=== PATIENT | female | born 1935 | race Caucasian/White ===

== ENCOUNTER 2019-12-28 05:01 | Emergency (ER) | payer MEDICARE, SELFPAY ==
[2019-12-28 05:02] VITALS: BP 150/84; PULSE 74; RESP 18; TEMP 36.6; O2SAT 93; BMI 33.6
--- NOTE | 2019-12-28 05:09 | ED_ITS ---
Entered by Pricila Peralta, acting as scribe for Tyshawn Marquez DO Dec 28, 2019 05:01 Documented by User: Amarilis Canchola MD 12/28/19 08:46 HPI - Chest Pain General: Chief Complaint: Chest Pain Stated Complaint: CHEST PAIN Time Seen by Provider: 12/28/19 05:10 [facility] ED PFSH: Medical History (Updated 12/28/19 @ 08:36 by Amarilis Canchola MD) Daytime somnolence Essential (primary) hypertension GERD (gastroesophageal reflux disease) Hypersomnia Postlaminectomy syndrome, not elsewhere classified Surgical History (Updated 11/13/19 @ 11:07 by Nahid Pink MD) S/P knee surgery S/P laminectomy Social History Smoking and tobacco status: former smoker Alcohol intake: never Lives independently: Yes Marital status: / Course Vital Signs: Vital signs: Vital Signs Temperature 97.9 F 12/28/19 05:02 Pulse Rate 69 12/28/19 08:37 Respiratory Rate 14 12/28/19 08:37 Blood Pressure 136/72 12/28/19 08:37 Pulse Oximetry 98 12/28/19 08:37 MDM - Chest Pain MDM Narrative: Medical decision making narrative: I took patient over from Dr. Marquez. Patient's chest pain was completely relieved with a GI cocktail. Patient states she has a history of reflux and feels like that caused her pain. Her initial and repeat troponin here are negative. She has no signs of cardiac cause or pulmonary embolism. Patient is stable for discharge and is to follow- up with primary care doctor in 3 to 5 days and return to ER if worsening. She u nderstands and agrees to the plan. Lab Data: Labs: Lab Results 12/28/19 12/28/19 12/28/19 Range/Units 05:20 05:20 05:20 WBC 7.6 (4.0-10.0) 10^3/ uL RBC 4.76 (4.1-5.3) 10^6/u L Hgb 14.5 (11.5-15.3) g/dL Hct 44.6 (37.0-47.0) % MCV 93.7 (81-99) fL MCH 30.5 (28.0-34.0) pg MCHC 32.5 (30.0-36.0) g/dL RDW 11.9 L (12.1-15.1) % Plt Count 221 (130-400) 10^3/c mm MPV 10.6 H (7.4-10.4) fL Neut % (Auto) 33.7 % Lymph % (Auto) 53.4 % Atlantic % (Auto) 8.9 % Eos % (Auto) 2.9 % Baso % (Auto) 0.8 % Neut # (Auto) 2.6 (1.8-7.7) 10^3/u L Lymph # (Auto) 4.0 (0.8-4.8) 10^3/u L Atlantic # (Auto) 0.7 (0.2-0.9) 10^3/u L Eos # (Auto) 0.2 (0.0-0.8) 10^3/u L Baso # (Auto) 0.1 (0.0-0.1) 10^3/u L Nucleated RBC % (a uto) 0 % Nucleated RBCs # 0.0 /100WBC PT 14.00 H (10.5-13.3) SECO NDS INR 1.05 (0.8-1.2) APTT 38.4 H (23.9-36.7) SECO NDS Sodium 136 (136-145) mmol/L Potassium 3.4 L (3.5-5.1) mmol/L Chloride 96 L (98-107) mmol/L Carbon Dioxide 30 H (22-29) mmol/L Anion Gap 13.4 (5-19) BUN 14 (8-23) mg/dL Creatinine 0.8 (0.5-0.9) mg/dL Glucose 105 (65-115) mg/dL Calcium 10.3 (8.5-10.5) mg/dL Total Bilirubin 0.4 (0.15-1.2) mg/dL AST 21 (0-32) U/L ALT 11 (0-33) U/L Alkaline Phosphata se 68 (35-105) IU/L Troponin T Baselin e (0-10) ng/mL Troponin T 120 Min jena (0-10) ng/mL Delta Troponin T (0-10) ABS# NT-Pro-B Natriuret Pep 137 (0-450) pg/mL Total Protein 7.8 (6.6-8.7) g/dL Albumin 4.3 (3.5-5.2) g/dL Globulin 3.5 (1.3-4.6) g/dL Urine Color (Yellow) Urine Appearance (CLEAR) Urine pH (5-7) Ur Specific Gravit y (1.005-1.030) Urine Protein (Negative) Urine Glucose (UA) (Normal) Urine Ketones (Negative) Urine Blood (Negative) Urine Nitrate (Negative) Urine Bilirubin (NEGATIVE) Urine Urobilinogen (Negative) mg/dL Ur Leukocyte Cindy ase (Negative) 12/28/19 12/28/19 12/28/19 Range/Units 05:20 06:10 07:50 WBC (4.0-10.0) 10^3/ uL RBC (4.1-5.3) 10^6/u L Hgb (11.5-15.3) g/dL Hct (37.0-47.0) % MCV (81-99) fL MCH (28.0-34.0) pg MCHC (30.0-36.0) g/dL RDW (12.1-15.1) % Plt Count (130-400) 10^3/c mm MPV (7.4-10.4) fL Neut % (Auto) % Lymph % (Auto) % Atlantic % (Auto) % Eos % (Auto) % Baso % (Auto) % Neut # (Auto) (1.8-7.7) 10^3/u L Lymph # (Auto) (0.8-4.8) 10^3/u L Atlantic # (Auto) (0.2-0.9) 10^3/u L Eos # (Auto) (0.0-0.8) 10^3/u L Baso # (Auto) (0.0-0.1) 10^3/u L Nucleated RBC % (a uto) % Nucleated RBCs # /100WBC PT (10.5-13.3) SECO NDS INR (0.8-1.2) APTT (23.9-36.7) SECO NDS Sodium (136-145) mmol/L Potassium (3.5-5.1) mmol/L Chloride (98-107) mmol/L Carbon Dioxide (22-29) mmol/L Anion Gap (5-19) BUN (8-23) mg/dL Creatinine (0.5-0.9) mg/dL Glucose (65-115) mg/dL Calcium (8.5-10.5) mg/dL Total Bilirubin (0.15-1.2) mg/dL AST (0-32) U/L ALT (0-33) U/L Alkaline Phosphata se (35-105) IU/L Troponin T Baselin e 7 (0-10) ng/mL Troponin T 120 Min jena 6.28 (0-10) ng/mL Delta Troponin T -0.72 L (0-10) ABS# NT-Pro-B Natriuret Pep (0-450) pg/mL Total Protein (6.6-8.7) g/dL Albumin (3.5-5.2) g/dL Globulin (1.3-4.6) g/dL Urine Color Straw (Yellow) Urine Appearance Clear (CLEAR) Urine pH 7 (5-7) Ur Specific Gravit y 1.005 (1.005-1.030) Urine Protein Neg (Negative) Urine Glucose (UA) Norm (Normal) Urine Ketones Negative (Negative) Urine Blood Neg (Negative) Urine Nitrate Negative (Negative) Urine Bilirubin Neg (NEGATIVE) Urine Urobilinogen Norm (Negative) mg/dL Ur Leukocyte Cindy ase Negative (Negative) Imaging Data^: CXR: Attestation: I personally reviewed and interpreted this imaging study as follows: My impression: no acute abnormality Discharge Plan Discharge Patient Disposition: Home, Self-Care Clinical Impression: Chest pain Qualifiers: Chest pain type: unspecified Qualified Code(s): R07.9 - Chest pain, unspecified Condition: Stable Prescriptions: No Action pantoprazole [Protonix] 40 mg tablet,delayed release (DR/EC) 40 mg PO BID RF: 0 aspirin [Adult Aspirin Regimen] 81 mg tablet,delayed release (DR/EC) 81 mg PO ONCE RF: 0 multivitamin Tablet 1 tab PO QAM RF: 0 trazodone 100 mg tablet 200 mg PO .AT BEDTIME Qty: 60 RF: 6 amlodipine 2.5 mg tablet 2.5 mg PO BID 90 Days Qty: 180 RF: 0 spironolacton-hydrochlorothiaz [Aldactazide] 25-25 mg tablet 0.5 tab PO QDAY MDD 0.5 TAB 180 Days Qty: 90 RF: 0 hydrocodone-acetaminophen [Sebring] 5-325 mg tablet 1 tab PO Q6H PRN (Reason: pain) 30 Days Qty: 120 RF: 0 gabapentin 300 mg capsule 900 mg PO TID Qty: 270 RF: 3 pantoprazole 40 mg tablet,delayed release (DR/EC) 40 mg PO DAILY RF: 0 hydrocodone-acetaminophen 5-325 mg tablet 5 - 325 tab PO UNK RF: 0 gabapentin 300 mg capsule 900 mg PO TID RF: 0 amlodipine 2.5 mg tablet 2.5 mg PO DAILY RF: 0 spironolacton-hydrochlorothiaz 25-25 mg tablet 1 tab PO DAILY RF: 0 Discharge Orders: Discharge Order (Routine); Ordered 12/28/19 Ordered By: Amarilis Canchola Referrals: Nahid Pink MD [Primary Care Provider] - 4-7 days Discharge Diet: Advance as tolerated Discharge Activity: Resume usual activity Patient Instructions: Chest Pain (ED) Discharge Date/Time: 12/28/19 08:38 Coding Level of Care Code ED Warehouse Incent[employer] Selector for Chg Fwd Exam Comprehensive Documented by User: Tyshawn Marquez DO 12/28/19 23:07 HPI - Chest Pain General: Chief Complaint: Chest Pain Stated Complaint: CHEST PAIN Time Seen by Provider: 12/28/19 05:10 Source: patient and EMS Mode of arrival: EMS History of Present Illness: HPI narrative: 84 y/o female presents to the ED with complaint of chest pain. Pt states she was awakened from sleep, with the pain, around 0400. She took 3 of her own supply of sublingual NTG, which reduced her pain from a 10 to a 3. EMS put NTG paste on her since she was having difficulty dissolving the SL due to her dry mouth. She reports pain radiating into her neck with the episode. She states she takes GERD medication regularly and has a chronic cough from her reflux. Pt states she had a bad episode of reflux before going to bed last night. MD complaint: chest pain Onset (ago): hour(s) (1) Timing of current episode: other (improving) Prior episodes: Yes Onset: during rest Pain location: left chest Pain radiation: neck Severity: severe Quality: sharp Relieving factors: nitroglycerin Associated symptoms: Deny abdominal pain, dyspnea, fever(s), palpitations or vomiting Review of Systems Const: Denies: fever or chills Eyes: Denies: change in vision or blurry vision ENMT: Denies: painful swallowing, swelling of lips/tongue, bleeding gums, dental pain, Change in hearing, nose bleeds, post nasal drip or facial/sinus pain Card: Reports: chest pain; Denies: palpitations, irregular heart rhythm, edema, swelling of feet/ankles, shortness of breath on exertion or shortness of breath when lying down Resp: Denies: shortness of breath, productive cough, non-productive cough or wheezing GI: Denies: abdominal pain, vomiting, rectal pain, blood in stool or black tarry stool : Denies: painful urination, urinary frequency, urinary urgency or blood in urine Musc: Reports: neck pain; Denies: back pain, redness or joint warmth Skin/Breast: Denies: rash, itching or redness Neuro: Denies: headache, dizziness, vertigo, confusion or seizure-like activity Psych: Denies: anxiety, visual hallucinations or auditory hallucinations PFSH ED PFSH: Medical History (Updated 12/28/19 @ 08:36 by Amarilis Canchola MD) Daytime somnolence Essential (primary) hypertension GERD (gastroesophageal reflux disease) Hypersomnia Postlaminectomy syndrome, not elsewhere classified Surgical History (Updated 11/13/19 @ 11:07 by Nahid Pink MD) S/P knee surgery S/P laminectomy Social History Smoking and tobacco status: former smoker Alcohol intake: never Lives independently: Yes Marital status: / Physical Exam Const: COMMON NORMALS: alert GENERAL APPEARANCE: well developed ORIENTATION/CONSCIOUSNESS: Yes awake, Yes oriented to person, Yes oriented to place and Yes oriented to time HENMT: COMMON NORMALS: normocephalic, external ears normal, external nose normal and moist oral mucous membranes HEAD & SCALP: normocephalic; no scalp tenderness FACE & SINUS: normal facial exam NOSE: external nose normal and no nasal discharge EXTERNAL EAR: Yes external ears normal MOUTH: tongue normal Eye: COMMON NORMALS: PERRL, EOMs intact bilaterally and conjunctivae normal EYELID: eyelids normal CONJUNCTIVA: Yes conjunctivae normal PUPIL: Yes PERRL Chest: COMMONS NORMALS: inspection of chest normal CHEST: Yes symmetrical chest wall rise and No tenderness Resp: COMMON NORMALS: clear to auscultation bilaterally EFFORT & INSPECTION: No tachypneic, No respiratory distress, No retractions, No uses accessory muscles and No tracheal deviation AUSCULTATION: clear to auscultation bilaterally, no rhonchi, no wheezes and lung sounds not diminished Cardio: COMMON NORMALS: regular rate and regular rhythm RATE: regular rate RHYTHM: regular rhythm PERIPHERAL PULSES: radial pulses present GI: INSPECTION: No abdominal distension AUSCULTATION: No hyperactive bowel sounds and No hypoactive bowel sounds PALPATION: No tender, No guarding and No rigid PERCUSSION: no dullness to percussion and no tympanic to percussion : COMMON NORMALS: Yes no CVA tenderness BLADDER/KIDNEY EXAM: Yes no CVA tenderness Back/Pelvis: COMMON NORMALS: no CVA tenderness PELVIS: Yes no pain with anterior-posterior compression and Yes no pain with lateral compression Neuro: SENSORIUM/ORIENTATION: Yes alert, Yes oriented to person, Yes oriented to place and Yes oriented to time Psych: COMMON NORMALS: mental status grossly normal and speech normal SPEECH: Yes normal speech Skin: COMMON NORMALS: no rashes or lesions noted GENERAL SKIN EXAM: no rashes or lesions noted Course Vital Signs: Vital signs: Vital Signs Temperature 97.9 F 12/28/19 05:02 Pulse Rate 69 12/28/19 08:37 Respiratory Rate 14 12/28/19 08:37 Blood Pressure 136/72 12/28/19 08:37 Pulse Oximetry 98 12/28/19 08:37 MDM - Chest Pain MDM Narrative: Medical decision making narrative: Patient evaluated initially by me. Checked out to Dr. Canchola. She was given a GI cocktail to see if that relieved her pain. Lab Data: Labs: Lab Results 12/28/19 12/28/1912/28/20 Range/Units 05:20 05:20 05:20 WBC 7.6 (4.0-10.0) 10^3/ uL RBC 4.76 (4.1-5.3) 10^6/u L Hgb 14.5 (11.5-15.3) g/dL Hct 44.6 (37.0-47.0) % MCV 93.7 (81-99) fL MCH 30.5 (28.0-34.0) pg MCHC 32.5 (30.0-36.0) g/dL RDW 11.9 L (12.1-15.1) % Plt Count 221 (130-400) 10^3/c mm MPV 10.6 H (7.4-10.4) fL Neut % (Auto) 33.7 % Lymph % (Auto) 53.4 % Atlantic % (Auto) 8.9 % Eos % (Auto) 2.9 % Baso % (Auto) 0.8 % Neut # (Auto) 2.6 (1.8-7.7) 10^3/u L Lymph # (Auto) 4.0 (0.8-4.8) 10^3/u L Atlantic # (Auto) 0.7 (0.2-0.9) 10^3/u L Eos # (Auto) 0.2 (0.0-0.8) 10^3/u L Baso # (Auto) 0.1 (0.0-0.1) 10^3/u L Nucleated RBC % (a uto) 0 % Nucleated RBCs # 0.0 /100WBC PT 14.00 H (10.5-13.3) SECO NDS INR 1.05 (0.8-1.2) APTT 38.4 H (23.9-36.7) SECO NDS Sodium 136 (136-145) mmol/L Potassium 3.4 L (3.5-5.1) mmol/L Chloride 96 L (98-107) mmol/L Carbon Dioxide 30 H (22-29) mmol/L Anion Gap 13.4 (5-19) BUN 14 (8-23) mg/dL Creatinine 0.8 (0.5-0.9) mg/dL Glucose 105 (65-115) mg/dL Calcium 10.3 (8.5-10.5) mg/dL Total Bilirubin 0.4 (0.15-1.2) mg/dL AST 21 (0-32) U/L ALT 11 (0-33) U/L Alkaline Phosphata se 68 (35-105) IU/L Troponin T Baselin e (0-10) ng/mL Troponin T 120 Min jena (0-10) ng/mL Delta Troponin T (0-10) ABS# NT-Pro-B Natriuret Pep 137 (0-450) pg/mL Total Protein 7.8 (6.6-8.7) g/dL Albumin 4.3 (3.5-5.2) g/dL Globulin 3.5 (1.3-4.6) g/dL Urine Color (Yellow) Urine Appearance (CLEAR) Urine pH (5-7) Ur Specific Gravit y (1.005-1.030) Urine Protein (Negative) Urine Glucose (UA) (Normal) Urine Ketones (Negative) Urine Blood (Negative) Urine Nitrate (Negative) Urine Bilirubin (NEGATIVE) Urine Urobilinogen (Negative) mg/dL Ur Leukocyte Cindy ase (Negative) 12/28/19 12/28/19 12/28/19 Range/Units 05:20 06:10 07:50 WBC (4.0-10.0) 10^3/ uL RBC (4.1-5.3) 10^6/u L Hgb (11.5-15.3) g/dL Hct (37.0-47.0) % MCV (81-99) fL MCH (28.0-34.0) pg MCHC (30.0-36.0) g/dL RDW (12.1-15.1) % Plt Count (130-400) 10^3/c mm MPV (7.4-10.4) fL Neut % (Auto) % Lymph % (Auto) % Atlantic % (Auto) % Eos % (Auto) % Baso % (Auto) % Neut # (Auto) (1.8-7.7) 10^3/u L Lymph # (Auto) (0.8-4.8) 10^3/u L Atlantic # (Auto) (0.2-0.9) 10^3/u L Eos # (Auto) (0.0-0.8) 10^3/u L Baso # (Auto) (0.0-0.1) 10^3/u L Nucleated RBC % (a uto) % Nucleated RBCs # /100WBC PT (10.5-13.3) SECO NDS INR (0.8-1.2) APTT (23.9-36.7) SECO NDS Sodium (136-145) mmol/L Potassium (3.5-5.1) mmol/L Chloride (98-107) mmol/L Carbon Dioxide (22-29) mmol/L Anion Gap (5-19) BUN (8-23) mg/dL Creatinine (0.5-0.9) mg/dL Glucose (65-115) mg/dL Calcium (8.5-10.5) mg/dL Total Bilirubin (0.15-1.2) mg/dL AST (0-32) U/L ALT (0-33) U/L Alkaline Phosphata se (35-105) IU/L Troponin T Baselin e 7 (0-10) ng/mL Troponin T 120 Min jena 6.28 (0-10) ng/mL Delta Troponin T -0.72 L (0-10) ABS# NT-Pro-B Natriuret Pep (0-450) pg/mL Total Protein (6.6-8.7) g/dL Albumin (3.5-5.2) g/dL Globulin (1.3-4.6) g/dL Urine Color Straw (Yellow) Urine Appearance Clear (CLEAR) Urine pH 7 (5-7) Ur Specific Gravit y 1.005 (1.005-1.030) Urine Protein Neg (Negative) Urine Glucose (UA) Norm (Normal) Urine Ketones Negative (Negative) Urine Blood Neg (Negative) Urine Nitrate Negative (Negative) Urine Bilirubin Neg (NEGATIVE) Urine Urobilinogen Norm (Negative) mg/dL Ur Leukocyte Cindy ase Negative (Negative) EKG Data^: EKG 1: EKG interpretation date: 12/28/19 EKG interpretation time: 05:14 Computer generated interpretation: sinus rhythm vent rate 68 bpm QRS [id number] ms Discharge Plan Discharge Patient Disposition: Home, Self-Care Clinical Impression: Chest pain Qualifiers: Chest pain type: unspecified Qualified Code(s): R07.9 - Chest pain, unspecified Condition: Stable Prescriptions: No Action pantoprazole [Protonix] 40 mg tablet,delayed release (DR/EC) 40 mg PO BID RF: 0 aspirin [Adult Aspirin Regimen] 81 mg tablet,delayed release (DR/EC) 81 mg PO ONCE RF: 0 multivitamin Tablet 1 tab PO QAM RF: 0 trazodone 100 mg tablet 200 mg PO .AT BEDTIME Qty: 60 RF: 6 amlodipine 2.5 mg tablet 2.5 mg PO BID 90 Days Qty: 180 RF: 0 spironolacton-hydrochlorothiaz [Aldactazide] 25-25 mg tablet 0.5 tab PO QDAY MDD 0.5 TAB 180 Days Qty: 90 RF: 0 hydrocodone-acetaminophen [Sebring] 5-325 mg tablet 1 tab PO Q6H PRN (Reason: pain) 30 Days Qty: 120 RF: 0 gabapentin 300 mg capsule 900 mg PO TID Qty: 270 RF: 3 pantoprazole 40 mg tablet,delayed release (DR/EC) 40 mg PO DAILY RF: 0 hydrocodone-acetaminophen 5-325 mg tablet 5 - 325 tab PO UNK RF: 0 gabapentin 300 mg capsule 900 mg PO TID RF: 0 amlodipine 2.5 mg tablet 2.5 mg PO DAILY RF: 0 spironolacton-hydrochlorothiaz 25-25 mg tablet 1 tab PO DAILY RF: 0 Discharge Orders: Discharge Order (Routine); Ordered 12/28/19 Ordered By: Amarilis Canchola Referrals: Nahid Pink MD [Primary Care Provider] - 4-7 days Discharge Diet: Advance as tolerated Discharge Activity: Resume usual activity Patient Instructions: Chest Pain (ED) Discharge Date/Time: 12/28/19 08:38 Coding Level of Care Code ED Warehouse Incentive Selector for g Fwd Exam Comprehensive The documentation recorded by the Fabian salas Ashley, accurately reflects the service I personally performed and the decisions made by Jimmy montoya Jeremy John, DO Dec 28, 2019 05:01
--- NOTE | 2019-12-28 05:12 | ECG_ITS ---
Measurements Intervals Ivor Rate: 68 P: 10 AK: 148 QRS: 14 QRSD: 107 T: 32 QT: 427 QTc: 457 SINUS RHYTHM WITH OCCASIONAL SUPRAVENTRICULAR PREMATURE COMPLEXES Compared to ECG 02/20/2017 14:41:30 Myocardial infarct finding no longer present Electronically Signed On 12-28-2019 13:05:29 DIE FILER by Dawn Hernandez M.D. [email or web address]
--- NOTE | 2019-12-28 05:12 | XR_ITS ---
WS: [id number] XR chest 1V portable [id number] REASON FOR EXAM: cp FINDINGS: Cardiomegaly with arteriosclerotic changes. The peripheral lungs are clear. There is no pne umothorax, pleural effusion, pulmonary edema, or pneumonia. A scoliotic curve convex to the right is seen. XR/XR chest 1V portable [id number] IMPRESSION: Arteriosclerotic heart disease Scoliosis convex to the right.
[2019-12-28 05:29] LABS: Basophils # 0.1 10^3/uL (0.0-0.1); Basophils % 0.8 %; Eosinophils # 0.2 10^3/uL (0.0-0.8); Eosinophils % 2.9 %; Hematocrit 44.6 % (37.0-47.0); Hemoglobin 14.5 g/dL (11.5-15.3); Lymphocytes % 53.4 %; Mean Corpuscular HGB Conc 32.5 g/dL (30.0-36.0); Mean Corpuscular Hemoglobin 30.5 pg (28.0-34.0); Mean Corpuscular Volume 93.7 fL (81-99); Mean Platelet Volume 10.6 fL (7.4-10.4); Monocytes # 0.7 10^3/uL (0.2-0.9); Monocytes % 8.9 %; Neutrophils # 2.6 10^3/uL (1.8-7.7); Neutrophils % 33.7 %; Nucleated Red Blood Cells % 0 %; Platelet Count 221 10^3/cmm (130-400); Red Blood Count 4.76 10^6/uL (4.1-5.3); Red Cell Distribution Width 11.9 % (12.1-15.1); White Blood Count 7.6 10^3/uL (4.0-10.0)
[2019-12-28 05:36] LABS: INR 1.05 (0.8-1.2)
[2019-12-28 05:37] LABS: Partial Thromboplastin Time 38.4 SECONDS (23.9-36.7)
[2019-12-28 05:43] VITALS: O2SAT 92
[2019-12-28 05:45] LABS: Troponin(5th) Baseline 7 ng/mL (0-10)
[2019-12-28] MEDS: lidocaine 2% viscous 15 ML, aluminum-mag hydrox-simethicon 30 ML, sucralfate oral liq 1 GM PO (05:51)
[2019-12-28 05:54] LABS: Alanine Aminotransferase 11 U/L (0-33); Albumin Level 4.3 g/dL (3.5-5.2); Alkaline Phosphatase 68 IU/L (35-105); Anion Gap 13.4 (5-19); Aspartate Amino Transferase 21 U/L (0-32); Blood Urea Nitrogen 14 mg/dL (8-23); Calcium 10.3 mg/dL (8.5-10.5); Carbon Dioxide 30 mmol/L (22-29); Chloride 96 mmol/L (98-107); Creatinine Clr Calc Pharmacy 52.1892; Globulin 3.5 g/dL (1.3-4.6); Glucose 105 mg/dL (65-115); NT Pro B Type Natriuretic Pept 137 pg/mL (0-450); Potassium 3.4 mmol/L (3.5-5.1); Sodium 136 mmol/L (136-145); Total Bilirubin 0.4 mg/dL (0.15-1.2); Total Protein 7.8 g/dL (6.6-8.7)
[2019-12-28 06:00] VITALS: PULSE 81; RESP 19
[2019-12-28 06:30] VITALS: PULSE 83; RESP 13
[2019-12-28 06:35] LABS: Add Urine Microscopic? NO
[2019-12-28 06:46] LABS: Bilirubin Urine Neg (NEGATIVE); Blood Urine Neg (Negative); Glucose Urine UA Norm (Normal); Ketones Urine Negative (Negative); Leukocyte Esterase Urine Negative (Negative); Nitrate Urine Negative (Negative); Protein Urine Neg (Negative); Specific Gravity, Urine 1.005 (1.005-1.030); Urine Appearance Clear (CLEAR); Urine Color Straw (Yellow); Urobilinogen Urine Norm (Negative); pH Urine 7 (5-7)
[2019-12-28 08:23] LABS: Troponin 5 2HR 6.28 ng/mL (0-10)
[2019-12-28 08:37] VITALS: BP 136/72; PULSE 69; RESP 14; O2SAT 98
[2019-12-28 08:47] LABS: Troponin 5 2HR Delta -0.72 ABS# (0-10)
== END 2019-12-28 08:38 | disposition home or self-care (01) ==
PROVIDERS: Emergency Medicine; Emergency Provider Emergency Medicine; Family Provider Internal Medicine; PCP Internal Medicine
DX: R07.9 Chest pain, unspecified (principal); K21.9 Gastro-esophageal reflux disease without esophagitis; I10 Essential (primary) hypertension; Z87.891 Personal history of nicotine dependence
CPT/HCPCS: 36415; 71045; 80053; 81003; 83880; 84484; 85025; 85610; 85730; 93005; 99283; 99284; A9270

== ENCOUNTER 2019-12-31 20:00 | Outpatient (CLI) | payer MEDICARE, SELFPAY | END 2019-12-31 20:01 | disposition home or self-care (01) | LOC: SLEEP 01-01 10:24 | PROVIDERS: Family Provider Internal Medicine; PCP Internal Medicine; Visit Provider Internal Medicine | DX: G47.33 Obstructive sleep apnea (adult) (pediatric) (principal) | CPT/HCPCS: 95810 ==

== ENCOUNTER 2020-04-19 20:00 | Outpatient (CLI) | payer MEDICARE, SELFPAY | END 2020-04-19 20:01 | disposition home or self-care (01) | LOC: SLEEP 04-20 08:36 | PROVIDERS: Family Provider Internal Medicine; PCP Internal Medicine; Visit Provider Internal Medicine | DX: G47.33 Obstructive sleep apnea (adult) (pediatric) (principal); R09.02 Hypoxemia | CPT/HCPCS: 95811 ==

== ENCOUNTER → 2020-12-30 15:45 | Outpatient (BNVA) | payer MEDICARE, SELFPAY | PROVIDERS: Family Provider Internal Medicine; PCP Internal Medicine; Visit Provider Internal Medicine | DX: R53.83 Other fatigue (principal); G47.33 Obstructive sleep apnea (adult) (pediatric); G89.29 Other chronic pain; I10 Essential (primary) hypertension | CPT/HCPCS: 80053; 82607; 82746; 83036; 83550; 84443; 85025 ==

== ENCOUNTER 2021-02-10 09:05 | Outpatient (CLI) | payer MEDICARE, SELFPAY ==
--- NOTE | 2021-02-10 09:30 | CT_ITS ---
WS: [id number] CT HEAD WITH AND WITHOUT CONTRAST HISTORY: U07.1 - COVID-19 TECHNIQUE: Noncontrast 2.5 mm axial images obtained from the vertex to the skull base. Additional kary ging performed at 2.5 mm axial images status post IV contrast. Bone and soft tissue windows are revie wed. All CT scans at [facility] use at least one of these dose optimization techniques: a utomated exposure control; mA and/or kV adjustment per patient size (includes targeted exams where do se is matched to clinical indication); or iterative reconstruction. CONTRAST: Omnipaque 300; 95 mL IV. DLP: 1984.08 mGycm COMPARISON: 06/04/2014 No acute intracranial hemorrhage, edema or midline shift. Mild microvascular ischemic type changes wi thin the white matter. No prior infarct or edema. Ventricles are normal size. No enhancing mass or vascular malformations identified. Dural venous sinuses are normally enhancing. Visualized [place] is unremarkable. Paranasal sinuses as visualized: Clear. Mastoid air cells: Clear. Calvarium and scalp: Intact. CT/CT head wo/w con [id number] IMPRESSION: 1. No acute intracranial hemorrhage or edema. 2. Very minimal chronic microvascular ischemic disease. 3. No mass or vascular malformation. No sinus disease.
[2021-02-10 09:50] LABS: Blood Urea Nitrogen 9 mg/dL (8-23)
[2021-02-10] MEDS: iohexol 300 mg/mL 100 mL Btl IV (10:04)
== END 2021-02-10 09:06 | disposition home or self-care (01) ==
PROVIDERS: PCP Internal Medicine; Visit Provider Internal Medicine
DX: U07.1 COVID-19 (principal); I67.82 Cerebral ischemia
CPT/HCPCS: 70470; 82565; 84520; Q9967

== ENCOUNTER 2021-05-25 10:34 | Outpatient (CLI) | payer MEDICARE, SELFPAY ==
--- NOTE | 2021-05-25 10:52 | XR_ITS ---
WS: [id number] Right wrist, 3 views, 05/25/2021 Clinical Data: Fall injury wrist Comparison: None. Findings: There is a fracture of the base of the right fifth metacarpal. There is calcification of the triradia te cartilage. The carpal bones themselves appear intact. The distal right radius and ulna show no fra ctures. XR/XR wrist RT min 3V* [id number] Impression: Fracture of the base of the right fifth metacarpal.
--- NOTE | 2021-05-25 10:52 | XR_ITS ---
WS: [id number] Right knee, 3 views, 05/25/2021 Clinical Data: Fall Comparison: AP view of the right knee, 06/30/2016. Findings: No fractures or dislocations are seen. There is chondrocalcinosis of the medial and lateral joint spa katie. There is narrowing of the medial and lateral joint compartments. The patella shows anterior spur ring. The soft tissues are unremarkable. XR/XR knee RT 3V* [id number] Impression: 1. Negative for fracture. 2. 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 Kellgren-Avel Classification: grade 3 (moderate): moderate multiple osteoph ytes, definite narrowing of joint space and some sclerosis and possible deformi ty of bone ends
--- NOTE | 2021-05-25 10:52 | XR_ITS ---
WS: [id number] Right hand, 3 views, 05/25/2021 Clinical Data: Fall injury to wrist/hand Comparison: None. Findings: There is a fracture of the base of the right fifth metacarpal.No other fractures are seen. The joint spaces are not remarkable. No periarticular demineralization is seen. There is calcificatio n of the triradiate cartilage. XR/XR hand RT min 3V* [id number] Impression: Fracture of the base of the right fifth metacarpal.
== END 2021-05-25 10:35 | disposition home or self-care (01) ==
LOC: LAB 10:44 → RAD 10:45
PROVIDERS: PCP Internal Medicine; Visit Provider Nurse Practitioner Family
DX: S69.91XA Unspecified injury of right wrist, hand and finger(s), initial encounter (principal); S62.316A Displaced fracture of base of fifth metacarpal bone, right hand, initial encounter for closed fracture; W10.9XXA Fall (on) (from) unspecified stairs and steps, initial encounter; M11.261 Other chondrocalcinosis, right knee; Z46.89 Encounter for fitting and adjustment of other specified devices; S62.396D Other fracture of fifth metacarpal bone, right hand, subsequent encounter for fracture with routine healing; S52.591D Other fractures of lower end of right radius, subsequent encounter for closed fracture with routine healing; X58.XXXD Exposure to other specified factors, subsequent encounter
CPT/HCPCS: 73110; 73130; 73562

== ENCOUNTER 2021-05-25 12:41 | Outpatient (CLI) | payer MEDICARE, SELFPAY ==
--- NOTE | 2021-05-25 12:51 | CT_ITS ---
WS: [id number] CT FACIAL BONES TECHNIQUE: Noncontrast facial bones with coronal and sagittal reformatted images. CLINICAL INFORMATION: Periorbital Abrasion/Bruising Fall COMPARISON: None. DLP: 956.[address] scans at [facility] use at least one of these dose optimization techniques: automat ed exposure control; mA and/or kV adjustment per patient size (includes targeted exams where dose is matched to clinical indication); or iterative reconstruction. FINDINGS: Soft tissue edema overlying the right facial bones. Subcutaneous edema. Frontal calvarium is normal. Normal nasal bones. Lateral orbits are normal in appearance. Normal zygoma. Normal pterygoid plates. Paranasal sinuses and mastoid air cells are well aerated. Normal lamina papyracea. No evidence of ma ndibular fracture or dislocation. 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 Degenerative arthritis both temporal mandibular joints. Normal lamina papyracea. Normal pterygopalatine fossa. Normal pterygoid plates. CT/CT facial bones wo con* [id number] IMPRESSION: 1. No acute facial fractures. 2. Paranasal sinuses are well aerated. 3. Soft tissue edema consistent with recent trauma overlying the right orbit.
--- NOTE | 2021-05-25 12:51 | CT_ITS ---
WS: [id number] CT HEAD TECHNIQUE: Noncontrast CT of the head obtained from the skullbase to the vertex. CLINICAL INFORMATION: FALL with injury to face COMPARISON: None. DLP: 992.[address] scans at [facility] use at least one of these dose optimization techniques: automat ed exposure control; mA and/or kV adjustment per patient size (includes targeted exams where dose is matched to clinical indication); or iterative reconstruction. FINDINGS: No evidence of intracranial hemorrhage or mass effect. Ventricular system and basal cisterns are bartlett nt. Mild small vessel changes with mild parenchymal volume loss. No extra-axial fluid collections. No evidence of mass or mass effect. Normal schofield-white differentiation. Paranasal sinuses and mastoid air cells are well aerated. .Normal visualized soft tissues. CT/CT head wo con* [id number] IMPRESSION: 1. No evidence of intracranial hemorrhage or mass effect. 2. Mild small vessel changes. Mild parenchymal volume loss. 3. No acute intracranial findings.
--- NOTE | 2021-05-25 13:00 | CT_ITS ---
WS: [id number] CT CERVICAL TRAUMA TECHNIQUE: Noncontrast CT of the cervical spine with coronal and sagittal reformatted images. CLINICAL INFORMATION: Fall/Injury COMPARISON: None. DLP: 1441.[address] scans at [facility] use at least one of these dose optimization techniques: automat ed exposure control; mA and/or kV adjustment per patient size (includes targeted exams where dose is matched to clinical indication); or iterative reconstruction. FINDINGS: Moderate spondylitic changes. Cervical curve convex left. Normal C1-C2 articulation. Disc s pace narrowing worse at C4-C5 C5-C6 and C6-C7. Slight retrolisthesis C5 on C6. Disc osteophyte comple xes worse at C4-C5 and C5-C6. Moderate facet arthropathy throughout the cervical spine. Mild central canal stenosis C4-C5 and C5-C6. Moderate C4-5, moderate bilateral C5-C6 and mild to moderate bilatera l C6-7 foraminal narrowing worse in the left. Lung apices are well aerated. Normal C1-C2 articulation. Dens is normal in appearance. Normal occipital condyles. Normal C1 ring. N o evidence of acute fracture or dislocation. Normal prevertebral soft tissues. Mastoids air cells are well aerated. CT/CT cervical spin wo con* [id number] IMPRESSION: No evidence of acute fracture or dislocation.
== END 2021-05-25 12:42 | disposition home or self-care (01) ==
LOC: RADWPI 12:48
PROVIDERS: PCP Internal Medicine; Visit Provider Nurse Practitioner Family
DX: S00.10XA Contusion of unspecified eyelid and periocular area, initial encounter (principal); S00.81XA Abrasion of other part of head, initial encounter; S69.91XA Unspecified injury of right wrist, hand and finger(s), initial encounter; W10.9XXA Fall (on) (from) unspecified stairs and steps, initial encounter; R60.0 Localized edema; S62.316A Displaced fracture of base of fifth metacarpal bone, right hand, initial encounter for closed fracture; M11.261 Other chondrocalcinosis, right knee; Z46.89 Encounter for fitting and adjustment of other specified devices; S62.396D Other fracture of fifth metacarpal bone, right hand, subsequent encounter for fracture with routine healing; S52.591D Other fractures of lower end of right radius, subsequent encounter for closed fracture with routine healing; X58.XXXD Exposure to other specified factors, subsequent encounter
CPT/HCPCS: 70450; 70486; 72125; 73110; 73130; 73562; 97760; L3982

== ENCOUNTER 2021-05-25 15:56 | Outpatient (CLI) | payer MEDICARE, SELFPAY | END 2021-05-25 15:57 | disposition home or self-care (01) | LOC: SPT 16:02 | PROVIDERS: PCP Internal Medicine; Visit Provider Specialist | DX: Z46.89 Encounter for fitting and adjustment of other specified devices (principal); S62.396D Other fracture of fifth metacarpal bone, right hand, subsequent encounter for fracture with routine healing; S52.591D Other fractures of lower end of right radius, subsequent encounter for closed fracture with routine healing; X58.XXXD Exposure to other specified factors, subsequent encounter | CPT/HCPCS: 97760; L3982 ==

== ENCOUNTER → 2021-06-16 08:56 | Outpatient (BNVA) | payer MEDICARE, SELFPAY | PROVIDERS: PCP Internal Medicine; Visit Provider Specialist | DX: S62.346A Nondisplaced fracture of base of fifth metacarpal bone, right hand, initial encounter for closed fracture; X58.XXXA Exposure to other specified factors, initial encounter | CPT/HCPCS: 73130 ==

== ENCOUNTER → 2021-07-07 10:07 | Outpatient (BNVA) | payer MEDICARE, SELFPAY | PROVIDERS: PCP Internal Medicine; Visit Provider Specialist | DX: S52.591A Other fractures of lower end of right radius, initial encounter for closed fracture (principal); S62.346A Nondisplaced fracture of base of fifth metacarpal bone, right hand, initial encounter for closed fracture; X58.XXXA Exposure to other specified factors, initial encounter | CPT/HCPCS: 73130 ==

== ENCOUNTER 2021-08-29 09:40 | Outpatient (CLI) | payer MEDICARE, MEDICAID, SELFPAY ==
--- NOTE | 2021-08-29 09:48 | XR_ITS ---
WS: [id number] Exam: XR knee LT 3V* [id number] Date/Time of Exam: 08/29/2021 9:50 AM Reason For Exam: Pain/swelling Comparison 06/30/2016. No acute fracture or dislocation. Moderately advanced tricompartmental DJD noted. There is a chondroc alcinosis with probable loose joint bodies in the medial lateral joint compartments. Minimal joint ef fusion noted. Spurring of the posterior patella. XR/XR knee LT 3V* [id number] IMPRESSION: 1. 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 2. No fracture or dislocation. 3. Small joint effusion.
== END 2021-08-29 09:41 | disposition home or self-care (01) ==
LOC: RAD 09:45
PROVIDERS: PCP Internal Medicine; Visit Provider Nurse Practitioner Family
DX: M25.562 Pain in left knee (principal); M79.89 Other specified soft tissue disorders; M17.12 Unilateral primary osteoarthritis, left knee; M25.462 Effusion, left knee
CPT/HCPCS: 73562

== ENCOUNTER → 2021-10-10 10:01 | Outpatient (BNVA) | payer MEDICARE, MEDICAID, SELFPAY | PROVIDERS: PCP Internal Medicine; Referring Provider Nurse Practitioner Family; Visit Provider Specialist | DX: M17.12 Unilateral primary osteoarthritis, left knee (principal); M25.562 Pain in left knee | CPT/HCPCS: 73560; 73565 ==

== ENCOUNTER → 2021-10-27 00:01 | Outpatient (BNVA) | payer MEDICARE, MEDICAID, SELFPAY | PROVIDERS: PCP Internal Medicine; Visit Provider Specialist | DX: Z01.812 Encounter for preprocedural laboratory examination (principal); Z20.822 Contact with and (suspected) exposure to COVID-19 | CPT/HCPCS: 87635 ==

== ENCOUNTER 2021-11-01 17:00 | Observation (INO) | payer MEDICARE, MEDICAID, SELFPAY ==
[2021-10-27 09:22] VITALS: BMI 30.4
--- NOTE | 2021-10-27 09:50 | ECG_ITS ---
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 Measurements Intervals [place] Rate: 68 P: 95 NV: 157 QRS: 20 QRSD: 98 T: 30 QT: 383 QTc: 408 Interpretive Statements SINUS RHYTHM Compared to ECG 12/28/2019 05:13:06 No significant changes Electronically Signed On 10-27-2021 20:40:59 GAME ENGINEER by Leeroy Garcia M.D. [id number]
[2021-10-27 09:51] LABS: Add Urine Microscopic? NO; Charge for UA Resulting for Rev
[2021-10-27 10:02] LABS: Basophils # 0.1 10^3/uL (0.0-0.1); Basophils % 1.4 %; Eosinophils # 0.1 10^3/uL (0.0-0.8); Eosinophils % 1.5 %; Hematocrit 42.4 % (37.0-47.0); Lymphocytes # 2.5 10^3/uL (0.8-4.8); Lymphocytes % 42.1 %; Mean Corpuscular Hemoglobin 31.5 pg (28.0-34.0); Mean Corpuscular Volume 95.3 fl (81-99); Mean Platelet Volume 9.7 fL (7.4-10.4); Monocytes # 0.5 10^3/uL (0.2-0.9); Monocytes % 7.7 %; Neutrophils # 2.76 10^3/uL (1.8-7.7); Neutrophils % 47.1 %; Nucleated Red Blood Cells % 0 %; Platelet Count 253 10^3/cmm (130-400); Red Blood Count 4.45 10^6/uL (4.1-5.3); Red Cell Distribution Width 12.3 % (12.1-15.1); White Blood Count 5.9 10^3/uL (4.0-10.0)
--- NOTE | 2021-10-27 10:15 | ANES.PREANE2 ---
Pre-Anesthetic Assessment Pre-Anesthetic Assessment: Height/Weight: Height 1.55 m Weight 73.028 kg Proposed Procedure: Operation Date: 11/01/21 13:45 Proposed Procedures p Total Knee Arthroplasty 08722 M17.10(Left) - Grace Churchill MD Was Beta Neto taken within 24 hours: N/A Was Clonidine taken within 24 hours: N/A Social: Social History: No alcohol and No tobacco Exam: Pre-Anes Outpt Exam: alert, oriented x 3, clear to auscultation bilaterally and regular rate & rhythm Airway: Submandibular: WNL Cervical ROM: WNL MP: 2 Additional comments: Missing multiple teeth Pulmonary: Pulmonary: Sleep apnea CV/HEM: CV/HEM: HTN Comments: Hx of chest pain. Last episode in 2019. ER visit negative cardiac work up, symptoms resolved with GI cocktail, thought to be related to GERD/esophagits Hepatic: Hepatic: None reported GI: GI: GERD Metabolic: Metabolic: None reported Musc/skel: Musc/skel: OA/DJD Neuropsych: Neuropsych: None reported Anesthetic Plan: ASA status: 2 Anesthesia: Anesthesia Evaluation, Eval. for regional block, General and Regional (specify below) Other: We discussed options for anesthesia and their risk benefit profiles including spinal w/ and w/o sedation, general, and adductor canal block for post op pain control. Patient at this time would prefer spinal with adductor canal block with as needed sedation. Patient understands that given possilble length of surgery conversion to general may be necessary. Risk of > 500 ml blood loss (7ml/kg in children): No PFSH Anesthesia PFSH: Medical History Chronic back pain COVID-19 virus infection Daytime somnolence Essential (primary) hypertension GERD (gastroesophageal reflux disease) Hypersomnia Postlaminectomy syndrome, not elsewhere classified Unilateral primary osteoarthritis, left knee Surgical History S/P knee surgery S/P laminectomy Family History Other Diabetes Heart disease Hypertension Social History Smoking and tobacco status: never smoked Alcohol intake: never Lives independently: Yes Marital status: / History of recent travel: No Data Anesthesia CBC & Chem 7: 10/27/21 09:30 10/27/21 09:45 Other Labs: Laboratory Results - last 48 hr 10/27/21 09:30 WBC 5.9 RBC 4.45 Hgb 14.0 Hct 42.4 MCV 95.3 MCH 31.5 MCHC 33.0 RDW 12.3 Plt Count 253 MPV 9.7 Neut % (Auto) 47.1 Lymph % (Auto) 42.1 [place] % (Auto) 7.7 Eos % (Auto) 1.5 Baso % (Auto) 1.4 Neut # (Auto) 2.76 Lymph # (Auto) 2.5 [place] # (Auto) 0.5 Eos # (Auto) 0.1 Baso # (Auto) 0.1 Nucleated RBC % (auto) 0 Nucleated RBCs # 0.0 Cardiac Studies: No Data to Display
[2021-10-27 10:20] LABS: Bilirubin Urine Neg (Negative); Blood Urine Neg (Negative); Glucose Urine UA Norm (Normal); Ketones Urine Negative (Negative); Leukocyte Esterase Urine Negative (Negative); Nitrate Urine Negative (Negative); Protein Urine Neg (Negative); Specific Gravity, Urine 1.005 (1.005-1.030); Urine Appearance Clear (CLEAR); Urine Color Yellow (Yellow); Urobilinogen Urine Norm (Negative); pH Urine 7 (5-7)
[2021-10-27 10:36] LABS: Alanine Aminotransferase 9 U/L (0-33); Albumin Level 4.2 g/dL (3.5-5.2); Alkaline Phosphatase 61 IU/L (35-105); Anion Gap 15.7 (5-19); Aspartate Amino Transferase 19 U/L (0-32); Blood Urea Nitrogen 10 mg/dL (8-23); Calcium 9.4 mg/dL (8.5-10.5); Carbon Dioxide 25 mmol/L (22-29); Chloride 98 mmol/L (98-107); Globulin 3.1 g/dL (1.3-4.6); Glucose 89 mg/dL (65-115); Osmolality Calculated 279 mOsm/kg (285-295); Potassium 3.7 mmol/L (3.5-5.1); Sodium 135 mmol/L (136-145); Total Bilirubin 0.4 mg/dL (0.15-1.2); Total Protein 7.3 g/dL (6.6-8.7)
[2021-11-01] VITALS (16 sets, daily range): BP systolic 113–175; BP diastolic 60–96; PULSE 66–89; RESP 15–27; TEMP 36.3–36.7; O2SAT 90–97; BMI 30.4
[2021-11-01] MEDS: sodium chloride 0.9% 1,000 ML 30 ML IV (09:36)
[2021-11-01] MEDS: acetaminophen 1,000 MG/100 ML PIGGYBACK 400 MG IV ×2 (09:38→17:49)
--- NOTE | 2021-11-01 09:54 | P.ANESUD_ITS ---
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 Proposed Procedure: Operation Date: 11/01/21 10:30 Proposed Procedures p Total Knee Arthroplasty 35600 M17.10(Left) - Grace Churchill MD Any changes to Pre-Anesthetic Assessment?: No Last Intake: Intake Last Liquid Date 11/01/21 Last Liquid Time 04:00 Last Solid Date 10/31/21 Last Solid Time 23:00 Vitals: Temperature 97.9 F 11/01/21 08:59 Temperature Source Temporal Artery S can 11/01/21 08:59 Pulse Rate 66 11/01/21 09:40 Pulse Rhythm 11/01/21 09:01 Pulse Strength 3+ Normal 11/01/21 09:01 Respiratory Rate 16 11/01/21 09:40 Blood Pressure 126/60 11/01/21 09:40 Blood Pressure Vee n 82 11/01/21 09:40 Pulse Oximetry 93 11/01/21 09:40 Oxygen Delivery Me thod 11/01/21 09:40 Exam: Pre-Anes Outpt Exam: alert, oriented x 3, clear to auscultation bilaterally and regular rate & rhythm Cardiac Studies: No Data to Display
--- NOTE | 2021-11-01 09:55 | ANES.PROC ---
Anesthesia Procedures Procedure/Date: 11/01/21 Nerve Block ^: Nerve Block 1: Main Anesthesia: general anesthesia Time Out Performed: Yes Consent: requested by attending/covering physician, from patient, risks and benefits reviewed and patient agrees to proceed Nerve block location: femoral (L) Anesthesia monitors applied: pulse oximetry, BP cuff and oxygen Nerve block position: supine Anesthetic Used: ropivicaine 0.5% and with decadron (4 mg) Amount of anesthesia used (mL): 30 Ultrasound used to: recognize landmarks Nerve Stimulator Used?: No Interscalene/Femoral BLK: 4 stimuplex 21 g needle used for position and inplane approach, visualize local anesthetic spread and no vascular puncture identified Injection: neg aspiration of heme Patient Tolerated Procedure: well Complications: none
[2021-11-01] MEDS: vancomycin 1,000 MG in sodium chloride 0.9% 250 ML 250 MG IV (10:00)
--- NOTE | 2021-11-01 10:26 | P.HPUD_ITS ---
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
[2021-11-01] MEDS: scopolamine 1.5 Patch 1 PATCH TRANSDERMA (10:31)
[2021-11-01] MEDS: vancomycin 1,000 MG SDV 5000 MG IRRIGATION (11:51)
--- NOTE | 2021-11-01 14:10 | XR_ITS ---
WS: [id number] Left knee, AP and lateral views, 11/01/2021 Clinical Data: Status post left total knee arthroplasty Comparison: Left knee, 10/10/2021 Findings: A left knee arthroplasty is in position. There is residual air in the joint space and subcutaneous ti ssue from the surgery. Anterior surgical magdalene are present. XR/XR knee LT 1-2V 11824 Impression: Left knee arthroplasty.
--- NOTE | 2021-11-01 14:16 | PC.NURSE ---
Ready to transfer pt at 1416, no rooms available, pt able to move toes bilaterally
--- NOTE | 2021-11-01 14:26 | P.OP_ITS ---
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 Post-op diagnosis: same Post-op Findings: Significant valgus deformity with loss of bone laterally Procedure Done: Left total knee arthroplasty Implants: The James total knee system with a size 4 triathlon beaded posterior stabilized femur left, a triathlon titanium tibial component size 4 beaded, a triathlon X3 posterior stabilized tibial bearing insert size 4 X 13 mm and a beaded triathlon titanium asymmetric patella size 32 x 10 mm Specimens removed/disposition: Bone, disposed of Pathology: none sent Surgeon: Grace Churchill Jewelry Inspector: [facility] [place] [facility] Anesthesia: MAC (With spinal anesthesia and supplemental regional block) Estimated blood loss (mL): 10 Tourniquet time (min): 111 Tourniquet time: At 250 mmHg IV fluids (mL): 1,000 Urine output (mL): 700 Complications: None Findings: Valgus deformity with significant lateral bone loss tibial plateau. Condition: stable Disposition: PACU (Then to floor for postoperative rehabilitation and pain management) Brief History: This 86-year-old woman presented with complaints of severe left knee pain and valgus deformity. Discussed significant limitations in activities of daily living. After nonoperative therapies were attempted and were unsuccessful, the patient wished to proceed with operative intervention. Risks and complications were discussed in the office. Consents were signed and questions were answered at that time. The patient presents today for same-day surgery with plans for discharge to the floor postoperatively for postoperative observation and physical therapy. Procedure: The patient was brought to the operating theater, and after undergoing adequate spinal anesthesia with regional block, ASA 3, the left lower extremity was prepped with Dura-Prep and draped in usual fashion following placement of a tourniquet high on the leg. The leg was then draped free. Following prepping and draping, the leg was exsanguinated, and the tourniquet was elevated to 250 mm Hg for a total tourniquet time of 111 minutes. Prior to elevation of the tourniquet, but following exposure of the site of surgery, a surgical pause was performed. At the time of the surgical pause, we confirmed the site and side of surgery. Additionally, we confirmed the appropriate and timely administration of preoperative antibiotics, vancomycin 1 g and Transexemic acid 1 g. The availability of equipment was confirmed, and the patient's identity was verbalized as well. Following the surgical pause, an incision was made centering over the patella continuing proximally and distally as necessary to allow access to the knee joint. Dissection continued through skin and soft tissues using a scalpel. Hemostasis was obtained using electrocautery. The skin incision was followed by a median parapatellar arthrotomy. The leg was extended and the patella was everted. Following this, the leg was returned to flexed position. The distal femur was exposed and a drill hole was made in this for placement of the distal femoral jig. The distal femoral jig was set at 5? of valgus. The distal femoral cutting block was then placed in appropriate position, and an stacey wing was used to confirm an appropriate amount of distal femur would be resected. The distal femoral resection was accomplished with 8 mm of bone being resected distally. After the distal femoral resection had been accomplished, the femur was measured and it measured a size 4. Medial lateral dimension also measured a size 4. A size 4 femoral cutting block was placed in position, and we were then able to accomplish the anterior, posterior and chamfer cuts. This jig was then removed, and the notch guide was placed in position. With the notch guide in appropriate position, the notch was excised including resection of the anterior and posterior cruciate ligaments. This notch was to allow for the posterior stabilized femoral component. At this point, the femur was prepared and attention was directed to the proximal tibia. The posterior knee retractor was placed along with medial and lateral retractors. Further resection of the menisci was accomplished as we had better visualization. A complete meniscectomy was performed both medially and laterally with care being taken to protect the popliteus. Retractors were then placed so that the proximal tibia was well visualized. A drill hole was then made in the tibia for placement of the intramedullary guide. This guide was placed so that a pproximately 2 mm of bone would be resected from the deficient lateral plateau, and this resulted in slightly less than a 9 mm resection from the medial tibial plateau. The intramedullary guide was utilized supplemented with an extramedullary guide to assure appropriate alignment for the proximal tibial resection. The proximal tibial jig was then evaluated, pinned in position, and the proximal tibial resection was accomplished without difficulty. The jig was removed, and the proximal tibia was measured. It measured a size 4. We then attempted a trial reduction with a size 4 by 9 mm insert. To better balance the knee, trial reduction was then accomplished with an 11 mm followed by a 13 mm insert. With this, the femoral component was placed in position for the trial reduction, and the knee was placed through range of motion. There was excellent stability with excellent varus-valgus alignment with appropriate patellar tracking. Extension was noted to be full as well. This was felt to be the appropriate size insert. There was full extension and flexion without lift off and the rotation of the tibia was marked. Alignment was checked from the hip to the ankle, and this was noted to be appropriate as well. Attention was then directed to the patella. The patella was measured with a caliper. We resected sufficient patella to leave approximately 14 mm of patella remaining. Measurements of the patella then indicated that a size asymmetric 32 mm x 10 mm was the appropriate patellar size. We then placed the jig to drill for the 3 pegs of the press-fit patella, and these drill holes were made without incident. A trial patella was then placed, and the knee was placed through range of motion. The patella was noted to track nicely without evidence of subluxation. The femur was prepared for a press-fit femur by drilling 2 holes for the femoral pegs. All trial components were subsequently removed. The tibial tray was then pinned into position, and we broached the tibia for the stem of the tibial component. Subsequently, 4 drill holes were made for placement of the press-fit tibia. This was accomplished without difficulty. Care was taken to assure appropriate rotation of the tibia as well as appropriate position on the proximal tibia. The tibial tray was completely seated on the proximal tibia. Following broaching, the tibial guide was removed, and all surfaces were copiously irrigated. The surfaces were then dried and a bone plug was placed into the distal femur. Exparel was also injected at this point. The Tritanium tibia was impacted into position. The beaded femur was then impacted into position in a cementless fashion. The tibial insert was placed. The patella was pressed into position with a patellar clamp. The knee was irrigated with 20 mL of Betadine and 500 mL of normal saline, and this was allowed to remain in the knee for 3-4 minutes. The knee was then copiously irrigated and suctioned dry. Attention was then directed to closure. Closure was accomplished with 0 Vicryl in the fascial tissues. Following this, a 2-0 Monocryl was used in the subcutaneous tissues, and the skin was closed with skin magdalene. A sterile dressing was then placed consisting of dermabond Prineo, OpSite, sterile soft roll, and an Johnny wrap. The patient was returned the Recovery Room in a satisfactory condition. X-rays were obtained there. The patient will be discharged to the floor for postoperative rehabilitation and pain management. Associated Problem List Diagnoses (1) Unilateral primary osteoarthritis, left knee: (2) Acquired genu valgum of left knee:
[2021-11-01] MEDS: oxyCODONE 5 mg IR Tab/Cap PO ×2 (15:51→20:01)
[2021-11-01] MEDS: chlorhexidine gluconate 0.12% Btl 473 mL 30 ML MUCOUS MEM ×2 (17:48→20:00)
[2021-11-01] MEDS: CELEcoxib 200 mg Capsule PO (17:49)
[2021-11-01] MEDS: calcium carbonate 500 mg Chew Tablet 1000 MG PO (17:49)
[2021-11-01] MEDS: sennosides-docusate Tablet 2 TAB PO (17:49)
[2021-11-01] MEDS: iron polysaccharide complex 150 mg Capsule PO (17:49)
[2021-11-01] MEDS: mupirocin oint 22 gm 1 APPLIC NASAL (17:49)
[2021-11-01] MEDS: lactated ringers 1,000 ML 100 ML IV (17:50)
[2021-11-01] MEDS: pantoprazole DR 40 mg Tablet PO (20:00)
[2021-11-01] MEDS: trazodone 100 mg Tablet 200 MG PO (20:00)
[2021-11-01] MEDS: gabapentin 300 mg Capsule 900 MG PO (20:01)
[2021-11-02] VITALS (10 sets, daily range): BP systolic 106–141; BP diastolic 58–81; PULSE 71–81; RESP 16–20; TEMP 36.7–37.1; O2SAT 2–97
[2021-11-02] MEDS: acetaminophen 1,000 MG/100 ML PIGGYBACK 400 MG IV ×2 (00:54→09:31)
[2021-11-02] MEDS: lactated ringers 1,000 ML 100 ML IV ×2 (03:26→12:36)
[2021-11-02] MEDS: oxyCODONE 5 mg IR Tab/Cap PO ×4 (04:24→20:08)
[2021-11-02] MEDS: CELEcoxib 200 mg Capsule PO ×2 (05:23→17:24)
[2021-11-02 06:05] LABS: Basophils % 0.2 %; Hematocrit 34.6 % (37.0-47.0); Hemoglobin 11.3 g/dL (11.5-15.3); Lymphocytes # 2.4 10^3/uL (0.8-4.8); Lymphocytes % 21.1 %; Mean Corpuscular HGB Conc 32.7 g/dL (30.0-36.0); Mean Corpuscular Hemoglobin 31.4 pg (28.0-34.0); Mean Corpuscular Volume 96.1 fl (81-99); Mean Platelet Volume 10.1 fL (7.4-10.4); Monocytes # 1.4 10^3/uL (0.2-0.9); Monocytes % 12.2 %; Neutrophils # 7.63 10^3/uL (1.8-7.7); Neutrophils % 66.2 %; Nucleated Red Blood Cells % 0 %; Platelet Count 215 10^3/cmm (130-400); Red Cell Distribution Width 12.2 % (12.1-15.1); White Blood Count 11.5 10^3/uL (4.0-10.0)
[2021-11-02 06:40] LABS: Anion Gap 14.9 (5-19); Blood Urea Nitrogen 14 mg/dL (8-23); Calcium 8.4 mg/dL (8.5-10.5); Carbon Dioxide 23 mmol/L (22-29); Chloride 101 mmol/L (98-107); Glucose 101 mg/dL (65-115); Osmolality Calculated 281 mOsm/kg (285-295); Potassium 3.9 mmol/L (3.5-5.1); Sodium 135 mmol/L (136-145)
[2021-11-02] MEDS: pantoprazole DR 40 mg Tablet PO ×2 (08:19→20:08)
[2021-11-02] MEDS: multivitamin therapeutic Tablet 1 TAB PO ×2 (08:19→08:20)
[2021-11-02] MEDS: hydroCHLOROthiazide 25 mg Tablet 12.5 MG PO (08:20)
[2021-11-02] MEDS: calcium carbonate 500 mg Chew Tablet 1000 MG PO ×2 (08:21→17:23)
[2021-11-02] MEDS: gabapentin 300 mg Capsule 900 MG PO ×3 (08:22→20:08)
[2021-11-02] MEDS: spironolactone 25 mg Tablet 12.5 MG PO (08:22)
[2021-11-02] MEDS: aspirin 325 mg EC Tablet PO (08:22)
[2021-11-02] MEDS: iron polysaccharide complex 150 mg Capsule PO ×2 (08:22→17:24)
[2021-11-02] MEDS: sennosides-docusate Tablet 2 TAB PO ×2 (08:22→17:23)
[2021-11-02] MEDS: cholecalciferol (vitamin D3) 1,000 unit Tablet 1000 UNIT PO (08:24)
[2021-11-02] MEDS: amlodipine 5 mg Tablet 2.5 MG PO (08:24)
[2021-11-02] MEDS: chlorhexidine gluconate 0.12% Btl 473 mL 30 ML MUCOUS MEM ×4 (08:31→20:14)
[2021-11-02] MEDS: duloxetine 20 mg Capsule 40 MG PO (08:31)
[2021-11-02] MEDS: mupirocin oint 22 gm 1 APPLIC NASAL ×2 (08:32→17:30)
[2021-11-02] MEDS: ondansetron 2 mg/ML SDV 2 mL 4 MG IVP (09:30)
[2021-11-02] MEDS: vancomycin 1,000 MG in sodium chloride 0.9% 250 ML 250 MG IV (09:31)
--- NOTE | 2021-11-02 10:28 | PC.CHAP ---
Pastoral Care Encounter/Spiritual Assessment Type of Contact [] Declined income auditor visit [] Patient/Family/Request visit [] Outpatient visit [] Follow-up visit [] Physician referral [] Code/Alert [x] Routine visit [] Staff referral [] Actively dying [] Patient sleeping [] Family support [] [] Out of room [] Palliative care [] [] Receiving care in room [] Pre-surgical visit [] Trauma [] Long length of stay [] ICU visit [] Other: Relational/Emotional Strength [x] Patient feels connected with others/family/visitors/staff [] Distress [] Loneliness/isolation [] Abandonment Spirituality of Patient [x] Person of Chio [] Attends Orthodoxy of their [place] [x] Believes in Prayer [] Reads Bible or Mosque materials [] There are Spiritual issues to be addressed 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 [x] Prayer [x] Active listening [x] Non-anxious presence [] Spiritual/emotional support [] Crisis/trauma care [] Spiritual counseling [] Bereavement support [] Provided bereavement packet [] Provided Bible/devotional materials [] Provided toy/stuffed animal, coloring book to patient or family member [] Provided Communion [] Anointing/[place] [] Salvation [x] Completed spiritual assessment [] Other: Impact on Illness or Injury [] Angry [] Fearful [] Anxious [] Often cries [] Exhaustion [] Unable to work [] Unable to attend quaker [] Unable to walk/stand [] Unable to read [] Unable to drive [] Unable to eat/drink [] Unable to sleep [] Unable to be with family [] Patient intubated [] Other: Summary Time spent with patient 5 min
[2021-11-02] MEDS: acetaminophen 500 mg Tablet 1000 MG PO (17:23)
--- NOTE | 2021-11-02 17:33 | PM.PN ---
Subjective Subjective: Interval history: Patient has worked today with physical therapy. She continues to complain of pain in the knee, but she was able to get up and walk a short distance. She is not felt to be safe for discharge to home. She will likely require senior care at the time of discharge. Medications: Reviewed: Yes Vitals/I&O/Wt Last Vital Signs Temp 98.4 F 11/02/21 15:17 Pulse 81 11/02/21 15:17 Resp 17 11/02/21 15:17 BP 141/81 11/02/21 15:17 Pulse Ox 90 11/02/21 15:17 11/02/21 11/02/21 11/02/21 06:59 14:59 22:59 Intake Total 1360 / 2395 2476.667 / 2476.667 Output Total 400 / 2660 250 / 250 Balance 960 / -265 2226.667 / 2226.667 Weight last 48 hrs Weight 161 lb Physical Exam Const: COMMON NORMALS: no acute distress, average body habitus, patient oriented x3 and alert GENERAL APPEARANCE: cooperative and comfortable ORIENTATION/CONSCIOUSNESS: Yes awake HENMT: COMMON NORMALS: normocephalic and atraumatic HEAD & SCALP: normocephalic and atraumatic Eye: GENERAL EYE: appearance normal, both eyes and all related structures Chest: COMMONS NORMALS: normal inspection of the chest Resp: COMMON NORMALS: normal respiratory effort EFFORT & INSPECTION: Yes able to speak in complete sentences and Yes symmetric chest movement Extremity: LEFT LOWER EXTREMITY: Yes knee joint (Dressing is removed. Wound is benign.) Left knee: Yes inspection (There is some bruising about the incision.), Yes palpation (No evidence of DVT.), Yes ROM (Not evaluated.) and Yes neurovascular exam (Intact distally.) Neuro: COMMON NORMALS: patient oriented x3 SENSORIUM/ORIENTATION: Yes alert Psych: COMMON NORMALS: mental status grossly normal APPEARANCE: Yes grossly normal ATTITUDE: Yes calm and Yes engaged ATTENTION/CONCENTRATION: Yes attention grossly intact Skin: COMMON NORMALS: no rashes or lesions noted GENERAL SKIN EXAM: no rashes or lesions noted Urinary Catheter Management^: Andino: Cath Placed During This Visit: yes, but has since been removed by the nurse Reason for Continuing Indwelling Catheter: Other Urinary Catheter Date of Insertion: 11/01/21 Urinary Catheter Time of Insertion: 11:35 Date Urinary Catheter Removed: 11/02/21 Time Urinary Catheter Discontinued: 06:00 Data : 11/02/21 05:17 11/02/21 05:17 A&P Assessment and plan (1) Unilateral primary osteoarthritis, left knee: Patient is postop day 1 following left total knee arthroplasty. She works with physical therapy today, however, she was only able to walk approximately 4 feet. She still complains of a significant pain and discomfort, and she is weak enough that she is not felt to be safe for discharge to home. Plans will be made for discharge to senior care so that she can continue to improve range of motion and strength. Status: Acute (2) Acquired genu valgum of left knee: Status: Acute Attestations Medical Necessity Statement*: Quires postoperative physical therapy for conditioning and independence. 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
[2021-11-02] MEDS: trazodone 100 mg Tablet 200 MG PO (20:15)
[2021-11-03] VITALS (11 sets, daily range): BP systolic 100–167; BP diastolic 58–87; PULSE 75–91; RESP 16–18; TEMP 36.3–37.2; O2SAT 90–96
[2021-11-03] MEDS: oxyCODONE 5 mg IR Tab/Cap PO ×4 (00:17→18:52)
[2021-11-03] MEDS: acetaminophen 500 mg Tablet 1000 MG PO ×3 (00:54→18:16)
[2021-11-03] MEDS: lactated ringers 1,000 ML 100 ML IV ×2 (02:20→20:03)
[2021-11-03] MEDS: CELEcoxib 200 mg Capsule PO ×2 (05:22→18:16)
--- NOTE | 2021-11-03 05:57 | PC.NURSE ---
SHIFT SUMMARY Has had a good night. Has been up to [facility] several times with assist of nurse and walker. Good urine output and passing alot of gas. Has been medicated for pain in left knee with po OXYIR. Incision to left knee with magdalene/tegaderm in place. Bruising and edema to knee. Foot pumps in place bilat with daniela hose to right leg as welll. IV accidentally came out this morning and pt wants to talk to Dr before we restart it. Is taking po fluids well.
[2021-11-03] MEDS: iron polysaccharide complex 150 mg Capsule PO ×2 (10:57→18:16)
[2021-11-03] MEDS: duloxetine 20 mg Capsule 40 MG PO (10:58)
[2021-11-03] MEDS: amlodipine 5 mg Tablet 2.5 MG PO (10:59)
[2021-11-03] MEDS: aspirin 325 mg EC Tablet PO (11:00)
[2021-11-03] MEDS: pantoprazole DR 40 mg Tablet PO ×2 (11:00→20:00)
[2021-11-03] MEDS: cholecalciferol (vitamin D3) 1,000 unit Tablet 1000 UNIT PO (11:00)
[2021-11-03] MEDS: sennosides-docusate Tablet 2 TAB PO ×2 (11:00→18:16)
[2021-11-03] MEDS: gabapentin 300 mg Capsule 900 MG PO ×3 (11:00→20:00)
[2021-11-03] MEDS: spironolactone 25 mg Tablet 12.5 MG PO (11:01)
[2021-11-03] MEDS: hydroCHLOROthiazide 25 mg Tablet 12.5 MG PO (11:02)
[2021-11-03] MEDS: calcium carbonate 500 mg Chew Tablet 1000 MG PO ×2 (11:04→18:16)
[2021-11-03] MEDS: chlorhexidine gluconate 0.12% Btl 473 mL 30 ML MUCOUS MEM ×4 (11:09→20:00)
[2021-11-03] MEDS: mupirocin oint 22 gm 1 APPLIC NASAL ×2 (11:09→18:16)
[2021-11-03] MEDS: ondansetron 2 mg/ML SDV 2 mL 4 MG IVP (13:15)
--- NOTE | 2021-11-03 16:55 | PM.PN ---
Subjective Subjective: Interval history: Patient has worked today with physical therapy. She continues to complain of pain in the knee, but she was able to get up and walk a short distance. She is not felt to be safe for discharge to home. She will need [facility] at the time of discharge. Medications: Reviewed: Yes Vitals/I&O/Wt Last Vital Signs Temp 97.6 F 11/03/21 15:40 Pulse 78 11/03/21 15:40 Resp 18 11/03/21 15:40 BP 109/68 11/03/21 15:40 Pulse Ox 93 11/03/21 15:40 11/03/21 11/03/21 11/03/21 06:59 14:59 22:59 Intake Total 240 / 4076.667 1483.333 / 1483.333 Output Total 1550 / 3000 Balance -1310 / 1253.402 1074.333 / 1483.333 Weight last 48 hrs Weight 161 lb Physical Exam Const: COMMON NORMALS: no acute distress, average body habitus, patient oriented x3 and alert GENERAL APPEARANCE: cooperative and comfortable ORIENTATION/CONSCIOUSNESS: Yes awake HENMT: COMMON NORMALS: normocephalic and atraumatic HEAD & SCALP: normocephalic and atraumatic Eye: GENERAL EYE: appearance normal, both eyes and all related structures Chest: COMMONS NORMALS: normal inspection of the chest Resp: COMMON NORMALS: normal respiratory effort EFFORT & INSPECTION: Yes able to speak in complete sentences and Yes symmetric chest movement Extremity: LEFT LOWER EXTREMITY: Yes knee joint (Dressing is removed. Wound is benign) Left knee: Yes inspection (No evidence of infection or significant drainage), Yes palpation (Minimal tenderness), Yes ROM (Tolerating CPM) and Yes neurovascular exam (Intact distally with no evidence of DVT.) Neuro: COMMON NORMALS: patient oriented x3 SENSORIUM/ORIENTATION: Yes alert Psych: COMMON NORMALS: mental status grossly normal APPEARANCE: Yes grossly normal ATTITUDE: Yes calm and Yes engaged ATTENTION/CONCENTRATION: Yes attention grossly intact Skin: COMMON NORMALS: no rashes or lesions noted GENERAL SKIN EXAM: no rashes or lesions noted Urinary Catheter Management^: Andino: Cath Placed During This Visit: yes, but has since been removed by the nurse Reason for Continuing Indwelling Catheter: Other Urinary Catheter Date of Insertion: 11/01/21 Urinary Catheter Time of Insertion: 11:35 Date Urinary Catheter Removed: 12/29/21 Time Urinary Catheter Discontinued: 06:00 Data : 11/02/21 05:17 11/02/21 05:17 A&P Assessment and plan (1) Unilateral primary osteoarthritis, left knee: Patient is postop day 2 following left total knee arthroplasty. She worked with physical therapy today, however, she was only able to walk short distance, and she is not felt to be safe for discharge to home. She still complains of a significant pain and discomfort, and she is weak enough that she is not felt to be safe. Plans will be made for discharge to [facility] so that she can continue to improve range of motion and strength. At this point, she is scheduled for discharge tomorrow. Status: Acute (2) Acquired genu valgum of left knee: Status: Acute Attestations Medical Necessity Statement*: Patient continues to require physical therapy and nursing care. 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
[2021-11-03 19:29] LABS: Adenovirus Not Detected (NOT DETECT); Chlamydia Pneumoniae Not Detected (NOT DETECT); Coronavirus 229E,HKU1,NL63,OC4 Not Detected (NOT DETECT); Human Metapneumovirus Not Detected (NOT DETECT); Human Rhinovirus/Enterovirus Not Detected (NOT DETECT); Influenza A Not Detected (NOT DETECT); Influenza A H1 Not Detected (NOT DETECT); Influenza A H1-2009 Not Detected (NOT DETECT); Influenza A H3 Not Detected (NOT DETECT); Influenza B Not Detected (NOT DETECT); Mycoplasma Pneumoniae Not Detected (NOT DETECT); Parainfluenza Virus Type 1 Not Detected (NOT DETECT); Parainfluenza Virus Type 2 Not Detected (NOT DETECT); Parainfluenza Virus Type 3 Not Detected (NOT DETECT); Parainfluenza Virus Type 4 Not Detected (NOT DETECT); Respiratory Syncytial Virus A Not Detected (NOT DETECT); Respiratory Syncytial Virus B Not Detected (NOT DETECT); SARS-COV-2 Not Detected (NOT DETECT)
[2021-11-03] MEDS: trazodone 100 mg Tablet 200 MG PO (20:00)
[2021-11-04] VITALS: BP 113/70; PULSE 74; RESP 16; TEMP 36.7; O2SAT 90
[2021-11-04 04:00] VITALS: BP 139/81; PULSE 91; RESP 17; TEMP 36.5; O2SAT 93
[2021-11-04] MEDS: lactated ringers 1,000 ML 100 ML IV (05:46)
[2021-11-04] MEDS: CELEcoxib 200 mg Capsule PO (06:12)
[2021-11-04 07:45] VITALS: BP 106/66; PULSE 85; RESP 16; TEMP 36.5; O2SAT 94
[2021-11-04] MEDS: gabapentin 300 mg Capsule 900 MG PO (08:08)
[2021-11-04 08:09] VITALS: PULSE 84; RESP 16; O2SAT 96
[2021-11-04] MEDS: aspirin 325 mg EC Tablet PO (08:09)
[2021-11-04] MEDS: sennosides-docusate Tablet 2 TAB PO (08:09)
[2021-11-04] MEDS: cholecalciferol (vitamin D3) 1,000 unit Tablet 1000 UNIT PO (08:09)
[2021-11-04] MEDS: amlodipine 5 mg Tablet 2.5 MG PO (08:09)
[2021-11-04] MEDS: pantoprazole DR 40 mg Tablet PO (08:09)
[2021-11-04] MEDS: multivitamin therapeutic Tablet 1 TAB PO (08:10)
[2021-11-04] MEDS: hydroCHLOROthiazide 25 mg Tablet 12.5 MG PO (08:10)
[2021-11-04] MEDS: spironolactone 25 mg Tablet 12.5 MG PO (08:11)
[2021-11-04] MEDS: iron polysaccharide complex 150 mg Capsule PO (08:11)
[2021-11-04] MEDS: calcium carbonate 500 mg Chew Tablet 1000 MG PO (08:11)
[2021-11-04] MEDS: duloxetine 20 mg Capsule 40 MG PO (08:11)
[2021-11-04] MEDS: mupirocin oint 22 gm 1 APPLIC NASAL (08:12)
[2021-11-04] MEDS: chlorhexidine gluconate 0.12% Btl 473 mL 30 ML MUCOUS MEM (08:12)
[2021-11-04 08:17] VITALS: RESP 17; O2SAT 94
[2021-11-04] MEDS: oxyCODONE 5 mg IR Tab/Cap PO (08:17)
[2021-11-04 08:53] VITALS: BP 106/66; PULSE 85; RESP 17; TEMP 36.5; O2SAT 94
--- NOTE | 2021-11-04 13:01 | PM.DCS ---
Discharge Providers Date of Admission: 11/01/21 17:00 Date of Discharge: November 04, 2021 Attending Provider at Admission: Grace Churchill MD Attending Provider at Discharge: Grace Churchill MD Primary Care Provider: Nahid Pink MD Diagnoses at Discharge Discharge Diagnosis (1) Unilateral primary osteoarthritis, left knee: Status: Acute (2) Acquired genu valgum of left knee: Status: Acute (3) History of total left knee replacement: Status: Acute Permanent problem details: [employer] total knee system with a size 4 triathlon beaded posterior stabilized femur left, a triathlon titanium tibial component size 4 beaded, a triathlon X3 posterior stabilized tibial bearing insert size 4 X 13 mm and a beaded triathlon titanium asymmetric patella size 32 x 10 mm Reason for Visit Reason for Visit: Left knee osteoarthritis Hospital Course Hospital Course This 86-year-old woman severe degenerative osteoarthritis of the left knee. She has significant limitations in her activities of daily living, and she was brought to the hospital for same-day surgery as a total knee arthroplasty. The patient tolerated that procedure well. She was returned to the floor postoperatively for postoperative rehabilitation and pain management. On the first postoperative day, the patient was able to walk only approximately 4 feet secondary to weakness and deconditioning as well as pain. Plans were then made and discussion undertaken that she would likely require group home at the time of discharge. This was scheduled for her. On the second postoperative day, the patient continued to work with physical therapy, but she still had issues with weakness and lack of independence. Plans were made for discharge to group home the following day, November 04, 2021. Chronic test was evaluated. The patient was discharged to group home on November 04 as anticipated. Physical Exam Const: COMMON NORMALS: no acute distress, average body habitus, patient oriented x3 and alert GENERAL APPEARANCE: cooperative and comfortable ORIENTATION/CONSCIOUSNESS: Yes awake HENMT: COMMON NORMALS: normocephalic and atraumatic HEAD & SCALP: normocephalic and atraumatic Eye: GENERAL EYE: appearance normal, both eyes and all related structures Chest: COMMONS NORMALS: normal inspection of the chest Resp: COMMON NORMALS: normal respiratory effort EFFORT & INSPECTION: Yes able to speak in complete sentences and Yes symmetric chest movement Extremity: LEFT LOWER EXTREMITY: Yes knee joint (Dressing is intact. There is slight drainage under the Tegaderm, minimal) Left knee: Yes inspection (Ecchymosis around the knee.), Yes palpation (Minimal tenderness), Yes ROM (tolerating CPM) and Yes neurovascular exam (Intact with no evidence of DVT) Neuro: COMMON NORMALS: patient oriented x3 SENSORIUM/ORIENTATION: Yes alert Psych: COMMON NORMALS: mental status grossly normal APPEARANCE: Yes grossly normal ATTITUDE: Yes calm and Yes engaged ATTENTION/CONCENTRATION: Yes attention grossly intact Skin: COMMON NORMALS: no rashes or lesions noted GENERAL SKIN EXAM: no rashes or lesions noted Urinary Catheter Management^: Andino: Cath Placed During This Visit: yes, but has since been removed by the nurse Reason for Continuing Indwelling Catheter: Other Urinary Catheter Date of Insertion: 11/01/21 Urinary Catheter Time of Insertion: 11:35 Date Urinary Catheter Removed: 11/02/21 Time Urinary Catheter Discontinued: 06:00 Discharge Data Data Completed and Pending: Completed Studies During Hospitalization Category Date Time Status XR knee LT 1-2V 7 3560 Routine Exams 11/01/21 14:10 Completed Vitals: Last Vital Signs Temp 97.6 F 11/03/21 15:40 Pulse 78 11/03/21 15:40 Resp 18 11/03/21 15:40 BP 109/68 11/03/21 15:40 Pulse Ox 93 11/03/21 15:40 Discharge Plan Discharge Patient Disposition: Xfer SNF Condition: Stable Prescriptions: New aspirin 325 mg Tablet,Delayed Release (Dr/Ec) 325 mg PO DAILY Qty: 30 RF: 0 celecoxib 200 mg Capsule 200 mg PO DAILY 30 Days Qty: 30 RF: 0 oxycodone 5 mg Tablet 5 mg PO Q4H PRN (Reason: Moderate Pain) 7 Days Qty: 30 RF: 0 Continued multivitamin Tablet 1 tab PO QAM RF: 0 pantoprazole 40 mg tablet,delayed release (DR/EC) 40 mg PO BID Qty: 180 RF: 0 (DME) compression hose See Rx Instructions .Route .MEDSUPPLY Qty: 1 RF: 0 (DME) Fast Form Ulnar Gutter Splint See Rx Instructions .ROUTE .MEDSUPPLY Qty: 1 RF: 0 nitroglycerin [Nitrostat] 0.4 mg tablet, sublingual 0.4 mg SUBLINGUAL Q5M PRN (Reason: chest pain) Qty: 25 RF: 12 albuterol sulfate 2.5 mg /3 mL (0.083 %) solution for nebulization 2.5 mg inhalation QID PRN (Reason: shortness of breath or wheezing) Qty: 90 RF: 0 (DME) nebulizers Misc See Rx Instructions .ROUTE .MEDSUPPLY Qty: 1 RF: 0 duloxetine 40 mg capsule,delayed release(DR/EC) 40 mg PO DAILY Qty: 90 RF: 3 amlodipine 2.5 mg tablet 2.5 mg PO DAILY Qty: 90 RF: 3 gabapentin 300 mg capsule 900 mg PO TID Qty: 270 RF: 3 trazodone 100 mg tablet 200 mg PO .AT BEDTIME Qty: 60 RF: 6 spironolacton-hydrochlorothiaz 25-25 mg tablet 0.5 tab PO DAILY Qty: 45 RF: 3 Vitamin D3 25 mcg (1,000 unit) Capsule 25 mcg PO DAILY RF: 0 Changed Tylenol Extra Strength 500 mg tablet 500 mg PO TID PRN (Reason: Pain) Qty: 0 RF: 0 Held aspirin [Adult Aspirin Regimen] 81 mg tablet,delayed release (DR/EC) 81 mg PO BEDTIME RF: 0 Hold Instructions: Resume on 12/07/21. Resume after taking resume baby aspirin after taking 325 mg tablets x30 days. hydrocodone-acetaminophen 5-325 mg tablet 5 - 325 tab PO Q6H PRN (Reason: pain) 30 Days Qty: 120 RF: 0 Hold Instructions: Resume on 11/09/21. Discharge Orders: Discharge Order (Routine); Ordered 11/04/21 Ordered By: Grace Churchill Referrals: Grace Churchill MD [Physician] - 11/16/21 10:15 am Discharge Diet: Advance as tolerated and Usual diet Discharge Activity: Limit activity as instructed, Use walker/crutches as instructed and As per PT/OT instructions Patient Instructions: Aspirin (By mouth), Celecoxib (By mouth), Oxycodone, Slow Release (By mouth), Surgical Site Infections (DC), Knee Replacement (DC), Operative Knee Arthroscopy (DC), Opioid Safety Activity Restrictions/Additional Instructions: Ice and elevation to the left lower extremity. Range of motion, gait training, and strengthening per physical therapy. Home health. You may remove your dressing, but try to maintain the clear plastic dressing until you are seen in the office. Discharge Attestations Time Spent in Discharge Care*: greater than 30 min Specific Discharge Activities: educating patient, documenting/other paperwork and evaluating patient/reviewing data Quality Metrics Clinical Quality Measures During this hospital stay, did patient experience: None Coding Level of Care Code Acute Chg FW PA note Exam Comprehensive Diagnoses Unilateral primary osteoarthritis, left knee M17.12 Acquired genu valgum of left knee M21.062 History of total left knee replacement Z96.652
== END 2021-11-04 08:55 | disposition skilled nursing facility (03) ==
LOC: MEDSURG 17:00
PROVIDERS: Admitting Provider Specialist; PCP Internal Medicine; Visit Provider Specialist
PROC: (CPT 27447; principal; 2021-11-01 10:15)
DX: M17.12 Unilateral primary osteoarthritis, left knee (principal); M21.062 Valgus deformity, not elsewhere classified, left knee; G47.30 Sleep apnea, unspecified; I10 Essential (primary) hypertension; Z86.16 Personal history of COVID-19; Z79.82 Long term (current) use of aspirin
CPT/HCPCS: 27447; 36415; 51702; 64447; 73560; 76942; 80048; 80053; 81003; 85025; 87635; 93005; 97110; 97116; 97161; 97162; 97167; 97530; 97535; C1776; C9290; G0378; J1100; J2405; J2704; J3010; J3370; J3490; J7030; J7050

== ENCOUNTER → 2021-11-16 10:29 | Outpatient (BNVA) | payer MEDICARE, MEDICAID, SELFPAY | PROVIDERS: PCP Internal Medicine; Visit Provider Specialist | DX: Z96.652 Presence of left artificial knee joint (principal) | CPT/HCPCS: 73560; 73565 ==

== ENCOUNTER → 2022-01-11 10:19 | Outpatient (BNVA) | payer MEDICARE, MEDICAID, SELFPAY | PROVIDERS: PCP Internal Medicine; Visit Provider Specialist | DX: Z96.652 Presence of left artificial knee joint (principal) | CPT/HCPCS: 73560; 73565 ==

== ENCOUNTER → 2022-01-13 10:42 | Outpatient (BNVA) | payer MEDICARE, MEDICAID, SELFPAY | PROVIDERS: PCP Internal Medicine; Visit Provider Internal Medicine Pulmonary Disease | DX: R04.2 Hemoptysis (principal); Z86.16 Personal history of COVID-19; K21.9 Gastro-esophageal reflux disease without esophagitis; I10 Essential (primary) hypertension; G47.10 Hypersomnia, unspecified | CPT/HCPCS: 71046; 99204 ==

== ENCOUNTER → 2022-03-16 10:38 | Outpatient (BNVA) | payer MEDICARE, MEDICAID, SELFPAY | PROVIDERS: PCP Internal Medicine; Visit Provider Internal Medicine Pulmonary Disease | DX: R04.2 Hemoptysis (principal); I10 Essential (primary) hypertension; K21.9 Gastro-esophageal reflux disease without esophagitis | CPT/HCPCS: 99214 ==

== ENCOUNTER 2022-03-30 09:01 | Outpatient (CLI) | payer MEDICARE, MEDICAID, SELFPAY ==
--- NOTE | 2022-03-30 09:00 | CT_ITS ---
WS: [id number] CT CHEST WITH INTRAVENOUS CONTRAST HISTORY: hemoptysis TECHNIQUE: Contiguous 5 mm axial imaging performed on the thorax. Coronal and sagittal reformats are submitted. All CT scans at [facility] use at least one of these dose optimization techniques: automated exposure control; mA and/or kV adjustment per patient size (includes targeted exams where dose is matched to clinical indication); or iterative reconstruction. CONTRAST: Omnipaque 300; 50 mL IV. DLP: 796.79 mGy.cm COMPARISON: Chest radiograph 01/13/2022. Lungs and central airway: No pulmonary mass or nodule. Subsegmental linear atelectasis LEFT lower lob e. No bronchiectasis. No pneumonia. Pleura: Normal. No pleural effusion. Heart and pericardium: Mildly enlarged LEFT heart chambers. No pericardial effusion. There are a few scattered coronary artery calcifications. Mediastinum and stefano: No mediastinum or hilar adenopathy. Vessels: Moderate atherosclerosis aorta. Mildly enlarged pulmonary artery. Chest wall and lower neck: No soft tissue masses. Upper abdomen: Stable 17 mm cyst LEFT lobe of the liver. No adrenal mass. Osseous structures: Advanced degenerative changes throughout the visualized cervical and thoracic spi ne. CT/CT chest w con* [id number] IMPRESSION: 1. No pulmonary mass, nodule or pneumonia. 2. Subsegmental atelectasis LEFT lower lobe. 3. Mild LEFT heart enlargement. 4. Mild pulmonary hypertension. 5. Stable LEFT hepatic cyst.
[2022-03-30 10:36] LABS: Blood Urea Nitrogen 8 mg/dL (8-23)
== END 2022-03-30 09:02 | disposition home or self-care (01) ==
PROVIDERS: PCP Internal Medicine; Visit Provider Internal Medicine
DX: R04.2 Hemoptysis (principal); J98.11 Atelectasis; I51.7 Cardiomegaly; I27.20 Pulmonary hypertension, unspecified; K76.89 Other specified diseases of liver
CPT/HCPCS: 71260; 82565; 84520; Q9967

== ENCOUNTER → 2022-04-21 10:26 | Outpatient (BNVA) | payer MEDICARE, MEDICAID, SELFPAY | PROVIDERS: PCP Internal Medicine; Visit Provider Internal Medicine Pulmonary Disease | DX: R04.2 Hemoptysis (principal); K21.9 Gastro-esophageal reflux disease without esophagitis; I10 Essential (primary) hypertension; Z86.16 Personal history of COVID-19; G47.10 Hypersomnia, unspecified | CPT/HCPCS: 99214 ==

== ENCOUNTER → 2022-07-17 10:34 | Outpatient (BNVA) | payer MEDICARE, MEDICAID, SELFPAY | PROVIDERS: PCP Internal Medicine; Visit Provider Specialist | DX: Z96.652 Presence of left artificial knee joint (principal); M17.12 Unilateral primary osteoarthritis, left knee | CPT/HCPCS: 73560; 73565; 99213 ==

== ENCOUNTER 2022-07-26 10:50 | Outpatient (CLI) | payer MEDICARE, MEDICAID, SELFPAY ==
[2022-07-26 12:18] LABS: Basophils # 0.1 10^3/uL (0.0-0.1); Eosinophils # 0.1 10^3/uL (0.0-0.8); Eosinophils % 1.3 %; Hematocrit 45.2 % (37.0-47.0); Hemoglobin 14.9 g/dL (11.5-15.3); Lymphocytes # 2.5 10^3/uL (0.8-4.8); Lymphocytes % 32.1 %; Mean Corpuscular Hemoglobin 31.5 pg (28.0-34.0); Mean Corpuscular Volume 95.6 fl (81-99); Mean Platelet Volume 9.7 fL (7.4-10.4); Monocytes # 0.6 10^3/uL (0.2-0.9); Monocytes % 7.8 %; Neutrophils # 4.52 10^3/uL (1.8-7.7); Neutrophils % 57.5 %; Nucleated Red Blood Cells % 0 %; Platelet Count 252 10^3/cmm (130-400); Red Blood Count 4.73 10^6/uL (4.1-5.3); Red Cell Distribution Width 12.4 % (12.1-15.1); White Blood Count 7.9 10^3/uL (4.0-10.0)
[2022-07-26 12:47] LABS: Alanine Aminotransferase 10 U/L (0-33); Albumin Level 4.2 g/dL (3.5-5.2); Alkaline Phosphatase 67 U/L (35-105); Anion Gap 14.1 (5-19); Aspartate Amino Transferase 21 U/L (0-32); Blood Urea Nitrogen 11 mg/dL (8-23); Calcium 10.2 mg/dL (8.5-10.5); Carbon Dioxide 28 mmol/L (22-29); Chloride 97 mmol/L (98-107); Globulin 3.4 g/dL (1.3-4.6); Glucose 94 mg/dL (65-115); Osmolality Calculated 279 mOsm/kg (285-295); Potassium 4.1 mmol/L (3.5-5.1); Sodium 135 mmol/L (136-145); Thyroid Stimulating Hormone 2.65 uIU/mL (0.27-4.20); Total Bilirubin 0.5 mg/dL (0.15-1.2); Total Protein 7.6 g/dL (6.6-8.7)
[2022-07-26 18:48] LABS: Iron 129 ug/dL (37-145); Percent Saturation 40.9 % (20-50); Total Iron Binding Capacity 315 mcg/dl; Unsaturated Iron Binding 186 ug/dL (112-347)
[2022-07-26 19:05] LABS: Vitamin B12 438 pg/mL (232-1245)
== END 2022-07-26 10:51 | disposition home or self-care (01) ==
LOC: LAB 10:56
PROVIDERS: PCP Internal Medicine; Visit Provider Internal Medicine
DX: D64.9 Anemia, unspecified (principal); R53.83 Other fatigue
CPT/HCPCS: 80053; 82607; 83540; 83550; 84443; 85025

== ENCOUNTER 2022-07-31 05:44 | Day surgery (SDC) | payer MEDICARE, MEDICAID, SELFPAY ==
[2022-07-27 09:19] VITALS: BMI 31.9
[2022-07-31 06:12] VITALS: BP 146/93; PULSE 71; RESP 18; TEMP 36.2; O2SAT 92
[2022-07-31] MEDS: sodium chloride 0.9% 1,000 ML 30 ML IV (06:26)
--- NOTE | 2022-07-31 06:43 | P.ANESASSM_ITS ---
Pre-Anesthetic Assessment Height/Weight: Height 1.55 m Weight 76.657 kg Temp Pulse Resp BP Pulse Ox O2 Del Method 97.1 F L 71 18 146/93 92 07/31/22 06:12 07/31/22 06:12 07/31/22 06:12 07/31/22 06:12 07/31/22 06:12 07/31/22 06:12 Preop Diagnosis: F/O of Malignant Neoplasm of colon in mother. Operation Date: 07/31/22 07:00 Proposed Procedures p Colonoscopy 88472, Z80.0(Not Applicable) - Nahid Pink MD Familial anesthetic complications: N/V H/A slow to wake per patient. Fentanyl makes her pass out. Last intake: Intake Last Liquid Date 07/30/22 Last Liquid Time 23:50 Last Solid Date 07/29/22 Last Solid Time 15:00 Social No alcohol and No tobacco Airway Submandibular: within normal limits Cervical ROM: within normal limits Mallampati: Class II Dentition: partials Pulmonary Sleep Apnea (non-compliant) and Shortness of Breath CV/HEM Unstable Angina, Congestive Heart Failure and Hypertension METS<4. Patient states she has chest tightness 1X a week. Patient educated on need to see a body designer. 12-Lead ordered. Patient tolerated a TKA 11/26 tolerated well with no need for vasoactive agents. None reported Hepatic None reported GI Gastroesophageal Reflux Disease controlled. Metabolic None reported Musc/skel Lower Back Pain Neuropsych Anxiety and Transient Ischemic Attack Anesthetic Plan ASA status: 3 Anesthesia: MAC Medications/Allergies Home Medications Medication Instructions Recorded Confirmed Last Taken Type aspirin 81 mg tablet,delayed 81 mg PO BEDTIME 10/31/19 07/31/22 07/27/22 History release (Adult Aspirin Regimen) multivitamin 1 tab PO QAM 10/31/19 07/27/22 07/30/22 History nitroglycerin 0.4 mg sublingual 0.4 mg sublingual Q5M PRN chest 12/29/19 07/27/22 1 Year Ago Rx tablet (Nitrostat) pain #25 tabs ~07/27/21 albuterol sulfate 2.5 mg (3 mL) inhalation QID PRN 09/23/20 07/27/22 Unknown Rx shortness of breath or wheezing #90 mL spironolactone 25 0.5 tab PO DAILY #45 tabs 10/20/21 07/27/22 07/31/22 Rx mg-hydrochlorothiazide 25 mg tablet cholecalciferol (vitamin D3) 25 25 mcg PO DAILY 11/02/21 07/27/22 07/30/22 History mcg (1,000 unit) capsule (Vitamin D3) acetaminophen 500 mg tablet 500 mg PO TID PRN Pain #0 tabs 11/03/21 07/27/22 07/31/22 Rx (Tylenol Extra Strength) guaifenesin 600 mg tablet, 600 mg PO BID PRN congestion #20 01/13/22 07/27/22 Unknown Rx extended release 12 hr (Mucinex) tabs duloxetine 40 mg capsule,delayed 40 mg PO DAILY #90 caps 01/16/22 07/27/22 07/30/22 Rx release hydrocodone 5 mg-acetaminophen 325 5 - 325 tab PO Q6H PRN pain 30 03/01/22 07/27/22 07/31/22 Rx mg tablet days #120 tabs amlodipine 2.5 mg tablet 2.5 mg PO DAILY #90 tabs 06/19/22 07/27/22 07/30/22 Rx pantoprazole 40 mg tablet,delayed 40 mg PO BID #180 ea 06/29/22 07/27/22 07/30/22 Rx release trazodone 100 mg tablet 200 mg PO .AT BEDTIME #60 tabs 07/14/22 07/27/22 Unknown Rx gabapentin 300 mg capsule 900 mg PO TID 07/27/22 07/27/22 07/31/22 History Allergies Allergy/AdvReac Type Severity Reaction Status Date / Time cyclobenzaprine Allergy Unknown Verified 07/27/22 09:10 [From Flexeril] fentanyl Allergy Unknown Verified 07/27/22 09:10 Opioids - Morphine Analogues Allergy Unknown Verified 07/27/22 09:10 Penicillins Allergy ALGY-Hives Verified 07/27/22 09:10 Sulfa (Sulfonamide Allergy ALGY-Hives Verified 07/27/22 09:10 Antibiotics) tramadol [From Ultram] Allergy ADR-Vomitin Verified 07/27/22 09:10 g Current Medications Generic Name Dose Route Start Last Admin Trade Name Freq PRN Reason Stop Dose Admin Sodium Chloride 1,000 mls @ 30 mls/hr 07/31/22 06:00 07/31/22 06:26 Sodium Chloride 0.9% IV 08/01/22 05:59 30 mls/hr .Q24H KARI Administration PFSH Anesthesia Medical History Arthritis of right hip Chronic back pain COVID-19 virus infection Daytime somnolence Essential (primary) hypertension GERD (gastroesophageal reflux disease) Hypersomnia Pharyngoesophageal dysphagia Postlaminectomy syndrome, not elsewhere classified Primary insomnia Unilateral primary osteoarthritis, left knee Surgical History History of bladder surgery History of esophagogastroduodenoscopy (EGD) S/P colonoscopy S/P hysterectomy S/P knee surgery S/P laminectomy Family History Other Diabetes Heart disease Hypertension Social History Smoking and tobacco status: never smoked Alcohol intake: never Lives independently: Yes Marital status: / History of recent travel: No Data Anesthesia Cardiac Studies: No Data to Display
--- NOTE | 2022-07-31 06:51 | ECG_ITS ---
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 Measurements Intervals [place] Rate: 65 P: 92 UT: 168 QRS: 18 QRSD: 109 T: 27 QT: 397 QTc: 413 Interpretive Statements SINUS RHYTHM POSSIBLE LATERAL MYOCARDIAL INFARCTION , PROBABLY OLD [30 ms Q WAVE IN I/aVL/V5/V6] Compared to ECG 10/27/2021 10:14:07 Myocardial infarct finding now present Electronically Signed On 08-01-2022 0:21:34 CDT by oBbby Hancock M.D. [email or web address]/store/[id number]
--- NOTE | 2022-07-31 07:37 | P.HP_ITS ---
Same Day Surgery H&P Indication for Procedure/HPI DATE OF PROCEDURE: July 31, 2022 CHIEF COMPLAINT/INDICATIONFOR SURGICAL PROCEDURE: FH colon cancer PREOP DIAGNOSIS: F/O of Malignant Neoplasm of colon in mother. PLANNED PROCEDURE: Operation Date: 07/31/22 07:00 Proposed Procedures p Colonoscopy 00068, Z80.0(Not Applicable) - Nahid Pink MD Medications/Allergies* Home Medications Medication Instructions Recorded Confirmed Type aspirin 81 mg tablet,delayed 81 mg PO BEDTIME 10/31/19 07/31/22 History release (Adult Aspirin Regimen) multivitamin 1 tab PO QAM 10/31/19 07/27/22 History cholecalciferol (vitamin D3) 25 25 mcg PO DAILY 11/02/21 07/27/22 History mcg (1,000 unit) capsule (Vitamin D3) gabapentin 300 mg capsule 900 mg PO TID 07/27/22 07/27/22 History Allergies/Adverse Reactions Allergy/AdvReac Type Severity Reaction Status Date / Time cyclobenzaprine Allergy Unknown Verified 07/27/22 09:10 [From Flexeril] fentanyl Allergy Unknown Verified 07/27/22 09:10 Opioids - Morphine Analogues Allergy Unknown Verified 07/27/22 09:10 Penicillins Allergy ALGY-Hives Verified 07/27/22 09:10 Sulfa (Sulfonamide Allergy ALGY-Hives Verified 07/27/22 09:10 Antibiotics) tramadol [From Ultram] Allergy ADR-Vomitin Verified 07/27/22 09:10 g Current Medications: Generic Name Dose Route Start Last Admin Trade Name Freq PRN Reason Stop Dose Admin Sodium Chloride 1,000 mls @ 30 mls/hr 07/31/22 06:00 07/31/22 06:26 Sodium Chloride 0.9% IV 08/01/22 05:59 30 mls/hr .Q24H KARI Administration Pertinent History/Comorbid Conditions* Medical History (Updated 01/31/22 @ 11:04 by Jacques Veliz MD) Arthritis of right hip Chronic back pain COVID-19 virus infection Daytime somnolence Essential (primary) hypertension GERD (gastroesophageal reflux disease) Hypersomnia Pharyngoesophageal dysphagia Postlaminectomy syndrome, not elsewhere classified Primary insomnia Unilateral primary osteoarthritis, left knee Surgical History (Updated 01/31/22 @ 11:04 by Jacques Veliz MD) History of bladder surgery History of esophagogastroduodenoscopy (EGD) S/P colonoscopy S/P hysterectomy S/P knee surgery S/P laminectomy Family History (Updated 10/31/19 @ 15:19 by Carmen Carreno LPN) Diabetes Heart disease Hypertension Social History Smoking and tobacco status: never smoked Alcohol intake: never Lives independently: Yes Marital status: / History of recent travel: No Pertinent Exam Findings alert, oriented x 3, clear to auscultation bilaterally, regular rate & rhythm, operative site marked and procedure specific exam findings Recommendations Surgery/Procedure today Coding Level of Care Code Acute Baseball Glove Shaper for Pepitog Melissa
[2022-07-31 08:08] VITALS: BP 109/58; PULSE 55; RESP 16; TEMP 36.2; O2SAT 95
[2022-07-31 08:21] VITALS: BP 123/64; PULSE 64; RESP 18; O2SAT 96
--- NOTE | 2022-07-31 15:49 | ANE.PACU2 ---
Inpatient post-anesthesia follow up: Airway intact: Yes Vital signs: Temperature 97.1 F Pulse Rate 64 Respiratory Rate 18 Blood Pressure 123/64 Pulse Oximetry 96 Oxygen Delivery Me thod Room Air Oxygen Flow Rate Fraction of Inspir ed Oxygen Hydration adequate: Yes Nausea and vomiting: No Pain level: 1 Mental status: Baseline Additional Comments: Discussed with patient about importance of following up with primary care provider in regards to CV symptoms.
== END 2022-07-31 08:35 | disposition home or self-care (01) ==
PROVIDERS: PCP Internal Medicine; Visit Provider Internal Medicine
PROC: 0DJD8ZZ Inspection of Lower Intestinal Tract, Via Natural or Artificial Opening Endoscopic (ICD-10-PCS; CPT 45378; principal; 2022-07-31 07:00)
DX: D12.3 Benign neoplasm of transverse colon (principal); Z80.0 Family history of malignant neoplasm of digestive organs; Z86.16 Personal history of COVID-19; I10 Essential (primary) hypertension; K21.9 Gastro-esophageal reflux disease without esophagitis; G47.30 Sleep apnea, unspecified; I11.0 Hypertensive heart disease with heart failure; I50.9 Heart failure, unspecified; Z79.82 Long term (current) use of aspirin
CPT/HCPCS: 45385; 93005; J2704; J7030

== ENCOUNTER → 2022-08-16 09:28 | Outpatient (BNVA) | payer MEDICARE, MEDICAID, SELFPAY | PROVIDERS: PCP Internal Medicine; Visit Provider Specialist | DX: M25.551 Pain in right hip (principal) | CPT/HCPCS: 73502; 99213 ==

== ENCOUNTER 2022-09-04 15:24 | Outpatient (CLI) | payer MEDICARE, MEDICAID, SELFPAY ==
--- NOTE | 2022-09-04 15:34 | MM_ITS ---
WS: [id number] BILATERAL 3D TOMOSYNTHESIS DIGITAL SCREENING MAMMOGRAPHY WITH CAD CLINICAL INFORMATION: Screen. HISTORY: Screening mammogram. No current complaints. COMPARISON: August 25, 2019 TECHNIQUE: Bilateral CC and MLO views. FINDINGS: Scattered fibroglandular densities bilaterally. No suspicious focal mass, asymmetry, calcifications, or architectural distortion. No evidence of malignancy. Stable incidental punctate calcifications. Va scular calcification. MM/[place] [id number] IMPRESSION: BI-RADS: 2-Benign FOLLOW UP: 1 Year Follow-up Recommend return to annual screening mammography.
== END 2022-09-04 15:25 | disposition home or self-care (01) ==
LOC: RAD 15:25
PROVIDERS: PCP Internal Medicine; Visit Provider Internal Medicine
DX: Z12.31 Encounter for screening mammogram for malignant neoplasm of breast (principal)
CPT/HCPCS: 77063; 77067

== ENCOUNTER → 2022-10-16 14:03 | Outpatient (BNVA) | payer MEDICARE, MEDICAID, SELFPAY | PROVIDERS: PCP Internal Medicine; Visit Provider Internal Medicine Cardiovascular Disease | DX: R94.31 Abnormal electrocardiogram [ECG] [EKG] (principal); R07.9 Chest pain, unspecified; G47.33 Obstructive sleep apnea (adult) (pediatric); I10 Essential (primary) hypertension; K21.9 Gastro-esophageal reflux disease without esophagitis; E78.5 Hyperlipidemia, unspecified | CPT/HCPCS: 93005; 99204 ==

== ENCOUNTER → 2022-10-18 08:18 | Outpatient (BNVA) | payer MEDICARE, MEDICAID, SELFPAY | PROVIDERS: PCP Internal Medicine; Visit Provider Specialist | DX: R20.0 Anesthesia of skin (principal); R20.2 Paresthesia of skin | CPT/HCPCS: 99213 ==

== ENCOUNTER 2022-11-02 06:00 | Outpatient (RCR) | payer MEDICARE, MEDICAID, SELFPAY | END 2022-11-04 23:59 | disposition home or self-care (01) | LOC: SPT 06:00 | PROVIDERS: PCP Internal Medicine; Visit Provider Specialist | DX: M25.551 Pain in right hip (principal) | CPT/HCPCS: 97161 ==

== ENCOUNTER 2022-11-05 06:00 | Outpatient (RCR) | payer MEDICARE, MEDICAID, SELFPAY | END 2022-12-05 23:59 | disposition home or self-care (01) | LOC: SPT 06:00 | PROVIDERS: PCP Internal Medicine; Visit Provider Specialist | DX: M25.551 Pain in right hip (principal) | CPT/HCPCS: 97110 ==

== ENCOUNTER 2022-11-30 06:48 | Outpatient (CLI) | payer MEDICARE, MEDICAID, SELFPAY ==
[2022-11-30 08:03] VITALS: BMI 32.8
--- NOTE | 2022-11-30 08:05 | NMCV_ITS ---
NM tavo perf SPECT r/s* [id number] Bev Waddell Age: 87 Gender: F : 1935 Exam Date: 11/30/2022 08:26 Ordering Phys: Bobby Hancock MD ([email or web address]) Technologist: MERON Carter Exam Location: [facility] Indications: CORONARY ANGIOPLASTY STATUS STRESS TEST Please see separate stress test report in [facility] for full findings IMAGE PROTOCOL Rest/Stress 1 Lexiscan Day Radiopharmaceutical Dose (mCi) Administration Site Administered by Rest: Tc-99m 10.4 IV MERON Salcido Sestamibi Stress:Tc-99m 32.4 IV MERON Salcido Sestamibi Rest: 30-Nov-2022 60 Discovery 630 Stress: 30-Nov-2022 30 Discovery 630 0.4mg Lexiscan. Images obtained in supine and prone position. SPECT RESULTS Technical Quality: Excellent Raw Data Analysis: Normal Image Corrections: No attenuation or motion correction applied Summed Stress Score: 1 Summed Rest Score: 0 Summed Difference Score: 1 PERFUSION FINDINGS There is a small in size reversible perfusion defect noted in inferolateral wall. This is consistent with small sized area of ischemia in left circumflex artery territory. FUNCTIONAL RESULTS (calculated via Gated SPECT) Stress Image LV EF (%): 76 Stress EDV (mL):80 TID: 1.11 Stress ESV (mL):19 FUNCTIONAL FINDINGS: There is normal left ventricular systolic function. IMPRESSIONS 1. Small area of ischemia is seen in the left circumflex artery territory. 2. LV systolic function is normal Leeroy Garcia MD (Electronically Signed) Final Date: 30 November 2022 13:17 S
--- NOTE | 2022-11-30 08:05 | ECG_ITS ---
[facility] Test Date: 2022-11-30 Pat Name: Bev Waddell Department: Room: Gender: Female Orientation And Mobility Instructor: : 1935 Requested By: Bobby Hancock Order Number: [id number] Robertson MD: Dawn Hernandez M.D. Interpretive Statements NAME OF STUDY: LEXISCAN SESTAMIBI STRESS TEST INDICATION: Chest Pain PROCEDURE: At the baseline, the blood pressure was 131/81 mm Hg with a heart rate of 59 bpm. The electrocardiogram showed sinus rhythm, normal axis. Normal ST and T's. ??? The Lexiscan was infused over a period of 20 seconds. A total of 0.4 milligrams of Lexiscan was infused. The stress phase was continued for a total of 5 minutes. Heart rate at the end of the stress phase was 76 bpm with a blood pressure of 127/70 mm Hg. The EKG at the peak infusion revealed no significant ST and T wave changes. ??? Sestamibi was injected 20 seconds after the Lexiscan infusion. ??? Blood pressure at the end of the recovery phase was 131/68 mm Hg with a heart rate of 69 bpm per minute and oxygen saturation of 90%. ??? CONCLUSION: 1. No significant EKG changes with the LexiScan infusion. 2. No LexiScan induced chest pain or cardiac arrhythmia. 3. Normal blood pressure and heart rate response. 4. Sestamibi/sestamibi perfusion scan pending; see separate report. Electronically Signed On 12-06-2022 13:11:44 VARYING EXCEPTIONALITIES TEACHER by Dawn Hernandez M.D. [id number]
[2022-11-30] MEDS: regadenoson 0.4 Mg/5 ml Syringe IVP (09:01)
[2022-11-30] MEDS: ondansetron 2 mg/ML SDV 2 mL 4 MG IVP (09:12)
[2022-11-30 09:18] VITALS: BP 131/68; PULSE 70
== END 2022-11-30 06:49 | disposition home or self-care (01) ==
LOC: CDL 06:54
PROVIDERS: PCP Internal Medicine; Visit Provider Internal Medicine Cardiovascular Disease
DX: Z98.61 Coronary angioplasty status (principal)
CPT/HCPCS: 36415; 78452; 93017; 96374; 96375; A9500; J2405; J2785

== ENCOUNTER → 2022-12-04 09:55 | Outpatient (BNVA) | payer MEDICARE, MEDICAID, SELFPAY | PROVIDERS: PCP Internal Medicine; Visit Provider Specialist | DX: M54.17 Radiculopathy, lumbosacral region (principal) | CPT/HCPCS: 99213 ==

== ENCOUNTER → 2022-12-14 12:03 | Outpatient (BNVA) | payer MEDICARE, MEDICAID, SELFPAY | PROVIDERS: PCP Internal Medicine; Referring Provider Specialist; Visit Provider Specialist | DX: M96.1 Postlaminectomy syndrome, not elsewhere classified (principal); M54.17 Radiculopathy, lumbosacral region | CPT/HCPCS: 95860; 99202 ==

== ENCOUNTER → 2022-12-26 13:32 | Outpatient (BNVA) | payer MEDICARE, MEDICAID, SELFPAY | PROVIDERS: PCP Family Medicine; Visit Provider Family Medicine | DX: I10 Essential (primary) hypertension (principal); E78.5 Hyperlipidemia, unspecified | CPT/HCPCS: 80053; 80061 ==

== ENCOUNTER → 2023-01-04 11:36 | Outpatient (BNVA) | payer MEDICARE, MEDICAID, SELFPAY | PROVIDERS: PCP Family Medicine; Visit Provider Family Medicine | DX: E87.1 Hypo-osmolality and hyponatremia (principal) | CPT/HCPCS: 80048 ==

== ENCOUNTER 2023-01-10 09:15 | Outpatient (CLI) | payer MEDICARE, MEDICAID, SELFPAY ==
--- NOTE | 2023-01-10 09:30 | MR_ITS ---
WS: [id number] MRI RIGHT HIP without CONTRAST. COMPARISON: Radiographs 08/16/2022 Multiplanar, multisequence imaging is performed without contrast. History: Chronic RIGHT hip pain with no injury. Symmetric appearance of the hips. There is mild bilateral narrowing of the hip joints. No marrow tim a or fracture. SI joints are symmetric with no erosions. No acetabular or edema. Small osteophyte extends from the lateral superior acetabulum. No labral tear is identified. There so me very minimal increased signal in the labrum but no tear. There is a very small joint effusion surr ounding each hip which is within normal limits. The muscle surrounding the hip are normal. No trochan teric bursitis. There is a small amount of increased signal over the greater trochanter at the region of the gluteus medius muscle and tendon site of attachment. Partial tear in the tendon at the insertion site with mu scle strain is likely. No muscle atrophy. MR/MR hip RT wo con* [id number] IMPRESSION: 1. Very mild increased fluid signal in the RIGHT gluteus medius muscle and ten don at the greater trochanter. Suspect very mild muscle strain and partial tear of the tendon is not excluded. 2. Very mild bilateral hip joint narrowing with no fracture or marrow edema.
== END 2023-01-10 09:16 | disposition home or self-care (01) ==
LOC: RAD 09:20
PROVIDERS: PCP Family Medicine; Visit Provider Specialist
DX: M25.551 Pain in right hip (principal)
CPT/HCPCS: 73721

== ENCOUNTER 2023-01-16 12:21 | Outpatient (CLI) | payer MEDICARE, MEDICAID, SELFPAY ==
--- NOTE | 2023-01-16 13:00 | USCV_ITS ---
Bev Waddell Age: 87 Gender: F : 1935 Exam Date: 01/16/2023 12:42 Ordering Phys: Bobby Hancock MD ([email or web address]) Technologist: Hui Pack [place] [facility] [place]: Murmur BP: 147 / 91 HR: 70 Rhythm: Sinus Technical Quality: Adequate MEASUREMENTS (Male / Female) Normal Values 2D ECHO LV Diastolic Diameter PLAX 4.4 cm 4.2 - 5.9 / 3.9 - 5.3 cm LV Systolic Diameter PLAX 2.2 cm LV Chamber Size 3.3 cm IVS Diastolic Thickness 1.3 cm 0.6 - 1.0 / 0.6 - 0.9 cm IVS Systolic Thickness 1.1 cm LVPW Diastolic Thickness 1.4 cm 0.6 - 1.0 / 0.6 - 0.9 cm LVPW Systolic Thickness 1.5 cm RV Chamber Size 2.7 cm LVOT Diameter 2.1 cm LV Ejection Fraction 2D Teich 82.5 % LV Ejection Fraction MOD 2C 55.5 % LV Ejection Fraction 2C AL 58.5 % LA Diameter 3.2 cm LA Width 3.0 cm LA Height 3.6 cm RA Width 2.3 cm RA Height 3.4 cm Aorta at Sinotubular Diameter 2.6 cm IVC Diameter 1.4 cm M-MODE Aortic Annulus Diameter 2.7 cm LA Ao Ratio MM 1.5 MV E Point Septal Separation 0.5 cm DOPPLER AV Peak Velocity 251.0 cm/s LVOT Peak Velocity 99.7 cm/s AV Area Cont Eq vti 1.6 cm squared AV Area Cont Eq pk 1.4 cm squared MV Peak Velocity 107.0 cm/s MV Area PHT 2.9 cm squared Mitral E to A Ratio 0.8 MV E' Velocity 38.5 cm/s Mitral E to MV E' Ratio 7.6 Mitral E to LV E' Lateral Ratio 7.8 Mitral E to LV E' Septal Ratio 7.3 TR Peak Velocity 233.4 cm/s TR Peak Gradient 21.8 mmHg TR Mean Velocity 204.4 cm/s TR Mean Gradient 16.8 mmHg TR Velocity Time Integral 69.0 cm TV Peak E Velocity 59.0 cm/s Right Atrial Pressure 3.0 mmHg Pulmonary Artery Systolic Pressu 24.8 mmHg RV Acceleration Time 0.1 s RV Ejection Time 0.3 s RV AcT/ET 0.4 FINDINGS Left Ventricle Mild concentric left ventricular hypertrophy with a normal ejection fraction. No significant wall motion normalities.Grade I/IV diastolic dysfunction (abnormal relaxation filling pattern), normal to mildly elevated filling pressures. Normal left ventricular size and systolic function, EF 58 %. Right Ventricle The right ventricle is normal in size and function. Right Atrium The right atrium is normal in size. Left Atrium Mild left atrial enlargement. Mitral Valve Mildly thickened mitral valve Aortic Valve Thickened aortic valve. Trace aortic valve regurgitation. Mild aortic valve stenosis, mean gradient 12.8 mmHg, SERA 1.6 cm squared. Tricuspid Valve Trace tricuspid valve regurgitation. Pulmonic Valve Pulmonic valve not well visualized. Pericardium Normal pericardium without effusion. Aorta Normal ascending aorta dimension. IVC Normal inferior vena cava. CONCLUSIONS Normal left ventricular size and systolic function, EF 58 %. Mild concentric left ventricular hypertrophy with a normal ejection fraction. No significant wall motion normalities.Grade I/IV diastolic dysfunction (abnormal relaxation filling pattern), normal to mildly elevated filling pressures. Mild left atrial enlargement. Mild aortic valve stenosis, mean gradient 12.8 mmHg, SERA 1.6 cm squared. Trace aortic valve regurgitation. Trace of tricuspid valve regurgitation. Estimated pulmonary artery peak systolic pressure of 25 mmHg There is no pericardial effusion. There are no intracardiac masses. No similar previous studies are available for comparison Dr Bobby Hancock MD [facility] (Electronically Signed) Final Date: 17 January 2023 21:50 S
== END 2023-01-16 12:22 | disposition home or self-care (01) ==
LOC: RAD 12:23
PROVIDERS: PCP Family Medicine; Visit Provider Internal Medicine Cardiovascular Disease
DX: R06.09 Other forms of dyspnea (principal); R94.31 Abnormal electrocardiogram [ECG] [EKG]; R01.1 Cardiac murmur, unspecified; I08.1 Rheumatic disorders of both mitral and tricuspid valves
CPT/HCPCS: 93306

== ENCOUNTER 2023-02-09 15:14 | Outpatient (CLI) | payer MEDICARE, MEDICAID, SELFPAY ==
--- NOTE | 2023-02-09 15:22 | CT_ITS ---
WS: [id number] CT LUMBAR SPINE TECHNIQUE: Noncontrast CT of the lumbar spine with coronal and sagittal reformatted images. CLINICAL INFORMATION: VERTEBROGENIC LOW BACK PAIN COMPARISON: MRI 6 26,018 DLP: 474.[address] scans at [facility] use at least one of these dose optimization techniques: automated e xposure control; mA and/or kV adjustment per patient size (includes targeted exams where dose is matc hed to clinical indication); or iterative reconstruction. FINDINGS: Mild lumbar curve convex LEFT. Multilevel degenerative disc disease with disc space narrowing through out the lumbar spine. This is progressed compared to the MRI in 2018. L1-L2: Mild disc osteophytic ridging. Slight effacement of ventral thecal sac. Mild LEFT and no signi ficant RIGHT foraminal narrowing. Spinal canal is patent. Mild facet arthropathy. L2-L3: Disc osteophyte complex with endplate ridging. Moderate central canal stenosis. Impingement tr aversing L3 nerve roots. Moderate facet arthropathy ligamentum flavum hypertrophy. Mild RIGHT and no significant LEFT foraminal narrowing. L3-L4: Mild disc osteophyte complex with endplate ridging. Mild central canal stenosis. Mild RIGHT fo raminal narrowing. Moderate facet arthropathy. L4-L5: Disc osteophyte complex with endplate ridging. Moderate central canal stenosis. Laminectomy de fects. Impingement traversing L5 nerve roots. Mild to moderate RIGHT and no significant LEFT foramina l narrowing. L5-S1: Disc osteophyte complex with endplate ridging. Mild central canal stenosis. Impingement on the traversing LEFT greater than RIGHT S1 nerve roots. Moderate LEFT L5-S1 foraminal narrowing. Visualized pelvic bony structures: Normal. Paravertebral soft tissues: Normal. CT/CT lumbar spine wo con* [id number] IMPRESSION: 1. Mild lumbar curve. No acute compression. Prior laminectomy defects L3-L4 an d L4-L5. 2. Moderate central canal stenosis L2-L3 due to mild disc bulging with facet a rthropathy ligamentum flavum hypertrophy. Slightly progressed compared to 2018. 3. Mild residual central canal stenosis L3-L4 and moderate central canal steno sis L4-L5. This is similar in appearance to 2018 4. Mild to moderate RIGHT L4-L5 and LEFT L5-S1 bony foraminal narrowing. 5. Moderate facet arthropathy L3-L5.
--- NOTE | 2023-02-09 15:23 | XR_ITS ---
WS: [id number] XR lumbar spine f/e only [id number] REASON FOR EXAM: POSTLAMINECTOMY SYNDROME FINDINGS: Relatively normal lordosis of the lumbar spine. No focal vertebral body abnormality. Moderate narrowing with endplate sclerosis and osteophytosis of the L1-L2 and L2-L3 disc spaces. The L3-L4 disc space is mildly narrowed. There is severe narrowing of the L4-L5 and L5-S1 disc spaces with endplate sclerosis and osteophytosi s. There has been surgical alteration of the posterior elements at L4-L5. Moderately severe degenerative changes in the facet joints L4-S1. 2 to 3 mm of anterolisthesis of L2 in relation to L1. 3 to 4 mm of anterolisthesis of L3 in relation to L2. 4 mm of anterolisthesis of L3 in relation to L4. 4 mm of anterolisthesis of L4 in relation to L5. 1 to 2 mm of accentuation of the listhesis at L3-L4 with flexion and partial reduction with extension . The other listheses are relatively stable in flexion and extension. There does not appear to have been significant interval change compared to 04/30/2018. XR/XR lumbar spine f/e only [id number] IMPRESSION: Postsurgical change and multilevel degenerative spondylosis as above. . . . . . . . . . . . . . . . . . . . . . . . . . . . . . . . . . . . . . . . . . . . . . . . . . . . . . . . . . . . . . . . .... .0.. . . . . . . . . . . . . . . . . . . . . . . . . . . . . . . . . . . . . . . . . . . ........ ..... ......... ....... ............ .. .. ............................................................................... ............................................................................... ............ ........ ....................................................... . . ............................................
== END 2023-02-09 15:15 | disposition home or self-care (01) ==
LOC: RAD 15:19
PROVIDERS: PCP Family Medicine; Visit Provider Nurse Practitioner
DX: M96.1 Postlaminectomy syndrome, not elsewhere classified (principal); M54.51 Vertebrogenic low back pain; M25.78 Osteophyte, vertebrae
CPT/HCPCS: 72120; 72131

== ENCOUNTER → 2023-02-12 14:03 | Outpatient (BNVA) | payer MEDICARE, MEDICAID, SELFPAY | PROVIDERS: PCP Family Medicine; Visit Provider Internal Medicine Cardiovascular Disease | DX: R07.9 Chest pain, unspecified (principal); I35.0 Nonrheumatic aortic (valve) stenosis; I10 Essential (primary) hypertension; G47.33 Obstructive sleep apnea (adult) (pediatric); E78.5 Hyperlipidemia, unspecified; R00.2 Palpitations | CPT/HCPCS: 99214 ==

== ENCOUNTER → 2023-02-14 14:44 | Outpatient (BNVA) | payer MEDICARE, MEDICAID, SELFPAY | PROVIDERS: PCP Family Medicine; Visit Provider Specialist | DX: M16.11 Unilateral primary osteoarthritis, right hip (principal) | CPT/HCPCS: 99213 ==

== ENCOUNTER 2023-03-01 09:43 | Outpatient (RCR) | payer MEDICARE, MEDICAID, SELFPAY | END 2023-03-04 23:59 | disposition home or self-care (01) | LOC: SPT 09:43 | PROVIDERS: PCP Family Medicine; Visit Provider Specialist | DX: M25.551 Pain in right hip (principal); M53.3 Sacrococcygeal disorders, not elsewhere classified | CPT/HCPCS: 97161 ==

== ENCOUNTER 2023-03-05 06:00 | Outpatient (RCR) | payer MEDICARE, MEDICAID, SELFPAY | END 2023-04-04 23:59 | disposition home or self-care (01) | LOC: SPT 06:00 | PROVIDERS: PCP Family Medicine; Visit Provider Specialist | DX: M25.551 Pain in right hip (principal); M53.3 Sacrococcygeal disorders, not elsewhere classified | CPT/HCPCS: 97110 ==

== ENCOUNTER → 2023-03-06 13:59 | Outpatient (BNVA) | payer MEDICARE, MEDICAID, SELFPAY | PROVIDERS: PCP Family Medicine; Visit Provider Podiatrist Foot & Ankle Surgery | DX: M20.11 Hallux valgus (acquired), right foot (principal); M20.41 Other hammer toe(s) (acquired), right foot; M20.42 Other hammer toe(s) (acquired), left foot | CPT/HCPCS: 73630; 99203 ==

== ENCOUNTER 2023-05-07 11:23 | Inpatient (IN) | payer MEDICARE, MEDICAID, SELFPAY ==
[2023-05-07] VITALS (13 sets, daily range): BP systolic 80–180; BP diastolic 46–97; PULSE 57–75; RESP 15–22; TEMP 35.9–37; O2SAT 83–94; BMI 32.1
--- NOTE | 2023-05-07 12:13 | CT_ITS ---
WS: [id number] CT HEAD TECHNIQUE: Noncontrast CT of the head obtained from the skullbase to the vertex. CLINICAL INFORMATION: new onset headache w vision changes COMPARISON: 2020 DLP: 1050.[address] scans at [facility] use at least one of these dose optimization techniques: automated e xposure control; mA and/or kV adjustment per patient size (includes targeted exams where dose is matc hed to clinical indication); or iterative reconstruction. FINDINGS: No evidence of intracranial hemorrhage or mass effect. Ventricular system and basal cisterns are bartlett nt. Mild small vessel changes with mild parenchymal volume loss. No extra-axial fluid collections. No evidence of mass or mass effect. Incidental cerebellar tonsillar ectopia. Paranasal sinuses and mastoid air cells are well aerated. .Normal visualized soft tissues. CT/CT head wo con* [id number] IMPRESSION: 1. No evidence of intracranial hemorrhage or mass effect. 2. Mild small vessel changes. Mild parenchymal volume loss. 3. Intracranial vascular calcification. 4. No acute intracranial findings.
--- NOTE | 2023-05-07 12:13 | ECG_ITS ---
[facility] Test Date: 2023-05-07 Pat Name: Bev Waddell Department: Room: Gender: Female Vp [employer]: : 1935 Requested By: Efrain Koch Order Number: [id number] Marcelo MD: Bobby Hancock M.D. Measurements Intervals [place] Rate: 57 P: 101 NV: 169 QRS: 59 QRSD: 98 T: 67 QT: 392 QTc: 385 Interpretive Statements SINUS BRADYCARDIA Compared to ECG 07/31/2022 07:20:53 Sinus rhythm no longer present Myocardial infarct finding no longer present Electronically Signed On 05-07-2023 18:40:12 CDT by Bobby Hancock M.D. [id number]
[2023-05-07] MEDS: labetalol 5 mg/mL SDV 20mL 10 MG IVP (12:25)
[2023-05-07] MEDS: promethazine 25 mg/mL SDV 1 mL IM (12:29)
[2023-05-07 12:31] LABS: Basophils # 0.1 10^3/uL (0.0-0.1); Basophils % 1.2 %; Eosinophils # 0.2 10^3/uL (0.0-0.8); Hematocrit 44.9 % (37.0-47.0); Hemoglobin 15.4 g/dL (11.5-15.3); Lymphocytes # 3.6 10^3/uL (0.8-4.8); Lymphocytes % 43.8 %; Mean Corpuscular HGB Conc 34.3 g/dL (30.0-36.0); Mean Corpuscular Hemoglobin 31.9 pg (28.0-34.0); Mean Platelet Volume 9.5 fL (7.4-10.4); Monocytes # 0.9 10^3/uL (0.2-0.9); Monocytes % 11.5 %; Neutrophils # 3.35 10^3/uL (1.8-7.7); Neutrophils % 41.1 %; Nucleated Red Blood Cells % 0 %; Platelet Count 264 10^3/cmm (130-400); Red Blood Count 4.83 10^6/uL (4.1-5.3); Red Cell Distribution Width 11.9 % (12.1-15.1); White Blood Count 8.2 10^3/uL (4.0-10.0)
[2023-05-07 12:53] LABS: Alanine Aminotransferase 16 U/L (0-33); Albumin Level 4.2 g/dL (3.5-5.2); Alkaline Phosphatase 57 U/L (35-105); Blood Urea Nitrogen 9 mg/dL (8-23); Calcium 9.7 mg/dL (8.5-10.5); Carbon Dioxide 26 mmol/L (22-29); Chloride 86 mmol/L (98-107); Globulin 3.3 g/dL (1.3-4.6); Glucose 101 mg/dL (65-115); Osmolality Calculated 253 mOsm/kg (285-295); Sodium 122 mmol/L (136-145); Total Bilirubin 0.5 mg/dL (0.15-1.2); Total Protein 7.5 g/dL (6.6-8.7)
[2023-05-07 12:56] LABS: Anion Gap 14.6 (5-19); Aspartate Amino Transferase 27 U/L (0-32); Potassium 4.6 mmol/L (3.5-5.1)
--- NOTE | 2023-05-07 13:05 | ED_ITS ---
HPI - Headache General: Chief Complaint: Headache Stated Complaint: headache,tunnel vision, nausea, vomiting Time Seen by Provider: 05/07/23 11:33 Source: patient Mode of arrival: ambulatory History of Present Illness: 87-year-old female presents to the emergency room with a headache that began yesterday is gradually worsened she has had some tunnel vision nausea and photophobia. She states she has had headaches in the past but never this intense. She states this headache feels different than she has had before. She denies any recent head trauma she is not on anticoagulants. She denies chest or abdominal pain associated with this. Nothing seems to exacerbate or relieve. MD elicited complaint: headache Onset (ago): day(s) (1) Onset description: gradually Location: frontal Severity: moderate Quality & Timing: sharp Exacerbating factors: light and noise Relieving factors: nothing Associated symptoms: Reports nausea and photophobia; Deny chest pain, confusion, cough, diaphoresis, eye pain, eye redness, fever(s), lightheadedness, loss of vision, malaise, neck stiffness, numbness, paresthesias, pre-syncope, rash, seizures, short of breath, sound sensitivity, syncope, vomiting or weakness Review of Systems Const: Denies: fever(s), chills, malaise or diaphoresis ENMT: Denies: throat pain, ear or mastoid pain, nasal discharge or nasal congestion Card: Denies: chest pain, lightheadedness, syncope or pre-syncope Resp: Denies: dyspnea, productive cough or non-productive cough GI: Reports: nausea; Denies: abdominal pain or vomiting : Denies: flank pain, difficulty voiding, dysuria, urinary frequency or urinary urgency Skin/Breast: Denies: rash or pruritus Neuro: Denies: confusion PFSH ED PFSH: Medical History (Updated 05/08/23 @ 14:31 by Cayetano Hyatt MD) Arthritis of right hip Chest pain Chronic back pain Dyslipidemia Essential (primary) hypertension Family history of colon cancer in mother GERD (gastroesophageal reflux disease) History of skin cancer GINGER (obstructive sleep apnea) Postlaminectomy syndrome, not elsewhere classified Primary insomnia Radiculopathy Unilateral primary osteoarthritis, left knee Surgical History History of back surgery lumbar laminectomy, level unknown History of bladder surgery History of colonoscopy History of esophagogastroduodenoscopy (EGD) History of hysterectomy History of left inguinal hernia repair History of total left knee replacement The [place] total knee system with a size 4 triathlon beaded posterior stabilized femur left, a triathlon titanium tibial component size 4 beaded, a triathlon X3 posterior stabilized tibial bearing insert size 4 X 13 mm and a beaded triathlon titanium asymmetric patella size 32 x 10 mm 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 with a size 4 triathlon beaded posterior stabilized femur left, a triathlon titanium tibial component size 4 beaded, a triathlon X3 posterior stabilized tibial bearing insert size 4 X 13 mm and a beaded triathlon titanium asymmetric patella size 32 x 10 mm Family History Mother CAD (coronary artery disease) Cancer colon Dementia Lung disease Grandmother CAD (coronary artery disease) Family/Other Dementia Lung disease Suicide Sister Dementia Son Lung disease Daughter Lung disease Diabetes Brother Diabetes Grandfather Stroke Other Heart disease Hypertension Denies family history of Clotting disorder Chronic kidney disease (CKD) Anesthesia complication Bleeding disorder Social History Smoking and tobacco status: never smoked Alcohol intake: never Substance/Drug Use: never Lives independently: Yes Household members: none Marital status: / Number of children: 4 Number of grandchildren: 4 Current occupational status: retired 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 [employer]/Pentecostal: Zoroastrianism Physical Exam 2 Const: GENERAL APPEARANCE: cooperative and comfortable ORIENTATION/CONSCIOUSNESS: Yes awake, Yes oriented to person, Yes oriented to place and Yes oriented to time HENMT: COMMON NORMALS: normocephalic, atraumatic and hearing grossly normal bilaterally HEAD & SCALP: normocephalic and atraumatic Eye: DIRECT OPHTHALMOSCOPY: Yes photophobia Resp: COMMON NORMALS: normal respiratory effort, No retractions, No use of accessory muscles and clear to auscultation bilaterally AUSCULTATION: clear to auscultation bilaterally Cardio: COMMON NORMALS: regular rate, regular rhythm and No murmurs present (Cardio) RATE: regular rate RHYTHM: regular rhythm GI: COMMON NORMALS: Soft to palpation and No hepatosplenomegaly present AUSCULTATION: Yes normoactive bowel sounds PALPATION: Yes Soft to palpation, No Tenderness to palpation present (GI), No Guarding due to palpation present (GI) and Yes No hepatosplenomegaly present Extremity: COMMON NORMALS: normal to inspection, capillary refill normal, no clubbing, cyanosis or edema, no calf tenderness and no pedal edema Neuro: SENSORIUM/ORIENTATION: Yes oriented to person, Yes oriented to place and Yes oriented to time Skin: COMMON NORMALS: no rashes or lesions noted GENERAL SKIN EXAM: no rashes or lesions noted Course Vital Signs: Vital signs: Vital Signs Temperature 98.5 F 05/08/23 13:05 Pulse Rate 72 05/08/23 14:07 Respiratory Rate 18 05/08/23 13:56 Blood Pressure 122/52 05/08/23 13:56 Pulse Oximetry 94 05/08/23 13:56 Oxygen Delivery Me thod CPAP 05/08/23 13:56 Oxygen Flow Rate 5 05/08/23 11:30 MDM - Headache Medical Decision Making Labs and imaging reviewed blood pressure improved still has some mild headache and nausea suspect is from her hyponatremia will admit IV fluids given discussed with hospitalist orders written Medical Records I reviewed the patient's medical records. Lab Data I reviewed the patient's lab results. 05/08/23 03:17 05/08/23 03:17 Radiology Impressions Chest X-Ray 05/08/23 02:03 IMPRESSION: Large heart with no consolidation identified. Chest CT pending. Head CT 05/08/23 02:21 IMPRESSION: 1. No acute intracranial abnormality. 2. Mild age-related changes. Chest/Abdomen/Pelvis CT 05/08/23 02:24 IMPRESSION: 1. Minimal lung base atelectasis or scarring with trace pleural effusions. These findings have progressed mildly from 03/30/2022. 2. No consolidation, pneumothorax or other significant change has occurred. IMPRESSION: 1. No acute findings. 2. The colon is rather fecal filled. 3. Multiple chronic findings above. Laboratory Results WBC 8.2 10^3/uL (4.0-10.0) 05/07/23 12:05 RBC 4.83 10^6/uL (4.1-5.3) 05/07/23 12:05 Hgb 15.4 g/dL (11.5-15.3) H 05/07/23 12:05 Hct 44.9 % (37.0-47.0) 05/07/23 12:05 MCV 93.0 fl (81-99) 05/07/23 12:05 MCH 31.9 pg (28.0-34.0) 05/07/23 12:05 MCHC 34.3 g/dL (30.0-36.0) 05/07/23 12:05 RDW 11.9 % (12.1-15.1) L 05/07/23 12:05 Plt Count 264 10^3/cmm (130-400) 05/07/23 12:05 MPV 9.5 fL (7.4-10.4) 05/07/23 12:05 Neut % (Auto) 41.1 % 05/07/23 12:05 Lymph % (Auto) 43.8 % 05/07/23 12:05 [place] % (Auto) 11.5 % 05/07/23 12:05 Eos % (Auto) 2.0 % 05/07/23 12:05 Baso % (Auto) 1.2 % 05/07/23 12:05 Neut # (Auto) 3.35 10^3/uL (1.8-7.7) 05/07/23 12:05 Lymph # (Auto) 3.6 10^3/uL (0.8-4.8) 05/07/23 12:05 [place] # (Auto) 0.9 10^3/uL (0.2-0.9) 05/07/23 12:05 Eos # (Auto) 0.2 10^3/uL (0.0-0.8) 05/07/23 12:05 Baso # (Auto) 0.1 10^3/uL (0.0-0.1) 05/07/23 12:05 Nucleated RBC % (auto) 0 % 05/07/23 12:05 Nucleated RBCs # 0.0 /100WBC 05/07/23 12:05 Sodium 122 mmol/L (136-145) L 05/07/23 12:05 Potassium 4.6 mmol/L (3.5-5.1) 05/07/23 12:05 Chloride 86 mmol/L (98-107) L 05/07/23 12:05 Carbon Dioxide 26 mmol/L (22-29) 05/07/23 12:05 Anion Gap 14.6 (5-19) 05/07/23 12:05 BUN 9 mg/dL (8-23) 05/07/23 12:05 Creatinine 0.7 mg/dL (0.5-0.9) 05/07/23 12:05 GFR Calculation Not Reportable 05/07/23 12:05 Glucose 101 mg/dL (65-115) 05/07/23 12:05 Calculated Osmolality 253 mOsm/kg (285-295) L 05/07/23 12:05 Calcium 9.7 mg/dL (8.5-10.5) 05/07/23 12:05 Total Bilirubin 0.5 mg/dL (0.15-1.2) 05/07/23 12:05 AST 27 U/L (0-32) 05/07/23 12:05 ALT 16 U/L (0-33) 05/07/23 12:05 Alkaline Phosphatase 57 U/L (35-105) 05/07/23 12:05 Troponin T Baseline 6 ng/L (0-10) 05/07/23 12:05 Total Protein 7.5 g/dL (6.6-8.7) 05/07/23 12:05 Albumin 4.2 g/dL (3.5-5.2) 05/07/23 12:05 Globulin 3.3 g/dL (1.3-4.6) 05/07/23 12:05 Discharge Plan Discharge Patient Disposition: Admitted As Inpatient Admit Provider: Cayetano Hyatt Clinical Impression: Hyponatremia, Headache, Uncontrolled hypertension Condition: Stable Coding Level of Care Code ED Horseradish Grinder for Joao Torres
[2023-05-07] MEDS: sodium chloride 0.9% 500 ML IV (14:43)
--- NOTE | 2023-05-07 14:44 | PC.PHAR ---
pt states she knows the medications she takes -pt states she has a nurse that also helps her-medications entered are from what the pt states she takes and what ext med history shows has been filled recently along with otc items the pt states she takes-
[2023-05-07] MEDS: ondansetron 2 mg/ML SDV 2 mL 4 MG IVP (15:14)
--- NOTE | 2023-05-07 15:21 | P.HP_ITS ---
Providers/Chief Complaint Admitting Physician: Cayetano Hyatt Primary Care Provider: Vinod Vazquez MD Chief Complaint: headache,tunnel vision, nausea, vomiting History of Present Illness Pleasant 87-year-old lady with remote history of migraine headache, but states has not had a migraine about 30 years, history of HTN, GERD, chronic back pain, GINGER, has not worn CPAP for a while since having COVID, other chronic medical conditions presented to ER feeling unwell with a headache that began yesterday, accompanied by nausea, this morning had a small amount of vomiting, for several weeks he has been feeling weaker as well. Additionally had some visual symptoms with some tunnel vision which has resolved. And some dizziness with room spinning about her. States that she has been eating and set up for today. Currently she is hungry but still also nauseated. Reports that she drinks about 3 bottles of water a day in addition to other liquids in her diet. She does not restrict salt intake. Initially in ER blood pressure elevated 180/81. Additionally noted moderate hyponatremia, sodium down to 122. CT of the head obtained in ER without acute abnormality. She is otherwise afebrile, without leukocytosis, without tachycardia, tachypnea or other signs of sepsis. She has cough intermittently, but not currently, denies any new or worsening shortness of breath. Has been feeling fatigued/tired. With nausea and episode of vomiting this morning, denies having any accompanying diarrhea. Denies any excessive urination. Denies any jaw claudication, no temporal or scalp tenderness. Denies any tick bites. No rashes. Review of Systems Const: Reports: fatigue; Denies: fever(s), chills or body aches Eyes: Denies: change in vision, eye discomfort or eye redness ENMT: Denies: throat pain, oral sores or ear or mastoid pain Card: Denies: chest pain, edema, pre-syncope or dyspnea on exertion Resp: Denies: dyspnea, productive cough, change in phlegm color or hemoptysis GI: Reports: abdominal pain (Abdominal wall sore after vomiting), nausea and vomiting; Denies: diarrhea, constipation, hematochezia or melena : Denies: flank pain, urinary frequency or hematuria Musc: Denies: back pain, joint swelling or joint redness Skin/Breast: Denies: rash or new lesions Neuro: Reports: headache(s) and dizziness; Denies: numbness in extremities, weakness in extremities, confusion or seizure- like activity Endo: Denies: polyuria Medications/Allergies Home Medications Medication Instructions Recorded Confirmed Last Taken Type aspirin 81 mg tablet,delayed 81 mg PO BEDTIME 10/31/19 05/07/23 05/06/23 History release (Adult Aspirin Regimen) multivitamin 1 tab PO QAM 10/31/19 05/07/23 05/07/23 History nitroglycerin 0.4 mg sublingual 0.4 mg sublingual Q5M PRN chest 12/29/19 05/07/23 1 Year Ago Rx tablet (Nitrostat) pain #25 tabs ~07/27/21 acetaminophen 500 mg tablet 500 mg PO TID PRN Pain #0 tabs 11/03/21 05/07/23 05/07/23 Rx (Tylenol Extra Strength) cholecalciferol (vitamin D3) 25 50 mcg PO QAM 12/26/22 05/07/23 05/07/23 History mcg (1,000 unit) capsule (Vitamin D3) sennosides 8.6 mg tablet (Senokot) 8.6 mg PO DAILY PRN Constipation 12/26/22 05/07/23 Unknown History metoprolol tartrate 25 mg tablet 25 mg PO BID 30 days #60 tabs 02/12/23 05/07/23 05/07/23 Rx guaifenesin 600 mg tablet, 600 mg PO Q12H PRN Congestion 02/27/23 05/07/23 Unknown History extended release 12 hr (Mucinex) amlodipine 2.5 mg tablet 2.5 mg PO QAM 05/07/23 05/07/23 05/07/23 History duloxetine 60 mg capsule,delayed 60 mg PO QPM 05/07/23 05/07/23 05/06/23 History release gabapentin 300 mg capsule 900 mg PO TID@06,12,18 05/07/23 05/07/23 05/07/23 History hydrocodone 5 mg-acetaminophen 325 1 tab PO Q4H PRN pain 05/07/23 05/07/23 05/07/23 History mg tablet isosorbide mononitrate 30 mg 30 mg PO QAM 05/07/23 05/07/23 05/07/23 History tablet,extended release 24 hr methyl salicylate-menthol 29 %-7.6 1 applic topical DAILY PRN Pain 05/07/23 05/07/23 Unknown History % topical ointment (Icy Hot) pantoprazole 40 mg tablet,delayed 40 mg PO BID 05/07/23 05/07/23 05/07/23 History release spironolactone 25 0.5 tab PO QAM 05/07/23 05/07/23 05/07/23 History mg-hydrochlorothiazide 25 mg tablet trazodone 100 mg tablet 200 mg PO BEDTIME 05/07/23 05/07/23 05/06/23 History Allergies Allergy/AdvReac Type Severity Reaction Status Date / Time cyclobenzaprine Allergy anxiety Verified 03/06/23 14:13 [From Flexeril] fentanyl Allergy Unknown Verified 03/06/23 14:13 Opioids - Morphine Analogues Allergy headache Verified 03/06/23 14:13 Penicillins Allergy ALGY-Hives Verified 03/06/23 14:13 Sulfa (Sulfonamide Allergy ALGY-Hives Verified 03/06/23 14:13 Antibiotics) tramadol [From Ultram] Allergy ADR-Vomitin Verified 03/06/23 14:13 g PFSH Acute PFSH: Medical History (Updated 05/07/23 @ 15:37 by Cayetano Hyatt MD) Arthritis of right hip Chest pain Chronic back pain Dyslipidemia Essential (primary) hypertension Family history of colon cancer in mother GERD (gastroesophageal reflux disease) History of skin cancer GINGER (obstructive sleep apnea) Postlaminectomy syndrome, not elsewhere classified Primary insomnia Radiculopathy Unilateral primary osteoarthritis, left knee Surgical History History of back surgery lumbar laminectomy, level unknown History of bladder surgery History of colonoscopy History of esophagogastroduodenoscopy (EGD) History of hysterectomy History of left inguinal hernia repair History of total left knee replacement [facility] [place] [facility] total knee system with a size 4 triathlon beaded posterior stabilized femur left, a triathlon titanium tibial component size 4 beaded, a triathlon X3 posterior stabilized tibial bearing insert size 4 X 13 mm and a beaded triathlon titanium asymmetric patella size 32 x 10 mm History of total left knee replacement (TKR) The [place] total knee system with a size 4 triathlon beaded posterior stabilized femur left, a triathlon titanium tibial component size 4 beaded, a triathlon X3 posterior stabilized tibial bearing insert size 4 X 13 mm and a beaded triathlon titanium asymmetric patella size 32 x 10 mm Family History Mother CAD (coronary artery disease) Cancer colon Dementia Lung disease Grandmother CAD (coronary artery disease) Family/Other Dementia Lung disease Suicide Sister Dementia Son Lung disease Daughter Lung disease Diabetes Brother Diabetes Grandfather Stroke Other Heart disease Hypertension Denies family history of Clotting disorder Chronic kidney disease (CKD) Anesthesia complication Bleeding disorder Social History Smoking and tobacco status: never smoked Alcohol intake: never Substance/Drug Use: never Lives independently: Yes Household members: none Marital status: / Number of children: 4 Number of grandchildren: 4 Current occupational status: retired 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: [employer] Vitals/I&O/Wt Last Vital Signs Temp 98.2 F 05/07/23 11:58 Pulse 61 05/07/23 15:00 Resp 18 05/07/23 11:58 BP 167/79 05/07/23 15:00 Pulse Ox 93 05/07/23 15:00 O2 Del Method Room Air 05/07/23 11:58 05/07/23 05/07/23 05/07/23 06:59 14:59 22:59 Intake Total 275 / 275 Balance 275 / 275 Weight last 48 hrs Weight 77.111 kg Physical Exam Const: COMMON NORMALS: patient oriented x3 and alert GENERAL APPEARANCE: cooperative; not comfortable NUTRITIONAL APPEARANCE: overweight ORIENTATION/CONSCIOUSNESS: Yes awake HENMT: COMMON NORMALS: oropharynx normal OTHER: No temporal tenderness, no palpable cord. No scalp tenderness at rest or on palpation. Neck/C-Spine: COMMON NORMALS: no JVD Resp: COMMON NORMALS: normal respiratory effort and clear to auscultation bilaterally AUSCULTATION: clear to auscultation bilaterally Cardio: COMMON NORMALS: no JVD, regular rhythm, S1 normal heart sound present, S2 normal heart sound present and No murmurs present (Cardio) RHYTHM: regular rhythm HEART SOUNDS: S1 normal heart sound present and S2 normal heart sound present GI: COMMON NORMALS: Normal to inspection, nondistended, normoactive bowel sounds present, Soft to palpation and non-tender PALPATION: Yes Soft to palpation OTHER: Mild abdominal wall tenderness on the right side. Extremity: COMMON NORMALS: no joint enlargement and no pedal edema Neuro: COMMON NORMALS: patient oriented x3 and moves all extremities SENSORIUM/ORIENTATION: Yes alert OTHER: Awake and alert, no trouble following directions but having nausea, preferentially staying on her side, also bothered by headache. No difficulty tracking. Denies diplopia. FNF intact bilaterally. At least in the right eye visual sanchez full to confrontation. No visual extinction. Was not comfortable to proceed to examination of the left eye. No facial droop noted. Grossly appears to be moving all extremities. No sensory deficit. Skin: COMMON NORMALS: no rashes or lesions noted GENERAL SKIN EXAM: no rashes or lesions noted Data 05/07/23 12:05 05/07/23 12:05 A&P Assessment and plan (1) Uncontrolled hypertension: On presentation with headache, some associated tunnel vision , endorses some symptoms possibly of vertigo as well, nausea, vomiting, possible hypertensive urgency. CT head without obvious abnormality. With blood pressure improving symptoms appear to have improved. Additionally reports at home blood pressure was not as high, 140 systolic, symptoms were also not as bad. We will hold off on completing fluid bolus, hold additional fluid infusion. Monitor blood pressures, for now continue usual home medications. She otherwise does not appear to have any persistent focal neurologic deficits to suggest CVA, however, monitor for any signs, symptoms. Consider MRI brain if will be able to tolerate. Assess cervical arterial duplex. Continue aspirin for now. Blood pressures improved with labetalol dose in ER. Continue to monitor, as she is somewhat bradycardic, will add hydralazine IV with parameters for now. Cardiac monitoring for bradycardia. She has stopped wearing her CPAP for a while, possibly contributing to hypert ension. Resume. Additionally discussed with her to avoid NSAIDs, she appears is currently taking Voltaren gel. Discontinue. Hold IcyHot for now. Check salicylate level. (2) Hyponatremia: Unknown duration, possibly chronic, states has been feeling fatigued for several weeks. Received a small bolus of nasal saline in ER. Hold off additional IVF for now due to risk of worsening hypertension. At risk of dehydration with holding the fluid needing closer follow-up in the hospital. Stop HCTZ for now. Also drinks about 3 bottles of water in addition to other liquids at home. Otherwise does not limit sodium intake. Hyponatremia suspect combination medication toxicity with HCTZ, possibly also excessive water intake, as well as episode of vomiting today. CT noted without acute abnormality. She has been fatigued, also with nausea, additional symptoms. We will follow-up sodium level. Discussed with her consideration of urea. Check TSH. (3) Headache: No suggestion of bacterial sinus infection at this time. She is afebrile, without leukocytosis. Without signs of sepsis. Has some cough neck pain, but nothing new. No meningeal signs. No focal neurologic deficits. Medication overuse headache consideration. Cannot entirely exclude component of aseptic meningitis, stop NSAIDs. Check salicylates. Check viral panel. Does have history of migraine, although has not had migraine in a while. Without jaw claudication, temporal or scalp tenderness, amaurosis, otherwise not suggestive of temporal arteritis. Head CT noted without abnormality. Did have some associated vertigo, some tunnel vision initially, but this appears to also been associated with quite worsened hypertension, blood pressure 180/81, which appears to be much worse than her usual. Possible hypertensive urgency on presentation, received dose of labetalol with improvement in blood pressure, improvement in symptoms. No persistent focal neurologic deficits. Does have some persistent of headache. Continue gradual optimization of blood pressure. Monitor for any change in symptoms. She is currently having nausea, likely difficulty tolerating oral medications. IV Zofran for nausea. Discussed with her in case needing IV pain medication, she has allergy to opioids listed. However, does take hydrocodone without issues. Discussed consideration of temporary small dose IV for pain control. She is agreeable to try. (4) Nausea and vomiting: Zofran as needed. Stop Voltaren gel. Hold IcyHot. Check salicylate level. For now cannot safely tolerate oral intake or reliably tolerate oral medications. N.p.o., sips, chips, meds only for now. PPI IV twice daily for now. Received small fluid challenge in ER. Hold off additional IV fluid for now. Follow-up sodium. (5) Bradycardia: Heart rate down to as low as 57. Possibly secondary to labetalol. Would not anticipate discussing her symptoms, however, monitor heart rate at current time with her usual metoprolol dose. Monitor for symptomatic bradycardia. Check TSH. Plan GINGER: Has stopped wearing CPAP at home for some time, states after COVID. States she needs to get back to wearing it. Possibly contributing to uncontrolled hypertension. Resume CPAP. Chronic pain: Hydrocodone as needed. Currently nauseated, as per discussion above small dose of Dilaudid as needed. Continue gabapentin. Tylenol as needed. GERD: Switch PPI to IV for now. HLD Radiculopathy Osteoarthritis of knees Osteoarthritis of hip Other medical problems ER documentation reviewed. Discussed with ER physician. Attestations Medical Necessity Statement*: Admission of over 2 midnights and is anticipated for assessment and management of new blood possibly chronic hyponatremia, possibly symptom optimization of blood pressure control after symptomatic uncontrolled hypertension, possible hypertensive urgency with new change in neurological status, nausea, vomiting, unable to tolerate oral intake currently. Diagnoses Uncontrolled hypertension I10 Hyponatremia E87.1 Headache R51.9 Nausea and vomiting R11.2 Bradycardia R00.1
[2023-05-07 16:49] LABS: Troponin(5th) Baseline 6 ng/L (0-10)
[2023-05-07 17:25] LABS: Troponin 5 2HR 6.04 ng/L (0-10)
[2023-05-07 17:26] LABS: Troponin 5 2HR Delta 0.04 ABS# (0-10)
--- NOTE | 2023-05-07 17:42 | USCV_ITS ---
Bev Waddell Age: 87 Gender: F : 1935 Exam Date: 05/07/2023 18:16 Ordering Phys: Cayetano Hyatt MD Technologist: ANGELA Exam Location: [facility] [place] Indication: tunnel vision, headache. Never smoked. No DM Risk Factors: tunnel vision, headache. Never smoked. No DM Previous Vascular Surgery: None Right Brachial BP: 123 / 56 Left Brachial BP: / Right Left Velocity (cm/s) Spectral Plaque Velocity (cm/s) Spectral Plaque Syst/Diast Broadening Syst/Diast Broadening 66.20/ 12.10 Min None Prox CCA 70.60 / 9.90 Mod None 48.60/ 9.20 Min None Mid CCA 58.20 / 6.40 Min Homo 52.60/ 11.20 Min Homo Distal CCA 43.80 / 8.50 Min Homo 31.60/ 9.00 Min None Prox ICA 37.40 / 12.30 Min Homo 98.30/ 27.30 Min Homo Mid ICA 52.90 / 14.40 Min Homo 93.10/ 21.40 Mod Homo Distal ICA 110.30/ 23.20 Min Homo 51.90 Min Homo ECA 49.70 Min Homo 1.49 ICA/CCA 1.56 Antegrade Vertebral Antegrade 49.60/ 94.00 cm/s 41.90/ 11.10 cm/s Tri Subclavian Tri 76.90 90.60 CONCLUSIONS Right ICA stenosis <50%. Minimal atheromatous plaque right carotid bulb/ICA. Left ICA stenosis <50%. Minimal atheromatous plaque left carotid bulb/ICA. Normal antegrade Doppler flow noted in the right vertebral artery. Normal antegrade Doppler flow noted in the left vertebral artery. Michael Bowman MD (Electronically Signed) Final Date: 09 May 2023 10:50 S
[2023-05-07] MEDS: HYDROcodone-acetaminophen 5-325 mg Tablet 1 TAB PO (18:01)
[2023-05-07] MEDS: metoprolol tartrate 25 mg Tablet PO (18:01)
[2023-05-07] MEDS: duloxetine 60 mg Capsule PO (18:02)
--- NOTE | 2023-05-07 18:10 | ECG_ITS ---
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 Measurements Intervals [place] Rate: 58 P: 30 OK: 160 QRS: 35 QRSD: 102 T: 55 QT: 418 QTc: 412 Interpretive Statements SINUS BRADYCARDIA POSSIBLE LATERAL MYOCARDIAL INFARCTION , PROBABLY OLD [30 ms Q WAVE IN I/aVL/V5/V6] Compared to ECG 05/07/2023 13:03:04 Myocardial infarct finding now present Electronically Signed On 05-08-2023 8:31:09 CDT by Leeory Garcia M.D. [id number]
[2023-05-07] MEDS: pantoprazole 40 mg SDV IVP (18:13)
[2023-05-07] MEDS: enoxaparin 40 mg/0.4 mL Syringe SUBCUT (18:13)
[2023-05-07] MEDS: gabapentin 300 mg Capsule 900 MG PO (18:13)
[2023-05-07] MEDS: acetaminophen 500 mg Tablet PO (18:14)
[2023-05-07 18:19] LABS: Sodium 119 mmol/L (136-145)
[2023-05-07 18:24] LABS: Thyroid Stimulating Hormone 5.53 uIU/mL (0.27-4.20)
[2023-05-07 18:27] LABS: Salicylate < 0.3 mg/dL (3-10)
[2023-05-07] MEDS: HYDROmorphone 1 mg/mL INJ 1 mL 0.2 MG IVP (19:45)
[2023-05-07 21:02] LABS: Adenovirus Not Detected (NOT DETECT); Chlamydia Pneumoniae Not Detected (NOT DETECT); Coronavirus 229E,HKU1,NL63,OC4 Not Detected (NOT DETECT); Human Metapneumovirus Not Detected (NOT DETECT); Human Rhinovirus/Enterovirus Not Detected (NOT DETECT); Influenza A Not Detected (NOT DETECT); Influenza A H1 Not Detected (NOT DETECT); Influenza A H1-2009 Not Detected (NOT DETECT); Influenza A H3 Not Detected (NOT DETECT); Influenza B Not Detected (NOT DETECT); Mycoplasma Pneumoniae Not Detected (NOT DETECT); Parainfluenza Virus Type 1 Not Detected (NOT DETECT); Parainfluenza Virus Type 2 Not Detected (NOT DETECT); Parainfluenza Virus Type 3 Not Detected (NOT DETECT); Parainfluenza Virus Type 4 Not Detected (NOT DETECT); Respiratory Syncytial Virus A Not Detected (NOT DETECT); Respiratory Syncytial Virus B Not Detected (NOT DETECT); SARS-COV-2 Not Detected (NOT DETECT)
[2023-05-07] MEDS: aspirin 81 mg EC Tablet PO (21:52)
[2023-05-07] MEDS: trazodone 100 mg Tablet 200 MG PO (21:52)
[2023-05-07] MEDS: urea 15 gm Powder PO (21:52)
[2023-05-07 22:07] LABS: Add Urine Microscopic? YES; Bilirubin Urine Neg (Negative); Blood Urine Neg (Negative); Glucose Urine UA Norm (Normal); Ketones Urine Negative (Negative); Leukocyte Esterase Urine 1+ (Negative); Nitrate Urine Negative (Negative); Protein Urine Neg (Negative); Specific Gravity, Urine 1.005 (1.005-1.030); Urine Appearance Hazy (CLEAR); Urine Color Light yellow (Yellow); Urobilinogen Urine Neg (Negative); pH Urine 7 (5-7)
[2023-05-07 22:08] LABS: Add Urine Culture? Yes; Bacteria Urine 3+ /hpf
[2023-05-07 22:47] LABS: Anion Gap 11.9 (5-19); Blood Urea Nitrogen 22 mg/dL (8-23); Calcium 9.6 mg/dL (8.5-10.5); Carbon Dioxide 23 mmol/L (22-29); Chloride 89 mmol/L (98-107); Glucose 105 mg/dL (65-115); Osmolality Calculated 254 mOsm/kg (285-295); Potassium 3.9 mmol/L (3.5-5.1); Sodium 120 mmol/L (136-145)
[2023-05-07 22:51] LABS: Troponin 5 6HR 6.26 ng/L (0-10)
[2023-05-07 22:54] LABS: Troponin 5 6HR Delta 0.26 ng/L (0-12)
[2023-05-08] VITALS (140 sets, daily range): BP systolic 88–167; BP diastolic 43–91; PULSE 37–101; RESP 0–30; TEMP 36.5–37.1; O2SAT 80–99
[2023-05-08] MEDS: sodium chloride 0.9% 250 ML 999 ML IV (00:21)
--- NOTE | 2023-05-08 00:29 | PC.NURSE ---
Patient was saturating 83% on RA and manual blood pressure was 82/52. This nurse called Dr Saha after assessing pt and placing pt on cpap. Dr Saha ordered 250 NS bolus. Pt's current vitals are 94% on CPAP, HR 47. Pt resting comfortably in bed with call light in reach.
[2023-05-08] MEDS: ondansetron 2 mg/ML SDV 2 mL 4 MG IVP (01:53)
--- NOTE | 2023-05-08 02:03 | XRR_ITS ---
PROCEDURE INFORMATION: Exam: XR Chest Exam date and time: 05/08/2023 2:44 AM Age: 87 years old Clinical indication: Other: Hypoxia, shock TECHNIQUE: Imaging protocol: Radiologic exam of the chest. Views: 1 view. COMPARISON: [place] [id number] 05/08/2023 2:37 AM FINDINGS: Tubes, catheters and devices: Midline chest defibrillator pad. Lungs: Minimal lung base atelectasis or scarring. No consolidation visualized. Pleural spaces: Unremarkable. No pleural effusion. No pneumothorax. Heart/Mediastinum: The heart is large. Vasculature: Advanced diffuse vascular calcification noted. Bones/joints: Unremarkable. XR/XR chest 1V portable [id number] IMPRESSION: Large heart with no consolidation identified. Chest CT pending.
[2023-05-08 02:08] LABS: Glucose Point of Care 102 mg/dL (70-110)
[2023-05-08 02:16] LABS: Free T4 Free Thyroxine 1.32 ng/dL (0.82-1.77)
--- NOTE | 2023-05-08 02:21 | CTR_ITS ---
PROCEDURE INFORMATION: Exam: CT Head Without Contrast Exam date and time: 05/08/2023 2:32 AM Age: 87 years old Clinical indication: Pain; Headache; Migraine; Aura effect not specified; Does not respond to medication; Severity not specified; Additional info: Worst headache of life TECHNIQUE: Imaging protocol: Computed tomography of the head without contrast. Radiation optimization: All CT scans at this facility use at least one of these dose optimization techniques: automated exposure control; mA and/or kV adjustment per patient size (includes targeted exams where dose is matched to clinical indication); or iterative reconstruction. REPORTING DATA: Count of CT and Cardiac NM exams in prior 12 months: This patient has received 3 known CTs and 0 known cardiac nuclear medicine studies in the 12 months prior to the current study. COMPARISON: CT head wo con* [id number] 05/07/2023 12:40 PM RADIATION DOSE METRICS: Total DLP (mGy-cm): 1026.58 FINDINGS: Brain: No focal hemorrhage or midline shift is identified. The ventricles and parenchyma show mild atrophy and chronic bicerebral white matter ischemic change. Cerebral ventricles: No ventriculomegaly or evidence of hydrocephalus. Paranasal sinuses: No evidence of acute sinusitis. Mastoid air cells: Visualized mastoid air cells are well aerated. Bones/joints: No displaced skull fracture is noted. Soft tissues: Unremarkable. Vasculature: Diffuse vascular calcifications are present. CT/CT head wo con* [id number] IMPRESSION: 1. No acute intracranial abnormality. 2. Mild age-related changes.
--- NOTE | 2023-05-08 02:22 | USCV_ITS ---
Bev Waddell Age: 87 Gender: F : 1935 Exam Date: 05/08/2023 03:30 Ordering Phys: Ny Saha MD Technologist: ANGELA [place]am [place] [facility] [place] Indication: tunnel vision, headache. No history of cardiac intervention per patient. Never smoked. No DM. BP: 142 / 72 HR: 56 Rhythm: Sinus bradycardia Technical Quality: Adequate MEASUREMENTS (Male / Female) Normal Values 2D ECHO LV Diastolic Diameter PLAX 3.9 cm 4.2 - 5.9 / 3.9 - 5.3 cm LV Systolic Diameter PLAX 2.4 cm IVS Diastolic Thickness 1.6 cm 0.6 - 1.0 / 0.6 - 0.9 cm IVS Systolic Thickness 2.6 cm LVPW Diastolic Thickness 1.7 cm 0.6 - 1.0 / 0.6 - 0.9 cm LVPW Systolic Thickness 1.8 cm LVOT Diameter 1.6 cm LV Ejection Fraction 2D Teich 71.4 % LV Ejection Fraction MOD 2C 64.0 % LV Ejection Fraction 2C AL 64.7 % LA Diameter 5.4 cm RA Width 3.5 cm RA Height 4.0 cm Aorta at Sinotubular Diameter 2.6 cm IVC Diameter 1.0 cm M-MODE Aortic Annulus Diameter 2.9 cm LA Ao Ratio MM 1.8 MV E Point Septal Separation 0.2 cm DOPPLER AV Peak Velocity 150.0 cm/s LVOT Peak Velocity 86.0 cm/s AV Area Cont Eq vti 1.6 cm squared AV Area Cont Eq pk 1.2 cm squared MV Peak Velocity 92.0 cm/s MV Area PHT 2.5 cm squared Mitral E to A Ratio 1.0 MV E' Velocity 38.5 cm/s Mitral E to MV E' Ratio 9.5 Mitral E to LV E' Lateral Ratio 8.8 Mitral E to LV E' Septal Ratio 10.3 TR Peak Velocity 256.0 cm/s TR Peak Gradient 26.2 mmHg TV Peak E Velocity 33.0 cm/s Right Atrial Pressure 10.0 mmHg Pulmonary Artery Systolic Pressu 36.2 mmHg PV Peak Velocity 95.0 cm/s FINDINGS Left Ventricle Left ventricle is normal in size. LV systolic function is normal with EF 55 to 60%. No regional wall abnormalities. Right Ventricle Normal in size and function Right Atrium Normal in size Left Atrium Dilated Mitral Valve Structurally normal mitral valve. Trace mitral regurgitation. Aortic Valve Aortic valve is thickened. No significant stenosis or regurgitation. Tricuspid Valve Mild tricuspid regurgitation. RVSP is 35 to 40 mmHg. This is consistent with mild pulmonary hypertension. Pulmonic Valve Not well visualized Pericardium Normal Aorta Normal in size IVC Appears to be normal CONCLUSIONS LV systolic function is normal with EF of 55-60% Left atrial dilation Trace mitral regurgitation Mild tricuspid regurgitation Mild pulmonary hypertension Compared to prior echocardiogram from 01/16/2023, no significant changes are seen. Leeroy Garcia MD (Electronically Signed) Final Date: 08 May 2023 10:21 S
--- NOTE | 2023-05-08 02:24 | CTR_ITS ---
PROCEDURE INFORMATION: Exam: CT Chest Without Contrast; Diagnostic Exam date and time: 05/08/2023 2:37 AM Age: 87 years old Clinical indication: Other: Shock TECHNIQUE: Imaging protocol: Diagnostic computed tomography of the chest without contrast. Radiation optimization: All CT scans at this facility use at least one of these dose optimization techniques: automated exposure control; mA and/or kV adjustment per patient size (includes targeted exams where dose is matched to clinical indication); or iterative reconstruction. REPORTING DATA: Count of CT and Cardiac NM exams in prior 12 months: This patient has received 3 known CTs and 0 known cardiac nuclear medicine studies in the 12 months prior to the current study. COMPARISON: CT chest w con* [id number] 03/30/2022 10:43 AM RADIATION DOSE METRICS: Total DLP (mGy-cm): 436.9 FINDINGS: Lungs: Mild COPD. Mild areas of bilateral mid to lower lung atelectasis or scarring. Pleural spaces: Trace bilateral pleural effusions. No large effusion. No pneumothorax. Heart: Heart is mildly enlarged. No pericardial effusion. Lymph nodes: No bulky mediastinal or hilar lymphadenopathy noted. Vasculature: Mild venous air probably relates to IV injection/instrumentation. Advanced diffuse vascular calcification noted. Bones/joints: Moderate spine DJD. Soft tissues: Unremarkable. PROCEDURE INFORMATION: Exam: CT Abdomen And Pelvis Without Contrast Exam date and time: 05/08/2023 2:37 AM Age: 87 years old Clinical indication: Other: Shock TECHNIQUE: Imaging protocol: Computed tomography of the abdomen and pelvis without contrast. Radiation optimization: All CT scans at this facility use at least one of these dose optimization techniques: automated exposure control; mA and/or kV adjustment per patient size (includes targeted exams where dose is matched to clinical indication); or iterative reconstruction. REPORTING DATA: Count of CT and Cardiac NM exams in prior 12 months: This patient has received 3 known CTs and 0 known cardiac nuclear medicine studies in the 12 months prior to the current study. COMPARISON: CR XR hip RT 2-3V wo/w pel* [id number] 08/16/2022 9:32 AM RADIATION DOSE METRICS: Total DLP (mGy-cm): 637.1 FINDINGS: Lungs: The visualized lung bases are clear. Liver: Left hepatic unchanged 2.4 cm cyst. No new liver mass. Gallbladder and bile ducts: No calcified gallstones or biliary dilation identified. Pancreas: Unremarkable with no suspicious mass. No ductal dilation. Spleen: The spleen is not enlarged. No suspicious mass is noted. Adrenal glands: Normal. No mass. Kidneys and ureters: No solid renal mass or hydronephrosis. Stomach and bowel: The colon is rather fecal filled. No small bowel dilation. Mild sigmoid diverticulosis. Appendix: No evidence of appendicitis. Intraperitoneal space: Unremarkable. No free air. No suspicious fluid collection. Vasculature: Advanced diffuse vascular calcification noted. Lymph nodes: No enlarged lymph nodes. Urinary bladder: Unremarkable as visualized. Reproductive: Absent uterus. Bones/joints: Moderate spine DJD. Soft tissues: Moderate fat in right inguinal ring. Left mid abdominal subcutaneous air, consistent with injection site. CT/[place] [id number] IMPRESSION: 1. Minimal lung base atelectasis or scarring with trace pleural effusions. These findings have progressed mildly from 03/30/2022. 2. No consolidation, pneumothorax or other significant change has occurred. IMPRESSION: 1. No acute findings. 2. The colon is rather fecal filled. 3. Multiple chronic findings above.
--- NOTE | 2023-05-08 02:36 | PC.NURSE ---
Pt's blood pressure and temp was too low to check even manually. Pt's lips/mouth were blue and fingers cold, previous assessment at 0029 pt was normal colored and fingers were warm to the touch. Pt stated she was nauseous. Attempted to check b/p and could not get a reading, called rapid response 0157. Pt taken to ICU 3, blood pressure upon arrival to the unit was 59/40. Report given to MILADY Lopez.
[2023-05-08 03:29] LABS: ABG PCO2 46.8 mmHg (35-45); ABG PH Result 7.35 (7.35-7.45); Alveolar-Arterial Oxygen Gradi 2.3 mmHg (5-10); Arterial Blood Gas Hematocrit 45.7 % (37-47); Base Excess ABG -0.6 mmol/L (-2.0-2.0); Blood Gas Allen Test Pos; Blood Gas Operator Identificat JB; Blood Gas Sample Site Radial, left; Blood Gas Sample Type Arterial; Carboxyhemoglobin 1.2 %THgb (0.4-20.1); HCO3 ABG 25.6 mmol/L (22-26); HGB O2 Sat 93.6 % (95-100); Ionized Calcium Level - ABG 1.3 mmol/L (1.1-1.4); Methemoglobin 0.6 % (0.4-1.5); Oxygen Device NC; Oxygen Saturation ABG 95.3; PO2 ABG 74.2 mmHg (80.0-100.0); Potassium Level - ABG 3.6 mmol/L (3.5-5.0); Total Hemoglobin 14.9 g/dL (12-16)
[2023-05-08 04:03] LABS: Basophils # 0.1 10^3/uL (0.0-0.1); Eosinophils # 0.2 10^3/uL (0.0-0.8); Eosinophils % 2.5 %; Hematocrit 44.5 % (37.0-47.0); Hemoglobin 14.7 g/dL (11.5-15.3); Lymphocytes # 2.5 10^3/uL (0.8-4.8); Lymphocytes % 37.5 %; Mean Corpuscular Hemoglobin 30.8 pg (28.0-34.0); Mean Corpuscular Volume 93.1 fl (81-99); Mean Platelet Volume 9.7 fL (7.4-10.4); Monocytes # 0.8 10^3/uL (0.2-0.9); Monocytes % 11.4 %; Neutrophils # 3.14 10^3/uL (1.8-7.7); Neutrophils % 47.2 %; Nucleated Red Blood Cells % 0 %; Platelet Count 228 10^3/cmm (130-400); Red Blood Count 4.78 10^6/uL (4.1-5.3); Red Cell Distribution Width 11.9 % (12.1-15.1); White Blood Count 6.7 10^3/uL (4.0-10.0)
[2023-05-08] MEDS: aztreonam 1,000 MG in sodium chloride 0.9% (plus) 50 ML 100 MG IV ×2 (04:14→17:09)
[2023-05-08 04:20] LABS: D Dimer 0.39 ug/mIFEU (0-0.59)
[2023-05-08 04:21] LABS: Lactic Sepsis W/Reflex 1.1 mmol/L (0.5-2.2)
[2023-05-08 04:22] LABS: Troponin T (5th) Once 8 ng/L (0-10)
[2023-05-08 04:28] LABS: Alanine Aminotransferase 15 U/L (0-33); Albumin Level 4.2 g/dL (3.5-5.2); Alkaline Phosphatase 53 U/L (35-105); Anion Gap 12.7 (5-19); Aspartate Amino Transferase 25 U/L (0-32); Blood Urea Nitrogen 30 mg/dL (8-23); Calcium 9.7 mg/dL (8.5-10.5); Carbon Dioxide 27 mmol/L (22-29); Chloride 93 mmol/L (98-107); Globulin 2.6 g/dL (1.3-4.6); Glucose 105 mg/dL (65-115); Osmolality Calculated 273 mOsm/kg (285-295); Potassium 4.7 mmol/L (3.5-5.1); Sodium 128 mmol/L (136-145); Total Bilirubin 0.7 mg/dL (0.15-1.2); Total Protein 6.8 g/dL (6.6-8.7)
[2023-05-08 04:33] LABS: Procalcitonin 0.03 ng/mL (0-0.5)
--- NOTE | 2023-05-08 04:57 | PC.NURSE ---
Rapid Response called on Medsurg due to hypotension/bradycardia/lethargy. Fluid bolus was initiated and transferred to ICU. Levophed started and blood pressure stabilized. Patient was transferred to CT for scans. Patient returned to ICU and remained stable without medication. Family at bedside. Patient continues to report severe headache.
--- NOTE | 2023-05-08 06:33 | PM.CCNAC ---
Critical Care Event Note Rapid response was called at 2 am. Patient sinus bradycardic high 40's and unable to get BP. Fluid bolus started and patient transferred to ICU emergently. IV access obtained. Pt was not fluid responsive. Levophed started. She was also hypoxic in 80's. CXR ordered, ABG ordered. CBC, CMP, MAG, PHOS ordered, LActic acid ordered. She started to complain of worst headache of her life. Once hemodynamically stablized, she was taken to CT. Ct head, abd pelvis chest obtained with no acute pathology found. BP started to improve and levo was able to be turned off subsequently for a while and again pt had similar episodes. Now requiring levo 2 mics. All anti-hypertensives held. Troponin ordered. Echo ordered. Earlier at night patient did have 200 mg of trazodone and a dose of dilaudid. She was quite lethargic but able to respond and answer questions. No focal neurological deficits noted. Imdur, amlodipine, BB, duloxetine held. Lungs mainly clear to auscultation. Blood cultures ordered. Sputum culture ordered. infectious workup ordered. Sodium initially 122 at admission, and on morning labs noted to be 128. I would hold off on further fluids at this time as she has corrected 6 meq already. Awaiting labs to result. UA suggestive of UTI. Will place on aztreonam. She denied chest pain, sob or any other symptoms during hypotensive episode. Seems to be bradycardic during sleep. Telemetry will need to be reviewed Will obtain EKG. Pt on 10L O2. Ordered dexamethasone 6 IV x1 Duoneb q6h SCD ordered as well. Patient stable at this time of group underwriter writing this note. The high probability of a clinically significant, sudden or life threatening deterioration of the patient's [cardiovascular system, respiratory system] system(s) required my full and direct attention, intervention and personal management. The critical care time is as shown. This time is in addition to time spent performing any reported procedures but includes the following: [x] Data and vital sign review and interpretation [x] Patient assessment, examination and intervention [x] Documentation [x] Medication orders and management Patient was seen via telehealth modality. Given circumstances of emergency and patient instability initially, consent was unable to be obtained. Critical Care Time Code activated: No Critical Care Time (min): 40 Coding Level of Care Code Acute Code for Chg Fwd
[2023-05-08] MEDS: pantoprazole 40 mg SDV IVP ×2 (06:43→17:08)
[2023-05-08] MEDS: dexamethasone 10 mg/mL INJ 6 MG IVP (06:44)
[2023-05-08] MEDS: ipratropium-albuterol 3 mL Neb INHALATION ×3 (07:54→19:36)
--- NOTE | 2023-05-08 09:23 | ECG_ITS ---
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 [id number]
[2023-05-08] MEDS: acetaminophen 500 mg Tablet PO (10:16)
--- NOTE | 2023-05-08 11:45 | MRR_ITS ---
PROCEDURE INFORMATION: Exam: MRA Head Without Contrast; Venography Exam date and time: 05/08/2023 3:29 PM Age: 87 years old Clinical indication: Pain; Headache; Additional info: Persistent headache, vertigo blurred/dimmed vision on, presentation TECHNIQUE: Imaging protocol: Magnetic resonance angiography of the head without contrast. Cwsm-rk-tewbns (TOF) technique was utilized for this exam. Exam focused on the veins. COMPARISON: CT head wo con* [id number] 05/08/2023 2:32 AM FINDINGS: Superior sagittal sinus: Patent. Straight sinus: Patent. Transverse sinuses: Patent with no evidence of thrombosis. 7 mm nodular filling defect in the lateral aspect of the left transverse sinus (series 301, image 14, series 400, image 43) represents arachnoid granulation, a normal developmental variant. Sigmoid sinuses: Patent. Internal jugular veins: Visualized segment patent. MR/[place] [id number] IMPRESSION: No venous thrombus. No stenosis of the transverse sinuses typically seen with idiopathic intracranial hypertension. Incidental finding of prominent arachnoid granulation laterally in the left transverse sinus.
--- NOTE | 2023-05-08 11:48 | MRR_ITS ---
PROCEDURE INFORMATION: Exam: MR Head Without Contrast Exam date and time: 05/08/2023 3:49 PM Age: 87 years old Clinical indication: Pain; Headache; Additional info: Persistent headache, vertigo blurred/dimmed vision on, presentation TECHNIQUE: Imaging protocol: Magnetic resonance imaging of the head without contrast. COMPARISON: CT head wo con* [id number] 05/08/2023 2:32 AM FINDINGS: Brain: No acute infarction. No sequela of hemorrhage. There are small confluent areas and a few small foci of increased signal seen on the FLAIR and T2 weighted sequences with no restricted diffusion in the bilateral periventricular and subcortical white matter suggestive of chronic small vessel ischemic changes. Cerebral ventricles: Normal. No ventriculomegaly. Pituitary gland and sella: There is developmental variant of empty sella. Bones/joints: No focal signal abnormality. Paranasal sinuses: Normal as visualized. No acute sinusitis. Mastoid air cells: No mastoid effusion. Orbital cavities: Unremarkable. Soft tissues: Unremarkable. MR/MR head wo con* [id number] IMPRESSION: No acute infarction or other acute finding. 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
[2023-05-08] MEDS: HYDROcodone-acetaminophen 5-325 mg Tablet 1 TAB PO ×2 (13:28→17:11)
--- NOTE | 2023-05-08 13:59 | P.PN_ITS ---
Subjective Subjective: She is having some return of the headache, bothered by light. Had a bit of a rough night, but feels she is improving, and tells me he was well taken care of. Discussed with her her condition so far. She so far weaning off Levophed. Bradycardia overnight as low as 40s, currently slightly better into the 60s. Discussed results of CT scan, echocardiogram. Discussed results of viral panel. Possible UTI for which she is receiving treatment. Discussed suspected subclinical hypothyroidism. Vitals/I&O/Wt Last Vital Signs Temp 98.5 F 05/08/23 13:05 Pulse 62 05/08/23 13:56 Resp 18 05/08/23 13:56 BP 122/52 05/08/23 13:56 Pulse Ox 94 05/08/23 13:56 O2 Del Method CPAP 05/08/23 13:56 O2 Flow Rate 5 05/08/23 11:30 05/07/23 05/08/23 05/08/23 22:59 06:59 14:59 Intake Total 395 / 395 263.335 / 658.335 265.908 / 265.908 Output Total 250 / 250 350 / 600 500 / 500 Balance 145 / 145 -86.665 / 58.335 -234.092 / -234.092 Weight last 48 hrs Weight 77.111 kg Physical Exam Narrative: Accompanied by her son. Const: COMMON NORMALS: patient oriented x3 and alert GENERAL APPEARANCE: cooperative; not comfortable NUTRITIONAL APPEARANCE: overweight ORIENTATION/CONSCIOUSNESS: Yes awake Neck/C-Spine: COMMON NORMALS: no JVD Resp: COMMON NORMALS: normal respiratory effort and clear to auscultation bilaterally AUSCULTATION: clear to auscultation bilaterally Cardio: COMMON NORMALS: no JVD, regular rhythm, S1 normal heart sound present, S2 normal heart sound present and No murmurs present (Cardio) RHYTHM: regular rhythm HEART SOUNDS: S1 normal heart sound present and S2 normal heart sound present GI: COMMON NORMALS: Normal to inspection, nondistended, normoactive bowel sounds present, Soft to palpation and non-tender PALPATION: Yes Soft to palpation Extremity: COMMON NORMALS: no joint enlargement and no pedal edema Neuro: COMMON NORMALS: patient oriented x3 and moves all extremities SENSORIUM/ORIENTATION: Yes alert OTHER: Awake, alert, interactive. No difficulty tracking. Denies diplopia. FNF with some tremor, otherwise intact and symmetrical bilaterally. Visual sanchez full to confrontation bilaterally, no visual extinction. No facial droop noted. No pronator drift upper extremities. Lifts both lower extremities. Denies sensory loss on exam. Symmetrical. No sensory extinction. Skin: COMMON NORMALS: no rashes or lesions noted GENERAL SKIN EXAM: no rashes or lesions noted Data 05/08/23 03:17 05/08/23 03:17 Micro: Microbiology 05/08/23 03:17 Blood Culture - Preliminary Blood SPECIMEN COLLECTED 05/08/23 03:17 Blood Culture - Preliminary Blood SPECIMEN COLLECTED A&P Assessment and plan (1) Headache: Headache with persistence/recurrence. Photophobia noted today as well. Discussed with her additional assessment by MRI/MRV. Requested. Additionally discussed consideration of LP, requested. Continue to optimize blood pressure control. Avoid NSAIDs. Salicylate level noted not elevated. Viral panel noted WNL. Does have history of migraine, although has not had migraine in a while. Without jaw claudication, temporal or scalp tenderness, amaurosis, otherwise not suggestive of temporal arteritis. Head CT noted without abnormality. Did have some associated vertigo, some tunnel vision initially, but this appears to also been associated with quite worsened hypertension, blood pressure 180/81, which appears to be much worse than her usual. Possible hypertensive urgency on presentation. Monitor for any change in symptoms. Nausea and vomiting are resolved. (2) Bradycardia: Heart rates down as low as 40s overnight. Transiently on Levophed drip with hypotension. Also noted hypoxia. EKG noted with sinus bradycardia. Echocardiogram was obtained, noted normal EF, left atrial dilation, trace MVR, mild TVR, mild pulmonary hypertension. No significant change from prior echo. Metoprolol stopped. Continue to withhold and discussed with her may not be safe to return to on discharge. Question of additional episodes of bradycardia at home of which she may not have been aware. Discussed with her abnormal TSH, but normal free T4, possibly subclinical hypothyroidism will need follow-up studies with primary provider. Continue to monitor on telemetry. (3) Hypoxia: Fairly requiring 5 L nasal cannula oxygen. Previously not hypoxic. Suspect acute pulmonary edema. CT results appreciated, no significant abnormality, noted some minimal lung base atelectasis or scarring with trace pleural effusions. Add I-S. No pn eumothorax. D-dimer noted WNL. Suspected degree of pulmonary edema secondary to acute bradycardia. Hold off any IV fluids. Overnight received CPAP support. Weaned off to nasal cannula. Continue supportive needed. Echocardiogram reviewed, normal EF, left atrial dilation, trace MVR, mild TVR, mild pulmonary hypertension. No significant change from prior echo. We will give a 20 mg dose of Lasix. Monitor due to risk of further hypotension, shock. (4) Hypotension: Suspect cardiogenic shock secondary to acute bradycardia overnight. Overnight labile blood pressure with some episodes of hypotension required transiently pressor support. This morning still on 2 mcg/min Levophed, weaned off and turned off around 9 AM. Some fluctuation in blood pressure occasionally MAP down to 67, but overall better. Hold metoprolol, Imdur, gabapentin. Monitor blood pressure with postop Lasix. Monitor on telemetry. Troponin EKG series obtained, no suggestion of cardiac ischemia. She is chest pain-free. Most recent cardiology note reviewed. (5) Uncontrolled hypertension: Labile blood pressure overnight. Monitor blood pressures. Avoid beta-blockers. She has stopped wearing her CPAP for a while, possibly contributing to hypertension. Resumed. Additionally discussed with her to avoid NSAIDs, she appears is currently taking Voltaren gel. Discontinue. Hold IcyHot for now. Noted normal salicylate level. (6) Hyponatremia: Improving. Sodium 128. Follow-up chemistry. Hold off additional urea for now. Avoid HCTZ. Unknown duration hyponatremia, possibly chronic, states has been feeling fatigued for several weeks. Received a small bolus of nasal saline in ER. Hold off additional IVF for now due to risk of worsening hypertension. At risk of dehydration with holding the fluid needing closer follow-up in the hospital. Stop HCTZ for now. Also drinks about 3 bottles of water in addition to other liquids at home. Otherwise does not limit sodium intake. Noted mildly abnormal TSH, normal free T4. Possibly subclinical hypothyroidism. So far nausea and vomiting resolved. (7) Nausea and vomiting: Resolved. Improving hyponatremia. Continue PPI. Noted normal salicylate level. Zofran as needed. Stop Voltaren gel. Hold IcyHot. (8) UTI (urinary tract infection): Overnight UA collected, 10-15 WBC. Discussed possible UTI. She is currently on aztreonam, continue. Follow-up culture. Plan GINGER: Has stopped wearing CPAP at home for some time, states after COVID. States she needs to get back to wearing it. Possibly contributing to uncontrolled hypertension. Resumed CPAP. Chronic pain: Hydrocodone as needed. Tylenol as needed. Gabapentin held due to hypotension. GERD: PPI HLD Radiculopathy Osteoarthritis of knees Osteoarthritis of hip Other medical problems Discussed with case management. Attestations Medical Necessity Statement*: Continue admission for assessment management of cardiogenic shock, persistent, labile blood pressure, acute hypoxia with suspected acute pulmonary edema. Coding Level of Care Code 75880 High MDM includes number and complexity of problems actively addressed during encounter, amount and/or complexity of data reviewed/ordered [ previous or external records, resulted lab(s)/test(s) and ordered lab(s)/test(s)] and described risk of complication, morbidity or mortality of management as docu mented Diagnoses Headache R51.9 Bradycardia R00.1 Hypoxia R09.02 Hypotension I95.9 Uncontrolled hypertension I10 Hyponatremia E87.1 Nausea and vomiting R11.2 UTI (urinary tract infection) N39.0
[2023-05-08] MEDS: LORazepam 0.5 mg Tablet 0.25 MG PO (15:08)
[2023-05-08] MEDS: duloxetine 60 mg Capsule PO (17:09)
[2023-05-08] MEDS: FUROsemide 20 mg Tablet PO (17:09)
[2023-05-08] MEDS: enoxaparin 40 mg/0.4 mL Syringe SUBCUT (17:50)
[2023-05-08] MEDS: aspirin 81 mg EC Tablet PO (21:29)
[2023-05-09] VITALS (12 sets, daily range): BP systolic 121–146; BP diastolic 66–83; PULSE 70–96; RESP 16–20; TEMP 36.3–36.8; O2SAT 90–98
[2023-05-09] MEDS: fexofenadine 60 mg Tablet PO (00:51)
[2023-05-09] MEDS: HYDROcodone-acetaminophen 5-325 mg Tablet 1 TAB PO (00:54)
[2023-05-09] MEDS: acetaminophen 500 mg Tablet PO ×3 (01:59→20:56)
[2023-05-09] MEDS: aztreonam 1,000 MG in sodium chloride 0.9% (plus) 50 ML 100 MG IV ×2 (02:50→14:45)
[2023-05-09 05:23] LABS: Basophils % 0.1 %; Eosinophils % 0.2 %; Hematocrit 41.8 % (37.0-47.0); Hemoglobin 14.1 g/dL (11.5-15.3); Lymphocytes # 2.1 10^3/uL (0.8-4.8); Lymphocytes % 24.5 %; Mean Corpuscular HGB Conc 33.7 g/dL (30.0-36.0); Mean Corpuscular Hemoglobin 31.4 pg (28.0-34.0); Mean Corpuscular Volume 93.1 fl (81-99); Mean Platelet Volume 10.1 fL (7.4-10.4); Monocytes # 0.9 10^3/uL (0.2-0.9); Monocytes % 10.4 %; Neutrophils # 5.57 10^3/uL (1.8-7.7); Neutrophils % 64.5 %; Nucleated Red Blood Cells % 0 %; Platelet Count 239 10^3/cmm (130-400); Red Blood Count 4.49 10^6/uL (4.1-5.3); Red Cell Distribution Width 12.4 % (12.1-15.1); White Blood Count 8.7 10^3/uL (4.0-10.0)
[2023-05-09] MEDS: pantoprazole 40 mg SDV IVP ×2 (05:31→17:26)
[2023-05-09 05:47] LABS: Anion Gap 13.9 (5-19); Blood Urea Nitrogen 15 mg/dL (8-23); Calcium 9.5 mg/dL (8.5-10.5); Carbon Dioxide 25 mmol/L (22-29); Chloride 97 mmol/L (98-107); Glucose 101 mg/dL (65-115); Osmolality Calculated 275 mOsm/kg (285-295); Potassium 3.9 mmol/L (3.5-5.1); Sodium 132 mmol/L (136-145)
[2023-05-09 06:07] LABS: Slide Review Slide Review Perform
[2023-05-09] MEDS: ipratropium-albuterol 3 mL Neb INHALATION ×3 (08:08→15:22)
[2023-05-09 12:03] LABS: Cyto Order Verification No Order
--- NOTE | 2023-05-09 12:26 | PM.PN ---
Subjective Subjective: She states she has been better, but has also been worse. She is somewhat better overall. Still having headache. Nausea and vomiting have resolved. Vitals/I&O/Wt Last Vital Signs Temp 97.7 F 05/09/23 11:15 Pulse 90 05/09/23 11:23 Resp 17 05/09/23 11:23 BP 131/69 05/09/23 11:15 Pulse Ox 95 05/09/23 11:23 O2 Del Method Nasal Cannula 05/09/23 11:23 O2 Flow Rate 2 05/09/23 11:23 05/08/23 05/09/23 05/09/23 22:59 06:59 14:59 Intake Total 410 / 675.908 50 / 725.908 960 / 960 Output Total 250 / 750 Balance 160 / -74.092 50 / -24.092 960 / 960 Physical Exam Const: COMMON NORMALS: patient oriented x3 and alert GENERAL APPEARANCE: cooperative; not comfortable NUTRITIONAL APPEARANCE: overweight ORIENTATION/CONSCIOUSNESS: Yes awake HENMT: COMMON NORMALS: oropharynx normal OTHER: No temporal tenderness, no palpable cord. No scalp tenderness at rest or on palpation. Neck/C-Spine: COMMON NORMALS: no JVD Resp: COMMON NORMALS: normal respiratory effort and clear to auscultation bilaterally AUSCULTATION: clear to auscultation bilaterally Cardio: COMMON NORMALS: no JVD, regular rhythm, S1 normal heart sound present, S2 normal heart sound present and No murmurs present (Cardio) RHYTHM: regular rhythm HEART SOUNDS: S1 normal heart sound present and S2 normal heart sound present GI: COMMON NORMALS: Normal to inspection, nondistended, normoactive bowel sounds present, Soft to palpation and non-tender PALPATION: Yes Soft to palpation OTHER: Extremity: COMMON NORMALS: no joint enlargement and no pedal edema Neuro: COMMON NORMALS: patient oriented x3 and moves all extremities SENSORIUM/ORIENTATION: Yes alert OTHER: Awake, alert, interactive. No difficulty tracking. No facial droop. Skin: COMMON NORMALS: no rashes or lesions noted GENERAL SKIN EXAM: no rashes or lesions noted Data 05/09/23 04:17 05/09/23 04:17 Micro: Microbiology 05/07/23 21:50 Urine Culture - Preliminary Urine,Clean Catch Gram Negative Rods 05/08/23 03:17 Blood Culture - Preliminary Blood NEGATIVE TO DATE 05/08/23 03:17 Blood Culture - Preliminary Blood NEGATIVE TO DATE A&P Assessment and plan (1) Headache: Persistent headache. Discussed with her noted results of MRI and MRV without acute abnormality. As she is still having headache lumbar puncture has been requested to assess for possible meningitis, however, was deferred per request IR due to concern for prophylactic Lovenox requesting to hold it. For now keep lumbar puncture on board. Discussed with her to let us know in case symptoms resolved in which case we may consider canceling the procedure as discussed with her. Follow-up CBC requested. Continue to optimize blood pressure control. Avoid NSAIDs. Salicylate level noted not elevated. Viral panel noted WNL. Does have history of migraine, although has not had migraine in a while. Without jaw claudication, temporal or scalp tenderness, amaurosis, otherwise not suggestive of temporal arteritis. Head CT noted without abnormality. Did have some associated vertigo, some tunnel vision initially, but this appears to also been associated with quite worsened hypertension, blood pressure 180/81, which appears to be much worse than her usual. Possible hypertensive urgency on presentation. Monitor for any change in symptoms. Nausea and vomiting are resolved. Discussed with case management, otherwise if symptoms resolving, and hemodynamically remained stable, post discharge destination likely would be home. (2) Hypoxia: Seems to have had a good response to Lasix, hypoxia is improving. Down to 2 L nasal cannula oxygen requirement. Monitor oxygenation. Avoid fluid overload. Stop Decadron. Continue overnight CPAP for GINGER. He is noted to have some pulmonary hypertension. Consider home oxygen evaluation prior to discharge home. CT results appreciated, no significant abnormality, noted some minimal lung base atelectasis or scarring with trace pleural effusions. Add I-S. No pneumothorax. D-dimer noted WNL. Suspected degree of pulmonary edema secondary to acute bradycardia. Echocardiogram normal EF, left atrial dilation, trace MVR, mild TVR, mild pulmonary hypertension. No significant change from prior echo. (3) Bradycardia: Bradycardia has resolved. Metoprolol stopped. Continue to withhold and discussed with her may not be safe to return to on discharge. Question of additional episodes of bradycardia at home of which she may not have been aware. Echocardiogram was obtained, noted normal EF, left atrial dilation, trace MVR, mild TVR, mild pulmonary hypertension. No significant change from prior echo. Discussed with her abnormal TSH, but normal free T4, possibly subclinical hypothyroidism will need follow-up studies with primary provider. Continue to monitor on telemetry. (4) Hypotension: Resolved. Suspect cardiogenic shock secondary to acute bradycardia. Overnight labile blood pressure with some episodes of hypotension required transiently pressor support. She would like to try to resume gabapentin at lower dose. Will resume monitor to 3 times daily for now. Monitor blood pressure. At risk of hypotension. Monitor blood pressure with postop Lasix. Monitor on telemetry. Troponin EKG series obtained, no suggestion of cardiac ischemia. She is chest pain-free. Most recent cardiology note reviewed. (5) Uncontrolled hypertension: Improved. Avoid beta-blockers. For now Imdur is on hold. Amlodipine has been on hold. Resuming lower dose of gabapentin. Monitor blood pressures. She has stopped wearing her CPAP for a while, possibly contributing to hypertension. Resumed. Additionally discussed with her to avoid NSAIDs, she appears is currently taking Voltaren gel. Discontinue. Hold IcyHot for now. Noted normal salicylate level. (6) Hyponatremia: Improving. Sodium up to 132. Follow-up chemistry requested. Stop urea. Avoid HCTZ. Unknown duration hyponatremia, possibly chronic, states has been feeling fatigued for several weeks. Received a small bolus of nasal saline in ER. Hold off additional IVF for now due to risk of worsening hypertension. At risk of dehydration with holding the fluid needing closer follow-up in the hospital. Stop HCTZ for now. Also drinks about 3 bottles of water in addition to other liquids at home. Otherwise does not limit sodium intake. Noted mildly abnormal TSH, normal free T4. Possibly subclinical hypothyroidism. So far nausea and vomiting resolved. (7) Nausea and vomiting: Resolved. Improving hyponatremia. Continue PPI. Noted normal salicylate level. Zofran as needed. Stop Voltaren gel. Hold IcyHot. (8) UTI (urinary tract infection): Overnight UA collected, 10-15 WBC. Discussed possible UTI. She is currently on aztreonam, continue. Follow-up culture. Plan GINGER: Has stopped wearing CPAP at home for some time, states after COVID. States she needs to get back to wearing it. Possibly contributing to uncontrolled hypertension. Resumed CPAP. Chronic pain: Hydrocodone as needed. Tylenol as needed. Gabapentin held due to hypotension. Insomnia: Trazodone had been stopped due to somnolence overnight when her condition deteriorated. She would like it resumed. Discussed with her we good consider resuming at lower dose first to see that she is tolerating it well. She is agreeable. Resume at 50 mg bedtime. Monitor condition. GERD: PPI HLD Radiculopathy Osteoarthritis of knees Osteoarthritis of hip Other medical problems Attestations Medical Necessity Statement*: Continue admission for assessment management of persistent headache, photophobia, assessment by lumbar puncture, further resumption of her medications with close monitoring due to risk of severe hypotension, with labile blood pressure. Diagnoses Headache R51.9 Hypoxia R09.02 Bradycardia R00.1 Hypotension I95.9 Uncontrolled hypertension I10 Hyponatremia E87.1 Nausea and vomiting R11.2 UTI (urinary tract infection) N39.0
[2023-05-09] MEDS: gabapentin 100 mg Capsule PO ×2 (14:43→20:57)
--- NOTE | 2023-05-09 17:21 | ECG_ITS ---
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 Measurements Intervals [place] Rate: 139 P: 0 ND: 0 QRS: 8 QRSD: 97 T: 137 QT: 287 QTc: 437 Interpretive Statements ATRIAL FIBRILLATION WITH RAPID VENTRICULAR RESPONSE ST DEVIATION AND MODERATE T-WAVE ABNORMALITY, CONSIDER LATERAL ISCHEMIA [-0.1+ mV T-WAVE IN I/aVL/V5/V6] Compared to ECG 05/08/2023 09:23:41 T-wave abnormality now present Possible ischemia now present Sinus rhythm no longer present Myocardial infarct finding no longer present Electronically Signed On 05-10-2023 12:17:17 CDT by Leeroy Garcia M.D. [id number]
[2023-05-09] MEDS: metoprolol tartrate 1 mg/1 mL SDV 5 mL 5 MG IVP (17:25)
[2023-05-09 18:35] LABS: Troponin(5th) Baseline 9 ng/L (0-10)
--- NOTE | 2023-05-09 19:21 | ECG_ITS ---
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 Measurements Intervals [place] Rate: 74 P: 45 GA: 155 QRS: 52 QRSD: 101 T: 55 QT: 362 QTc: 403 Interpretive Statements SINUS RHYTHM PROBABLE LATERAL MYOCARDIAL INFARCTION , OF INDETERMINATE AGE [35 ms Q WAVE IN I/aVL/V5/V6] Compared to ECG 05/09/2023 17:21:47 Myocardial infarct finding now present Atrial fibrillation no longer present T-wave abnormality no longer present Possible ischemia no longer present Electronically Signed On 05-10-2023 12:23:42 CDT by Leeroy Garcia M.D. [id number]
[2023-05-09] MEDS: duloxetine 60 mg Capsule PO (20:56)
[2023-05-09] MEDS: aspirin 81 mg EC Tablet PO (20:56)
[2023-05-09] MEDS: trazodone 50 mg Tablet PO (20:56)
[2023-05-10] VITALS (13 sets, daily range): BP systolic 124–148; BP diastolic 66–88; PULSE 66–88; RESP 16–18; TEMP 36.4–36.7; O2SAT 92–98
[2023-05-10] MEDS: zolpidem 5 mg Tablet 2.5 MG PO (00:54)
[2023-05-10 01:09] LABS: Basophils # 0.1 10^3/uL (0.0-0.1); Eosinophils # 0.1 10^3/uL (0.0-0.8); Eosinophils % 1.3 %; Hematocrit 43.8 % (37.0-47.0); Hemoglobin 14.8 g/dL (11.5-15.3); Lymphocytes # 2.8 10^3/uL (0.8-4.8); Lymphocytes % 40.1 %; Mean Corpuscular HGB Conc 33.8 g/dL (30.0-36.0); Mean Corpuscular Hemoglobin 32.3 pg (28.0-34.0); Mean Corpuscular Volume 95.6 fl (81-99); Mean Platelet Volume 9.4 fL (7.4-10.4); Monocytes # 0.6 10^3/uL (0.2-0.9); Monocytes % 8.9 %; Neutrophils # 3.37 10^3/uL (1.8-7.7); Neutrophils % 48.4 %; Nucleated Red Blood Cells % 0 %; Platelet Count 227 10^3/cmm (130-400); Red Blood Count 4.58 10^6/uL (4.1-5.3); Red Cell Distribution Width 12.6 % (12.1-15.1)
[2023-05-10 01:32] LABS: Blood Urea Nitrogen 12 mg/dL (8-23); Calcium 9.8 mg/dL (8.5-10.5); Carbon Dioxide 30 mmol/L (22-29); Chloride 99 mmol/L (98-107); Glucose 93 mg/dL (65-115); Osmolality Calculated 279 mOsm/kg (285-295); Sodium 135 mmol/L (136-145)
[2023-05-10] MEDS: aztreonam 1,000 MG in sodium chloride 0.9% (plus) 50 ML 100 MG IV ×2 (04:24→16:24)
[2023-05-10] MEDS: pantoprazole 40 mg SDV IVP ×2 (04:57→18:19)
[2023-05-10] MEDS: ipratropium-albuterol 3 mL Neb INHALATION ×3 (07:18→19:48)
[2023-05-10] MEDS: gabapentin 100 mg Capsule PO (08:26)
[2023-05-10 09:34] LABS: Magnesium 2.1 mg/dL (1.7-2.3)
[2023-05-10] MEDS: metoprolol tartrate 25 mg Tablet 12.5 MG PO ×2 (10:01→20:37)
[2023-05-10 11:52] LABS: CSF Mononuclear # 0.001 10^3/uL (50-90); Mononuclear WBC CSF % 100 % (50-90); Polynuclear WBC CSF % 0 % (0-10); Red Blood Cell CSF 0 10^3/uL (0-0); White Blood Cell CSF 1 /uL (0-5)
[2023-05-10 11:53] LABS: Appearance CSF CLEAR (CLEAR); Color CSF COLORLESS (COLORLESS); Pathology Referral Yes
[2023-05-10 12:05] LABS: Glucose CSF 57 mg/dL (40-70); Total Protein CSF 20 mg/dL (15-45)
--- NOTE | 2023-05-10 13:06 | PC.CHAP ---
Pastoral Care Encounter/Spiritual Assessment Type of Contact [] Declined roll table operator visit [] Patient/Family/Request visit [] Outpatient visit [] Follow-up visit [] Physician referral [] Code/Alert [x] Routine visit [] Staff referral [] Actively dying [] Patient sleeping [] Family support [] [] Out of room [] Palliative care [] [x] Receiving care in room [] Pre-surgical visit [] Trauma [] Long length of stay [] ICU visit [] Other: Relational/Emotional Strength [x] Patient feels connected with others/family/visitors/staff [] Distress [] Loneliness/isolation [] Abandonment Spirituality of Patient [x] Person of [place] [] Attends [employer] of their [place] [x] Believes in Prayer [] Reads Bible or Moravian materials [] There are Spiritual issues to be addressed Portrait Artist Interventions [x] Prayer [x] Active listening [x] Non-anxious presence [x] Spiritual/emotional support [] Crisis/trauma care [x] Spiritual counseling [] Bereavement support [] Provided bereavement packet [] Provided Bible/devotional materials [] Provided toy/stuffed animal, coloring book to patient or family member [] Provided Communion [] Anointing/[place] [] Salvation [x] Completed spiritual assessment [] Other: Impact on Illness or Injury [] Angry [] Fearful [] Anxious [] Often cries [] Exhaustion [] Unable to work [] Unable to attend jain [] Unable to walk/stand [] Unable to read [] Unable to drive [] Unable to eat/drink [] Unable to sleep [] Unable to be with family [] Patient intubated [] Other: Summary senior not sure about her health at this poin t has a good attitude well be going home Time spent with patient 10 mins
[2023-05-10 13:43] LABS: Osmolality Serum 275 mOsm/kg (278-305)
--- NOTE | 2023-05-10 14:02 | FL_ITS ---
WS: [id number] LUMBAR PUNCTURE UNDER FLUOROSCOPY: OBTAIN CSF FOR ANALYSIS HISTORY: headache, photophobia COMPARISON: Reviewed head CT from 05/08/2023 and MRI brain 05/08/2023. FLUOROSCOPY TIME: 1min [id number] # of spot films: 1 Procedure, complications, and risk and benefits explained to the patient. Consent was obtained. Recen t laboratory work and medication are reviewed prior to procedure. Skin over the lumbar is cleansed with ChloraPrep and anesthetized with 1% buffered lidocaine. Access into the thecal sac is achieved. CSF is removed in a sterile manner and placed in the sterile tubes. Approximately 11 ml is removed without difficulty. CSF is clear. No complications are encountered. CSF this into the laboratory for analysis as requested. FL/FL guided lumbarpunc dx* [id number] IMPRESSION: 1. Uncomplicated lumbar puncture for CSF. 2. Opening pressure 6 mmHg. 3. CSF collected in sterile containers and sent for analysis as requested.
--- NOTE | 2023-05-10 14:46 | P.PN_ITS ---
Subjective Subjective: Status post lumbar puncture, awaiting results. Exam headache afterward. Overall this morning was feeling headache was improving. Vitals/I&O/Wt Last Vital Signs Temp 98.1 F 05/10/23 12:00 Pulse 70 05/10/23 12:00 Resp 18 05/10/23 12:00 BP 135/71 05/10/23 12:00 Pulse Ox 94 05/10/23 12:00 O2 Del Method Nasal Cannula 05/10/23 11:29 O2 Flow Rate 2 05/10/23 11:29 05/09/23 05/10/23 05/10/23 22:59 06:59 14:59 Intake Total 530 / 1490 50 / 1540 360 / 360 Balance 530 / 1490 50 / 1540 360 / 360 Physical Exam Narrative: Accompanied by her other son. Const: COMMON NORMALS: patient oriented x3 and alert GENERAL APPEARANCE: cooperative; not comfortable NUTRITIONAL APPEARANCE: overweight ORIENTATION/CONSCIOUSNESS: Yes awake HENMT: COMMON NORMALS: oropharynx normal OTHER: No temporal tenderness, no palpable cord. No scalp tenderness at rest or on palpation. Neck/C-Spine: COMMON NORMALS: no JVD Resp: COMMON NORMALS: normal respiratory effort and clear to auscultation bilaterally AUSCULTATION: clear to auscultation bilaterally Cardio: COMMON NORMALS: no JVD, regular rhythm, S1 normal heart sound present, S2 normal heart sound present and No murmurs present (Cardio) RHYTHM: regular rhythm HEART SOUNDS: S1 normal heart sound present and S2 normal heart sound present GI: COMMON NORMALS: Normal to inspection, nondistended, normoactive bowel sounds present, Soft to palpation and non-tender PALPATION: Yes Soft to palpation OTHER: Extremity: COMMON NORMALS: no joint enlargement and no pedal edema Neuro: COMMON NORMALS: patient oriented x3 and moves all extremities SENSORIUM/ORIENTATION: Yes alert OTHER: Awake, alert, interactive. No difficulty tracking. No facial droop. Skin: COMMON NORMALS: no rashes or lesions noted GENERAL SKIN EXAM: no r ashes or lesions noted Data 05/10/23 00:48 05/10/23 00:48 Micro: Microbiology 05/10/23 10:00 Gram Stain - Final Cerebrospinal Fluid 05/07/23 21:50 Urine Culture - Final Urine,Clean Catch Escherichia coli A&P Assessment and plan (1) Headache: Underwent LP this morning. Opening pressure noted 6 mmHg. Follow-up pending studies. Discussed with her to remain supine with consideration of LP induced headache as discussed. Additionally yesterday found to be in A-fib with RVR, discussed risk of CVA, consideration of anticoagulation but will hold off at this time shortly after LP as per discussion with her. She is afebrile. No leukocytosis at this time. Follow-up CBC. Continue to optimize blood pressure control. Avoid NSAIDs. Salicylate level noted not elevated. Viral panel noted WNL. Does have history of migraine, although has not had migraine in a while. Without jaw claudication, temporal or scalp tenderness, amaurosis, otherwise not suggestive of temporal arteritis. Head CT noted without abnormality. Did have some associated vertigo, some tunnel vision initially, but this appears to also been associated with quite worsened hypertension, blood pressure 180/81, which appears to be much worse than her usual. Possible hypertensive urgency on presentation. Monitor for any change in symptoms. Nausea and vomiting are resolved. Discussed with patient, her son and case management. If no concerning findings on LP, otherwise doing well and no further issues with heart rate, will plan for discharge home possibly in the morning. (2) Paroxysmal atrial fibrillation with RVR: Yesterday heart rate persistently tachycardic up to 150s after she ambulated, twelve-lead EKG obtained, noted in A-fib with RVR. As she was becoming sy mptomatic with discomfort radiating to her neck, given a dose of 5 mg IV metoprolol with subsequent improvement in heart rate and resolution of symptoms. Troponin EKG series obtained, not suggestive of acute LA. Echocardiogram noted as previously. No significant abnormality. Potassium noted 5, magnesium noted 2.1. TSH noted as previously with mild elevation, but free T4 normal. Discussed with her and her son. [id number] score is at least 3, discussed with them elevation risk of stroke, discussed anticoagulation. As per discussion she has declined an LP, would like to hold off on starting until tomorrow. Otherwise restarted metoprolol but at 12.5 mg twice daily to previously bradyc ardia. Need to monitor heart rate currently due to bradycardia after admission, at risk of bradycardia, in case unable to control heart rate with low-dose metoprolol other options may need to be considered in case of possible tachybradycardia syndrome. Continue to encourage CPAP nightly. (3) Hypoxia: Has weaned down to 2 L nasal cannula. So far no further worsening. Continue to wean down as tolerating. Did respond to Lasix secondary to pulmonary edema following acute bradycardia. Continue overnight CPAP for GINGER. He is noted to have some pulmonary hypertension. Consider home oxygen evaluation prior to discharge home. CT results appreciated, no significant abnormality, noted some minimal lung base atelectasis or scarring with trace pleural effusions. No pneumothorax. D-dimer noted WNL. Suspected degree of pulmonary edema secondary to acute bradycardia. Continue I-S. Echocardiogram normal EF, left atrial dilation, trace MVR, mild TVR, mild pulmonary hypertension. No significant change from prior echo. (4) Bradycardia: Bradycardia has resolved. Metoprolol stopped. Continue to withhold and discussed with her may not be safe to return to on discharge. Question of additional episodes of bradycardia at home of which she may not have been aware. Echocardiogram was obtained, noted normal EF, left atrial dilation, trace MVR, mild TVR, mild pulmonary hypertension. No significant change from prior echo. Discussed with her abnormal TSH, but normal free T4, possibly subclinical hypothyroidism will need follow-up studies with primary provider. Continue to monitor on telemetry. (5) Hypotension: Resumed low-dose gabapentin. She states that she takes 900 mg 3 times a day for total 2700 mg in a day of gabapentin. As such we are increasing up to 300 mg 3 times daily at this time, monitor blood pressures for any further hypotension. That is quite a high dose, discussed with her and her son, consideration may be given to de-escalating it especially since it has not really resolved her ch ronic symptoms in her right hip but may expose her to risks of adverse effects. We discussed further increasing it up to 600 mg 3 times daily and considering stopping there, possibly with further gradual de-escalation with follow-up with PCP. Discussed to avoid abrupt discontinuation due to risk of withdrawal. Resolved. Suspect cardiogenic shock secondary to acute bradycardia. Overnight labile blood pressure with some episodes of hypotension required transiently pressor support. She would like to try to resume gabapentin at lower dose. Will resume monitor to 3 times daily for now. Monitor blood pressure. At risk of hypotension. Monitor blood pressure with postop Lasix. Monitor on telemetry. Troponin EKG series obtained, no suggestion of cardiac ischemia. She is chest pain-free. Most recent cardiology note reviewed. (6) Uncontrolled hypertension: Improved. Resumed on low-dose metoprolol as above due to A-fib with RVR episode. Monitor blood pressures. Also gradually resuming gabapentin. For now Imdur is on hold. She has stopped wearing her CPAP for a while, possibly contributing to hypertension. Resumed. Additionally discussed with her to avoid NSAIDs, she appears is currently taking Voltaren gel. Discontinue. Hold IcyHot for now. Noted normal salicylate level. (7) Hyponatremia: Improving. Sodium up to 135. Follow-up chemistry requested. Stop urea. Avoid HCTZ. Unknown duration hyponatremia, possibly chronic, states has been feeling fatigued for several weeks. Received a small bolus of nasal saline in ER. Hold off additional IVF for now due to risk of worsening hypertension. At risk of dehydration with holding the fluid needing closer follow-up in the hospital. Stop HCTZ for now. Also drinks about 3 bottles of water in addition to other liquids at home. Otherwise does not limit sodium intake. Noted mildly abnormal TSH, normal free T4. Possibly subclinical hypothyroidism. So far nausea and vomiting resolved. (8) Nausea and vomiting: Resolved. Improving hyponatremia. Continue PPI. Noted normal salicylate level. Zofran as needed. Stop Voltaren gel. Hold IcyHot. (9) UTI (urinary tract infection): Noted E. coli in urine resistant to ampicillin and gentamicin. Continue aztreonam for now. Plan GINGER: Has stopped wearing CPAP at home for some time, states after COVID. States she needs to get back to wearing it. Possibly contributing to uncontrolled hypertension. Resumed CPAP. Chronic pain: Hydrocodone as needed. Tylenol as needed. Gabapentin held due to hypotension. Insomnia: Increase trazodone to 100 mg. At home takes 200 mg. Monitor for mental status change. Trazodone had been stopped due to somnolence overnight when her condition deteriorated. She would like it resumed. Discussed with her we good consider resuming at lower dose first to see that she is tolerating it well. GERD: PPI HLD Radiculopathy Osteoarthritis of knees Osteoarthritis of hip Other medical problems Attestations Medical Necessity Statement*: Continue admission for optimization of treatment for paroxysmal A-fib with RVR, with risk of bradycardia with severe bradycardia after admission, complicated with hypotension, pulmonary edema, assessment of persistent headache, lumbar puncture, pending initiation of anticoagulation, resumption of her high dose medications with risk of toxicity/hypotension, mental status change. Diagnoses Headache R51.9 Paroxysmal atrial fibrillation with RVR I48.0 Hypoxia R09.02 Bradycardia R00.1 Hypotension I95.9 Uncontrolled hypertension I10 Hyponatremia E87.1 Nausea and vomiting R11.2 UTI (urinary tract infection) N39.0
[2023-05-10] MEDS: ondansetron 2 mg/ML SDV 2 mL 4 MG IVP (16:11)
[2023-05-10] MEDS: HYDROcodone-acetaminophen 5-325 mg Tablet 1 TAB PO (16:25)
[2023-05-10] MEDS: gabapentin 300 mg Capsule PO ×2 (16:25→20:38)
[2023-05-10] MEDS: duloxetine 60 mg Capsule PO (18:19)
[2023-05-10] MEDS: aspirin 81 mg EC Tablet PO (20:37)
[2023-05-10] MEDS: trazodone 100 mg Tablet PO (20:38)
[2023-05-11] VITALS (13 sets, daily range): BP systolic 112–150; BP diastolic 68–80; PULSE 55–75; RESP 12–19; TEMP 36.3–36.6; O2SAT 86–98
[2023-05-11] MEDS: aztreonam 1,000 MG in sodium chloride 0.9% (plus) 50 ML 100 MG IV (03:47)
[2023-05-11 05:49] LABS: Basophils # 0.1 10^3/uL (0.0-0.1); Basophils % 1.1 %; Eosinophils # 0.3 10^3/uL (0.0-0.8); Hematocrit 43.9 % (37.0-47.0); Hemoglobin 14.4 g/dL (11.5-15.3); Lymphocytes # 2.5 10^3/uL (0.8-4.8); Mean Corpuscular HGB Conc 32.8 g/dL (30.0-36.0); Mean Corpuscular Hemoglobin 31.6 pg (28.0-34.0); Mean Corpuscular Volume 96.3 fl (81-99); Mean Platelet Volume 9.5 fL (7.4-10.4); Monocytes # 0.7 10^3/uL (0.2-0.9); Monocytes % 9.9 %; Neutrophils # 3.56 10^3/uL (1.8-7.7); Neutrophils % 49.6 %; Nucleated Red Blood Cells % 0 %; Platelet Count 226 10^3/cmm (130-400); Red Blood Count 4.56 10^6/uL (4.1-5.3); Red Cell Distribution Width 12.6 % (12.1-15.1); White Blood Count 7.2 10^3/uL (4.0-10.0)
[2023-05-11] MEDS: pantoprazole 40 mg SDV IVP (06:08)
[2023-05-11 06:16] LABS: Blood Urea Nitrogen 13 mg/dL (8-23); Calcium 9.8 mg/dL (8.5-10.5); Carbon Dioxide 31 mmol/L (22-29); Chloride 96 mmol/L (98-107); Glucose 93 mg/dL (65-115); Osmolality Calculated 276 mOsm/kg (285-295); Sodium 133 mmol/L (136-145)
[2023-05-11] MEDS: metoprolol tartrate 25 mg Tablet 12.5 MG PO (08:16)
[2023-05-11] MEDS: gabapentin 300 mg Capsule PO (08:16)
[2023-05-11] MEDS: ipratropium-albuterol 3 mL Neb INHALATION ×2 (08:47→11:40)
[2023-05-11] MEDS: acetaminophen 500 mg Tablet PO (08:57)
[2023-05-11] MEDS: gabapentin 400 mg Capsule PO (14:43)
--- NOTE | 2023-05-11 16:00 | PC.NURSE ---
Discharge pending pt transport.
--- NOTE | 2023-05-11 18:24 | P.DS_ITS ---
Discharge Providers Date of Admission: 05/07/23 16:00 Date of Discharge: May 11, 2023 Attending Provider at Admission: Cayetano Hyatt Attending Provider at Discharge: Cayetano Hyatt Primary Care Provider: Vinod Vazquez MD Diagnoses at Discharge Discharge Diagnosis (1) Headache: Status: Acute (2) Paroxysmal atrial fibrillation with RVR: Status: Acute (3) Hypoxia: Status: Acute (4) Bradycardia: Status: Acute (5) Hypotension: Status: Acute (6) Uncontrolled hypertension: Status: Acute (7) Hyponatremia: Status: Acute (8) Nausea and vomiting: Status: Acute (9) UTI (urinary tract infection): Status: Acute Reason for Visit Reason for Visit: headache,tunnel vision, nausea, vomiting Hospital Course Hospital Course Pleasant 87-year-old lady was admitted for assessment management after presenting with headache, transient symptom of tunnel vision , nausea, vomiting, she has history of migraines in the past but has not had one in a while. On presentation with marked hypertension, 180/81, also noted to moderate hyponatremia, sodium 122, CT head in ER without acute abnormality. She was afebrile, without leukocytosis, tachycardia tachypnea or other signs of sepsis, without suggestion of bacterial meningitis. Has been feeling tired/fatigued, viral panel obtained and was negative. Denies any tick bites, rashes. Denies any jaw claudication temporal or scalp tenderness. In ER received labetalol for possible hypertensive urgency, with improvement in blood pressure and improvement in symptoms with resolution of tunnel vision, some improvement in her headache. However, headache persisted. Received a small bolus of fluid initially, though not continued, hyponatremia found likely partially also secondary to HCTZ which was stopped. Hyponatremia subsequently resolved. Received symptomatic treatment for nausea and vomiting, asked to stop Voltaren gel, held IcyHot, salicylates were checked and level was not elevated. She additionally had stopped using CPAP at home for GINGER, possibly contributing to her uncontrolled hypertension. CPAP was restarted. Overnight additionally with deterioration in her condition with significant bradycardia in the 40s, hypotension, hypoxia, transiently moved to ICU. Decompensation suspected secondary to cardiogenic shock, sudden bradycardia, leading also to pulmonary edema and hypoxia. Her home dose metoprolol was held. Additionally medications that may contribute to hypotension were held including gabapentin, which she takes another high dose of 900 mg 3 times daily for 2700 mg total, Imdur, amlodipine, duloxetine. She transiently received pressor support. Hypotension gradually improved and resolved, she was weaned off pressors. Bradycardia gradually improved. UA also came back suggestive of urinary tract infection for which she was treated with aztreonam due to penicillin allergy. Hypoxia improved with Lasix. Assessed by TTE which showed normal EF, left atrial dilation, trace MVR, mild TVR, mild pulmonary hypertension. Hypoxia continues to improve, but continues to require small out of oxygen, eventually weaned down to room air at rest, but requiring small amount of nasal cannula oxygen with exertion on home oxygen evaluation. Due to persistence of headache she was additionally assessed with lumbar puncture, opening pressure 6 mmHg, Gram stain clear, so far no growth on culture. Please follow-up on cultures. Chemistries largely unremarkable, with 1 WBC of mononuclear lineage. Hospitalization complicated by atrial fibrillation with RVR which responded to 5 mg IV metoprolol. Troponin series and EKG not suggestive of acute [place]. She was resumed on small dose metoprolol 12.5 mg without any further episodes of A-fib with RVR. Due to elevated stroke risk discussed anticoagulation with her which is started at discharge. It was withheld here shortly after LP. Discussed with her risks, she is started on Eliquis. At discharge he is asked to continue on 12.5 mg twice daily metoprolol but also to monitor and record heart rate. Please reassess heart rates, in case of recurrent episodes of tachycardia or bradycardia in the future may end up requiring a pacemaker. She is asked to follow-up with cardiology. Yesterday she is doing much better, headache nearly resolved, she is discharging home. She will complete antibiotic course for E. coli UTI with additional day of ciprofloxacin. In the hospital due to hypotension initially gabapentin was held, subsequently resumed gradually, as her usual dose is quite high and he does not appear to be taking care of her symptoms currently she is asked to decrease it to 600 mg 3 times daily, please revisit with her and consider tapering down further possibly weaning off entirely. Continue to reassess and optimize blood pressure control. Continue to encourage CPAP adherence. Physical Exam Narrative: Awake, alert, today appears much more comfortable. States headache significantly improved/nearly resolved. Const: COMMON NORMALS: patient oriented x3 and alert GENERAL APPEARANCE: cooperative ORIENTATION/CONSCIOUSNESS: Yes awake HENMT: COMMON NORMALS: oropharynx normal Neck/C-Spine: COMMON NORMALS: no JVD Resp: COMMON NORMALS: normal respiratory effort and clear to auscultation bilaterally AUSCULTATION: clear to auscultation bilaterally Cardio: COMMON NORMALS: no JVD, regular rhythm, S1 normal heart sound present, S2 normal heart sound present and No murmurs present (Cardio) RHYTHM: regular rhythm HEART SOUNDS: S1 normal heart sound present and S2 normal heart sound present GI: COMMON NORMALS: Normal to inspection, nondistended, normoactive bowel sounds present, Soft to palpation and non-tender PALPATION: Yes Soft to palpation Extremity: COMMON NORMALS: no joint enlargement and no pedal edema Neuro: COMMON NORMALS: patient oriented x3 and moves all extremities SENSORIUM/ORIENTATION: Yes alert Skin: COMMON NORMALS: no rashes or lesions noted GENERAL SKIN EXAM: no rashes or lesions noted Discharge Data Studies Completed and Pending Completed Studies During Hospitalization Category Date Time Status CT chest abdomen pelvis [[place] [address]/[id number] Cat Scan 05/08/23 02:24 Completed ] Stat CT head wo con* [id number] Stat Cat Scan 05/07/23 12:[address] head wo con* [id number] Stat Cat Scan 05/08/23 02:21 Completed FL guided lumbarpunc dx* [id number] Routine Exams 05/10/23 14:02 Completed XR chest 1V portable [id number] Stat Exams 05/08/23 02:03 Completed MR head wo con* [id number] Stat MRI 05/08/23 11:48 Completed MRV [[place] [id number]] Stat MRI 05/08/23 11:45 Completed CV carotid duplex BI* [id number] Routine Ultrasound 05/07/23 17:42 Completed CV. echo complete* [id number] Urgent Ultrasound 05/08/23 02:22 Completed Pending at discharge Category Date Time Status Blood Culture Stat Lab 05/08/23 03:17 Results CSF Culture & Gram Stain Routine Lab 05/10/23 10:00 Results Radiology Impressions Chest X-Ray 05/08/23 02:03 IMPRESSION: Large heart with no consolidation identified. Chest CT pending. Head CT 05/08/23 02:21 IMPRESSION: 1. No acute intracranial abnormality. 2. Mild age-related changes. Chest/Abdomen/Pelvis CT 05/08/23 02:24 IMPRESSION: 1. Minimal lung base atelectasis or scarring with trace pleural effusions. These findings have progressed mildly from 03/30/2022. 2. No consolidation, pneumothorax or other significant change has occurred. IMPRESSION: 1. No acute findings. 2. The colon is rather fecal filled. 3. Multiple chronic findings above. Head/Brain Mag Res Venography 05/08/23 11:45 IMPRESSION: No venous thrombus. No stenosis of the transverse sinuses typically seen with idiopathic intracranial hypertension. Incidental finding of prominent arachnoid granulation laterally in the left transverse sinus. Head MRI 05/08/23 11:48 IMPRESSION: No acute infarction or other acute finding. 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 Lumbar Puncture Fluoroscopy 05/10/23 14:02 IMPRESSION: 1. Uncomplicated lumbar puncture for CSF. 2. Opening pressure 6 mmHg. 3. CSF collected in sterile containers and sent for analysis as requested. Laboratory Results WBC 7.2 10^3/uL (4.0-10.0) 05/11/23 05:27 RBC 4.56 10^6/uL (4.1-5.3) 05/11/23 05:27 Hgb 14.4 g/dL (11.5-15.3) 05/11/23 05:27 Hct 43.9 % (37.0-47.0) 05/11/23 05:27 MCV 96.3 fl (81-99) 05/11/23 05:27 MCH 31.6 pg (28.0-34.0) 05/11/23 05:27 MCHC 32.8 g/dL (30.0-36.0) 05/11/23 05:27 RDW 12.6 % (12.1-15.1) 05/11/23 05:27 Plt Count 226 10^3/cmm (130-400) 05/11/23 05:27 MPV 9.5 fL (7.4-10.4) 05/11/23 05:27 Neut % (Auto) 49.6 % 05/11/23 05:27 Lymph % (Auto) 35.0 % 05/11/23 05:27 [place] % (Auto) 9.9 % 05/11/23 05:27 Eos % (Auto) 4.0 % 05/11/23 05:27 Baso % (Auto) 1.1 % 05/11/23 05:27 Neut # (Auto) 3.56 10^3/uL (1.8-7.7) 05/11/23 05:27 Lymph # (Auto) 2.5 10^3/uL (0.8-4.8) 05/11/23 05:27 [place] # (Auto) 0.7 10^3/uL (0.2-0.9) 05/11/23 05:27 Eos # (Auto) 0.3 10^3/uL (0.0-0.8) 05/11/23 05:27 Baso # (Auto) 0.1 10^3/uL (0.0-0.1) 05/11/23 05:27 Nucleated RBC % (auto) 0 % 05/11/23 05:27 Nucleated RBCs # 0.0 /100WBC 05/11/23 05:27 D-Dimer 0.39 ug/mIFEU (0-0.59) 05/08/23 03:17 Specimen Type Arterial 05/08/23 03:17 Sample Site Radial, left 05/08/23 03:17 ABG pH 7.35 (7.35-7.45) 05/08/23 03:17 ABG pCO2 46.8 mmHg (35-45) H 05/08/23 03:17 ABG pO2 74.2 mmHg (80.0-100.0) L 05/08/23 03:17 ABG HCO3 25.6 mmol/L (22-26) 05/08/23 03:17 ABG O2 Saturation 95.3 05/08/23 03:17 ABG Base Excess -0.6 mmol/L (-2.0-2.0) 05/08/23 03:17 Philippe Test Pos 05/08/23 03:17 A-a O2 Gradient 2.3 mmHg (5-10) L 05/08/23 03:17 Hematocrit 45.7 % (37-47) 05/08/23 03:17 Hgb O2 Saturation 93.6 % (95-100) L 05/08/23 03:17 Carboxyhemoglobin 1.2 %THgb (0.4-20.1) 05/08/23 03:17 Methemoglobin 0.6 % (0.4-1.5) 05/08/23 03:17 Total Hemoglobin 14.9 g/dL (12-16) 05/08/23 03:17 Sodium 128.0 mmol/L (131-143) L 05/08/23 03:17 Potassium 3.6 mmol/L (3.5-5.0) 05/08/23 03:17 Glucose 113.0 mg/dL (70-115) 05/08/23 03:17 Ionized Calcium 1.3 mmol/L (1.1-1.4) 05/08/23 03:17 O2 Delivery Device Nc 05/08/23 03:17 O2 Liters/Min 6.0 % 05/08/23 03:17 Valve Steamer ID Vitaly 05/08/23 03:17 Sodium 133 mmol/L (136-145) L 05/11/23 05:27 Potassium 5.0 mmol/L (3.5-5.1) 05/11/23 05:27 Chloride 96 mmol/L (98-107) L 05/11/23 05:27 Carbon Dioxide 31 mmol/L (22-29) H 05/11/23 05:27 Anion Gap 11.0 (5-19) 05/11/23 05:27 BUN 13 mg/dL (8-23) 05/11/23 05:27 Creatinine 0.7 mg/dL (0.5-0.9) 05/11/23 05:27 GFR Calculation Not Reportable 05/11/23 05:27 Glucose 93 mg/dL (65-115) 05/11/23 05:27 POC Glucose 102 mg/dL (70-110) 05/08/23 02:00 Serum Osmolality 275 mOsm/kg (278-305) L 05/08/23 03:17 Calculated Osmolality 276 mOsm/kg (285-295) L 05/11/23 05:27 Lactic Acid 1.1 mmol/L (0.5-2.2) 05/08/23 03:17 Calcium 9.8 mg/dL (8.5-10.5) 05/11/23 05:27 Phosphorus 4.0 mg/dL (2.5-4.5) 05/08/23 03:17 Magnesium 2.1 mg/dL (1.7-2.3) 05/10/23 00:48 Total Bilirubin 0.7 mg/dL (0.15-1.2) 05/08/23 03:17 AST 25 U/L (0-32) 05/08/23 03:17 ALT 15 U/L (0-33) 05/08/23 03:17 Alkaline Phosphatase 53 U/L (35-105) 05/08/23 03:17 Troponin T Gen 5 ng/L 8 ng/L (0-10) 05/08/23 03:17 Troponin T Baseline 9 ng/L (0-10) 05/09/23 18:02 Troponin T 120 Minute 10.20 ng/L (0-10) H 05/09/23 20:43 Delta Troponin T 1.20 ABS# (0-10) 05/09/23 20:43 Troponin T Hi Sens 6Hr 11.40 ng/L (0-10) H 05/10/23 00:48 Troponin T Hi Sens 6Hr Delta 2.40 ng/L (0-12) 05/10/23 00:48 C-Reactive Protein 3.0 mg/L (0.0-4.9) 05/08/23 03:17 Total Protein 6.8 g/dL (6.6-8.7) 05/08/23 03:17 Albumin 4.2 g/dL (3.5-5.2) 05/08/23 03:17 Globulin 2.6 g/dL (1.3-4.6) 05/08/23 03:17 Procalcitonin 0.03 ng/mL (0-0.5) 05/08/23 03:17 TSH 5.53 uIU/mL (0.27-4.20) H 05/07/23 16:42 Free T4 1.32 ng/dL (0.82-1.77) 05/07/23 16:42 Urine Color Light yellow (Yellow) 05/07/23 21:50 Urine Appearance Hazy (CLEAR) A 05/07/23 21:50 Urine pH 7 (5-7) 05/07/23 21:50 Ur Specific [place] 1.005 (1.005-1.030) 05/07/23 21:50 Urine Protein Neg (Negative) 05/07/23 21:50 Urine Glucose (UA) Norm (Normal) 05/07/23 21:50 Urine Ketones Negative (Negative) 05/07/23 21:50 Urine Blood Neg (Negative) 05/07/23 21:50 Urine Nitrate Negative (Negative) 05/07/23 21:50 Urine Bilirubin Neg (Negative) 05/07/23 21:50 Urine Urobilinogen Neg mg/dL (Negative) 05/07/23 21:50 Ur Leukocyte Esterase 1+ (Negative) H 05/07/23 21:50 Urine RBC None /hpf (0-2) 05/07/23 21:50 Urine WBC 10-15 /hpf (0-5) H 05/07/23 21:50 Ur Squamous Epith Cells None /hpf (0-5) 05/07/23 21:50 Amorphous Sediment Not Reportable 05/07/23 21:50 Urine Bacteria 3+ /hpf (NONE) H 05/07/23 21:50 CSF Appearance Clear (CLEAR) 05/10/23 10:00 CSF Color Colorless (COLORLESS) 05/10/23 10:00 CSF WBC 1 /uL (0-5) 05/10/23 10:00 CSF RBC 0 10^3/uL (0-0) 05/10/23 10:00 CSF Mononuclear # Auto 0.001 10^3/uL (50-90) L 05/10/23 10:00 CSF Mononuclear WBCs % 100 % (50-90) H 05/10/23 10:00 CSF Polynuclear WBCs # 0.000 10^3/uL (0-10) 05/10/23 10:00 CSF Polynuclear WBCs % 0 % (0-10) 05/10/23 10:00 CSF Diff Comment Yes 05/10/23 10:00 CSF Glucose 57 mg/dL (40-70) 05/10/23 10:00 CSF Total Protein 20 mg/dL (15-45) 05/10/23 10:00 Nasal Influ A H1 2009 PCR Not detected (NOT DETECT) 05/07/23 18:52 Salicylates < 0.3 mg/dL (3-10) L 05/07/23 16:42 Adenovirus (PCR) Not detected (NOT DETECT) 05/07/23 18:52 C. pneumoniae DNA (PCR) Not detected (NOT DETECT) 05/07/23 18:52 Coronavirus 229E (PCR) Not detected (NOT DETECT) 05/07/23 18:52 Human Metapneumovir PCR Not detected (NOT DETECT) 05/07/23 18:52 Influenza A (H1) PCR Not detected (NOT DETECT) 05/07/23 18:52 Influenza A (H3) PCR Not detected (NOT DETECT) 05/07/23 18:52 Influenza Type A (PCR) Not detected (NOT DETECT) 05/07/23 18:52 Influenza Type B (PCR) Not detected (NOT DETECT) 05/07/23 18:52 M. pneumoniae (PCR) Not detected (NOT DETECT) 05/07/23 18:52 Parainfluenza 1 (PCR) Not detected (NOT DETECT) 05/07/23 18:52 Parainfluenza 2 (PCR) Not detected (NOT DETECT) 05/07/23 18:52 Parainfluenza 3 (PCR) Not detected (NOT DETECT) 05/07/23 18:52 Parainfluenza 4 (PCR) Not detected (NOT DETECT) 05/07/23 18:52 RSV Type A (PCR) Not detected (NOT DETECT) 05/07/23 18:52 RSV Type B (PCR) Not detected (NOT DETECT) 05/07/23 18:52 Entero/Rhino (PCR) Not detected (NOT DETECT) 05/07/23 18:52 SARS-CoV-2 (PCR) Not detected (NOT DETECT) 05/07/23 18:52 Vitals Last Vital Signs Temp 97.9 F 05/11/23 17:02 Pulse 75 05/11/23 17:02 Resp 19 H 05/11/23 17:02 BP 115/68 05/11/23 17:02 Pulse Ox 98 05/11/23 17:02 O2 Del Method Nasal Cannula 05/11/23 16:00 O2 Flow Rate 2 05/11/23 13:18 Discharge Plan Discharge Patient Disposition: Home Condition: Stable Prescriptions: New ciprofloxacin HCl 500 mg tablet 500 mg PO BID 1 Days Qty: 2 0RF apixaban 5 mg tablet 5 mg PO BID Qty: 180 0RF Continued aspirin [Adult Aspirin Regimen] 81 mg tablet,delayed release (DR/EC) 81 mg PO BEDTIME Hold Instructions: Resume on 12/07/21. Resume after taking resume baby aspirin after taking 325 mg tablets x30 days. multivitamin Tablet 1 tab PO QAM sennosides [Senokot] 8.6 mg tablet 8.6 mg PO DAILY PRN (Reason: Constipation) guaifenesin [Mucinex] 600 mg tablet extended release 12hr 600 mg PO Q12H PRN (Reason: Congestion) nitroglycerin [Nitrostat] 0.4 mg tablet, sublingual 0.4 mg SUBLINGUAL Q5M PRN (Reason: chest pain) Qty: 25 12RF Rx Instructions: until response; do not exceed 3 doses per episode acetaminophen [Tylenol Extra Strength] 500 mg tablet 500 mg PO TID PRN (Reason: Pain) Qty: 0 0RF Patient Comments: with they hydrocodone Rx Instructions: takes with norco cholecalciferol (vitamin D3) [Vitamin D3] 25 mcg (1,000 unit) capsule 50 mcg PO QAM Icy Hot 29-7.6 % Ointment 1 applic TOPICAL DAILY PRN (Reason: Pain) hydrocodone-acetaminophen 5-325 mg tablet 1 tab PO Q4H MDD 4 tabs PRN (Reason: pain) isosorbide mononitrate 30 mg tablet extended release 24 hr 30 mg PO QAM amlodipine 2.5 mg tablet 2.5 mg PO QAM trazodone 100 mg tablet 200 mg PO BEDTIME pantoprazole 40 mg tablet,delayed release (DR/EC) 40 mg PO BID duloxetine 60 mg capsule,delayed release(DR/EC) 60 mg PO QPM Changed gabapentin 300 mg capsule 600 mg PO TID@06,12,18 Qty: 1 0RF Patient Comments: States for a total of 2700 mg per day. Rx Instructions: Dose change only metoprolol tartrate 25 mg tablet 12.5 mg PO BID Qty: 1 0RF Rx Instructions: Dose change only Discontinued spironolacton-hydrochlorothiaz 25-25 mg tablet 0.5 tab PO QAM Discharge Orders: Discharge Order (Routine); Ordered 05/11/23 Ordered By: Cayetano Hyatt Other Ambulatory Orders: DME: Oxygen (Order) Location: None Selected Ordered By: Cayetano Hyatt Referrals: Pinky Vega FNP [Nurse Practitioner] - (Please call sunday ) Vinod Vazquez MD [Primary Care Provider] - 05/17/23 8:00 am Discharge Activity: Oxygen as instructed Patient Instructions: Ciprofloxacin (By mouth), Apixaban (By mouth), A-fib (Atrial Fibrillation) (GEN), Sleep Apnea (GEN), Hyponatremia (GEN), Pulmonary Arterial Hypertension (GEN), CPAP (GEN), Urinary Tract Infection in Older Adults (GEN), Opioid Safety Activity Restrictions/Additional Instructions: Please follow-up with your primary doctor to confirm resolution of the headache and follow-up after lumbar puncture. Please have your primary doctor follow-up lumbar puncture culture results. Please discuss with your primary doctor regarding paroxysmal atrial fibrillation episode noted in the hospital associated with tachycardia. However, also initially episode of bradycardia on presentation. Her metoprolol dose was decreased to 12.5 mg twice daily. Please monitor your heart rates 3 times daily and write down values to bring to your appointment. You are started on blood thinner medication with Eliquis to reduce chance of stroke. Follow-up with cardiology for the same. In the future it may be that if you develop additional episodes of fast heart rate, but your heart rate will be too slow with metoprolol, you may end up needing a pacemaker. Please continue to work with your primary doctor to optimize control of your elevated blood pressures. You did have an episode of low blood pressure in the hospital suspected associated with slow heart rate due to metoprolol possibly in combination with labetalol use initially for treatment of your very high blood pressure on presentation. Additionally with pulmonary edema which has since improved. On echocardiogram you are found to have mild pulmonary hypertension, please follow-up with your primary doctor for additional assessment of pulmonary hypertension and consideration of referral. Please continue to wear CPAP for sleep apnea as untreated sleep apnea may contribute to worsening blood pressures, atrial fibrillation and other complications Continue to monitor blood pressure 3 times daily, write down values to bring to her appointment. Your diuretics are discontinued due to severely low sodium when you presented to the hospital. Do not restrict salt intake. Please also discuss with your primary doctor regarding gabapentin. Due to episode of low blood pressure in the hospital, some fluctuation in your blood pressure, dose is decreased to 600 mg 3 times a day, please follow-up with your primary doctor whether this medication is helping, and consider further gradually tapering down. Complete antibiotic course for urinary tract infection. Please stop voltaren gel. Avoid NSAIDs. Discharge Attestations Time Spent in Discharge Care*: greater than 30 min Quality Metrics Clinical Quality Measures [ No reported AMI, CVA or VTE this stay] Coding Level of Care Code 15945 Total time (in minutes) for Discharge: 50 Diagnoses Headache R51.9 Paroxysmal atrial fibrillation with RVR I48.0 Hypoxia R09.02 Bradycardia R00.1 Hypotension I95.9 Uncontrolled hypertension I10 Hyponatremia E87.1 Nausea and vomiting R11.2 UTI (urinary tract infection) N39.0
== END 2023-05-11 16:45 | disposition home or self-care (01) | DRG 640 ==
LOC: ER 14:34 → MEDSURG 16:25 → ICU 05-08 06:08 → MEDSURG 05-08 20:53
PROVIDERS: Internal Medicine; Admitting Provider Internal Medicine; Emergency Provider Family Medicine; PCP Family Medicine; Visit Provider Internal Medicine
DX: E87.1 Hypo-osmolality and hyponatremia (principal); R57.0 Cardiogenic shock; N39.0 Urinary tract infection, site not specified; Z16.11 Resistance to penicillins; Z16.29 Resistance to other single specified antibiotic; I10 Essential (primary) hypertension; I16.0 Hypertensive urgency; R51.9 Headache, unspecified; T50.2X5A Adverse effect of carbonic-anhydrase inhibitors, benzothiadiazides and other diuretics, initial encounter; G47.33 Obstructive sleep apnea (adult) (pediatric); Z91.199 Patient's noncompliance with other medical treatment and regimen due to unspecified reason; I95.9 Hypotension, unspecified; Z88.0 Allergy status to penicillin; I48.0 Paroxysmal atrial fibrillation; B96.20 Unspecified Escherichia coli [E. coli] as the cause of diseases classified elsewhere; Z79.82 Long term (current) use of aspirin; K21.9 Gastro-esophageal reflux disease without esophagitis; G89.29 Other chronic pain; M54.9 Dorsalgia, unspecified; I27.20 Pulmonary hypertension, unspecified; H53.149 Visual discomfort, unspecified; R00.1 Bradycardia, unspecified; E03.8 Other specified hypothyroidism; Z96.652 Presence of left artificial knee joint; M96.1 Postlaminectomy syndrome, not elsewhere classified; Z85.828 Personal history of other malignant neoplasm of skin; E78.5 Hyperlipidemia, unspecified
CPT/HCPCS: 36415; 36416; 62328; 70450; 70544; 70551; 71045; 71250; 74176; 80048; 80051; 80053; 80307; 80503; 81001; 82330; 82805; 82945; 82962; 83605; 83735; 83930; 84100; 84145; 84157; 84295; 84439; 84443; 84484; 85025; 85378; 86140; 87040; 87070; 87075; 87077; 87086; 87186; 87205; 87486; 87581; 87633; 89050; 93005; 93306; 93880; 94640; 94660; 94760; 96372; 96374; 96375; 96376; 99285; C9113; J0171; J0461; J1100; J1170; J1650; J2405; J2550; J3490; J7040; J7050; J7060; Q3014

== ENCOUNTER → 2023-05-28 09:14 | Outpatient (BNVA) | payer MEDICARE, MEDICAID, SELFPAY | PROVIDERS: PCP Family Medicine; Visit Provider Nurse Practitioner Family | DX: I48.0 Paroxysmal atrial fibrillation (principal); I10 Essential (primary) hypertension; Z79.01 Long term (current) use of anticoagulants | CPT/HCPCS: 99214 ==

== ENCOUNTER → 2023-05-31 11:42 | Outpatient (BNVA) | payer MEDICARE, MEDICAID, SELFPAY | PROVIDERS: PCP Family Medicine; Visit Provider Family Medicine | DX: S29.9XXA Unspecified injury of thorax, initial encounter (principal); X58.XXXA Exposure to other specified factors, initial encounter; I48.0 Paroxysmal atrial fibrillation; R06.02 Shortness of breath | CPT/HCPCS: 71046; 80053 ==

== ENCOUNTER 2023-08-09 11:48 | Emergency (ER) | payer MEDICARE, MEDICAID, SELFPAY ==
[2023-08-09 11:53] VITALS: BP 152/87; PULSE 74; RESP 18; TEMP 36.5; O2SAT 93
--- NOTE | 2023-08-09 12:03 | W.ED.EPISTAX ---
HPI - Epistaxis General: Chief complaint: Epistaxis Stated complaint: nose bleed Time Seen by Provider: 08/09/23 11:50 Source: patient Mode of arrival: ambulatory Limitations: no limitations History of Present Illness: Patient is an 87-year-old female presents to ED today with a complaint of a nose bleed began around 8 AM this morning while at rest. Patient states she occasionally will have nosebleeds when the weather gets dry but she can always get to stop at home by applying Vaseline to her nares. Patient upon arrival has very minimal bleeding from the left nare. No recent injury or trauma. No headache. Vital signs stable. MD complaint: epistaxis Location: left nostril Onset (ago): hour(s) Context: other anticoagulant use Associated symptoms: Reports no associated symptoms; Deny headache(s), sinus pain or vomiting Treatment prior to arrival: stuffed nose with tissue Review of Systems Eyes: Denies: change in vision, blurry vision, photophobia, floaters or seeing flashes ENMT: Reports: epistaxis; Denies: nasal discharge, nasal congestion, nasal obstruction, post nasal drip or sinus pain Card: Denies: chest pain Resp: Denies: dyspnea GI: Denies: nausea or vomiting Musc: Denies: neck pain Neuro: Denies: headache(s) or dizziness PFSH ED PFSH: Medical History Arthritis of right hip Chest pain Chronic back pain Dyslipidemia Essential (primary) hypertension Family history of colon cancer in mother GERD (gastroesophageal reflux disease) History of skin cancer GINGER (obstructive sleep apnea) Postlaminectomy syndrome, not elsewhere classified Primary insomnia Radiculopathy Unilateral primary osteoarthritis, left knee Surgical History History of back surgery lumbar laminectomy, level unknown History of bladder surgery History of colonoscopy History of esophagogastroduodenoscopy (EGD) History of hysterectomy History of left inguinal hernia repair History of total left knee replacement The [employer] total knee system with a size 4 triathlon beaded posterior stabilized femur left, a triathlon titanium tibial component size 4 beaded, a triathlon X3 posterior stabilized tibial bearing insert size 4 X 13 mm and a beaded triathlon titanium asymmetric patella size 32 x 10 mm History of total left knee replacement (TKR) The [place] total knee system with a size 4 triathlon beaded posterior stabilized femur left, a triathlon titanium tibial component size 4 beaded, a triathlon X3 posterior stabilized tibial bearing insert size 4 X 13 mm and a beaded triathlon titanium asymmetric patella size 32 x 10 mm Family History Mother CAD (coronary artery disease) Cancer colon Dementia Lung disease Grandmother CAD (coronary artery disease) Family/Other Dementia Lung disease Suicide Sister Dementia Son Lung disease Daughter Lung disease Diabetes Brother Diabetes Grandfather Stroke Other Heart disease Hypertension Denies family history of Clotting disorder Chronic kidney disease (CKD) Anesthesia complication Bleeding disorder Social History Smoking and tobacco status: never smoked Alcohol intake: never Substance/Drug Use: never Lives independently: Yes Household members: none Marital status: / Number of children: 4 Number of grandchildren: 4 Current occupational status: retired 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 [employer]/Rastafari: Pentecostalism Physical Exam Const: COMMON NORMALS: no acute distress, patient oriented x3, no limitations, alert and well nourished HENMT: COMMON NORMALS: normocephalic, atraumatic, Normal external nose present, moist oral mucous membranes and oropharynx normal HEAD & SCALP: normal to inspection, normocephalic and atraumatic FACE & SINUS: normal facial exam NOSE: Normal external nose present and Epistaxis present on the left anterior source (very very minimal ooze at this time) MOUTH: Normal oral and palatal mucosa present, lip normal and tongue normal THROAT: posterior oropharynx normal, tonsils normal and uvula midline Resp: COMMON NORMALS: normal respiratory effort Neuro: COMMON NORMALS: patient oriented x3 SENSORIUM/ORIENTATION: Yes alert Course Vital Signs: Vital signs: Vital Signs Temperature 97.7 F 08/09/23 11:53 Pulse Rate 74 08/09/23 11:53 Respiratory Rate 18 08/09/23 11:53 Blood Pressure 152/87 08/09/23 11:53 Pulse Oximetry 93 08/09/23 11:53 Oxygen Delivery Me thod Room Air 08/09/23 11:53 MDM - Epistaxis Medical Decision Making Bleeding was easily controlled with nasal clamp and Afrin. She was watched an additional 20 minutes or so no bleeding resumed. She was given Afrin and nasal clamp to go home with. Return ED precautions given. No radiology studies performed this visit Discharge Plan Discharge Patient Disposition: Home Clinical Impression: Acute anterior epistaxis Condition: Stable Prescriptions: No Action aspirin [Adult Aspirin Regimen] 81 mg tablet,delayed release (DR/EC) 81 mg PO BEDTIME Hold Instructions: Resume on 12/07/21. Resume after taking resume baby aspirin after taking 325 mg tablets x30 days. multivitamin Tablet 1 tab PO QAM sennosides [Senokot] 8.6 mg tablet 8.6 mg PO DAILY PRN (Reason: Constipation) cetirizine [Allergy Relief (cetirizine)] 10 mg tablet 10 mg PO QAM lidocaine 5 % adhesive patch,medicated 1 patch topical DAILY Qty: 30 0RF Rx Instructions: leave on most painful area for up to 12 hrs nitroglycerin [Nitrostat] 0.4 mg tablet, sublingual 0.4 mg SUBLINGUAL Q5M PRN (Reason: chest pain) Qty: 25 12RF Rx Instructions: until response; do not exceed 3 doses per episode erythromycin 250 mg tablet 250 mg PO .COMPLEX Qty: 24 0RF Rx Instructions: 250 mg oralTake 3 tablets 30 min prior to dental procedure;remaining tablets are for dental Follow metoprolol tartrate 25 mg tablet 12.5 mg PO BID Qty: 90 3RF Rx Instructions: Dose change only apixaban 5 mg tablet 5 mg PO BID Qty: 180 2RF acetaminophen [Tylenol Extra Strength] 500 mg tablet 500 mg PO TID PRN (Reason: Pain) Qty: 0 0RF Patient Comments: with they hydrocodone Rx Instructions: takes with norco cholecalciferol (vitamin D3) [Vitamin D3] 25 mcg (1,000 unit) capsule 50 mcg PO QAM Icy Hot 29-7.6 % Ointment 1 applic TOPICAL DAILY PRN (Reason: Pain) hydrocodone-acetaminophen 5-325 mg tablet 1 tab PO Q4H MDD 4 tabs PRN (Reason: pain) gabapentin 300 mg capsule 600 mg PO TID@06,12,18 Qty: 1 0RF Patient Comments: States for a total of 2700 mg per day. Rx Instructions: Dose change only isosorbide mononitrate 30 mg tablet extended release 24 hr 30 mg PO QAM amlodipine 2.5 mg tablet 2.5 mg PO QAM trazodone 100 mg tablet 200 mg PO BEDTIME pantoprazole 40 mg tablet,delayed release (DR/EC) 40 mg PO BID duloxetine 60 mg capsule,delayed release(DR/EC) 60 mg PO QAM Discharge Orders: Discharge ED (Routine); Ordered 08/09/23 Ordered By: Janice Shukla Referrals: Vinod Vazquez MD [Primary Care Provider] - Patient Instructions: Nosebleed (ED), Epistaxis - Adult Activity Restrictions/Additional Instructions: As we discussed avoid bending over, lifting, straining. If nosebleed begins again you may try the Afrin and nasal clamp. If you cannot get bleeding to stop you may return to the emergency department. Coding Level of Care Code ED Director [facility]
[2023-08-09] MEDS: oxymetazoline 0.05% Nasal Spray 15 mL 2 SPRAY NOSTRIL-L (12:26)
[2023-08-09 13:26] VITALS: BP 152/87; PULSE 74; RESP 18; O2SAT 93
== END 2023-08-09 13:31 | disposition home or self-care (01) ==
PROVIDERS: Emergency Provider Physician Assistant; PCP Family Medicine
DX: R04.0 Epistaxis (principal); Z79.82 Long term (current) use of aspirin; E78.5 Hyperlipidemia, unspecified; I10 Essential (primary) hypertension
CPT/HCPCS: 99283

== ENCOUNTER → 2023-08-29 14:44 | Outpatient (BNVA) | payer MEDICARE, MEDICAID, SELFPAY | PROVIDERS: PCP Family Medicine; Visit Provider Nurse Practitioner Family | DX: I48.0 Paroxysmal atrial fibrillation (principal); Z79.01 Long term (current) use of anticoagulants; I10 Essential (primary) hypertension; I25.10 Atherosclerotic heart disease of native coronary artery without angina pectoris | CPT/HCPCS: 99214 ==

== ENCOUNTER 2023-09-15 12:54 | Emergency (ER) | payer MEDICARE, MEDICAID, SELFPAY ==
[2023-09-15 13:02] VITALS: BP 182/80; PULSE 65; RESP 16; TEMP 37.1; O2SAT 94; BMI 34.2
--- NOTE | 2023-09-15 13:57 | XRR_ITS ---
PROCEDURE INFORMATION: Exam: XR Right Hip Exam date and time: 09/15/2023 2:20 PM Age: 87 years old Clinical indication: Other: Rlq to groin; Patient HX: Rlq pain that radiates to groin; Worse with movement TECHNIQUE: Imaging protocol: Radiologic exam of the right hip. Views: 1 view hip with pelvis when performed. COMPARISON[place] [id number] 05/08/2023 2:37 AM FINDINGS: Bones/joints: No acute fracture. [id number] joint space narrowing/DJD of the right hip. Soft tissues: Unremarkable. XR/XR hip RT 2-3V wo/w pel* [id number] IMPRESSION: No acute findings. [id number] DJD of the right hip.
--- NOTE | 2023-09-15 14:07 | CTR_ITS ---
PROCEDURE INFORMATION: Exam: CT Abdomen And Pelvis With Contrast Exam date and time: 09/15/2023 3:14 PM Age: 87 years old Clinical indication: Abdominal pain; Localized; Right lower quadrant (rlq); Prior surgery; Surgery date: 6+ months; Surgery type: Hysto, RT hernia; Additional info: Right hip and rlq abd pain; Ttp TECHNIQUE: Imaging protocol: Computed tomography of the abdomen and pelvis with contrast. Radiation optimization: All CT scans at this facility use at least one of these dose optimization techniques: automated exposure control; mA and/or kV adjustment per patient size (includes targeted exams where dose is matched to clinical indication); or iterative reconstruction. Contrast material: OMNI 350; Contrast volume: 100 ml; Contrast route: INTRAVENOUS (IV); REPORTING DATA: Count of CT and Cardiac NM exams in prior 12 months: This patient has received 5 known CTs and 0 known cardiac nuclear medicine studies in the 12 months prior to the current study. COMPARISON: [place] [id number] 05/08/2023 2:37 AM RADIATION DOSE METRICS: Total DLP (mGy-cm): 792.67 FINDINGS: Liver: 2.5 cm cyst noted in the left hepatic lobe. Gallbladder and bile ducts: Normal. No calcified stones. No ductal dilation. Pancreas: Normal. No ductal dilation. Spleen: A few scattered calcified granulomas noted. No splenomegaly. Adrenal glands: Normal. No mass. Kidneys and ureters: A couple small cysts noted in the right kidney measuring up to 1.3 cm in the lower pole. No hydronephrosis. Stomach and bowel: Colonic diverticulosis. No obstruction. No mucosal thickening. Appendix: No evidence of appendicitis. Intraperitoneal space: Unremarkable. No free air. No significant fluid collection. Vasculature: Unremarkable. No abdominal aortic aneurysm. Lymph nodes: Unremarkable. No enlarged lymph nodes. Urinary bladder: Unremarkable as visualized. Reproductive: Hysterectomy. Bones/joints: No acute fracture. Soft tissues: Fluid noted within the right inguinal canal. No bowel herniation in this region. Small fat containing periumbilical hernia noted. CT/CT abdomen pelvis w con* [id number] IMPRESSION: Fluid noted within the right inguinal canal which is a new finding from most recent comparison. Fat incarceration from previously noted right inguinal hernia is a consideration given symptomology. No signs of bowel herniation. COMMENTS: Consistent with the [employer]'s Incidental Findings Committee white paper (J Am Claudia Radiol 2018): Any incidental renal lesion less than 1 cm or classified as too small to characterize, or any incidental cystic renal lesion characterized as simple-appearing, is likely benign. No follow-up imaging is recommended for these lesions per consensus recommendations based on imaging criteria.
[2023-09-15 14:43] LABS: Alanine Aminotransferase 11 U/L (0-33); Alkaline Phosphatase 56 U/L (35-105); Anion Gap 12.1 (5-19); Aspartate Amino Transferase 20 U/L (0-32); Basophils # 0.1 10^3/uL (0.0-0.1); Basophils % 1.4 %; Blood Urea Nitrogen 9 mg/dL (8-23); Calcium 9.8 mg/dL (8.5-10.5); Carbon Dioxide 26 mmol/L (22-29); Chloride 102 mmol/L (98-107); Eosinophils # 0.2 10^3/uL (0.0-0.8); Eosinophils % 2.6 %; Glucose 95 mg/dL (65-115); Hematocrit 43.3 % (36-47); Lymphocytes # 2.6 10^3/uL (0.8-4.8); Lymphocytes % 45.4 %; Mean Corpuscular HGB Conc 31.9 g/dL (30-55); Mean Corpuscular Hemoglobin 31.2 pg (27-33); Mean Platelet Volume 9.8 fL (7.4-10.4); Monocytes # 0.6 10^3/uL (0.2-0.9); Monocytes % 10.4 %; Neutrophils # 2.27 10^3/uL (1.8-7.7); Nucleated Red Blood Cells % 0 %; Osmolality Calculated 280 mOsm/kg (285-295); Platelet Count 167 10^3/cmm (157-399); Potassium 4.1 mmol/L (3.5-5.1); Red Blood Count 4.42 10^6/uL (3.85-5.65); Red Cell Distribution Width 12.5 % (12.1-15.1); Sodium 136 mmol/L (136-145); Total Bilirubin 0.4 mg/dL (0.15-1.2); White Blood Count 5.68 10^3/uL (3.29-11.43)
[2023-09-15] MEDS: ketorolac 30 mg/mL INJ 15 MG IVP (15:11)
[2023-09-15] MEDS: ondansetron 2 mg/ML SDV 2 mL 4 MG IVP (15:12)
[2023-09-15] MEDS: iohexol 350 mg/mL 500 mL Btl (per mL) IV (15:19)
--- NOTE | 2023-09-15 16:04 | ED_ITS ---
HPI - Abdominal Pain General: Chief Complaint: Abdominal Pain Stated Complaint: Groin pain, upper abdomin pain Time Seen by Provider: 09/15/23 13:57 History of Present Illness: Patient is an 87-year-old female that presents to the emergency department with right lower quadrant/right groin pain. Patient states onset of symptoms about 5 hours ago. Proximately 3 hours ago she developed some nausea. Patient reports associated symptoms nausea, back pain. Back pain is unchanged from her baseline back pain. She denies fever or chills. Denies falls or injuries. Associated Symptoms: Reports diarrhea (1 bout yesterday) and nausea; Denies bloating, chills, constipation, GI cramping, dysuria, fever(s), hematochezia, hematuria, melena and vomiting Review of Systems General: Reports: 10 or more systems reviewed and unremarkable except in HPI and below Const: Reports: malaise; Denies: fever(s), chills, change in appetite, change in weight or fatigue Eyes: Denies: change in vision, eye discomfort, eye discharge or eye redness ENMT: Denies: throat pain, enlarged tonsils, odynophagia, hoarseness, ear or mastoid pain, ear discharge, change in hearing, tinnitus, nasal discharge, nasal congestion, post nasal drip or sinus pain Card: Denies: chest pain, palpitations, irregular heart rhythm, edema, dyspnea on exertion, orthopnea or leg pain with exertion Resp: Denies: dyspnea, productive cough, non-productive cough, wheezing, stridor or chest congestion GI: Reports: abdominal pain, nausea and diarrhea (1 bout yesterday); Denies: vomiting, dysphagia, constipation, bloating, GI cramping, hematochezia or melena : Denies: flank pain, difficulty voiding, dysuria, urinary frequency, urinary urgency, urinary hesitancy, oliguria or hematuria Musc: Denies: neck pain, back pain, extremity pain, joint pain, joint swelling, joint redness, joint warmth or muscle weakness Skin/Breast: Denies: rash, pruritus, erythema, photosensitivity or new lesions Neuro: Denies: headache(s), numbness in extremities, weakness in extremities, sensory changes, lack of coordination, difficulty walking, frequent falls, dizziness, confusion, Slurred speech present, difficulty communicating thoughts, seizure-like activity or involuntary movements Endo: Denies: polyuria, polydipsia or tired all the time Otilio/Lymph: Denies: easy bruising or easy bleeding PFSH ED PFSH: Medical History Arthritis of right hip Chest pain Chronic back pain Dyslipidemia Essential (primary) hypertension Family history of colon cancer in mother GERD (gastroesophageal reflux disease) History of skin cancer GINGER (obstructive sleep apnea) Postlaminectomy syndrome, not elsewhere classified Primary insomnia Radiculopathy Unilateral primary osteoarthritis, left knee Surgical History History of back surgery lumbar laminectomy, level unknown History of bladder surgery History of colonoscopy History of esophagogastroduodenoscopy (EGD) History of hysterectomy History of left inguinal hernia repair History of total left knee replacement The [place] total knee system with a size 4 triathlon beaded posterior stabilized femur left, a triathlon titanium tibial component size 4 beaded, a triathlon X3 posterior stabilized tibial bearing insert size 4 X 13 mm and a beaded triathlon titanium asymmetric patella size 32 x 10 mm 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 with a size 4 triathlon beaded posterior stabilized femur left, a triathlon titanium tibial component size 4 beaded, a triathlon X3 posterior stabilized tibial bearing insert size 4 X 13 mm and a beaded triathlon titanium asymmetric patella size 32 x 10 mm Family History Mother CAD (coronary artery disease) Cancer colon Dementia Lung disease Grandmother CAD (coronary artery disease) Family/Other Dementia Lung disease Suicide Sister Dementia Son Lung disease Daughter Lung disease Diabetes Brother Diabetes Grandfather Stroke Other Heart disease Hypertension Denies family history of Clotting disorder Chronic kidney disease (CKD) Anesthesia complication Bleeding disorder Social History Smoking and tobacco/nicotine status: never used tobacco/nicotine Alcohol intake: never Substance/Drug Use: never Lives independently: Yes Household members: none Marital status: / Number of children: 4 Number of grandchildren: 4 Current occupational status: 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 Chio/Orthodoxy: Buddhism Physical Exam Const: COMMON NORMALS: no acute distress, patient oriented x3 and alert GENERAL APPEARANCE: cooperative ORIENTATION/CONSCIOUSNESS: Yes awake, Yes oriented to person, Yes oriented to place and Yes oriented to time HENMT: COMMON NORMALS: normocephalic and atraumatic HEAD & SCALP: normocephalic and atraumatic FACE & SINUS: normal facial exam MOUTH: Normal oral and palatal mucosa present THROAT: posterior oropharynx normal Eye: COMMON NORMALS: Equal, round and reactive pupils present, EOMs intact bilaterally, conjunctivae normal and no scleral icterus GENERAL EYE: appearance normal, both eyes and all related structures ALIGNMENT: Yes alignment normal PERIORBITAL: periorbital findings normal CONJUNCTIVA: Yes conjunctivae normal PUPIL: Yes Equal, round and reactive pupils present Neck/C-Spine: COMMON NORMALS: full ROM GENERAL: Yes normal visual inspection Lymph: LYMPHATIC: no lymphadenopathy noted Chest: COMMONS NORMALS: normal inspection of the chest Breast/axilla inspection: Yes no chest deformity, asymmetry, normal contours, no nodules, masses, tenderness Resp: COMMON NORMALS: normal respiratory effort, No retractions, No use of accessory muscles and clear to auscultation bilaterally EFFORT & INSPECTION: Yes able to speak in complete sentences and Yes symmetric chest movement AUSCULTATION: clear to auscultation bilaterally Cardio: COMMON NORMALS: regular rate, regular rhythm and Peripheral pulses 2+ throughout RATE: regular rate RHYTHM: regular rhythm PERIPHERAL PULSES: Peripheral pulses 2+ throughout GI: COMMON NORMALS: Normal to inspection, nondistended, normoactive bowel sounds present, Soft to palpation, non-tender and No hepatosplenomegaly present INSPECTION: Yes normal to inspection AUSCULTATION: Yes normoactive bowel sounds PALPATION: Yes Soft to palpation and Yes No hepatosplenomegaly present RECTAL EXAM: deferred Extremity: COMMON NORMALS: normal to inspection GENERAL: Yes normal exam except as noted Neuro: COMMON NORMALS: patient oriented x3 SENSORIUM/ORIENTATION: Yes alert, Yes oriented to person, Yes oriented to place and Yes oriented to time CRANIAL NERVES: Yes CN normal except as noted Psych: COMMON NORMALS: mental status grossly normal, Normal thought process present, cooperative, activity/motor behavior normal, denies homicidal ideation and denies suicidal ideation THOUGHT PROCESS: Normal thought process present Skin: COMMON NORMALS: no rashes or lesions noted, no wounds and turgor normal GENERAL SKIN EXAM: no rashes or lesions noted and turgor normal Course Vital Signs: Vital signs: Vital Signs Temperature 98.8 F 09/15/23 13:02 Pulse Rate 65 09/15/23 13:02 Respiratory Rate 16 09/15/23 13:02 Blood Pressure 182/80 09/15/23 13:02 Pulse Oximetry 94 09/15/23 13:02 Oxygen Delivery Me thod Room Air 09/15/23 13:02 MDM - Abdominal Pain Medical Decision Making Patient was evaluated in the emergency department for right lower quadrant/right groin pain Patient states acute onset approximately 5 hours prior to arrival and has made ambulation difficulty. Differential diagnosis includes hip fracture, hip arthritis, hernia, mariely endicitis, gastroenteritis. She has had some nausea but no vomiting. She did have diarrhea once yesterday. She denies any blood in her stools and denies black tarry stools. Patient underwent laboratory evaluation and XR/CT diagnostics. The laboratory evaluation revealed no leukocytosis, anemias, electrolyte abnormalities, abnormal kidney function, abnormal liver function, and a normal lactic. The XR of her hip revealed mild degenerative changes. The CT of her abdomen pelvis with contrast revealed diverticulosis and a fat- containing inguinal hernia. No evidence of bowel incarceration. We ambulated the patient and treated her pain and nausea. She reports she is doing much better. With regard to ambulation Patient has done very well. Lab Data 09/15/23 14:18 09/15/23 14:18 Labs/Radiology: Radiology Impressions Hip/Pelvis X-Ray 09/15/23 13:57 IMPRESSION: No acute findings. [id number] DJD of the right hip. Abdomen/Pelvis CT 09/15/23 14:07 IMPRESSION: Fluid noted within the right inguinal canal which is a new finding from most recent comparison. Fat incarceration from previously noted right inguinal hernia is a consideration given symptomology. No signs of bowel herniation. COMMENTS: Consistent with the [employer]'s Incidental Findings Committee white paper (J Am Claudia Radiol 2018): Any incidental renal lesion less than 1 cm or classified as too small to characterize, or any incidental cystic renal lesion characterized as simple-appearing, is likely benign. No follow-up imaging is recommended for these lesions per consensus recommendations based on imaging criteria. Laboratory Results WBC 5.68 10^3/uL (3.29-11.43) 09/15/23 14:18 RBC 4.42 10^6/uL (3.85-5.65) 09/15/23 14:18 Hgb 13.80 g/dL (11.27-16.99) 09/15/23 14:18 Hct 43.3 % (36-47) 09/15/23 14:18 MCV 98.0 fl (85-98) 09/15/23 14:18 MCH 31.2 pg (27-33) 09/15/23 14:18 MCHC 31.9 g/dL (30-55) 09/15/23 14:18 RDW 12.5 % (12.1-15.1) 09/15/23 14:18 Plt Count 167 10^3/cmm (157-399) 09/15/23 14:18 MPV 9.8 fL (7.4-10.4) 09/15/23 14:18 Neut % (Auto) 40.0 % 09/15/23 14:18 Lymph % (Auto) 45.4 % 09/15/23 14:18 Hawkins % (Auto) 10.4 % 09/15/23 14:18 Eos % (Auto) 2.6 % 09/15/23 14:18 Baso % (Auto) 1.4 % 09/15/23 14:18 Neut # (Auto) 2.27 10^3/uL (1.8-7.7) 09/15/23 14:18 Lymph # (Auto) 2.6 10^3/uL (0.8-4.8) 09/15/23 14:18 Hawkins # (Auto) 0.6 10^3/uL (0.2-0.9) 09/15/23 14:18 Eos # (Auto) 0.2 10^3/uL (0.0-0.8) 09/15/23 14:18 Baso # (Auto) 0.1 10^3/uL (0.0-0.1) 09/15/23 14:18 Nucleated RBC % (auto) 0 % 09/15/23 14:18 Nucleated RBCs # 0.0 /100WBC 09/15/23 14:18 Sodium 136 mmol/L (136-145) 09/15/23 14:18 Potassium 4.1 mmol/L (3.5-5.1) 09/15/23 14:18 Chloride 102 mmol/L (98-107) 09/15/23 14:18 Carbon Dioxide 26 mmol/L (22-29) 09/15/23 14:18 Anion Gap 12.1 (5-19) 09/15/23 14:18 BUN 9 mg/dL (8-23) 09/15/23 14:18 Creatinine 0.7 mg/dL (0.5-0.9) 09/15/23 14:18 GFR Calculation Not Reportable 09/15/23 14:18 Glucose 95 mg/dL (65-115) 09/15/23 14:18 Calculated Osmolality 280 mOsm/kg (285-295) L 09/15/23 14:18 Lactic Acid 1.0 mmol/L (0.5-2.2) 09/15/23 14:18 Calcium 9.8 mg/dL (8.5-10.5) 09/15/23 14:18 Total Bilirubin 0.4 mg/dL (0.15-1.2) 09/15/23 14:18 AST 20 U/L (0-32) 09/15/23 14:18 ALT 11 U/L (0-33) 09/15/23 14:18 Alkaline Phosphatase 56 U/L (35-105) 09/15/23 14:18 Total Protein 7.0 g/dL (6.6-8.7) 09/15/23 14:18 Albumin 4.0 g/dL (3.5-5.2) 09/15/23 14:18 Globulin 3.0 g/dL (1.3-4.6) 09/15/23 14:18 All radiology interpretation(s) finalized by discharge Discharge Plan Discharge Patient Disposition: Home Clinical Impression: Groin discomfort, Arthritis of right hip, Inguinal hernia Condition: Stable Prescriptions: No Action aspirin [Adult Aspirin Regimen] 81 mg tablet,delayed release (DR/EC) 81 mg PO BEDTIME Hold Instructions: Resume on 12/07/21. Resume after taking resume baby aspirin after taking 325 mg tablets x30 days. multivitamin Tablet 1 tab PO QAM sennosides [Senokot] 8.6 mg tablet 8.6 mg PO DAILY PRN (Reason: Constipation) cetirizine [Allergy Relief (cetirizine)] 10 mg tablet 10 mg PO QAM lidocaine 5 % adhesive patch,medicated 1 patch topical DAILY Qty: 30 0RF Rx Instructions: leave on most painful area for up to 12 hrs nitroglycerin [Nitrostat] 0.4 mg tablet, sublingual 0.4 mg SUBLINGUAL Q5M PRN (Reason: chest pain) Qty: 25 12RF Rx Instructions: until response; do not exceed 3 doses per episode erythromycin 250 mg tablet 250 mg PO .COMPLEX Qty: 24 0RF Rx Instructions: 250 mg oralTake 3 tablets 30 min prior to dental procedure;remaining tablets are for dental Follow metoprolol tartrate 25 mg tablet 12.5 mg PO BID Qty: 90 3RF Rx Instructions: Dose change only apixaban 5 mg tablet 5 mg PO BID Qty: 180 2RF acetaminophen [Tylenol Extra Strength] 500 mg tablet 500 mg PO TID PRN (Reason: Pain) Qty: 0 0RF Patient Comments: with they hydrocodone Rx Instructions: takes with norco cholecalciferol (vitamin D3) [Vitamin D3] 25 mcg (1,000 unit) capsule 50 mcg PO QAM Icy Hot 29-7.6 % Ointment 1 applic TOPICAL DAILY PRN (Reason: Pain) hydrocodone-acetaminophen 5-325 mg tablet 1 tab PO Q4H MDD 4 tabs PRN (Reason: pain) gabapentin 300 mg capsule 600 mg PO TID@06,12,18 Qty: 1 0RF Patient Comments: States for a total of 2700 mg per day. Rx Instructions: Dose change only isosorbide mononitrate 30 mg tablet extended release 24 hr 30 mg PO QAM amlodipine 2.5 mg tablet 2.5 mg PO QAM trazodone 100 mg tablet 200 mg PO BEDTIME pantoprazole 40 mg tablet,delayed release (DR/EC) 40 mg PO BID duloxetine 60 mg capsule,delayed release(DR/EC) 60 mg PO QAM Discharge Orders: Discharge ED (Routine); Ordered 09/15/23 [facility]: [facility] Referrals: Vinod Vazquez MD [Primary Care Provider] - Discharge Diet: Advance as tolerated Discharge Activity: Resume usual activity Patient Instructions: Inguinal Hernia (ED), Pain Management Activity Restrictions/Additional Instructions: Please return to the emergency department for new, concerning, worsening symptoms Coding Level of Care Code ED Dough Sheeter for Joao Torres
== END 2023-09-15 16:35 | disposition home or self-care (01) ==
PROVIDERS: Emergency Provider Nurse Practitioner; PCP Family Medicine
DX: K40.90 Unilateral inguinal hernia, without obstruction or gangrene, not specified as recurrent (principal); M16.11 Unilateral primary osteoarthritis, right hip; Z79.82 Long term (current) use of aspirin; E78.5 Hyperlipidemia, unspecified; I10 Essential (primary) hypertension
CPT/HCPCS: 36415; 73502; 74177; 80053; 83605; 85025; 96374; 96375; 99285; J1885; J2405; Q9967

== ENCOUNTER → 2023-09-19 15:01 | Outpatient (BNVA) | payer MEDICARE, MEDICAID, SELFPAY | PROVIDERS: PCP Family Medicine; Referring Provider Surgery; Visit Provider Surgery | DX: K40.91 Unilateral inguinal hernia, without obstruction or gangrene, recurrent (principal) | CPT/HCPCS: 99204 ==

== ENCOUNTER 2023-10-15 05:44 | Day surgery (SDC) | payer MEDICARE, MEDICAID, SELFPAY ==
[2023-10-15] VITALS (10 sets, daily range): BP systolic 100–131; BP diastolic 44–84; PULSE 61–73; RESP 12–18; TEMP 36.1–36.8; O2SAT 90–96
--- NOTE | 2023-10-15 06:12 | W.PM.OPSUD ---
Surgery/Procedure H&P Update DATE OF PROCEDURE: October 15, 2023 DATE H&P PERFORMED: 09/19/23 H&P UPDATE INFORMATION: I have reviewed H&P completed within last 30 days, I have examined patient prior to procedure and No changes to prior documentation PLANNED PROCEDURE: Operation Date: 10/15/23 07:00 Proposed Procedures p 13392 lap right inguinal hernia repair with mesh K40.91(Right) - Shan Wheeler DO
[2023-10-15] MEDS: diphenhydrAMINE 50 mg/mL SDV 1mL 12.5 MG IVP (06:37)
[2023-10-15] MEDS: scopolamine 1.5 Patch 1 PATCH TRANSDERMA (06:37)
[2023-10-15] MEDS: sodium chloride 0.9% 1,000 ML 30 ML IV (06:38)
--- NOTE | 2023-10-15 06:53 | P.ANESASSM_ITS ---
Pre-Anesthetic Assessment Height/Weight: Height 1.55 m Weight 80.739 kg Temp Pulse Resp BP Pulse Ox O2 Del Method 97 F L 61 18 131/69 92 Room Air, Nasal Cannula 10/15/23 05:55 10/15/23 05:55 10/15/23 05:55 10/15/23 05:55 10/15/23 05:55 10/15/23 06:14 Operation Date: 10/15/23 07:00 Proposed Procedures p 86521 lap right inguinal hernia repair with mesh K40.91(Right) - Shan Wheeler DO Familial anesthetic complications: PONV and headaches Was Beta Neto taken within 24 hours: Yes Was Clonidine taken within 24 hours: N/A Last intake: Intake Last Liquid Date 10/14/23 Last Liquid Time 23:30 Last Solid Date 10/14/23 Last Solid Time 23:30 Social No alcohol and No tobacco Exam alert, oriented x 3, clear to auscultation bilaterally and regular rate & rhythm Airway Mallampati: Class II Dentition: other (missing) Pulmonary Sleep Apnea CV/HEM Atrial Fibrillation, Arrythmia, Coronary Artery Disease, Congestive Heart Failure and Hypertension GI Gastroesophageal Reflux Disease Neuropsych Headache Anesthetic Plan ASA status: 3 Anesthesia: General Risk of > 500 ml blood loss (7ml/kg in children): No Medications/Allergies Home Medications Medication Instructions Recorded Confirmed Last Taken Type multivitamin 1 tab PO QAM 10/31/19 10/12/23 10/14/23 History nitroglycerin 0.4 mg sublingual 0.4 mg sublingual Q5M PRN chest 12/29/19 10/12/23 1 Year Ago Rx tablet (Nitrostat) pain #25 tabs ~07/27/21 acetaminophen 500 mg tablet 500 mg PO TID PRN Pain #0 tabs 11/03/21 10/12/23 10/15/23 Rx (Tylenol Extra Strength) cholecalciferol (vitamin D3) 25 50 mcg PO QAM 12/26/22 10/12/23 10/14/23 History mcg (1,000 unit) capsule (Vitamin D3) sennosides 8.6 mg tablet (Senokot) 8.6 mg PO DAILY PRN Constipation 12/26/22 10/12/23 Unknown History hydrocodone 5 mg-acetaminophen 325 1 tab PO Q4H PRN pain 07/01/2510/12/23 10/15/23 History mg tablet methyl salicylate-menthol 29 %-7.6 1 applic topical DAILY PRN Pain 05/07/23 10/12/23 Unknown History % topical ointment (Icy Hot) cetirizine 10 mg tablet (Allergy 10 mg PO QAM 05/31/23 10/12/23 10/14/23 History Relief (cetirizine)) lidocaine 5 % topical patch 1 patch topical DAILY #30 ea 05/31/23 10/12/23 Unknown Rx metoprolol tartrate 25 mg tablet 12.5 mg (1/2 x 25 mg) PO BID #90 07/26/23 10/12/23 10/15/23 Rx tabs amlodipine 2.5 mg tablet 2.5 mg PO QAM 08/09/23 10/12/23 10/15/23 History duloxetine 60 mg capsule,delayed 60 mg PO QPM 08/09/23 10/12/23 10/14/23 History release (Cymbalta) isosorbide mononitrate 30 mg 30 mg PO QAM 08/09/23 10/12/23 10/15/23 History tablet,extended release 24 hr trazodone 100 mg tablet 200 mg PO BEDTIME 08/09/23 10/12/23 10/14/23 History apixaban 5 mg tablet (Eliquis) 5 mg PO BID 10/12/23 10/12/23 10/12/23 History gabapentin 300 mg capsule 600 mg PO TID 10/12/23 10/12/23 10/14/23 History pantoprazole 40 mg tablet,delayed 40 mg PO BID 10/12/23 10/12/23 10/14/23 History release Allergies Allergy/AdvReac Type Severity Reaction Status Date / Time cyclobenzaprine Allergy Unknown Anxiety,Unk Verified 10/15/23 06:02 nown Opioids - Morphine Analogues Allergy Unknown Headache,Un Verified 10/15/23 06:02 known fentanyl Allergy Unknown Verified 10/15/23 06:02 Penicillins Allergy ALGY-Hives Verified 10/15/23 06:02 Sulfa (Sulfonamide Allergy ALGY-Hives Verified 10/15/23 06:02 Antibiotics) tramadol [From Ultram] Allergy ADR-Vomitin Verified 10/15/23 06:02 g Current Medications Generic Name Dose Route Start Last Admin Trade Name Freq PRN Reason Stop Dose Admin Diphenhydramine HCl 12.5 mg 10/15/23 05:55 10/15/23 06:37 Diphenhydramine 50 Mg/Ml Sdv 1ml IVP 12.5 mg ONCE PRN Administration PONV Sodium Chloride 1,000 mls @ 30 mls/hr 10/15/23 06:00 10/15/23 06:38 Sodium Chloride 0.9% IV 10/16/23 05:59 30 mls/hr .Q24H KARI Administration PFSH Anesthesia Medical History Arthritis of right hip Chest pain Chronic back pain Dyslipidemia Essential (primary) hypertension Family history of colon cancer in mother GERD (gastroesophageal reflux disease) History of skin cancer GINGER (obstructive sleep apnea) Postlaminectomy syndrome, not elsewhere classified Primary insomnia Radiculopathy Unilateral primary osteoarthritis, left knee Surgical History History of back surgery lumbar laminectomy, level unknown History of bladder surgery History of colonoscopy History of esophagogastroduodenoscopy (EGD) History of hysterectomy History of left inguinal hernia repair 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 with a size 4 triathlon beaded posterior stabilized femur left, a triathlon titanium tibial component size 4 beaded, a triathlon X3 posterior stabilized tibial bearing insert size 4 X 13 mm and a beaded triathlon titanium asymmetric patella size 32 x 10 mm 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 with a size 4 triathlon beaded posterior stabi lized femur left, a triathlon titanium tibial component size 4 beaded, a triathlon X3 posterior stabilized tibial bearing insert size 4 X 13 mm and a beaded triathlon titanium asymmetric patella size 32 x 10 mm Family History Mother CAD (coronary artery disease) Cancer colon Dementia Lung disease Grandmother CAD (coronary artery disease) Family/Other Dementia Lung disease Suicide Sister Dementia Son Lung disease Daughter Lung disease Diabetes Brother Diabetes Grandfather Stroke Other Heart disease Hypertension Denies family history of Clotting disorder Chronic kidney disease (CKD) Anesthesia complication Bleeding disorder Social History Smoking and tobacco/nicotine status: never used tobacco/nicotine Alcohol intake: never Substance/Drug Use: never Lives independently: Yes Household members: none Marital status: / Number of children: 4 Number of grandchildren: 4 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
[2023-10-15] MEDS: vancomycin 1,000 MG in sodium chloride 0.9% 250 ML 250 MG IV (06:57)
--- NOTE | 2023-10-15 09:03 | P.OP_ITS ---
Operative Report Date of procedure: October 15, 2023 Pre-op diagnosis: Right inguinal hernia Post-op diagnosis: Right direct inguinal hernia Left femoral hernia Procedure done: Laparoscopic repair of right inguinal hernia and left femoral hernias with mesh Implants: Left and right large 3D max Bard mesh is Specimens removed/disposition: None Surgeon: Shan Wheeler DO Anesthesia: General Estimated blood loss (mL): 5 Complications: None apparent Brief History: This very pleasant 88-year-old female who presented to my office with right groin pain and bulge. Laparoscopic repair with mesh was indicated. The risk and benefits were explained and documented. Immediately preoperatively she reported that she believes she has a new hernia on the left side as well. She was previously consented for possible bilateral procedure. Procedure: Patient was wheeled into the operative room and placed on the OR table in a supine position. Abdomen was inspected prepped and draped in usual sterile fashion. Time-out was performed and all present were in agreement. A 15 blade scalpel was used to make 1.2 centimeter incision infraumbilically. Combination of sharp and blunt dissection was performed down to the anterior rectus sheath which was opened sharply. The dissecting balloon was then inserted into the space of Retzius and blown up. We put the camera into the port and identified that we were in the correct space. Extensive scarring in the space of Retzius and the area cannot be dissected out easily. I then converted to a UYEN procedure. The two 5 mm trocars were removed and placed into the left and right hemiabdomen's under direct visualization. LigaSure was used to take down the peritoneum. I then placed 2 5 millimeter trocars suprapubically in the midline. I then used endokitners to bluntly dissect in the space of Retzius out laterally. An indirect inguinal hernia was identified on the right. Blunt dissection was performed to dissect down the hernia sac. A large right inguinal mesh was then placed into the space of Retzius. The mesh was unrolled and tacked once medially at the pubic bone. The mesh laid out nicely over the spermatic cord. A femoral hernia was identified on the left. Blunt dissection w as performed to dissect down the hernia sac until the vas deferens dove medially. A large left inguinal mesh was then placed into the space of Retzius. The mesh was unrolled and tacked once medially at the pubic bone. The 12 mm trocar site was then closed at the fascia with a 0 Vicryl in a [id number] fashion. I watched the hernia sacs remain in place as insufflation was removed. Incisions were closed with 4 O Vicryl in a subcuticular interrupted fashion. Skin glue was applied. Patient tolerated the procedure well.
[2023-10-15] MEDS: lidocaine-epi 2% 20 mL INJ INJECTION (09:35)
[2023-10-15] MEDS: ondansetron 2 mg/ML SDV 2 mL 4 MG IVP ×2 (10:35→11:19)
[2023-10-15] MEDS: HYDROcodone-acetaminophen 7.5-325 mg Tablet 1 TAB PO (11:12)
--- NOTE | 2023-10-15 11:40 | ANE.PACU2 ---
Inpatient post-anesthesia follow up: Airway intact: Yes Vital signs: Temperature 97 F Pulse Rate 69 Respiratory Rate 18 Blood Pressure 128/61 Pulse Oximetry 94 Oxygen Delivery Me thod Room Air Oxygen Flow Rate 4 Fraction of Inspir ed Oxygen Hydration adequate: Yes Nausea and vomiting: No Pain level: 1 Mental status: Baseline
== END 2023-10-15 11:30 | disposition home or self-care (01) ==
PROVIDERS: PCP Family Medicine; Visit Provider Surgery
PROC: (CPT 49650; principal; 2023-10-15 07:00)
DX: K40.90 Unilateral inguinal hernia, without obstruction or gangrene, not specified as recurrent (principal); K41.90 Unilateral femoral hernia, without obstruction or gangrene, not specified as recurrent; G47.30 Sleep apnea, unspecified; I48.91 Unspecified atrial fibrillation; I25.10 Atherosclerotic heart disease of native coronary artery without angina pectoris; I11.0 Hypertensive heart disease with heart failure; I50.9 Heart failure, unspecified; K21.9 Gastro-esophageal reflux disease without esophagitis; G47.33 Obstructive sleep apnea (adult) (pediatric); Z79.82 Long term (current) use of aspirin
CPT/HCPCS: 49650; 51702; A4216; C1781; J1100; J1200; J2405; J2704; J3010; J3370; J3490; J7030; J7050

== ENCOUNTER → 2023-11-06 14:38 | Outpatient (BNVA) | payer MEDICARE, MEDICAID, SELFPAY | PROVIDERS: PCP Family Medicine; Visit Provider Surgery | DX: Z98.890 Other specified postprocedural states (principal); Z87.19 Personal history of other diseases of the digestive system | CPT/HCPCS: 99024 ==

== ENCOUNTER → 2023-11-29 15:54 | Outpatient (BNVA) | payer MEDICARE, MEDICAID, SELFPAY | PROVIDERS: PCP Family Medicine; Visit Provider Family Medicine | DX: R42 Dizziness and giddiness (principal); D64.9 Anemia, unspecified | CPT/HCPCS: 80053; 83540; 85025 ==

== ENCOUNTER → 2024-02-14 10:45 | Outpatient (BNVA) | payer MEDICARE, MEDICAID, SELFPAY | PROVIDERS: PCP Family Medicine; Visit Provider Internal Medicine Cardiovascular Disease | DX: I25.810 Atherosclerosis of coronary artery bypass graft(s) without angina pectoris (principal); I10 Essential (primary) hypertension; I48.0 Paroxysmal atrial fibrillation; I35.0 Nonrheumatic aortic (valve) stenosis; E78.5 Hyperlipidemia, unspecified; Z79.01 Long term (current) use of anticoagulants | CPT/HCPCS: 99214 ==

== ENCOUNTER 2024-04-16 21:53 | Emergency (ER) | payer MEDICARE, MEDICAID, SELFPAY ==
[2024-04-16 22:03] VITALS: BP 157/80; PULSE 58; RESP 16; TEMP 36.4; O2SAT 91
--- NOTE | 2024-04-16 22:26 | CTR_ITS ---
PROCEDURE INFORMATION: Exam: CT Head Without Contrast Exam date and time: 04/16/2024 10:47 PM Age: 88 years old Clinical indication: Dizziness TECHNIQUE: Imaging protocol: Computed tomography of the head without contrast. Radiation optimization: All CT scans at this facility use at least one of these dose optimization techniques: automated exposure control; mA and/or kV adjustment per patient size (includes targeted exams where dose is matched to clinical indication); or iterative reconstruction. COMPARISON: MR head wo con* [id number] 05/08/2023 3:49 PM RADIATION DOSE METRICS: Total DLP (mGy-cm): 1031.8 FINDINGS: Brain: Mild cortical volume loss. Mild hypodensities in supratentorial periventricular and subcortical white matter, consistent with microangiopathy. No intracranial hemorrhage. Cerebral ventricles: No ventriculomegaly. Pituitary gland and sella: Empty sella. Paranasal sinuses: Visualized sinuses are unremarkable. No fluid levels. Mastoid air cells: Visualized mastoid air cells are well aerated. Bones: Unremarkable. No acute fracture. Soft tissues: Unremarkable. Vasculature: No hyperdense artery. CT/CT head wo con* [id number] IMPRESSION: 1. No acute intracranial abnormality.
[2024-04-16 23:06] LABS: Basophils # 0.1 10^3/uL (0.0-0.1); Basophils % 1.2 %; Eosinophils # 0.2 10^3/uL (0.0-0.8); Eosinophils % 3.4 %; Hematocrit 43.7 % (36-47); Lymphocytes # 2.6 10^3/uL (0.8-4.8); Lymphocytes % 45.1 %; Mean Corpuscular HGB Conc 32.7 g/dL (30-55); Mean Corpuscular Hemoglobin 31.9 pg (27-33); Mean Corpuscular Volume 97.5 fl (85-98); Mean Platelet Volume 9.5 fL (7.4-10.4); Monocytes # 0.5 10^3/uL (0.2-0.9); Monocytes % 9.2 %; Neutrophils % 40.9 %; Nucleated Red Blood Cells % 0 %; Platelet Count 214 10^3/cmm (157-399); Red Blood Count 4.48 10^6/uL (3.85-5.65); White Blood Count 5.86 10^3/uL (3.29-11.43)
[2024-04-16 23:08] VITALS: PULSE 59; RESP 12; O2SAT 90
[2024-04-16 23:25] LABS: Troponin(5th) Baseline < 6 ng/L (0-10)
[2024-04-16 23:30] LABS: Alanine Aminotransferase 10 U/L (0-33); Albumin Level 4.1 g/dL (3.5-5.2); Alkaline Phosphatase 60 U/L (35-105); Aspartate Amino Transferase 22 U/L (0-32); Blood Urea Nitrogen 10 mg/dL (8-23); Calcium 9.6 mg/dL (8.5-10.5); Carbon Dioxide 28 mmol/L (22-29); Chloride 100 mmol/L (98-107); Creatinine Clr Calc Pharmacy 43.1911; Glucose 93 mg/dL (65-115); Magnesium 2.3 mg/dL (1.7-2.3); Osmolality Calculated 283 mOsm/kg (285-295); Sodium 137 mmol/L (136-145); Total Bilirubin 0.4 mg/dL (0.15-1.2); Total Protein 7.1 g/dL (6.6-8.7)
[2024-04-16 23:38] VITALS: PULSE 58; RESP 15; O2SAT 91
--- NOTE | 2024-04-16 23:49 | ED_ITS ---
HPI - Dizziness 2 General: Chief Complaint: Dizziness Stated Complaint: dizzy, blackout Time Seen by Provider: 04/16/24 23:39 History of Present Illness: HPI Narrative: Patient presents to the ER with reports of dizziness feel like she is going to pass out and nausea vomiting. This all started about 630 this morning. Patient did take some Zofran which helped with the nausea. Patient has been this way before but never quite this bad. Patient did not pass out. Nothing seems to make this better or worse, the Zofran did help the nausea, Review of Systems 2 General: Reports: 10 or more systems reviewed and unremarkable except in HPI and below PFSH ED 2 PFSH: Medical History Anxiety History of skin cancer Radiculopathy Dyslipidemia Chest pain Arthritis of right hip Primary insomnia Family history of colon cancer in mother Unilateral primary osteoarthritis, left knee Chronic back pain GINGER (obstructive sleep apnea) Essential (primary) hypertension GERD (gastroesophageal reflux disease) Postlaminectomy syndrome, not elsewhere classified Surgical History History of bilateral inguinal hernia repair History of colonoscopy History of back surgery lumbar laminectomy, level unknown History of left inguinal hernia repair History of total left knee replacement (TKR) The [place] total knee system with a size 4 triathlon beaded posterior stabilized femur left, a triathlon titanium tibial component size 4 beaded, a triathlon X3 posterior stabilized tibial bearing insert size 4 X 13 mm and a beaded triathlon titanium asymmetric patella size 32 x 10 mm History of hysterectomy History of esophagogastroduodenoscopy (EGD) History of bladder surgery History of total left knee replacement The [place] total knee system with a size 4 triathlon beaded posterior stabilized femur left, a triathlon titanium tibial component size 4 beaded, a triathlon X3 posterior stabilized tibial bearing insert size 4 X 13 mm and a beaded triathlon titanium asymmetric patella size 32 x 10 mm Family History Mother CAD (coronary artery disease) Cancer colon Dementia Lung disease Grandmother CAD (coronary artery disease) Family/Other Dementia Lung disease Suicide Sister Dementia Son Lung disease Daughter Lung disease Diabetes Brother Diabetes Grandfather Stroke Other Heart disease Hypertension Denies family history of Clotting disorder Chronic kidney disease (CKD) Anesthesia complication Bleeding disorder Social History Smoking and tobacco/nicotine status: never used tobacco/nicotine Alcohol intake: never Substance/Drug Use: never Lives independently: Yes Household members: none Marital status: / Number of children: 4 Number of grandchildren: 4 Current occupational status: retired 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 Chio/Amish: Shinto Physical Exam 2 Const: COMMON NORMALS: no acute distress, average body habitus, patient oriented x3, no limitations, healthy appearing, alert and well nourished HENMT: COMMON NORMALS: normocephalic, atraumatic, hearing grossly normal bilaterally, external ears normal, EAC's normal, TM's normal bilaterally, Normal external nose present, moist oral mucous membranes and oropharynx normal HEAD & SCALP: normocephalic and atraumatic NOSE: Normal external nose present E XTERNAL EAR: Yes external ears normal EXTERNAL AUDITORY CANAL: EAC's normal TYMPANIC MEMBRANE: TM's normal bilaterally Eye: COMMON NORMALS: Equal, round and reactive pupils present, EOMs intact bilaterally, conjunctivae normal and no scleral icterus CONJUNCTIVA: Yes conjunctivae normal PUPIL: Yes Equal, round and reactive pupils present Neck/C-Spine: COMMON NORMALS: full ROM, no lymphadenopathy, supple, no meningeal signs and no JVD OTHER: Tender to palpate bilateral paraspinal cervical musculature that reproduces patient's pain. Muscles are tight and ropey Chest: COMMONS NORMALS: normal inspection of the chest and normal palpation of entire chest wall Resp: COMMON NORMALS: normal respiratory effort, No retractions, No use of accessory muscles and clear to auscultation bilaterally AUSCULTATION: clear to auscultation bilaterally Cardio: COMMON NORMALS: no JVD, regular rate, regular rhythm, S1 normal heart sound present, S2 normal heart sound present, No gallops present (Cardio), No clicks present (Cardio), No murmurs present (Cardio) and No rub (Cardio) R ATE: regular rate RHYTHM: regular rhythm HEART SOUNDS: S1 normal heart sound present and S2 normal heart sound present GI: COMMON NORMALS: Normal to inspection, nondistended, normoactive bowel sounds present, Soft to palpation, non-tender, No hepatosplenomegaly present and no masses PALPATION: Yes Soft to palpation and Yes No hepatosplenomegaly present Neuro: COMMON NORMALS: patient oriented x3 SENSORIUM/ORIENTATION: Yes alert MENINGEAL SIGNS: Yes no meningeal signs Course 2 Vital Signs: Vital signs: Vital Signs Temperature 97.6 F 04/16/24 22:03 Pulse Rate 58 L 04/16/24 22:03 Respiratory Rate 16 04/16/24 22:03 Blood Pressure 157/80 04/16/24 22:03 Pulse Oximetry 91 04/16/24 22:03 Oxygen Delivery Me thod Room Air 04/16/24 22:03 MDM - Dizziness Medical Decision Making Patient lab work, including serial troponins, head CT, urinalysis, all of which was essentially benign. Patient was given Norflex 30 mg, Toradol 30 mg, and meclizine 25 mg, and this relieved the patient's headache. Patient says she is ready to go home. Patient should follow-up with her PCP. Medical Records I reviewed the patient's medical records. Lab Data I reviewed the patient's lab results. 04/16/24 23:00 04/16/24 23:[address] 04/16/24 22:26 IMPRESSION: 1. No acute intracranial abnormality. Laboratory Results WBC 5.86 10^3/uL (3.29-11.43) 04/16/24 23:00 RBC 4.48 10^6/uL (3.85-5.65) 04/16/24 23:00 Hgb 14.30 g/dL (11.27-16.99) 04/16/24 23:00 Hct 43.7 % (36-47) 04/16/24 23:00 MCV 97.5 fl (85-98) 04/16/24 23:00 MCH 31.9 pg (27-33) 04/16/24 23:00 MCHC 32.7 g/dL (30-55) 04/16/24 23:00 RDW 13.0 % (12.1-15.1) 04/16/24 23:00 Plt Count 214 10^3/cmm (157-399) 04/16/24 23:00 MPV 9.5 fL (7.4-10.4) 04/16/24 23:00 Neut % (Auto) 40.9 % 04/16/24 23:00 Lymph % (Auto) 45.1 % 04/16/24 23:00 [place] % (Auto) 9.2 % 04/16/24 23:00 Eos % (Auto) 3.4 % 04/16/24 23:00 Baso % (Auto) 1.2 % 04/16/24 23:00 Neut # (Auto) 2.40 10^3/uL (1.8-7.7) 04/16/24 23:00 Lymph # (Auto) 2.6 10^3/uL (0.8-4.8) 04/16/24 23:00 [place] # (Auto) 0.5 10^3/uL (0.2-0.9) 04/16/24 23:00 Eos # (Auto) 0.2 10^3/uL (0.0-0.8) 04/16/24 23:00 Baso # (Auto) 0.1 10^3/uL (0.0-0.1) 04/16/24 23:00 Nucleated RBC % (auto) 0 % 04/16/24 23:00 Nucleated RBCs # 0.0 /100WBC 04/16/24 23:00 Sodium 137 mmol/L (136-145) 04/16/24 23:00 Potassium 4.0 mmol/L (3.5-5.1) 04/16/24 23:00 Chloride 100 mmol/L (98-107) 04/16/24 23:00 Carbon Dioxide 28 mmol/L (22-29) 04/16/24 23:00 Anion Gap 13.0 (5-19) 04/16/24 23:00 BUN 10 mg/dL (8-23) 04/16/24 23:00 Creatinine 0.9 mg/dL (0.5-0.9) 04/16/24 23:00 GFR Calculation Not Reportable 04/16/24 23:00 Glucose 93 mg/dL (65-115) 04/16/24 23:00 Calculated Osmolality 283 mOsm/kg (285-295) L 04/16/24 23:00 Calcium 9.6 mg/dL (8.5-10.5) 04/16/24 23:00 Magnesium 2.3 mg/dL (1.7-2.3) 04/16/24 23:00 Total Bilirubin 0.4 mg/dL (0.15-1.2) 04/16/24 23:00 AST 22 U/L (0-32) 04/16/24 23:00 ALT 10 U/L (0-33) 04/16/24 23:00 Alkaline Phosphatase 60 U/L (35-105) 04/16/24 23:00 Troponin T Baseline < 6 ng/L (0-10) 04/16/24 23:00 Troponin T 120 Minute 6.45 ng/L (0-10) 04/17/24 00:41 Delta Troponin T 0.22739 ABS# (0-10) 04/17/24 00:41 Total Protein 7.1 g/dL (6.6-8.7) 04/16/24 23:00 Albumin 4.1 g/dL (3.5-5.2) 04/16/24 23:00 Globulin 3.0 g/dL (1.3-4.6) 04/16/24 23:00 Urine Color Yellow (Yellow) 04/16/24 00:00 Urine Appearance Clear (CLEAR) 04/16/24 00:00 Urine pH 6 (5-7) 04/16/24 00:00 Ur Specific [place] 1.005 (1.005-1.030) 04/16/24 00:00 Urine Protein Neg (Negative) 04/16/24 00:00 Urine Glucose (UA) Norm (Normal) 04/16/24 00:00 Urine Ketones Negative (Negative) 04/16/24 00:00 Urine Blood Neg (Negative) 04/16/24 00:00 Urine Nitrate Negative (Negative) 04/16/24 00:00 Urine Bilirubin Neg (Negative) 04/16/24 00:00 Urine Urobilinogen Norm mg/dL (Negative) 04/16/24 00:00 Ur Leukocyte Esterase Negative (Negative) 04/16/24 00:00 All radiology interpretation(s) finalized by discharge Discharge Plan Discharge Patient Disposition: Home Clinical Impression: Dizziness, Acute tension headache Condition: Stable Prescriptions: No Action multivitamin Tablet 1 tab PO QAM sennosides [Senokot] 8.6 mg tablet 8.6 mg PO DAILY PRN (Reason: Constipation) cetirizine [Allergy Relief (cetirizine)] 10 mg tablet 10 mg PO QAM nitroglycerin [Nitrostat] 0.4 mg tablet, sublingual 0.4 mg SUBLINGUAL Q5M PRN (Reason: chest pain) Qty: 25 12RF Rx Instructions: until response; do not exceed 3 doses per episode metoprolol tartrate 25 mg tablet 12.5 mg PO BID Qty: 90 3RF Rx Instructions: Dose change only trazodone 100 mg tablet See Rx Instructions .ROUTE .COMPLEX Qty: 120 0RF Dose Instruction: TAKE TWO TABLETS BY MOUTH AT BEDTIME Rx Instructions: TAKE TWO TABLETS BY MOUTH AT BEDTIME hydroxyzine HCl 25 mg tablet 25 mg PO BID PRN (Reason: anxiety) Qty: 20 0RF isosorbide mononitrate 30 mg tablet extended release 24 hr See Rx Instructions .ROUTE .COMPLEX Qty: 30 5RF Dose Instruction: TAKE 1 TABLET BY MOUTH EVERY DAY Rx Instructions: TAKE 1 TABLET BY MOUTH EVERY DAY duloxetine [Cymbalta] 60 mg capsule,delayed release(DR/EC) 60 mg PO QPM Qty: 90 1RF pantoprazole 40 mg tablet,delayed release (DR/EC) 40 mg PO BID Qty: 60 1RF Rx Instructions: TAKE 1 TABLET BY MOUTH TWICE DAILY amlodipine 2.5 mg tablet See Rx Instructions .ROUTE .COMPLEX Qty: 30 1RF Dose Instruction: TAKE 1 TABLET BY MOUTH EVERY DAY Rx Instructions: TAKE 1 TABLET BY MOUTH EVERY DAY acetaminophen [Tylenol Extra Strength] 500 mg tablet 500 mg PO TID PRN (Reason: Pain) Qty: 0 0RF Patient Comments: with they hydrocodone Rx Instructions: takes with norco cholecalciferol (vitamin D3) [Vitamin D3] 25 mcg (1,000 unit) capsule 50 mcg PO QAM I[place] 29-7.6 % Ointment 1 applic TOPICAL DAILY PRN (Reason: Pain) hydrocodone-acetaminophen 5-325 mg tablet 1 tab PO Q4H MDD 4 tabs PRN (Reason: pain) Hold Instructions: Resume on 10/20/23. gabapentin 300 mg capsule 600 mg PO TID Rx Instructions: take TWO capsules BY MOUTH THREE TIMES DAILY Eliquis 5 mg tablet 5 mg PO BID Hold Instructions: Resume on 10/17/23. Colace 100 mg capsule 100 mg PO BID Qty: 14 0RF Discharge Orders: Discharge ED (Routine); Ordered 04/17/24 Ordered By: Deondre Moore Referrals: Feng Miles MD [Primary Care Provider] - 1 week Patient Instructions: Dizziness (ED), Tension Headache Activity Restrictions/Additional Instructions: Your evaluation in ER did not show any acute cause of your headache or vertigo. Your lab work and your head CT were normal. You are given pain medicine and muscle relaxer and medicine for vertigo. Please follow-up with your family proximal physician within next 7 days for further evaluation and treatment as needed. Coding Level of Care Code ED Branch Assistant for Joao Torres
[2024-04-17] MEDS: orphenadrine 30 mg/mL Inj 2 mL IM (00:25)
[2024-04-17] MEDS: meclizine 25 mg tablet PO (00:25)
[2024-04-17] MEDS: ketorolac 30 mg/mL INJ IM (00:33)
[2024-04-17 00:38] VITALS: PULSE 65; RESP 16; O2SAT 91
[2024-04-17 00:39] LABS: Add Urine Microscopic? NO; Charge for UA Resulting for Rev
[2024-04-17 00:42] LABS: Bilirubin Urine Neg (Negative); Blood Urine Neg (Negative); Glucose Urine UA Norm (Normal); Ketones Urine Negative (Negative); Leukocyte Esterase Urine Negative (Negative); Nitrate Urine Negative (Negative); Protein Urine Neg (Negative); Specific Gravity, Urine 1.005 (1.005-1.030); Urine Appearance Clear (CLEAR); Urine Color Yellow (Yellow); Urobilinogen Urine Norm (Negative); pH Urine 6 (5-7)
[2024-04-17 01:14] LABS: Troponin 5 2HR 6.45 ng/L (0-10); Troponin 5 2HR Delta 0.45001 ABS# (0-10)
[2024-04-17 02:00] VITALS: BP 155/87; PULSE 58; RESP 15; O2SAT 90
[2024-04-17 02:30] VITALS: BP 160/80; PULSE 60; RESP 21; O2SAT 91
[2024-04-17 02:51] VITALS: PULSE 64; RESP 15; O2SAT 91
== END 2024-04-17 02:44 | disposition home or self-care (01) ==
PROVIDERS: Nurse Practitioner Family; Emergency Provider Emergency Medicine; PCP Family Medicine
DX: R42 Dizziness and giddiness (principal); G44.209 Tension-type headache, unspecified, not intractable; Z79.01 Long term (current) use of anticoagulants; E78.5 Hyperlipidemia, unspecified; I10 Essential (primary) hypertension
CPT/HCPCS: 36415; 70450; 80053; 81003; 83735; 84484; 85025; 96372; 99284; J1885; J2360; J8597

== ENCOUNTER 2024-07-10 16:18 | Emergency (ER) | payer MEDICARE, MEDICAID, SELFPAY ==
[2024-07-10 16:21] VITALS: BP 176/78; PULSE 69; RESP 17; TEMP 36.6; O2SAT 91; BMI 34.5
[2024-07-10 16:35] LABS: Basophils # 0.1 10^3/uL (0.0-0.1); Eosinophils # 0.2 10^3/uL (0.0-0.8); Eosinophils % 2.4 %; Hematocrit 42.3 % (36-47); Lymphocytes # 3.5 10^3/uL (0.8-4.8); Lymphocytes % 44.1 %; Mean Corpuscular HGB Conc 33.3 g/dL (30-55); Mean Corpuscular Hemoglobin 32.2 pg (27-33); Mean Corpuscular Volume 96.6 fl (85-98); Mean Platelet Volume 9.7 fL (7.4-10.4); Monocytes # 0.7 10^3/uL (0.2-0.9); Monocytes % 8.4 %; Neutrophils # 3.52 10^3/uL (1.8-7.7); Neutrophils % 43.9 %; Nucleated Red Blood Cells % 0 %; Platelet Count 219 10^3/cmm (157-399); Red Blood Count 4.38 10^6/uL (3.85-5.65); Red Cell Distribution Width 12.1 % (12.1-15.1); White Blood Count 8.02 10^3/uL (3.29-11.43)
--- NOTE | 2024-07-10 16:39 | ED_ITS ---
HPI - Epistaxis 2 General: Chief complaint: Epistaxis Stated complaint: nose bleed Time Seen by Provider: 07/10/24 16:29 History of Present Illness: 88-year-old female comes in today with a nosebleed that started this morning at 9:00. Patient reports a couple of times during the day she thought it was going to stop but then it would start bleeding significantly again. Patient finally decided that she needed to have it taken care of this afternoon. On exam patient appears nontoxic. No active bleeding is noted at this time. Patient has nasal clamp to the nose from when EMS started. Patient does take daily Eliquis. Related Data Home Medications Medication Instructions Recorded Confirmed multivitamin 1 tab PO QAM 10/31/19 01/10/24 cholecalciferol (vitamin D3) 25 50 mcg PO QAM 12/26/22 01/10/24 mcg (1,000 unit) capsule (Vitamin D3) sennosides 8.6 mg tablet (Senokot) 8.6 mg PO DAILY PRN Constipation 12/26/22 01/10/24 hydrocodone 5 mg-acetaminophen 325 1 tab PO Q4H PRN pain 05/07/23 01/10/24 mg tablet methyl salicylate-menthol 29 %-7.6 1 applic topical DAILY PRN Pain 05/07/23 01/10/24 % topical ointment (Icy Hot) cetirizine 10 mg tablet (Allergy 10 mg PO QAM 05/31/23 01/10/24 Relief (cetirizine)) gabapentin 300 mg capsule 600 mg PO TID 10/12/23 01/10/24 Previous Rx's Medication Instructions Recorded nitroglycerin 0.4 mg sublingual 0.4 mg sublingual Q5M PRN chest 12/29/19 tablet (Nitrostat) pain #25 tabs acetaminophen 500 mg tablet 500 mg PO TID PRN Pain #0 tabs 11/03/21 (Tylenol Extra Strength) metoprolol tartrate 25 mg tablet 12.5 mg (1/2 x 25 mg) PO BID #90 07/26/23 tabs docusate sodium 100 mg capsule 100 mg PO BID #14 caps 10/15/23 (Colace) hydroxyzine HCl 25 mg tablet 25 mg PO BID PRN anxiety #20 tabs 01/16/24 isosorbide mononitrate 30 mg See Rx Instructions .Route 01/21/24 tablet,extended release 24 hr .COMPLEX #30 tabs duloxetine 60 mg capsule,delayed 60 mg PO QPM #90 caps 02/26/24 release (Cymbalta) pantoprazole 40 mg tablet,delayed 40 mg PO BID #60 tabs 03/07/24 release amlodipine 2.5 mg tablet See Rx Instructions .Route 04/08/24 .COMPLEX #30 tabs apixaban 5 mg tablet (Eliquis) 5 mg PO BID #180 tabs 04/18/24 trazodone 100 mg tablet See Rx Instructions .Route 05/01/24 .COMPLEX #120 tabs Allergies Allergy/AdvReac Type Severity Reaction Status Date / Time cyclobenzaprine Allergy Unknown Anxiety,Unk Verified 04/16/24 22:09 nown Opioids - Morphine Analogues Allergy Unknown Headache,Un Verified 04/16/24 22:09 known fentanyl Allergy Unknown Verified 04/16/24 22:09 Penicillins Allergy ALGY-Hives Verified 04/16/24 22:09 Sulfa (Sulfonamide Allergy ALGY-Hives Verified 04/16/24 22:09 Antibiotics) tramadol [From Ultram] Allergy ADR-Vomitin Verified 04/16/24 22:09 g Review of Systems 2 General: Reports: 10 or more systems reviewed and unremarkable except in HPI and below ENMT: Reports: epistaxis PFSH ED 2 PFSH: Medical History Anxiety History of skin cancer Radiculopathy Dyslipidemia Chest pain Arthritis of right hip Primary insomnia Family history of colon cancer in mother Unilateral primary osteoarthritis, left knee Chronic back pain GINGER (obstructive sleep apnea) Essential (primary) hypertension GERD (gastroesophageal reflux disease) Postlaminectomy syndrome, not elsewhere classified Surgical History History of bilateral inguinal hernia repair History of colonoscopy History of back surgery lumbar laminectomy, level unknown History of left inguinal hernia repair History of total left knee replacement (TKR) [employer] [place] total knee system with a size 4 triathlon beaded posterior stabilized femur left, a triathlon titanium tibial component size 4 beaded, a triathlon X3 posterior stabilized tibial bearing insert size 4 X 13 mm and a beaded triathlon titanium asymmetric patella size 32 x 10 mm History of hysterectomy History of esophagogastroduodenoscopy (EGD) History of bladder surgery 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 with a size 4 triathlon beaded posterior stabilized femur left, a triathlon titanium tibial component size 4 beaded, a triathlon X3 posterior stabilized tibial bearing insert size 4 X 13 mm and a beaded triathlon titanium asymmetric patella size 32 x 10 mm Family History Mother CAD (coronary artery disease) Cancer colon Dementia Lung disease Grandmother CAD (coronary artery disease) Family/Other Dementia Lung disease Suicide Sister Dementia Son Lung disease Daughter Lung disease Diabetes Brother Diabetes Grandfather Stroke Other Heart disease Hypertension Denies family history of Clotting disorder Chronic kidney disease (CKD) Anesthesia complication Bleeding disorder Social History Smoking and tobacco/nicotine status: never used tobacco/nicotine Alcohol intake: never Substance/Drug Use: never Lives independently: Yes Household members: none Marital status: / Number of children: 4 Number of grandchildren: 4 Current occupational status: retired 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 Chio/Episcopal: Judaism Physical Exam 2 Const: COMMON NORMALS: alert HENMT: COMMON NORMALS: normocephalic and Normal external nose present HEAD & SCALP: normocephalic NOSE: Normal external nose present and Abnormal mucous membranes and turbinates present (Mild bleeding left anterior medial membrane) THROAT: posterior oropharynx normal Neck/C-Spine: COMMON NORMALS: full ROM Resp: COMMON NORMALS: normal respiratory effort and clear to auscultation bilaterally AUSCULTATION: clear to auscultation bilaterally Cardio: COMMON NORMALS: regular rate and regular rhythm RATE: regular rate RHYTHM: regular rhythm Back/Pelvis: COMMON NORMALS: thoracic and lumbar spine normal to inspection Neuro: SENSORIUM/ORIENTATION: Yes alert Skin: COMMON NORMALS: turgor normal GENERAL SKIN EXAM: turgor normal Procedures Epistaxis Control Nostril: left Nose Prepped With: oxymetazoline Direct Inspection: anterior source identified Cautery Used: none Device Inserted: vaseline gauze Patient Tolerated Procedure: well Course 2 Vital Signs: Vital signs: Vital Signs Temperature 97.8 F 07/10/24 16:21 Pulse Rate 72 07/10/24 17:45 Respiratory Rate 18 07/10/24 17:45 Blood Pressure 160/81 07/10/24 17:45 Pulse Oximetry 96 07/10/24 17:45 Oxygen Delivery Me thod Room Air 07/10/24 16:21 MDM - Epistaxis Medical Decision Making 88-year-old female comes in today with complaints of nasal bleeding to the left nostril. On exam there is noted to be some bleeding in the left anterior medial mucous membrane of the nose. Differential diagnosis includes posterior versus anterior nasal bleeding. Hypertension. Adverse drug effect. CBC was normal. Bleeding was controlled but packing was introduced for persistent oozing of blood from the area of bleeding. Vaseline gauze was packed into the nose patient will leave in for 48 hours and removed. Patient was recommended to return to the ER for worsening bleeding or new concerns. Recommended follow-up with ENT for further recommendations. Lab Data 07/10/24 16:26 Laboratory Results WBC 8.02 10^3/uL (3.29-11.43) 07/10/24 16:26 RBC 4.38 10^6/uL (3.85-5.65) 07/10/24 16:26 Hgb 14.10 g/dL (11.27-16.99) 07/10/24 16:26 Hct 42.3 % (36-47) 07/10/24 16:26 MCV 96.6 fl (85-98) 07/10/24 16:26 MCH 32.2 pg (27-33) 07/10/24 16:26 MCHC 33.3 g/dL (30-55) 07/10/24 16:26 RDW 12.1 % (12.1-15.1) 07/10/24 16:26 Plt Count 219 10^3/cmm (157-399) 07/10/24 16:26 MPV 9.7 fL (7.4-10.4) 07/10/24 16:26 Neut % (Auto) 43.9 % 07/10/24 16:26 Lymph % (Auto) 44.1 % 07/10/24 16:26 [place] % (Auto) 8.4 % 07/10/24 16:26 Eos % (Auto) 2.4 % 07/10/24 16:26 Baso % (Auto) 1.0 % 07/10/24 16: Neut # (Auto) 3.52 10^3/uL (1.8-7.7) 07/10/24 16:26 Lymph # (Auto) 3.5 10^3/uL (0.8-4.8) 07/10/24 16:26 [place] # (Auto) 0.7 10^3/uL (0.2-0.9) 07/10/24 16:26 Eos # (Auto) 0.2 10^3/uL (0.0-0.8) 07/10/24 16:26 Baso # (Auto) 0.1 10^3/uL (0.0-0.1) 07/10/24 16: Nucleated RBC % (auto) 0 % 07/10/24 16: Nucleated RBCs # 0.0 /100WBC 07/10/24 16:26 No radiology studies performed this visit Discharge Plan Discharge Patient Disposition: Home Condition: Stable Prescriptions: No Action multivitamin Tablet 1 tab PO QAM sennosides [Senokot] 8.6 mg tablet 8.6 mg PO DAILY PRN (Reason: Constipation) cetirizine [Allergy Relief (cetirizine)] 10 mg tablet 10 mg PO QAM nitroglycerin [Nitrostat] 0.4 mg tablet, sublingual 0.4 mg SUBLINGUAL Q5M PRN (Reason: chest pain) Qty: 25 12RF Rx Instructions: until response; do not exceed 3 doses per episode metoprolol tartrate 25 mg tablet 12.5 mg PO BID Qty: 90 3RF Rx Instructions: Dose change only hydroxyzine HCl 25 mg tablet 25 mg PO BID PRN (Reason: anxiety) Qty: 20 0RF isosorbide mononitrate 30 mg tablet extended release 24 hr See Rx Instructions .ROUTE .COMPLEX Qty: 30 5RF Dose Instruction: TAKE 1 TABLET BY MOUTH EVERY DAY Rx Instructions: TAKE 1 TABLET BY MOUTH EVERY DAY duloxetine [Cymbalta] 60 mg capsule,delayed release(DR/EC) 60 mg PO QPM Qty: 90 1RF pantoprazole 40 mg tablet,delayed release (DR/EC) 40 mg PO BID Qty: 60 1RF Rx Instructions: TAKE 1 TABLET BY MOUTH TWICE DAILY amlodipine 2.5 mg tablet See Rx Instructions .ROUTE .COMPLEX Qty: 30 1RF Dose Instruction: TAKE 1 TABLET BY MOUTH EVERY DAY Rx Instructions: TAKE 1 TABLET BY MOUTH EVERY DAY Eliquis 5 mg tablet 5 mg PO BID Qty: 180 3RF Hold Instructions: Resume on 10/17/23. trazodone 100 mg tablet See Rx Instructions .ROUTE .COMPLEX Qty: 120 0RF Dose Instruction: TAKE TWO TABLETS BY MOUTH AT BEDTIME Rx Instructions: TAKE TWO TABLETS BY MOUTH AT BEDTIME acetaminophen [Tylenol Extra Strength] 500 mg tablet 500 mg PO TID PRN (Reason: Pain) Qty: 0 0RF Patient Comments: with they hydrocodone Rx Instructions: takes with [place]co cholecalciferol (vitamin D3) [Vitamin D3] 25 mcg (1,000 unit) capsule 50 mcg PO QAM [place] 29-7.6 % Ointment 1 applic TOPICAL DAILY PRN (Reason: Pain) hydrocodone-acetaminophen 5-325 mg tablet 1 tab PO Q4H MDD 4 tabs PRN (Reason: pain) Hold Instructions: Resume on 10/20/23. gabapentin 300 mg capsule 600 mg PO TID Rx Instructions: take TWO capsules BY MOUTH THREE TIMES DAILY Colace 100 mg capsule 100 mg PO BID Qty: 14 0RF Discharge Orders: Discharge ED (Routine); Ordered 07/10/24 Ordered By: Jay Sykes Referrals: Feng Miles MD [Primary Care Provider] - Discharge Diet: Usual diet Discharge Activity: Increase activity as tolerated Patient Instructions: Nosebleed (ED) Activity Restrictions/Additional Instructions: Leave packing in for 24 to 48 hours. If packing falls out leave it out. Return to the ER for bleeding begins again. Continue with routine medications as directed. Drink plenty of water and fluids. Follow-up with primary care as needed. Case management will contact you for follow-up with research project manager. Coding Level of Care Code ED Supervisor Wood Room for Joao Torres
[2024-07-10] MEDS: oxymetazoline 0.05% Nasal Spray 15 mL 2 SPRAY NOSTRIL-B (17:08)
[2024-07-10] MEDS: lidocaine-epi 1% 20 mL INJ XX (17:37)
[2024-07-10 17:45] VITALS: BP 160/81; PULSE 72; RESP 18; O2SAT 96
--- NOTE | 2024-07-11 00:10 | DCPLANNER ---
Sent referral to Tiffanie Reese's office- Epistaxis
== END 2024-07-10 17:47 | disposition home or self-care (01) ==
PROVIDERS: Emergency Provider Nurse Practitioner Family; PCP Family Medicine
DX: R04.0 Epistaxis (principal); Z79.01 Long term (current) use of anticoagulants; E78.5 Hyperlipidemia, unspecified; I10 Essential (primary) hypertension
CPT/HCPCS: 30901; 85025; 99283

== ENCOUNTER → 2024-07-21 13:24 | Outpatient (BNVA) | payer MEDICARE, MEDICAID, SELFPAY | PROVIDERS: PCP Family Medicine; Visit Provider Specialist | DX: Z96.652 Presence of left artificial knee joint (principal) | CPT/HCPCS: 73560; 73565; 99213 ==

== ENCOUNTER 2024-07-24 15:38 | Outpatient (RCR) | payer MEDICARE, MEDICAID, SELFPAY | END 2024-08-04 23:59 | disposition home or self-care (01) | LOC: SPT 15:38 | PROVIDERS: PCP Family Medicine; Visit Provider Family Medicine | DX: H81.10 Benign paroxysmal vertigo, unspecified ear (principal) | CPT/HCPCS: 95992; 97161 ==

== ENCOUNTER → 2024-08-14 11:45 | Outpatient (BNVA) | payer MEDICARE, MEDICAID, SELFPAY | PROVIDERS: PCP Family Medicine; Visit Provider Internal Medicine Cardiovascular Disease | DX: R55 Syncope and collapse (principal); E78.5 Hyperlipidemia, unspecified; I25.810 Atherosclerosis of coronary artery bypass graft(s) without angina pectoris; I48.0 Paroxysmal atrial fibrillation; I10 Essential (primary) hypertension; Z79.01 Long term (current) use of anticoagulants | CPT/HCPCS: 99214 ==

== ENCOUNTER → 2024-10-20 13:44 | Outpatient (BNVA) | payer MEDICARE, MEDICAID, SELFPAY | PROVIDERS: PCP Family Medicine; Visit Provider Specialist | DX: M25.561 Pain in right knee (principal); M17.11 Unilateral primary osteoarthritis, right knee | CPT/HCPCS: 73560; 73565; 99214 ==

== ENCOUNTER 2024-11-03 13:38 | Outpatient (CLI) | payer MEDICARE, MEDICAID, SELFPAY ==
[2024-11-03 14:05] LABS: Basophils # 0.1 10^3/uL (0.0-0.1); Eosinophils # 0.2 10^3/uL (0.0-0.8); Eosinophils % 2.5 %; Hematocrit 41.8 % (36-47); Lymphocytes # 2.6 10^3/uL (0.8-4.8); Mean Corpuscular HGB Conc 32.3 g/dL (30-55); Mean Corpuscular Hemoglobin 31.5 pg (27-33); Mean Corpuscular Volume 97.4 fl (85-98); Mean Platelet Volume 9.4 fL (7.4-10.4); Monocytes # 0.5 10^3/uL (0.2-0.9); Monocytes % 8.8 %; Neutrophils # 2.58 10^3/uL (1.8-7.7); Neutrophils % 43.5 %; Nucleated Red Blood Cells % 0 %; Platelet Count 228 10^3/cmm (157-399); Red Blood Count 4.29 10^6/uL (3.85-5.65); Red Cell Distribution Width 12.3 % (12.1-15.1); White Blood Count 5.93 10^3/uL (3.29-11.43)
[2024-11-03 14:09] LABS: Bilirubin Urine Negative (Negative); Blood Urine Negative (Negative); Glucose Urine UA Negative (Normal); Ketones Urine Negative (Negative); Leukocyte Esterase Urine Trace (Negative); Nitrate Urine Negative (Negative); Protein Urine Negative (Negative); Specific Gravity, Urine 1.017 (1.005-1.030); Urine Appearance Clear (CLEAR); Urine Color Yellow (Yellow); Urobilinogen Urine 0.2 mg/dL (Negative)
[2024-11-03 14:14] LABS: Add Urine Microscopic? YES; Bacteria Urine 4+ /hpf; Squamous Epithelial Cell Urine 0-5 /hpf (0-5)
[2024-11-03 14:17] LABS: Add Urine Culture? Yes
[2024-11-03 14:27] LABS: Alanine Aminotransferase 10 U/L (0-33); Alkaline Phosphatase 59 U/L (35-105); Aspartate Amino Transferase 22 U/L (0-32); Blood Urea Nitrogen 10 mg/dL (8-23); Calcium 9.6 mg/dL (8.5-10.5); Carbon Dioxide 28 mmol/L (22-29); Chloride 100 mmol/L (98-107); Glucose 104 mg/dL (65-115); Osmolality Calculated 285 mOsm/kg (285-295); Sodium 138 mmol/L (136-145); Total Bilirubin 0.3 mg/dL (0.15-1.2)
== END 2024-11-03 13:39 | disposition home or self-care (01) ==
LOC: LAB 13:40
PROVIDERS: Specialist; PCP Family Medicine; Visit Provider Family Medicine
DX: Z01.818 Encounter for other preprocedural examination (principal)
CPT/HCPCS: 80053; 81001; 85025; 87086

== ENCOUNTER 2024-11-14 08:45 | Outpatient (CLI) | payer MEDICARE, MEDICAID, SELFPAY ==
--- NOTE | 2024-11-14 08:45 | CT_ITS ---
WS: [id number] CT RIGHT knee, noncontrast HISTORY: per [facility] protocol TECHNIQUE: Protocol for [facility] total knee replacement has been obtained. This includes axial imaging th rough the RIGHT hip, RIGHT knee and RIGHT ankle. DLP: 897.94 mGy.cm COMPARISON: None available. Pelvis: No destructive bone lesion or fracture. Mild joint space narrowing. RIGHT knee: Tricompartment osteoarthritis. Mild lateral subluxation of the patella. No fracture. Mode rate joint effusion. RIGHT ankle: Degenerative changes in the midfoot. CT/CT knee RT [facility] [id number] IMPRESSION: CT imaging provided for [facility] robotic total knee replacement.
== END 2024-11-14 08:47 | disposition home or self-care (01) ==
PROVIDERS: PCP Family Medicine; Visit Provider Specialist
DX: Z01.818 Encounter for other preprocedural examination (principal); M17.11 Unilateral primary osteoarthritis, right knee; M25.461 Effusion, right knee
CPT/HCPCS: 73700

== ENCOUNTER → 2024-11-19 10:39 | Outpatient (BNVA) | payer MEDICARE, MEDICAID, SELFPAY | PROVIDERS: PCP Family Medicine; Visit Provider Family Medicine | DX: Z01.818 Encounter for other preprocedural examination (principal) | CPT/HCPCS: 81003; 87086; 93005 ==

== ENCOUNTER → 2024-11-24 09:51 | Outpatient (BNVA) | payer MEDICARE, MEDICAID, SELFPAY | PROVIDERS: PCP Family Medicine; Visit Provider Family Medicine | DX: Z01.818 Encounter for other preprocedural examination (principal) | CPT/HCPCS: 81003 ==

== ENCOUNTER 2024-11-27 11:14 | Inpatient (IN) | payer MEDICARE, MEDICAID, SELFPAY ==
[2024-11-27] VITALS (31 sets, daily range): BP systolic 78–161; BP diastolic 48–95; PULSE 65–80; RESP 14–19; TEMP 36.2–37; O2SAT 91–98; BMI 35.1
--- NOTE | 2024-11-27 07:02 | P.HPUD_ITS ---
Surgery/Procedure H&P Update DATE OF PROCEDURE: November 27, 2024 DATE H&P PERFORMED: 11/19/24 H&P UPDATE INFORMATION: I have reviewed H&P completed within last 30 days, I have examined patient prior to procedure, No changes to prior documentation and H&P is in [facility] on date indicated PLANNED PROCEDURE: Operation Date: 11/27/24 08:00 Proposed Procedures p Roman Robot Total Knee Arthroplasty(Right) - Grace Churchill MD Related Problem List Diagnoses (1) Primary osteoarthritis of right knee:
[2024-11-27] MEDS: acetaminophen 1,000 MG/100 ML PIGGYBACK 400 MG IV ×2 (07:14→14:02)
[2024-11-27] MEDS: sodium chloride 0.9% 1,000 ML 30 ML IV (07:15)
[2024-11-27 07:27] LABS: Hematocrit 40.4 % (36-47)
--- NOTE | 2024-11-27 07:31 | ANES.PREANE2 ---
Pre-Anesthetic Assessment Height/Weight: Height 5 ft 1 in Weight 186 lb Temp Pulse Resp BP Pulse Ox O2 Del Method O2 Flow Rate 98.6 F 75 16 147/95 93 Nasal Cannula 3 11/27/24 06:55 11/27/24 06:55 11/27/24 06:55 11/27/24 06:55 11/27/24 06:55 11/27/24 07:29 11/27/24 06:55 Preop Diagnosis: Knee arthritis Operation Date: 11/27/24 08:00 Proposed Procedures p Roman Robot Total Knee Arthroplasty(Right) - Grace Churchill MD Was Beta Neto taken within 24 hours: Yes Was Clonidine taken within 24 hours: N/A Last intake: Intake Last Liquid Date 11/26/24 Last Liquid Time 22:00 Last Solid Date 11/26/24 Last Solid Time 20:00 Social No alcohol and No tobacco Exam alert, oriented x 3, clear to auscultation bilaterally and regular rate & rhythm Airway Submandibular: within normal limits Cervical ROM: within normal limits Mallampati: Class II Dentition: partials Comments: Comments: Denies any loose teeth Anesthetic Plan ASA status: 3 Anesthesia: General Other: History of PONV NPO since yesterday History of hypertension on amlodipine and metoprolol. Preop BP 147/95 GERD on Protonix Paroxysmal A-fib with RVR. Patient currently appears to be in sinus rhythm. Most recent EKG showing sinus rhythm Patient is on chronic Eliquis. She is unsure when she took this last. Believes that it was 2 mornings ago but it could have been yesterday morning. Echo showing EF 55 to 60% Patient uses 2 L O2 at baseline Given recent Eliquis use, will plan on general anesthesia. Type and screen performed Medications/Allergies Home Medications Medication Instructions Recorded Confirmed Last Taken Type multivitamin 1 tab PO QAM 10/31/19 11/26/24 11/26/24 History nitroglycerin 0.4 mg sublingual 0.4 mg sublingual Q5M PRN chest 12/29/19 11/26/24 1 Year Ago Rx tablet (Nitrostat) pain #25 tabs ~07/27/21 hydrocodone 5 mg-acetaminophen 325 1 tab PO Q4H PRN pain 05/07/23 11/27/24 11/27/24 05:00 History mg tablet cetirizine 10 mg tablet (Allergy 10 mg PO QAM 05/31/23 11/26/24 11/26/24 History Relief (cetirizine)) gabapentin 300 mg capsule 600 mg PO TID 10/12/23 11/27/24 11/27/24 05:00 History pantoprazole 40 mg tablet,delayed 40 mg PO BID #60 tabs 03/07/24 11/26/24 11/26/24 Rx release apixaban 5 mg tablet (Eliquis) 5 mg PO BID #180 tabs 04/18/24 11/26/24 11/25/24 Rx duloxetine 60 mg capsule,delayed 60 mg PO QPM #30 caps 08/12/24 11/27/24 11/27/24 05:00 Rx release (Cymbalta) cholecalciferol (vitamin D3) 1,250 1,250 mcg PO .weekly 08/14/24 11/26/24 11/26/24 History mcg (50,000 unit) capsule amlodipine 5 mg tablet 5 mg PO DAILY 11/19/24 11/27/24 11/27/24 05:00 History isosorbide mononitrate 30 mg 30 mg PO DAILY 11/26/24 11/26/24 11/26/24 History tablet,extended release 24 hr metoprolol tartrate 25 mg tablet 25 mg PO BID 11/26/24 11/27/24 11/27/24 05:00 History trazodone 100 mg tablet 100 mg PO BEDTIME 11/26/24 11/26/24 11/25/24 History Allergies Allergy/AdvReac Type Severity Reaction Status Date / Time cyclobenzaprine Allergy Unknown Anxiety,Unk Verified 11/19/24 10:26 nown Opioids - Morphine Analogues Allergy Unknown Headache,Un Verified 11/19/24 10:26 known fentanyl Allergy Unknown Verified 11/19/24 10:26 Penicillins Allergy ALGY-Hives Verified 11/19/24 10:26 Sulfa (Sulfonamide Allergy ALGY-Hives Verified 11/19/24 10:26 Antibiotics) tramadol [From Ultram] Allergy ADR-Vomitin Verified 11/19/24 10:26 g Current Medications Generic Name Dose Route Start Last Admin Trade Name Freq PRN Reason Stop Dose Admin Sodium Chloride 1,000 mls @ 30 mls/hr 11/27/24 07:00 11/27/24 07:15 Sodium Chloride 0.9% IV 11/28/24 06:59 30 mls/hr .Q24H KARI Administration PFSH Anesthesia Medical History Unilateral primary osteoarthritis, left knee Anxiety History of skin cancer Radiculopathy Dyslipidemia Chest pain Arthritis of right hip Primary insomnia Family history of colon cancer in mother Chronic back pain GINGER (obstructive sleep apnea) Essential (primary) hypertension GERD (gastroesophageal reflux disease) Postlaminectomy syndrome, not elsewhere classified Surgical History History of bilateral inguinal hernia repair History of colonoscopy History of back surgery lumbar laminectomy, level unknown History of left inguinal hernia repair 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 with a size 4 triathlon beaded posterior stabilized femur left, a triathlon titanium tibial component size 4 beaded, a triathlon X3 posterior stabilized tibial bearing insert size 4 X 13 mm and a beaded triathlon titanium asymmetric patella size 32 x 10 mm History of hysterectomy History of esophagogastroduodenoscopy (EGD) History of bladder surgery History of total left knee replacement The [place] total knee system with a size 4 triathlon beaded posterior stabilized femur left, a triathlon titanium tibial component size 4 beaded, a triathlon X3 posterior stabilized tibial bearing insert size 4 X 13 mm and a beaded triathlon titanium asymmetric patella size 32 x 10 mm Family History Mother CAD (coronary artery disease) Cancer colon Dementia Lung disease Grandmother CAD (coronary artery disease) Family/Other Dementia Lung disease Suicide Sister Dementia Son Lung disease Daughter Lung disease Diabetes Brother Diabetes Grandfather Stroke Other Heart disease Hypertension Denies family history of Clotting disorder Chronic kidney disease (CKD) Anesthesia complication Bleeding disorder Social History Smoking and tobacco/nicotine status: never used tobacco/nicotine Alcohol intake: never Substance/Drug Use: never Lives independently: Yes Household members: none Marital status: / Number of children: 4 Number of grandchildren: 4 Current occupational status: retired 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
[2024-11-27] MEDS: ceFAZolin 2,000 mg SDV 2000 MG IVP ×2 (07:45→17:19)
[2024-11-27] MEDS: VANCOMYCIN ADD-Vantage 1,000 MG VIAL 1000 MG INTRA-ARTI (08:46)
[2024-11-27] MEDS: BUPivacaine 0.5% INJ 10 mL 20 ML (08:47)
[2024-11-27] MEDS: BUPivacaine liposome 13.3 mg/mL SDV 20 mL 266 MG INJECTION (08:47)
[2024-11-27] MEDS: ceFAZolin 1,000 mg SDV 2000 MG IRRIGATION (08:53)
--- NOTE | 2024-11-27 09:01 | PC.NURSE ---
TXA not given per surgeon due to patient history of TIA.
[2024-11-27 10:25] LABS: Basophils % 0.7 %; Eosinophils # 0.1 10^3/uL (0.0-0.8); Eosinophils % 1.3 %; Lymphocytes # 1.4 10^3/uL (0.8-4.8); Lymphocytes % 31.6 %; Mean Corpuscular HGB Conc 30.8 g/dL (30-55); Mean Corpuscular Hemoglobin 31.9 pg (27-33); Mean Corpuscular Volume 103.7 fl (85-98); Mean Platelet Volume 9.7 fL (7.4-10.4); Monocytes # 0.2 10^3/uL (0.2-0.9); Monocytes % 3.6 %; Neutrophils # 2.79 10^3/uL (1.8-7.7); Neutrophils % 62.6 %; Nucleated Red Blood Cells % 0 %; Platelet Count 104 10^3/cmm (157-399); Red Blood Count 1.88 10^6/uL (3.85-5.65); Red Cell Distribution Width 12.6 % (12.1-15.1); White Blood Count 4.46 10^3/uL (3.29-11.43)
[2024-11-27 10:54] LABS: Hematocrit 19.5 % (36-47)
--- NOTE | 2024-11-27 11:09 | XR_ITS ---
WS: [id number] Right knee, AP and lateral views, 11/27/2024 Clinical Data: Status post total knee arthroplasty Comparison: Bilateral knees, right knee, 10/20/2024 Findings: The components of the right knee arthroplasty are in good position. There is postoperative air in the subcutaneous tissue adjacent to the right knee. XR/XR knee RT 1-2V 66075 Impression: Right knee arthroplasty.
--- NOTE | 2024-11-27 11:21 | P.OP_ITS ---
Operative Report Date of procedure: November 27, 2024 Pre-op diagnosis: Primary osteoarthritis right knee with valgus deformity Post-op diagnosis: Primary osteoarthritis right knee with valgus deformity Post-op findings: Valgus deformity with osteophyte formation and severe degenerative osteoarthritis Procedure done: Right total knee arthroplasty with Roman guidance Implants: The [place] total knee system with a size 4 triathlon beaded cruciate retaining femur right, a triathlon titanium tibial component size 3 beaded, a triathlon X3 tibial bearing CS insert size 3 X 11 mm and a beaded triathlon titanium asymmetric patella size 32 x 10 mm Specimens removed/disposition: Bone, disposed of Pathology: None Surgeon: Grace Churchill MD Stretcher Leveler Operator: Dee Dee Comer, nurse practitioner who services were required for retraction, exposure, closure, and completion of the surgical procedure Anesthesia: General (Intubated, ASA 3) Estimated blood loss (mL): 960 Tourniquet time (min): 0 (Not utilized) IV fluids (mL): 2,600 IV fluids: Crystalloid 2000, albumin 250, PRBC 350 Urine output (mL): 100 Complications: Patient had very difficult to control blood pressures during the surgical procedure. At the end of the surgical procedure, blood pressure was quite low. She was given 1 unit of packed red blood cells intraoperatively and extending into the recovery room. Findings: Significant degenerative osteoarthritis with valgus deformity Condition: stable Disposition: PACU (Then to floor for postoperative rehabilitation) Brief History: This 89-year-old woman presented today with severe complaints of right knee pain. The patient was having significant limitations in her activities of daily living secondary to primary osteoarthritis of the right knee with valgus deformity. The patient had underwent left total knee arthroplasty in October 2021. She has done well following this and wished to proceed with right total knee arthroplasty. Risks and complications were explained to her in the office. Consents were signed and questions were answered. Procedure: The patient was brought to the operating theater, and after undergoing adequate general intubated anesthesia, ASA 3, the right lower extremity was prepped with DuraPrep and draped in usual fashion following placement of a tourniquet high on the leg. The leg was then draped free. Tourniquet was placed on the leg but was not elevated throughout the surgical procedure. Following exposure of the site of surgery, a surgical pause was performed. At the time of the surgical pause, we confirmed the site and side of surgery. Additionally, we confirmed the appropriate and timely administration of preoperative antibiotics, Ancef 2 g. Transischemic acid was held secondary to the patient's medical history. The availability of equipment was confirmed, and the patient's identity was verbalized as well. Following the surgical pause, an incision was made centering over the patella continuing proximally and distally as necessary to allow access to the knee joint. Dissection continued through skin and soft tissues using a scalpel. Hemostasis was obtained using electrocautery. The skin incision was followed by a median parapatellar arthrotomy. The leg was extended and the patella was able to be displaced laterally. Appropriate arrays and markers were placed in appropriate position for use of the Roman. Preoperative planning had been accomplished and was discussed in detail with the [facility] telemarketing sales representative. Intraoperative mapping of the femur and tibia was accomplished after the arrays were placed. Once we had accomplished the Roman mapping, we began the appropriate resections for placement of the prosthesis. The plan was for a cruciate retaining right total knee arthroplasty. Once appropriate mapping had been accomplished retraction was established using manual retraction by the [facility] leg positioner and retractors. The knee was evaluated. There was eburnation particularly of the medial femoral condyle.? There were large osteophytes circumferentially about the trochlear groove as well as the patella and medial tibial plateau.? After balancing the knee within the Roman program, the appropriate bone resection was accomplished. Initial resection was accomplished on the tibia followed by appropriate resections on the femur. We had performed a medial release at the beginning of the procedure to allow for placement of the array. Proximal tibia was evaluated and it was felt that appropriate size for the tibia was a size 3. A trial reduction was accomplished after osteophytes had been removed, the medial and lateral meniscus were excised, and bone cuts had been accomplished as above. We had removed the anterior cruciate ligament at the beginning of the case and preserved the posterior cruciate ligament. Trial reduction was accomplished with a size 4 femoral cruciate retaining component and a size 3 CS tibial bearing insert which was 9 mm in thickness. This was increased to an 11 mm CS tibial bearing insert which gave excellent stability. With this, we had excellent stability, full extension, and appropriate alignment. Trial components were removed after the femur had been drilled. Prior to removal of the tibial tray which had been pinned in position with appropriate rotation as determined by the Roman plan, we broached the tibia. Subsequently, the 4 drill holes were made for the prosthetic component. All trial components had been removed, and the wound was irrigated. Plans were made for insertion of the prosthetic components. Prior to this, the patella was manually prepared. After resection of the articular surface with the jigging system, it was measured and measured a 32 mm patella. We resected approximately 10 mm of patella, and patellar height was restored with the patellar component. Once again, the wound was irrigated. The Tritanium tibia was impacted into position.? The beaded femur was then impacted into position in a cementless fashion. The CS tibial insert was placed prior to placement of the femoral component. The patella was pressed into position with a patellar clamp.? Exparel was injected about the components deep and superficially. The knee was then copiously irrigated with betadine and saline and suctioned dry. Attention was then directed to closure. Closure was accomplished with 0 Vicryl in the fascial tissues followed by a running #1 strata fix 1 from proximal to distal and 1 from distal to proximal.? This was followed by Surgiflo and vancomycin powder. Subcutaneous tissues were closed with 2-0 Monocryl strata fix, and the skin was closed in a running subcuticular fashion with 3-0 Monocryl strata fix.? A st erile dressing was then placed consisting of Dermabond Prineo, OpSite, sterile soft roll including over the foot, and an Johnny wrap. The patient was returned the Recovery Room in a satisfactory condition. X-rays were obtained and reviewed there.? The patient will be discharged to the floor for postoperative rehabilitation and pain management. Related Problem List Diagnoses (1) Primary osteoarthritis of right knee:
[2024-11-27 12:00] LABS: Basophils # 0.1 10^3/uL (0.0-0.1); Basophils % 0.4 %; Eosinophils % 0.3 %; Hematocrit 38.5 % (36-47); Lymphocytes # 2.6 10^3/uL (0.8-4.8); Lymphocytes % 20.8 %; Mean Corpuscular HGB Conc 32.2 g/dL (30-55); Mean Corpuscular Volume 99.5 fl (85-98); Mean Platelet Volume 9.7 fL (7.4-10.4); Monocytes # 0.3 10^3/uL (0.2-0.9); Monocytes % 2.2 %; Neutrophils # 9.41 10^3/uL (1.8-7.7); Neutrophils % 76.1 %; Nucleated Red Blood Cells % 0 %; Platelet Count 184 10^3/cmm (157-399); Red Blood Count 3.87 10^6/uL (3.85-5.65); Red Cell Distribution Width 12.6 % (12.1-15.1); White Blood Count 12.38 10^3/uL (3.29-11.43)
--- NOTE | 2024-11-27 12:26 | PC.NURSE ---
Addendum entered by Betty Bob LPN 11/27/24 12:55: This nurse assumed care of pt at 1250. Original Note: This nurse took report from MILADY Case in PACU at 1226.
--- NOTE | 2024-11-27 12:31 | ANE.PACU2 ---
Inpatient post-anesthesia follow up: Airway intact: Yes Vital signs: Temperature 98.4 F Pulse Rate 70 Respiratory Rate 16 Blood Pressure 125/79 Pulse Oximetry 93 Oxygen Delivery Me thod Nasal Cannula Oxygen Flow Rate 3.5 Fraction of Inspir ed Oxygen Hydration adequate: Yes Nausea and vomiting: No Pain level: 1 Mental status: Baseline
--- NOTE | 2024-11-27 13:31 | PM.CONSULT ---
Providers/Reason For Consult Consulting Physician/Specialty*: Hospitalist Reason for Consult*: Intraoperative shock, postoperative anemia due to blood loss Requesting Physician: Dr. Churchill Attending Physician: Grace Churchill MD Primary Care Provider: Feng Miles MD History of Present Illness History of Present Illness Bev Waddell is a 89 year old female With past medical history of paroxysmal A-fib with RVR, hypertension on Eliquis for anticoagulation which she last took on 11/24, hypertension, obstructive sleep apnea chronically on 2 to 3 L of oxygen supplementation who underwent right total knee arthroplasty with orthopedics team today. Intraoperatively patient had an estimated blood loss of 960 cc developed hypotension with reported systolic lowest of 78 mmHg. Patient received monitor PRBC intraoperatively after which her blood pressures improved. She is getting a second unit of PRBC in PACU. Blood pressures for now are stable. Currently on examination she is on 3.5 L of oxygen. Patient seen with spouse at bedside. Complaining of extensive pain. Denies any nausea counting, headache. Review of Systems General: Reports: 10 or more systems reviewed and unremarkable except in HPI and below Const: Denies: fever(s), chills, body aches, change in appetite, change in weight, malaise, night sweats, diaphoresis, change in sleep pattern, daytime sleepiness or snoring Eyes: Denies: change in vision, blurry vision, photophobia, eye discomfort or eye discharge ENMT: Denies: throat pain, enlarged tonsils, hoarseness, mouth pain, oral sores, dry mouth, tinnitus, nasal congestion or post nasal drip Card: Denies: chest pain, palpitations, irregular heart rhythm, edema, swelling of feet/ankles, lightheadedness, syncope, pre-syncope, dyspnea on exertion, orthopnea, leg pain with exertion or acrocyanosis Resp: Denies: dyspnea, productive cough, non-productive cough, wheezing, stridor, pain on inspiration, change in phlegm color, hemoptysis or chest congestion GI: Denies: abdominal pain, nausea, vomiting, hematemesis, coffee ground emesis, dysphagia, heartburn, diarrhea, constipation, bloating, GI cramping, change in bowel habits, pain on defecation, hematochezia or melena : Denies: flank pain, dysuria, urinary frequency, urinary urgency, urinary hesitancy, nocturia or hematuria Musc: Denies: neck pain, back pain, extremity pain, joint pain, joint swelling, joint redness, joint stiffness or limited range of motion Neuro: Denies: headache(s), numbness in extremities, weakness in extremities, sensory changes, lack of coordination, difficulty walking, frequent falls, dizziness, vertigo, confusion, Slurred speech present, difficulty communicating thoughts or seizure-like activity Psych: Denies: anxiety, depression, mood swings, panic attacks, hopelessness or irritability Endo: Denies: polyuria, polydipsia, tired all the time, cold intolerance, excessive sweating, flushing or heat intolerance Otilio/Lymph: Denies: easy bruising or easy bleeding All/Imm: Denies: tongue swelling, facial swelling or acute wheezing Medications/Allergies Home Medications Medication Instructions Recorded Confirmed Last Taken Type multivitamin 1 tab PO QAM 10/31/19 11/26/24 11/26/24 History nitroglycerin 0.4 mg sublingual 0.4 mg sublingual Q5M PRN chest 12/29/19 11/26/24 1 Year Ago Rx tablet (Nitrostat) pain #25 tabs ~07/27/21 hydrocodone 5 mg-acetaminophen 325 1 tab PO Q4H PRN pain 05/07/23 11/27/24 11/27/24 05:00 History mg tablet cetirizine 10 mg tablet (Allergy 10 mg PO QAM 05/31/23 11/26/24 11/26/24 History Relief (cetirizine)) gabapentin 300 mg capsule 600 mg PO TID 10/12/23 11/27/24 11/27/24 05:00 History pantoprazole 40 mg tablet,delayed 40 mg PO BID #60 tabs 03/07/24 11/26/24 11/26/24 Rx release apixaban 5 mg tablet (Eliquis) 5 mg PO BID #180 tabs 04/18/24 11/26/24 11/25/24 Rx duloxetine 60 mg capsule,delayed 60 mg PO QPM #30 caps 08/12/24 11/27/24 11/27/24 05:00 Rx release (Cymbalta) cholecalciferol (vitamin D3) 1,250 1,250 mcg PO .weekly 08/14/24 11/26/24 11/26/24 History mcg (50,000 unit) capsule amlodipine 5 mg tablet 5 mg PO DAILY 11/19/24 11/27/24 11/27/24 05:00 History isosorbide mononitrate 30 mg 30 mg PO DAILY 11/26/24 11/26/24 11/26/24 History tablet,extended release 24 hr metoprolol tartrate 25 mg tablet 25 mg PO BID 11/26/24 11/27/24 11/27/24 05:00 History trazodone 100 mg tablet 100 mg PO BEDTIME 11/26/24 11/26/24 11/25/24 History Allergies Allergy/AdvReac Type Severity Reaction Status Date / Time cyclobenzaprine Allergy Unknown Anxiety,Unk Verified 11/19/24 10:26 nown Opioids - Morphine Analogues Allergy Unknown Headache,Un Verified 11/19/24 10:26 known fentanyl Allergy Unknown Verified 11/19/24 10:26 Penicillins Allergy ALGY-Hives Verified 11/19/24 10:26 Sulfa (Sulfonamide Allergy ALGY-Hives Verified 11/19/24 10:26 Antibiotics) tramadol [From Ultram] Allergy ADR-Vomitin Verified 11/19/24 10:26 g PFSH Acute PFSH: Medical History Unilateral primary osteoarthritis, left knee Anxiety History of skin cancer Radiculopathy Dyslipidemia Chest pain Arthritis of right hip Primary insomnia Family history of colon cancer in mother Chronic back pain GINGER (obstructive sleep apnea) Essential (primary) hypertension GERD (gastroesophageal reflux disease) Postlaminectomy syndrome, not elsewhere classified Surgical History History of bilateral inguinal hernia repair History of colonoscopy History of back surgery lumbar laminectomy, level unknown History of left inguinal hernia repair History of total left knee replacement (TKR) The [employer] System total knee system with a size 4 triathlon beaded posterior stabilized femur left, a triathlon titanium tibial component size 4 beaded, a triathlon X3 posterior stabilized tibial bearing insert size 4 X 13 mm and a beaded triathlon titanium asymmetric patella size 32 x 10 mm History of hysterectomy History of esophagogastroduodenoscopy (EGD) History of bladder surgery History of total left knee replacement The [place] total knee system with a size 4 triathlon beaded posterior stabilized femur left, a triathlon titanium tibial component size 4 beaded, a triathlon X3 posterior stabilized tibial bearing insert size 4 X 13 mm and a beaded triathlon titanium asymmetric patella size 32 x 10 mm Family History Mother CAD (coronary artery disease) Cancer colon Dementia Lung disease Grandmother CAD (coronary artery disease) Family/Other Dementia Lung disease Suicide Sister Dementia Son Lung disease Daughter Lung disease Diabetes Brother Diabetes Grandfather Stroke Other Heart disease Hypertension Denies family history of Clotting disorder Chronic kidney disease (CKD) Anesthesia complication Bleeding disorder Social History Smoking and tobacco/nicotine status: never used tobacco/nicotine Alcohol intake: never Substance/Drug Use: never Lives independently: Yes Household members: none Marital status: / Number of children: 4 Number of grandchildren: 4 Current occupational status: retired 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[employer]: [employer] Vitals/I&O/Wt Last Vital Signs Temp 98.4 F 11/27/24 13:10 Pulse 70 11/27/24 13:10 Resp 16 11/27/24 13:10 BP 125/79 11/27/24 13:10 Pulse Ox 93 11/27/24 13:10 O2 Del Method Nasal Cannula 11/27/24 13:10 O2 Flow Rate 3.5 11/27/24 13:10 11/26/24 11/27/24 11/27/24 22:59 06:59 14:59 Intake Total 2650 / 2650 Output Total 1160 / 1160 Balance 1490 / 1490 Weight last 48 hrs Weight 84.368 kg Physical Exam Narrative: General: No acute distress, AO x3 HEENT: PERRLA, pupils bilaterally equal and reactive Chest: Normal vesicular breath sounds, no added sounds, equal good air entry bilaterally CVS: S1-S2 regular, no murmurs, no tachycardia, no gallops, no rubs Abdomen: Soft, nontender, no organomegaly, bowel sounds present Neuro: No focal deficits, no facial deformity, AO x3, power 5/5 in all limbs Urinary Catheter Management: Andino: Cath Placed During This Visit: yes Urinary Catheter Date of Insertion: 11/27/24 Urinary Catheter Time of Insertion: 07:56 Data 11/27/24 15:49 11/27/24 16:38 A&P Assessment and plan (1) Encounter for postoperative care: Post arthroplasty of right knee on 11/27. Hold off on anticoagulation for now given postoperative anemia leading to intraoperative shock. Antibiotics and physical therapy as per primary team. Monitor hemoglobin. Getting second unit of PRBC. (2) Postoperative anemia: Baseline hemoglobin of 13.5. Down to 6 intraoperatively. Getting second unit of PRBC. Repeat CBC after completion of second unit. Hold off on anticoagulation for now. Can restart Eliquis if hemoglobin remained stable for next 24 hours. (3) Postoperative hemorrhagic shock: Goal blood pressure less than 140/90 mmHg with mean over 65. Blood pressure stable for now. Hold off on antihypertensive including amlodipine and Imdur for now. Continue with home dose of metoprolol 25 mg twice daily (4) Essential (primary) hypertension: (5) Aortic valve stenosis: Last echocardiogram from 2022 showed EF of 55 to 60% without regional wall motion abnormality, mild TR with RVSP of 35-40 manage consistent with mild pulmonary hypertension, dilated LA. Watch for fluid overload. Qualifiers: Cardiac valve disease etiology: nonrheumatic Qualified Code(s): I35.0 - Nonrheumatic aortic (valve) stenosis (6) Paroxysmal atrial fibrillation with RVR: quality assurance monitor final. Continue with home dose of metoprolol. Holding off on Eliquis. Plan Continue with other chronic medications including duloxetine, gabapentin, trazodone, Protonix twice daily. Cardiac diet Protonix to be sufficient for PUD prophylaxis Foot pumps for DVT prophylaxis Care discussed in detail with primary team, nurse at bedside. Thank you for involving us in care of Ms. Waddell. Will continue to follow. Consult Attestations Medical Necessity Statement: As per primary team. Diagnoses Encounter for postoperative care Z48.89 Postoperative anemia D64.9 Postoperative hemorrhagic shock T81.19XA Essential (primary) hypertension I10 Nonrheumatic aortic valve stenosis I35.0 Cardiac valve disease etiology: nonrheumatic Paroxysmal atrial fibrillation with RVR I48.0
[2024-11-27] MEDS: gabapentin 300 mg Capsule 600 MG PO ×2 (14:03→21:29)
[2024-11-27] MEDS: chlorhexidine gluconate 0.12% Btl 473 mL 30 ML MUCOUS MEM ×3 (14:04→21:29)
[2024-11-27] MEDS: HYDROcodone-acetaminophen 5-325 mg Tablet 1 TAB PO ×2 (14:13→18:48)
[2024-11-27 14:26] LABS: Estmated Average Glucose 103; Hemoglobin A1C 5.2 % (4.0-6.0)
[2024-11-27 15:57] LABS: Basophils % 0.3 %; Eosinophils % 0.1 %; Hematocrit 42.5 % (36-47); Lymphocytes # 1.4 10^3/uL (0.8-4.8); Lymphocytes % 9.5 %; Mean Corpuscular HGB Conc 32.7 g/dL (30-55); Mean Corpuscular Hemoglobin 32.1 pg (27-33); Mean Corpuscular Volume 98.2 fl (85-98); Mean Platelet Volume 9.3 fL (7.4-10.4); Monocytes # 0.6 10^3/uL (0.2-0.9); Monocytes % 3.8 %; Neutrophils # 12.62 10^3/uL (1.8-7.7); Neutrophils % 85.9 %; Nucleated Red Blood Cells % 0 %; Platelet Count 185 10^3/cmm (157-399); Red Blood Count 4.33 10^6/uL (3.85-5.65); Red Cell Distribution Width 13.2 % (12.1-15.1); White Blood Count 14.68 10^3/uL (3.29-11.43)
[2024-11-27] MEDS: mupirocin oint 22 gm 1 APPLIC NASAL (17:18)
[2024-11-27] MEDS: pantoprazole DR 40 mg Tablet PO (17:19)
[2024-11-27] MEDS: calcium carbonate 500 mg Chew Tablet 1000 MG PO (17:19)
[2024-11-27] MEDS: metoprolol tartrate 25 mg Tablet PO (17:19)
[2024-11-27] MEDS: sennosides-docusate Tablet 2 TAB PO (17:20)
[2024-11-27] MEDS: duloxetine 60 mg Capsule PO (17:20)
[2024-11-27] MEDS: iron polysaccharide complex 150 mg Capsule PO (17:20)
[2024-11-27 17:31] LABS: Vitamin B12 469 pg/mL (232-1245)
--- NOTE | 2024-11-27 18:00 | PM.MISC ---
Miscellaneous Note Purpose of Documentation: Need for inpatient admission Note: I received a call from the physical therapist who states that the patient was only able to tolerate CPM today following her surgery. She will likely need fdc at the time of discharge. We will begin working with approval for this. In the meantime, patient will be converted to inpatient status given concerns for stability, blood pressure, and ability to participate in rehab.
[2024-11-27 18:48] LABS: Alanine Aminotransferase 11 U/L (0-33); Albumin Level 3.4 g/dL (3.5-5.2); Alkaline Phosphatase 47 U/L (35-105); Blood Urea Nitrogen 8 mg/dL (8-23); Calcium 9.4 mg/dL (8.5-10.5); Carbon Dioxide 15 mmol/L (22-29); Chloride 104 mmol/L (98-107); Creatinine Clr Calc Pharmacy 48.8254; Globulin 2.9 g/dL (1.3-4.6); Glucose 161 mg/dL (65-115); Iron 198 ug/dL (37-145); Osmolality Calculated 286 mOsm/kg (285-295); Sodium 137 mmol/L (136-145); Thyroid Stimulating Hormone 1.94 uIU/mL (0.27-4.20); Total Bilirubin 0.8 mg/dL (0.15-1.2); Total Protein 6.3 g/dL (6.6-8.7)
[2024-11-27 18:52] LABS: Anion Gap 22.4 (5-19); Potassium 4.4 mmol/L (3.5-5.1)
[2024-11-27 18:53] LABS: Aspartate Amino Transferase 27 U/L (0-32)
[2024-11-27 19:05] LABS: Percent Saturation 83.5 % (20-50); Total Iron Binding Capacity 237 mcg/dl; Unsaturated Iron Binding 39 ug/dL (112-347)
--- NOTE | 2024-11-27 19:41 | PC.NURSE ---
Upon 1800 rounding, pt states Nobody has been in here all day. Pt also states Some girl will stand at the door and write 'sleeping' down on a paper and said she was going to just say I was sleeping This nurse informed pt that we do not chart by paper and do not have an option to write sleeping or enter that into our computer. This nurse asked orientation questions at this time to ensure pt was not in a confused state. Pt stated name, , year, president and place correctly. Pt stated that she as well as her son were going to make the head nurse aware as she had asked them previously how her care was and she had recognized 2 nurses, but ever since then she has not had good care. This nurse apologized to the pt and explained that we had been rounding on her hourly, answering her call light and administering her pain meds as scheduled as well as monitoring her pain. MILADY Mckeon passed 1800 meds for this nurse at 1719 and did 1700 rounding on this pt at this time. Pt was up to her room at 1250 from PACU and pain was well controlled at this time. Pt c/o pain at approximately 1345. Pt only had 1 IV in the left hand at this time which had blood transfusing through it. I informed pt that she had IV tylenol scheduled, but no other pain meds had been ordered at this time, however, we would need to obtain a 2nd IV site to run that med through. 22g IV placed in the right hand at 1357. IV tylenol was administered at 1436. Dr. Lofton was at bedside at 1400 and placed an order for PRN [place] 5-325mg Q4H at 1402. Hydrocodone order was verified by this nurse at 1410 and administered at 1413. Second dose of hydrocodone could be administered at 1813, however, this nurse was handling an emergent situation with another pt in another room. Hydrocodone was administered a second time at 1848.
[2024-11-27] MEDS: trazodone 100 mg Tablet PO (21:29)
[2024-11-28] MEDS: ceFAZolin 2,000 mg SDV 2000 MG IVP ×2 (00:05→08:49)
--- NOTE | 2024-11-28 00:16 | PC.NURSE ---
patient has stated several times no one has came in my room all day . nurse and aide has been in and out of her room several times since start of shift. nurse and aide has started writing the times that we are in there on the board. nurse was in there for 15 minutes at 0015 for iv meds. patient complains of no pain or discomfort at this time.
[2024-11-28 03:45] LABS: Basophils % 0.2 %; Hematocrit 34.9 % (36-47); Lymphocytes # 2.8 10^3/uL (0.8-4.8); Mean Corpuscular HGB Conc 33.2 g/dL (30-55); Mean Corpuscular Hemoglobin 31.2 pg (27-33); Mean Corpuscular Volume 93.8 fl (85-98); Mean Platelet Volume 9.6 fL (7.4-10.4); Monocytes # 1.6 10^3/uL (0.2-0.9); Monocytes % 12.4 %; Neutrophils # 8.36 10^3/uL (1.8-7.7); Neutrophils % 64.9 %; Nucleated Red Blood Cells % 0 %; Platelet Count 178 10^3/cmm (157-399); Red Blood Count 3.72 10^6/uL (3.85-5.65); Red Cell Distribution Width 13.9 % (12.1-15.1); White Blood Count 12.87 10^3/uL (3.29-11.43)
[2024-11-28 04:00] VITALS: BP 141/74; PULSE 78; RESP 18; TEMP 37; O2SAT 92
[2024-11-28 04:05] LABS: Blood Urea Nitrogen 8 mg/dL (8-23); Calcium 9.5 mg/dL (8.5-10.5); Carbon Dioxide 28 mmol/L (22-29); Chloride 103 mmol/L (98-107); Cholesterol 153 mg/dL (0-200); Creatinine Clr Calc Pharmacy 48.8254; Glucose 122 mg/dL (65-115); HDL Cholesterol 30 mg/dL (60-100); LDL Cholesterol Calculated 92 mg/dL (50-129); Magnesium 1.8 mg/dL (1.7-2.3); Osmolality Calculated 286 mOsm/kg (285-295); Sodium 138 mmol/L (136-145); Triglycerides 153 mg/dL (0-150); VLDL Cholestrol Calculation 31 mg/dL (0-30)
[2024-11-28 04:20] LABS: Folate Level 15.7 ng/mL (4.8-37.3)
--- NOTE | 2024-11-28 05:14 | PC.NURSE ---
This ANCILLARY SERVICES MANAGER entered the patients room at approximately 2315 to answer the pt's call light. Pt stated that she hates when we say we are going to check on something but never come back . This ANCILLARY SERVICES MANAGER asked what she was referring to, to which she replied that someone had told her they were going to check on medication for her arthritis but never came back. 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 This ANCILLARY SERVICES MANAGER explains to the patient that the request for medication was only approximately 20 minutes prior and that there is a process for medication that may take awhile as the nurse is providing care for her other patients at this time. The patient stated that we haven't been checking in on her, and this ANCILLARY SERVICES MANAGER explained to her that multiple staff members including this ANCILLARY SERVICES MANAGER have been in the room providing adjustments, fresh water, emptying the rueda catheter, and administering medication. The patient then requested a piece of paper so she could keep record of every time staff members entered the room. This ANCILLARY SERVICES MANAGER told the patient that instead, this ANCILLARY SERVICES MANAGER would write the time on the white board upon entering the room each time. The patient agreed to this. This ANCILLARY SERVICES MANAGER made other nursing staff aware of this agreement to help prevent any further misunderstandings.
[2024-11-28] MEDS: HYDROcodone-acetaminophen 5-325 mg Tablet 1 TAB PO ×2 (05:36→14:24)
[2024-11-28] MEDS: acetaminophen 1,000 MG/100 ML PIGGYBACK 400 MG IV ×2 (05:38)
[2024-11-28] MEDS: cetirizine 10 mg Tablet PO (05:42)
[2024-11-28 08:00] VITALS: BP 152/72; PULSE 71; RESP 16; TEMP 36.8; O2SAT 92
[2024-11-28] MEDS: gabapentin 300 mg Capsule 600 MG PO ×3 (08:49→20:12)
[2024-11-28] MEDS: calcium carbonate 500 mg Chew Tablet 1000 MG PO ×2 (08:49→17:20)
[2024-11-28] MEDS: sennosides-docusate Tablet 2 TAB PO ×2 (08:49→17:20)
[2024-11-28] MEDS: multivitamin therapeutic Tablet 1 TAB PO (08:50)
[2024-11-28] MEDS: CELEcoxib 200 mg Capsule PO (08:50)
[2024-11-28] MEDS: pantoprazole DR 40 mg Tablet PO ×2 (08:50→17:20)
[2024-11-28] MEDS: metoprolol tartrate 25 mg Tablet PO ×2 (08:50→17:20)
[2024-11-28] MEDS: cholecalciferol (vitamin D3) 1,000 unit Tablet 1000 UNIT PO (08:50)
[2024-11-28] MEDS: iron polysaccharide complex 150 mg Capsule PO ×2 (08:50→17:20)
[2024-11-28] MEDS: chlorhexidine gluconate 0.12% Btl 473 mL 30 ML MUCOUS MEM ×4 (08:51→20:16)
[2024-11-28] MEDS: mupirocin oint 22 gm 1 APPLIC NASAL ×2 (08:51→17:21)
[2024-11-28] MEDS: isosorbide mononitrate ER 30 mg Tablet PO (09:25)
--- NOTE | 2024-11-28 11:44 | P.PN_ITS ---
Subjective 2 Subjective: No acute vents overnight. Today morning patient seemed more comfortable. Denies any nausea, vomiting, headache. States pain is better controlled. Blood pressures have been stable. Vitals/I&O/Wt Last Vital Signs Temp 98.2 F 11/28/24 08:00 Pulse 71 11/28/24 08:00 Resp 16 11/28/24 08:00 BP 152/72 11/28/24 08:00 Pulse Ox 92 11/28/24 08:00 O2 Del Method Nasal Cannula 11/28/24 08:00 O2 Flow Rate 2 11/28/24 04:00 11/27/24 11/28/24 11/28/24 22:59 06:59 14:59 Intake Total 650 / 3400 200 / 3600 475 / 475 Output Total 800 / 1960 550 / 2510 Balance -150 / 1440 -350 / 1090 475 / 475 Weight last 48 hrs Weight 93.894 kg Weight 84.368 kg Weight 84.368 kg Physical Exam 2 Narrative: General: No acute distress, AO x3 HEENT: PERRLA, pupils bilaterally equal and reactive Chest: Normal vesicular breath sounds, no added sounds, equal good air entry bilaterally CVS: S1-S2 regular, no murmurs, no tachycardia, no gallops, no rubs Abdomen: Soft, nontender, no organomegaly, bowel sounds present Neuro: No focal deficits, no facial deformity, AO x3, power 5/5 in all limbs Urinary Catheter Management: Andino: Cath Placed During This Visit: yes Reason for Continuing Indwelling Catheter: Perioperative Use in Selected Surgeries Urinary Catheter Date of Insertion: 11/27/24 Urinary Catheter Time of Insertion: 07:56 Data 11/28/24 03:29 11/28/24 03:29 A&P Assessment and plan (1) Encounter for postoperative care: Post arthroplasty of right knee on 11/27. Hold off on anticoagulation for now given postoperative anemia leading to intraoperative shock. Antibiotics and physical therapy as per primary team. Monitor hemoglobin. Getting second unit of PRBC. (2) Postoperative anemia: Baseline hemoglobin of 13.5. Down to 6 intraoperatively. Getting second unit of PRBC. Repeat CBC after completion of second unit. Hold off on anticoagulation for now. Can restart Eliquis if hemoglobin remained stable for next 24 hours. (3) Postoperative hemorrhagic shock: Goal blood pressure less than 140/90 mmHg with mean over 65. Blood pressure stable for now. Hold off on antihypertensive including amlodipine and Imdur for now. Continue with home dose of metoprolol 25 mg twice daily (4) Essential (primary) hypertension: (5) Aortic valve stenosis: Last echocardiogram from 2022 showed EF of 55 to 60% without regional wall motion abnormality, mild TR with RVSP of 35-40 manage consistent with mild pulmonary hypertension, dilated LA. Watch for fluid overload. Qualifiers: Cardiac valve disease etiology: nonrheumatic Qualified Code(s): I35.0 - Nonrheumatic aortic (valve) stenosis (6) Paroxysmal atrial fibrillation with RVR: monitor tech. Continue with home dose of metoprolol. Holding off on Eliquis. Plan Continue with other chronic medications including duloxetine, gabapentin, trazodone, Protonix twice daily. Cardiac diet Protonix to be sufficient for PUD prophylaxis Foot pumps for DVT prophylaxis Care discussed in detail with primary team, nurse at bedside. Thank you for involving us in care of Ms. Waddell. Will continue to follow. Plan for the day: Post 2 unit of blood transfusion. Hemoglobin stable. Repeat CBC in afternoon. If hemoglobin remains stable can plan to start on Eliquis 5 mg twice daily from evening. Goal blood pressure less than 140/90 mmHg. Blood pressure is improving today. Restart home dose of Imdur 30 mg oral daily. Depending on goal pressure pressures can also start on amlodipine within next 24 hours. Pain management, physical therapy, antibiotics as per primary team. Patient is on baseline oxygen supplementation. Stop IV fluids. Continue with oral diet. Continue other chronic home medications. Attestations 2 Medical Necessity Statement*: As per primary team. Diagnoses Encounter for postoperative care Z48.89 Postoperative anemia D64.9 Postoperative hemorrhagic shock T81.19XA Essential (primary) hypertension I10 Nonrheumatic aortic valve stenosis I35.0 Cardiac valve disease etiology: nonrheumatic Paroxysmal atrial fibrillation with RVR I48.0
[2024-11-28 12:00] VITALS: BP 170/87; PULSE 78; RESP 15; TEMP 36.7; O2SAT 97
[2024-11-28 16:00] VITALS: BP 183/78; PULSE 74; RESP 14; TEMP 36.9; O2SAT 95
[2024-11-28 16:15] LABS: Hematocrit 33.9 % (36-47)
--- NOTE | 2024-11-28 16:48 | PM.PN ---
Subjective Subjective: This 89-year-old woman presented to the hospital yesterday for same-day surgery in the form of right total knee arthroplasty with Roman guidance. Risks and complications have been discussed with the patient preoperatively. Postoperatively and intraoperatively, she had blood pressure issues, and therefore, she was seen by the hospitalist team, Dr. Parsons. She was seen by physical therapy, and she was not felt safe for discharge to home. They were recommending senior care at the time of discharge due to difficulty with ambulation and perceived potential difficulties at home. I am in agreement with this, and we are awaiting clearance for transfer to senior care. Medications: Reviewed: Yes Vitals/I&O/Wt Last Vital Signs Temp 98.1 F 11/28/24 12:00 Pulse 78 11/28/24 12:00 Resp 15 11/28/24 12:00 BP 170/87 11/28/24 12:00 Pulse Ox 97 11/28/24 12:00 O2 Del Method Nasal Cannula 11/28/24 12:00 O2 Flow Rate 2 11/28/24 04:00 11/28/24 11/28/24 11/28/24 06:59 14:59 22:59 Intake Total 200 / 3600 915 / 915 Output Total 550 / 2510 Balance -350 / 1090 915 / 915 Weight last 48 hrs Weight 207 lb Weight 186 lb Weight 186 lb Physical Exam Const: COMMON NORMALS: no acute distress, average body habitus, patient oriented x3 and alert GENERAL APPEARANCE: cooperative and comfortable ORIENTATION/CONSCIOUSNESS: Yes awake HENMT: COMMON NORMALS: normocephalic and atraumatic HEAD & SCALP: normocephalic and atraumatic Eye: GENERAL EYE: appearance normal, both eyes and all related structures Chest: COMMONS NORMALS: normal inspection of the chest Resp: COMMON NORMALS: normal respiratory effort EFFORT & INSPECTION: Yes able to speak in complete sentences and Yes symmetric chest movement Extremity: RIGHT LOWER EXTREMITY: Yes knee joint (Large outer dressing is removed. There is minimal swelling. ) Right knee: Yes inspection (Ecchymosis consistent with chronic Eliquis use), Yes palpation (Tender about the knee but not calf), Yes ROM (Not evaluated) and Yes neurovascular exam (Intact distally) Neuro: COMMON NORMALS: patient oriented x3 SENSORIUM/ORIENTATION: Yes alert Psych: COMMON NORMALS: mental status grossly normal APPEARANCE: Yes grossly normal ATTITUDE: Yes calm and Yes engaged ATTENTION/CONCENTRATION: Yes attention grossly intact Skin: COMMON NORMALS: no rashes or lesions noted GENERAL SKIN EXAM: no rashes or lesions noted Urinary Catheter Management: Andino: Cath Placed During This Visit: yes Reason for Continuing Indwelling Catheter: Perioperative Use in Selected Surgeries Urinary Catheter Date of Insertion: 11/27/24 Urinary Catheter Time of Insertion: 07:56 Data 11/28/24 15:59 11/28/24 03:29 A&P Assessment and plan (1) Primary osteoarthritis of right knee: This 89-year-old woman presented for same-day surgery in the form of right total knee arthroplasty. The orthopedic portion of the surgical procedure was uneventful, however, the patient had difficulty with blood pressure throughout the surgical procedure. Postoperatively, she also was quite soft on blood pressure. She therefore was admitted to the floor after consultation with the hospitalist team, Dr. Parsons. Today, her blood pressures have stabilized, but she is having difficulty working with physical therapy secondary to pain. Pain medications are limited secondary to the labile nature of her blood pressure. She is not felt to be safe and independent. She will likely require senior care at the time of discharge, and plans were put in place for this. (2) Status post total right knee replacement not using cement: Attestations Medical Necessity Statement*: Postoperative total knee rehabilitation with difficulty ambulating. She is not felt to be safe for discharge to home. 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
[2024-11-28] MEDS: duloxetine 60 mg Capsule PO (17:20)
[2024-11-28 19:44] VITALS: BP 124/59; PULSE 76; RESP 24; TEMP 36.4; O2SAT 94
[2024-11-28] MEDS: trazodone 100 mg Tablet PO (20:12)
[2024-11-29] VITALS (7 sets, daily range): BP systolic 94–109; BP diastolic 55–73; PULSE 77–116; RESP 16–18; TEMP 36.3–37; O2SAT 92–97
[2024-11-29] MEDS: HYDROcodone-acetaminophen 5-325 mg Tablet 1 TAB PO (02:20)
[2024-11-29] MEDS: cetirizine 10 mg Tablet PO (05:12)
[2024-11-29 05:28] LABS: Basophils # 0.1 10^3/uL (0.0-0.1); Basophils % 0.6 %; Eosinophils # 0.1 10^3/uL (0.0-0.8); Eosinophils % 1.4 %; Hematocrit 29.9 % (36-47); Lymphocytes # 2.1 10^3/uL (0.8-4.8); Lymphocytes % 21.3 %; Mean Corpuscular HGB Conc 32.4 g/dL (30-55); Mean Corpuscular Volume 95.5 fl (85-98); Monocytes # 1.5 10^3/uL (0.2-0.9); Monocytes % 15.6 %; Neutrophils # 5.93 10^3/uL (1.8-7.7); Neutrophils % 60.7 %; Nucleated Red Blood Cells % 0 %; Platelet Count 155 10^3/cmm (157-399); Red Blood Count 3.13 10^6/uL (3.85-5.65); White Blood Count 9.79 10^3/uL (3.29-11.43)
[2024-11-29 05:51] LABS: Magnesium 1.9 mg/dL (1.7-2.3)
[2024-11-29 05:58] LABS: Alanine Aminotransferase < 5 U/L (0-33); Albumin Level 3.1 g/dL (3.5-5.2); Alkaline Phosphatase 39 U/L (35-105); Aspartate Amino Transferase 17 U/L (0-32); Blood Urea Nitrogen 10 mg/dL (8-23); Calcium 9.3 mg/dL (8.5-10.5); Carbon Dioxide 29 mmol/L (22-29); Chloride 107 mmol/L (98-107); Creatinine Clr Calc Pharmacy 51.1527; Globulin 2.5 g/dL (1.3-4.6); Glucose 124 mg/dL (65-115); Osmolality Calculated 292 mOsm/kg (285-295); Sodium 141 mmol/L (136-145); Total Bilirubin 0.4 mg/dL (0.15-1.2); Total Protein 5.6 g/dL (6.6-8.7)
[2024-11-29] MEDS: calcium carbonate 500 mg Chew Tablet 1000 MG PO ×2 (09:09→17:19)
[2024-11-29] MEDS: gabapentin 300 mg Capsule 600 MG PO ×3 (09:10→20:27)
[2024-11-29] MEDS: iron polysaccharide complex 150 mg Capsule PO ×2 (09:10→17:19)
[2024-11-29] MEDS: metoprolol tartrate 25 mg Tablet PO ×2 (09:10→17:19)
[2024-11-29] MEDS: isosorbide mononitrate ER 30 mg Tablet PO (09:10)
[2024-11-29] MEDS: sennosides-docusate Tablet 2 TAB PO ×2 (09:10→17:19)
[2024-11-29] MEDS: pantoprazole DR 40 mg Tablet PO ×2 (09:12→17:19)
[2024-11-29] MEDS: multivitamin therapeutic Tablet 1 TAB PO (09:12)
[2024-11-29] MEDS: CELEcoxib 200 mg Capsule PO (09:12)
[2024-11-29] MEDS: chlorhexidine gluconate 0.12% Btl 473 mL 30 ML MUCOUS MEM ×4 (09:13→20:28)
[2024-11-29] MEDS: heparin 5,000 unit/mL INJ 1 mL 5000 UNIT SUBCUT ×2 (09:13→20:27)
[2024-11-29] MEDS: mupirocin oint 22 gm 1 APPLIC NASAL ×2 (09:13→17:20)
[2024-11-29] MEDS: cholecalciferol (vitamin D3) 1,000 unit Tablet 1000 UNIT PO (09:13)
[2024-11-29] MEDS: acetaminophen 325 mg Tablet PO (12:23)
--- NOTE | 2024-11-29 13:48 | P.PN_ITS ---
Subjective 2 Subjective: Patient is working with physical therapy. She is awaiting decision on placement from her insurance company. She is not felt at this time to be safe for discharge to home. Medications: Reviewed: Yes Vitals/I&O/Wt Last Vital Signs Temp 98.2 F 11/29/24 11:31 Pulse 78 11/29/24 11:31 Resp 18 11/29/24 11:31 BP 98/56 11/29/24 11:31 Pulse Ox 96 11/29/24 11:31 O2 Del Method Nasal Cannula 11/29/24 11:31 O2 Flow Rate 2 11/29/24 11:31 11/28/24 11/29/24 11/29/24 22:59 06:59 14:59 Intake Total 480 / 480 Balance 480 / 480 Weight last 48 hrs Weight 202 lb 6.4 oz Weight 207 lb Physical Exam 2 Const: COMMON NORMALS: no acute distress, average body habitus, patient oriented x3 and alert GENERAL APPEARANCE: cooperative and comfortable O RIENTATION/CONSCIOUSNESS: Yes awake HENMT: COMMON NORMALS: normocephalic and atraumatic HEAD & SCALP: n ormocephalic and atraumatic Eye: GENERAL EYE: appearance normal, both eyes and all related structures Chest: COMMONS NORMALS: normal inspection of the chest Resp: COMMON NORMALS: normal respiratory effort EFFORT & INSPECTION: Yes able to speak in complete sentences and Yes symmetric chest movement Extremity: RIGHT LOWER EXTREMITY: Yes knee joint (Dressing remains unchanged since yesterday) Right knee: Yes inspection (Ecchymosis remains), Yes palpation (Minimal discomfort), Yes ROM (Not evaluated) and Yes neurovascular exam (Intact distally, no evidence of DVT) Neuro: COMMON NORMALS: patient oriented x3 SENSORIUM/ORIENTATION: Yes alert Psych: COMMON NORMALS: mental status grossly normal APPEARANCE: Yes grossly normal ATTITUDE: Yes calm and Yes engaged ATTENTION/CONCENTRATION: Yes attention grossly intact Skin: COMMON NORMALS: no rashes or lesions noted GENERAL SKIN EXAM: no rashes or lesions noted Urinary Catheter Management: Andino: Cath Placed During This Visit: yes Reason for Continuing Indwelling Catheter: Perioperative Use in Selected Surgeries Urinary Catheter Date of Insertion: 11/27/24 Urinary Catheter Time of Insertion: 07:56 Data 11/29/24 04:45 11/29/24 04:45 A&P Assessment and plan (1) Primary osteoarthritis of right knee: This 89-year-old woman presented for same-day surgery in the form of right total knee arthroplasty. The orthopedic portion of the surgical procedure was uneventful, however, the patient had difficulty with blood pressure throughout the surgical procedure. Postoperatively, she also was quite soft on blood pressure. She therefore was admitted to the floor after consultation with the hospitalist team, Dr. Parsons. Blood pressure still remains soft. The patient is being followed by Dr. Parsons from hospitalist team. Dressing will be changed today. She is still awaiting placement per her insurance company. (2) Status post total right knee replacement not using cement: Attestations 2 Medical Necessity Statement*: Patient continues with medical need to stabilize blood pressures. Coding Level of Care Code Acute Code for [facility] Diagnoses Primary osteoarthritis of right knee M17.11 Status post total right knee replacement not using cement Z96.651
[2024-11-29 14:22] LABS: Hematocrit 27.9 % (36-47)
--- NOTE | 2024-11-29 15:27 | PM.PN ---
Subjective Subjective: No acute vents overnight. Denies any nausea, vomiting, headache. Complaining of mild pain in her hip today. Blood pressure soft early in the morning today. Worked with physical therapy. Medications: Reviewed: Yes Vitals/I&O/Wt Last Vital Signs Temp 98.2 F 11/29/24 11:31 Pulse 78 11/29/24 11:31 Resp 18 11/29/24 11:31 BP 98/56 11/29/24 11:31 Pulse Ox 96 11/29/24 11:31 O2 Del Method Nasal Cannula 11/29/24 11:31 O2 Flow Rate 2 11/29/24 11:31 11/29/24 11/29/24 11/29/24 06:59 14:59 22:59 Intake Total 480 / 480 Balance 480 / 480 Weight last 48 hrs Weight 91.807 kg Weight 93.894 kg Physical Exam Narrative: General: No acute distress, AO x3 HEENT: PERRLA, pupils bilaterally equal and reactive Chest: Normal vesicular breath sounds, no added sounds, equal good air entry bilaterally CVS: S1-S2 regular, no murmurs, no tachycardia, no gallops, no rubs Abdomen: Soft, nontender, no organomegaly, bowel sounds present Neuro: No focal deficits, no facial deformity, AO x3, power 5/5 in all limbs Urinary Catheter Management: Andino: Cath Placed During This Visit: yes Reason for Continuing Indwelling Catheter: Perioperative Use in Selected Surgeries Urinary Catheter Date of Insertion: 11/27/24 Urinary Catheter Time of Insertion: 07:56 Data 11/29/24 14:07 11/29/24 04:45 A&P Assessment and plan (1) Encounter for postoperative care: Post arthroplasty of right knee on 11/27. Hold off on anticoagulation for now given postoperative anemia leading to intraoperative shock. Antibiotics and physical therapy as per primary team. Monitor hemoglobin. Getting second unit of PRBC. (2) Postoperative anemia: Baseline hemoglobin of 13.5. Down to 6 intraoperatively. Getting second unit of PRBC. Repeat CBC after completion of second unit. Hold off on anticoagulation for now. Can restart Eliquis if hemoglobin remained stable for next 24 hours. (3) Postoperative hemorrhagic shock: Goal blood pressure less than 140/90 mmHg with mean over 65. Blood pressure stable for now. Hold off on antihypertensive including amlodipine and Imdur for now. Continue with home dose of metoprolol 25 mg twice daily (4) Essential (primary) hypertension: (5) Aortic valve stenosis: Last echocardiogram from 2022 showed EF of 55 to 60% without regional wall motion abnormality, mild TR with RVSP of 35-40 manage consistent with mild pulmonary hypertension, dilated LA. Watch for fluid overload. 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 Continue with home dose of metoprolol. Holding off on Eliquis. Plan Continue with other chronic medications including duloxetine, gabapentin, trazodone, Protonix twice daily. Cardiac diet Protonix to be sufficient for PUD prophylaxis Foot pumps for DVT prophylaxis Care discussed in detail with primary team, nurse at bedside. Thank you for involving us in care of Ms. Waddell. Will continue to follow. Plan for the day: Overall post 2 unit of blood transfusion. Hemoglobin trending down to 9.7 today. Repeat hemoglobin in afternoon. Hold off on Eliquis for now. Can start heparin 5000 Q12 hourly for DVT prophylaxis. Goal blood pressure less than 140/90 mmHg with mean over 65. Blood pressure soft early in the morning. Hold off on home dose of Imdur. Continue physical therapy. Pain management, physical therapy, perioperative antibiotics as per surgical team. Attestations Medical Necessity Statement*: As per primary team. Currently being managed for postoperative anemia Diagnoses Encounter for postoperative care Z48.89 Postoperative anemia D64.9 Postoperative hemorrhagic shock T81.19XA Essential (primary) hypertension I10 Nonrheumatic aortic valve stenosis I35.0 Cardiac valve disease etiology: nonrheumatic Paroxysmal atrial fibrillation with RVR I48.0
[2024-11-29] MEDS: diclofenac 1% Topical Gel 100 gm 1 APPLIC TOPICAL ×2 (16:29→20:28)
[2024-11-29] MEDS: duloxetine 60 mg Capsule PO (17:19)
[2024-11-29] MEDS: trazodone 100 mg Tablet PO (20:27)
[2024-11-30] VITALS (13 sets, daily range): BP systolic 97–134; BP diastolic 52–90; PULSE 68–145; RESP 15–19; TEMP 36.4–36.9; O2SAT 91–98
[2024-11-30 04:41] LABS: Basophils # 0.1 10^3/uL (0.0-0.1); Basophils % 0.6 %; Eosinophils # 0.3 10^3/uL (0.0-0.8); Eosinophils % 2.6 %; Hematocrit 27.4 % (36-47); Lymphocytes # 2.6 10^3/uL (0.8-4.8); Lymphocytes % 26.5 %; Mean Corpuscular Hemoglobin 31.4 pg (27-33); Mean Corpuscular Volume 101.1 fl (85-98); Mean Platelet Volume 10.1 fL (7.4-10.4); Monocytes # 1.2 10^3/uL (0.2-0.9); Monocytes % 12.2 %; Neutrophils # 5.68 10^3/uL (1.8-7.7); Neutrophils % 57.6 %; Nucleated Red Blood Cells % 0 %; Platelet Count 145 10^3/cmm (157-399); Red Blood Count 2.71 10^6/uL (3.85-5.65); Red Cell Distribution Width 13.9 % (12.1-15.1); White Blood Count 9.87 10^3/uL (3.29-11.43)
[2024-11-30 05:12] LABS: Magnesium 1.9 mg/dL (1.7-2.3)
[2024-11-30] MEDS: cetirizine 10 mg Tablet PO (06:13)
[2024-11-30] MEDS: heparin 5,000 unit/mL INJ 1 mL 5000 UNIT SUBCUT ×2 (09:22→20:09)
[2024-11-30] MEDS: iron polysaccharide complex 150 mg Capsule PO ×2 (09:22→17:59)
[2024-11-30] MEDS: metoprolol tartrate 25 mg Tablet PO ×2 (09:23→17:59)
[2024-11-30] MEDS: sennosides-docusate Tablet 2 TAB PO ×2 (09:23→17:59)
[2024-11-30] MEDS: gabapentin 300 mg Capsule 600 MG PO ×3 (09:23→20:09)
[2024-11-30] MEDS: pantoprazole DR 40 mg Tablet PO ×2 (09:23→17:59)
[2024-11-30] MEDS: CELEcoxib 200 mg Capsule PO (09:23)
[2024-11-30] MEDS: cholecalciferol (vitamin D3) 1,000 unit Tablet 1000 UNIT PO (09:23)
[2024-11-30] MEDS: chlorhexidine gluconate 0.12% Btl 473 mL 30 ML MUCOUS MEM ×3 (09:24→20:10)
[2024-11-30] MEDS: mupirocin oint 22 gm 1 APPLIC NASAL (09:24)
[2024-11-30] MEDS: calcium carbonate 500 mg Chew Tablet 1000 MG PO ×2 (09:24→17:59)
[2024-11-30] MEDS: multivitamin therapeutic Tablet 1 TAB PO (09:24)
[2024-11-30] MEDS: diclofenac 1% Topical Gel 100 gm 1 APPLIC TOPICAL ×2 (13:59→20:11)
[2024-11-30] MEDS: HYDROcodone-acetaminophen 5-325 mg Tablet 1 TAB PO (14:28)
[2024-11-30] MEDS: ondansetron 2 mg/ML SDV 2 mL 4 MG IVP (14:28)
--- NOTE | 2024-11-30 15:00 | P.PN_ITS ---
Subjective 2 Subjective: Acute events overnight. Patient complaining of nausea today. Heart rate since morning has been elevated to more than 1 10-1 20. Blood pressure slightly soft. Saturating more than 95%. Medications: Reviewed: Yes Vitals/I&O/Wt Last Vital Signs Temp 97.6 F 11/30/24 14:54 Pulse 124 H 11/30/24 14:54 Resp 18 11/30/24 14:54 BP 123/90 11/30/24 14:54 Pulse Ox 98 11/30/24 14:54 O2 Del Method Nasal Cannula 11/30/24 12:00 O2 Flow Rate 2 11/30/24 09:35 11/30/24 11/30/24 11/30/24 06:59 14:59 22:59 Intake Total 665 / 665 Output Total Balance - 665 / 665 Weight last 48 hrs Weight 92.788 kg Weight 91.807 kg Physical Exam 2 Narrative: General: No acute distress, AO x3 HEENT: PERRLA, pupils bilaterally equal and reactive Chest: Normal vesicular breath sounds, no added sounds, equal good air entry bilaterally CVS: S1-S2 regular, no murmurs, no tachycardia, no gallops, no rubs Abdomen: Soft, nontender, no organomegaly, bowel sounds present Neuro: No focal deficits, no facial deformity, AO x3, power 5/5 in all limbs Urinary Catheter Management: Andino: Cath Placed During This Visit: yes Reason for Continuing Indwelling Catheter: Perioperative Use in Selected Surgeries Urinary Catheter Date of Insertion: 11/27/24 Urinary Catheter Time of Insertion: 07:56 Data 11/30/24 03:50 11/29/24 04:45 A&P Assessment and plan (1) Postoperative anemia: Baseline hemoglobin of 13.5. Post 2 units of blood transfusion. Hemoglobin trending down again. Will transfuse 1 more unit of PRBC given soft blood pressures and A-fib with RVR. Holding off on Eliquis. Most likely will plan to discharge off Eliquis for next 2 weeks. (2) Paroxysmal atrial fibrillation with RVR: Heart rate elevated today. clinical research monitor. Check EKG. If has persistent A-fib we will need to start on amiodarone given concerns for soft blood pressures will be difficult to go up on metoprolol. Holding off on Eliquis given concerns of postoperative anemia. (3) Encounter for postoperative care: Post arthroplasty of right knee on 11/27. Hemoglobin continues to trend down. Holding off on Eliquis. Started on heparin 5000 every 12 hourly. Antibiotics and physical therapy as per primary team. (4) Postoperative hemorrhagic shock: Goal blood pressure less than 140/90 mmHg with mean over 65. Blood pressure soft. Hold off on antihypertensives. Continue with home dose of metoprolol 25 mg twice daily (5) Essential (primary) hypertension: (6) Aortic valve stenosis: Last echocardiogram from 2022 showed EF of 55 to 60% without regional wall motion abnormality, mild TR with RVSP of 35-40 manage consistent with mild pulmonary hypertension, dilated LA. In mild fluid overload today. Awaiting blood transfusion. IV Lasix 40 mg one-time. Strict input charting, daily weights. Qualifiers: Cardiac valve disease etiology: nonrheumatic Qualified Code(s): I35.0 - Nonrheumatic aortic (valve) stenosis Plan Fluid overload: Seems to be in mild fluid overload today. Could be in setting of anemia. IV Lasix 40 mg one-time. Check proBNP. Check chest x-ray. Strict input output charting, daily weights. Continue with other chronic medications including duloxetine, gabapentin, trazodone, Protonix twice daily. Cardiac diet Protonix to be sufficient for PUD prophylaxis Foot pumps for DVT prophylaxis Care discussed in detail with primary team, nurse at bedside. Thank you for involving us in care of Ms. Waddell. Will continue to follow. Attestations 2 Medical Necessity Statement*: As per primary team Requires further hospitalization for management of postoperative anemia requiring blood transfusion, A-fib with RVR Diagnoses Postoperative anemia D64.9 Paroxysmal atrial fibrillation with RVR I48.0 Encounter for postoperative care Z48.89 Postoperative hemorrhagic shock T81.19XA Essential (primary) hypertension I10 Nonrheumatic aortic valve stenosis I35.0 Cardiac valve disease etiology: nonrheumatic
--- NOTE | 2024-11-30 15:05 | ECG_ITS ---
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 Measurements Intervals [place] Rate: 130 P: 0 DC: 0 QRS: 53 QRSD: 94 T: 48 QT: 314 QTc: 462 Interpretive Statements ATRIAL FIBRILLATION WITH RAPID VENTRICULAR RESPONSE NONSPECIFIC ST & T-WAVE ABNORMALITY Compared to ECG 11/19/2024 10:40:58 Sinus rhythm no longer present T-wave abnormality still present Electronically Signed On 12-06-2024 13:59:39 SECURITY PROGRAM MANAGER by Leeroy Garcia M.D. [id number]
--- NOTE | 2024-11-30 15:06 | XRR_ITS ---
PROCEDURE INFORMATION: Exam: XR Chest Exam date and time: 11/30/2024 6:14 PM Age: 89 years old Clinical indication: Shortness of breath; Patient HX: SOB; Post op knee replacement TECHNIQUE: Imaging protocol: Radiologic exam of the chest. Views: 1 view. COMPARISON: CR XR chest 2V* [id number] 05/31/2023 11:50 AM FINDINGS: Lungs: Hypoinflation with bronchovascular crowding. No focal consolidation. Pleural spaces: No pleural effusion. No pneumothorax. Heart/Mediastinum: Cardiomegaly. Tortuous calcified aorta. Bones/joints: Degenerative change of the spine and bilateral shoulders. XR/XR chest 1V portable [id number] IMPRESSION: No acute cardiopulmonary abnormality.
[2024-11-30 15:33] LABS: NT Pro B Type Natriuretic Pept 824 pg/mL (0-450)
[2024-11-30] MEDS: amiodarone 150 MG/100 ML PREMIX 400 MG IV (15:54)
[2024-11-30] MEDS: FUROsemide 10 mg/mL SDV 4mL 40 MG IVP (15:58)
[2024-11-30] MEDS: duloxetine 60 mg Capsule PO (17:59)
[2024-11-30] MEDS: trazodone 100 mg Tablet PO (20:09)
[2024-12-01] VITALS (9 sets, daily range): BP systolic 95–145; BP diastolic 46–100; PULSE 64–122; RESP 15–28; TEMP 36.2–36.8; O2SAT 89–98
[2024-12-01 03:21] LABS: Basophils # 0.1 10^3/uL (0.0-0.1); Basophils % 0.7 %; Eosinophils # 0.3 10^3/uL (0.0-0.8); Eosinophils % 3.8 %; Hematocrit 30.6 % (36-47); Lymphocytes # 2.6 10^3/uL (0.8-4.8); Lymphocytes % 31.3 %; Mean Corpuscular Hemoglobin 31.9 pg (27-33); Mean Corpuscular Volume 99.7 fl (85-98); Monocytes % 12.2 %; Neutrophils % 51.6 %; Nucleated Red Blood Cells % 0 %; Platelet Count 179 10^3/cmm (157-399); Red Blood Count 3.07 10^6/uL (3.85-5.65); Red Cell Distribution Width 14.4 % (12.1-15.1); White Blood Count 8.14 10^3/uL (3.29-11.43)
[2024-12-01 03:37] LABS: Alanine Aminotransferase < 5 U/L (0-33); Albumin Level 3.1 g/dL (3.5-5.2); Alkaline Phosphatase 55 U/L (35-105); Anion Gap 10.5 (5-19); Aspartate Amino Transferase 18 U/L (0-32); Blood Urea Nitrogen 11 mg/dL (8-23); Calcium 8.9 mg/dL (8.5-10.5); Carbon Dioxide 30 mmol/L (22-29); Chloride 100 mmol/L (98-107); Creatinine Clr Calc Pharmacy 51.4596; Globulin 2.3 g/dL (1.3-4.6); Glucose 115 mg/dL (65-115); Osmolality Calculated 284 mOsm/kg (285-295); Potassium 3.5 mmol/L (3.5-5.1); Sodium 137 mmol/L (136-145); Total Bilirubin 0.6 mg/dL (0.15-1.2); Total Protein 5.4 g/dL (6.6-8.7)
[2024-12-01] MEDS: cetirizine 10 mg Tablet PO (05:07)
[2024-12-01] MEDS: pantoprazole DR 40 mg Tablet PO ×2 (09:09→17:41)
[2024-12-01] MEDS: sennosides-docusate Tablet 2 TAB PO (09:09)
[2024-12-01] MEDS: metoprolol tartrate 25 mg Tablet PO ×3 (09:09→17:59)
[2024-12-01] MEDS: multivitamin therapeutic Tablet 1 TAB PO (09:09)
[2024-12-01] MEDS: calcium carbonate 500 mg Chew Tablet 1000 MG PO ×2 (09:09→17:41)
[2024-12-01] MEDS: heparin 5,000 unit/mL INJ 1 mL 5000 UNIT SUBCUT ×2 (09:09→20:11)
[2024-12-01] MEDS: gabapentin 300 mg Capsule 600 MG PO ×3 (09:09→20:12)
[2024-12-01] MEDS: cholecalciferol (vitamin D3) 1,000 unit Tablet 1000 UNIT PO (09:09)
[2024-12-01] MEDS: CELEcoxib 200 mg Capsule PO (09:10)
[2024-12-01] MEDS: iron polysaccharide complex 150 mg Capsule PO ×2 (09:10→17:41)
[2024-12-01] MEDS: diclofenac 1% Topical Gel 100 gm 1 APPLIC TOPICAL ×3 (09:10→20:12)
[2024-12-01] MEDS: chlorhexidine gluconate 0.12% Btl 473 mL 30 ML MUCOUS MEM ×4 (09:11→20:12)
[2024-12-01] MEDS: mupirocin oint 22 gm 1 APPLIC NASAL ×2 (09:11→17:40)
[2024-12-01] MEDS: ondansetron 2 mg/ML SDV 2 mL 4 MG IVP (09:34)
[2024-12-01] MEDS: HYDROcodone-acetaminophen 5-325 mg Tablet 1 TAB PO (09:34)
--- NOTE | 2024-12-01 10:00 | PICC.NOTE ---
Referred to vascular access nurse for US guided IV due to poor access. Right arm assessed. 20 gauge started to right forearm using US guidance x 1 stick. Good blood return noted. Flushed without difficulty. Secured with venigaurd. Report given to bedside nurseLibrado.
[2024-12-01] MEDS: amiodarone 200 mg Tablet PO ×2 (10:23→17:41)
--- NOTE | 2024-12-01 10:52 | XR_ITS ---
WS: [id number] Exam: XR abdomen 1V* [id number] Date/Time of Exam: 12/01/2024 11:01 AM Reason For Exam: nausea, possible ileus No bowel obstruction or pneumoperitoneum. No sign of organ enlargement. Moderate amount of stool in t he RIGHT colon. Degenerative change and mild levoscoliosis of the lumbar spine. Signs of previous pel dayami surgery. Moderate DJD of both hips. XR/XR abdomen 1V* [id number] IMPRESSION: 1. No acute abdominal process.
[2024-12-01] MEDS: FUROsemide 40 mg Tablet PO (11:35)
--- NOTE | 2024-12-01 12:45 | PM.PN ---
Subjective Subjective: The patient was seen in her room in the cardiac stepdown unit. She is feeling better and heart rate responded well. Plans will be made hopefully for her discharge as soon as she is approved by [facility] and the medical service. Medications: Reviewed: Yes Vitals/I&O/Wt Last Vital Signs Temp 98.1 F 12/02/24 08:00 Pulse 75 12/02/24 08:00 Resp 20 H 12/02/24 08:00 BP 123/91 12/02/24 08:00 Pulse Ox 94 12/02/24 08:00 O2 Del Method Nasal Cannula 12/02/24 08:00 O2 Flow Rate 2 12/02/24 08:00 12/01/24 12/02/24 12/02/24 22:59 06:59 14:59 Intake Total 615.297 / 935.297 200 / 1135.297 120 / 120 Output Total 325 / 1175 600 / 600 Balance 290.297 / -239.703 200 / -39.703 -480 / -480 Weight last 48 hrs Weight 207 lb 11.2 oz Weight 207 lb 11.2 oz Physical Exam Const: COMMON NORMALS: no acute distress, average body habitus, patient oriented x3 and alert GENERAL APPEARANCE: cooperative and comfortable ORIENTATION/CONSCIOUSNESS: Yes awake HENMT: COMMON NORMALS: normocephalic and atraumatic HEAD & SCALP: normocephalic and atraumatic Eye: GENERAL EYE: appearance normal, both eyes and all related structures Chest: COMMONS NORMALS: normal inspection of the chest Resp: COMMON NORMALS: normal respiratory effort EFFORT & INSPECTION: Yes able to speak in complete sentences and Yes symmetric chest movement Extremity: RIGHT LOWER EXTREMITY: Yes knee joint (Dressing has been changed and is dry and intact) Right knee: Yes ROM (Not evaluated) and Yes neurovascular exam (Intact distally) Neuro: COMMON NORMALS: patient oriented x3 SENSORIUM/ORIENTATION: Yes alert Psych: COMMON NORMALS: mental status grossly normal APPEARANCE: Yes grossly normal ATTITUDE: Yes calm and Yes engaged ATTENTION/CONCENTRATION: Yes attention grossly intact Skin: COMMON NORMALS: no rashes or lesions noted GENERAL SKIN EXAM: no rashes or lesions noted Urinary Catheter Management: Andino: Cath Placed During This Visit: yes Reason for Continuing Indwelling Catheter: Perioperative Use in Selected Surgeries Urinary Catheter Date of Insertion: 11/27/24 Urinary Catheter Time of Insertion: 07:56 Data 12/02/24 05:17 12/02/24 05:17 A&P Assessment and plan (1) Primary osteoarthritis of right knee: This 89-year-old woman presented for same-day surgery in the form of right total knee arthroplasty. The orthopedic portion of the surgical procedure was uneventful, however, the patient had difficulty with blood pressure throughout the surgical procedure. Postoperatively, she also was quite soft on blood pressure. She therefore was admitted to the floor after consultation with the hospitalist team, Dr. Parsons. Patient was further treated by the medical service. Yesterday, she was transferred to [facility] with atrial fibrillation with rapid ventricular response. This is being addressed by medicine, and discharge will be delayed until this has been resolved and she is felt safe for discharge. snf application has been made. (2) Status post total right knee replacement not using cement: Attestations Medical Necessity Statement*: Per hospitalist team. Coding Level of Care Code Acute Code for [facility] Diagnoses Primary osteoarthritis of right knee M17.11 Status post total right knee replacement not using cement Z96.651
[2024-12-01] MEDS: TRAMadol 50 mg Tablet PO (12:53)
--- NOTE | 2024-12-01 14:08 | P.PN_ITS ---
Subjective 2 Subjective: Patient was transferred to cardiac stepdown unit on amiodarone drip. Today morning she complains of nausea. No actual vomiting as far nursing staff. Oral intake is limited. She denies any abdominal pain. Had a bowel movement today. Complaining of pain in her leg. Medications: Reviewed: Yes Vitals/I&O/Wt Last Vital Signs Temp 97.9 F 12/01/24 11:59 Pulse 78 12/01/24 11:59 Resp 20 H 12/01/24 11:59 BP 108/70 12/01/24 11:59 Pulse Ox 98 12/01/24 11:59 O2 Del Method Nasal Cannula 12/01/24 11:59 O2 Flow Rate 2 11/30/24 09:35 11/30/24 12/01/24 12/01/24 22:59 06:59 14:59 Intake Total 350 / 1015 200 / 1215 120 / 120 Output Total 450 / 450 600 / 600 Balance 350 / 1015 -250 / 765 -480 / -480 Weight last 48 hrs Weight 94.211 kg Weight 92.788 kg Physical Exam 2 Narrative: General: No acute distress, AO x3 HEENT: PERRLA, pupils bilaterally equal and reactive Chest: Normal vesicular breath sounds, no added sounds, equal good air entry bilaterally CVS: S1-S2 regular, no murmurs, no tachycardia, no gallops, no rubs Abdomen: Soft, nontender, no organomegaly, bowel sounds present Neuro: No focal deficits, no facial deformity, AO x3, power 5/5 in all limbs Urinary Catheter Management: Andino: Cath Placed During This Visit: yes Reason for Continuing Indwelling Catheter: Perioperative Use in Selected Surgeries Urinary Catheter Date of Insertion: 11/27/24 Urinary Catheter Time of Insertion: 07:56 Data 12/01/24 02:27 12/01/24 02:27 A&P Assessment and plan (1) Postoperative anemia: Baseline hemoglobin of 13.5. Post 2 units of blood transfusion. Hemoglobin trending down again. Will transfuse 1 more unit of PRBC given soft blood pressures and A-fib with RVR. Holding off on Eliquis. Most likely will plan to discharge off Eliquis for next 2 weeks. (2) Paroxysmal atrial fibrillation with RVR: Heart rate elevated today. quality assurance monitor body. Check EKG. If has persistent A-fib we will need to start on amiodarone given concerns for soft blood pressures will be difficult to go up on metoprolol. Holding off on Eliquis given concerns of postoperative anemia. (3) Encounter for postoperative care: Post arthroplasty of right knee on 11/27. Hemoglobin continues to trend down. Holding off on Eliquis. Started on heparin 5000 every 12 hourly. Antibiotics and physical therapy as per primary team. (4) Postoperative hemorrhagic shock: Goal blood pressure less than 140/90 mmHg with mean over 65. Blood pressure soft. Hold off on antihypertensives. Continue with home dose of metoprolol 25 mg twice daily (5) Essential (primary) hypertension: (6) Aortic valve stenosis: Last echocardiogram from 2022 showed EF of 55 to 60% without regional wall motion abnormality, mild TR with RVSP of 35-40 manage consistent with mild pulmonary hypertension, dilated LA. In mild fluid overload today. Awaiting blood transfusion. IV Lasix 40 mg one-time. Strict input charting, daily weights. Qualifiers: Cardiac valve disease etiology: nonrheumatic Qualified Code(s): I35.0 - Nonrheumatic aortic (valve) stenosis Plan Fluid overload: Seems to be in mild fluid overload today. Could be in setting of anemia. IV Lasix 40 mg one-time. Check proBNP. Check chest x-ray. Strict input output charting, daily weights. Continue with other chronic medications including duloxetine, gabapentin, trazodone, Protonix twice daily. Cardiac diet Protonix to be sufficient for PUD prophylaxis Foot pumps for DVT prophylaxis Plan for the day: Continue with amiodarone drip for now. Discontinue as per the protocol after 24 hours. Start on amiodarone 200 mg twice daily. Blood pressure stable. Increase dose of metoprolol to 50 mg twice daily. Overall 2 units of blood transfusion. Repeat hemoglobin check in AM. Target hemoglobin more than 8. Out of bed to chair. Oral Lasix 40 mg one-time today. Continue with heparin 5000 Q12 hourly for now for anticoagulation. Most likely can restart home dose of anticoagulation in 1 week. Goal blood pressure less than 140/90 mmHg. Continue to hold off on other antihypertensive including amlodipine and Imdur for now. Care discussed in detail with primary team, nurse at bedside. Thank you for involving us in care of Ms. Waddell. Will continue to follow. Attestations 2 Medical Necessity Statement*: As per primary team. Requires further hospitalization for A-fib with RVR, postoperative anemia requiring blood transfusion Diagnoses Postoperative anemia D64.9 Paroxysmal atrial fibrillation with RVR I48.0 Encounter for postoperative care Z48.89 Postoperative hemorrhagic shock T81.19XA Essential (primary) hypertension I10 Nonrheumatic aortic valve stenosis I35.0 Cardiac valve disease etiology: nonrheumatic
--- NOTE | 2024-12-01 16:03 | PC.SOCIAL ---
IMM updated IMM dated and initialed, copy given to patient and copy placed in chart.
--- NOTE | 2024-12-01 16:06 | PC.NURSE ---
Provider is updated that patients blood pressures this afternoon have been soft: last one was 103/46 HR 66, 105/46 HR 65, 98/50 HR 66, and 108/70 HR 82. She has been in SR and mainly laying down resting. Her amio drip is still going 24 hours is 1999. Provider ordered to update him before her 1800 dose of metoprolol.
[2024-12-01] MEDS: duloxetine 60 mg Capsule PO (17:41)
--- NOTE | 2024-12-01 17:48 | PC.NURSE ---
Provider is updated with patients current blood pressure of 101/58, provider ordered to give metoprolol 25mg instead of the 50mg in the order. Order entered for a one time dose of metoprolol 25mg PO.
[2024-12-01] MEDS: trazodone 100 mg Tablet PO (20:12)
[2024-12-02] VITALS: BP 105/52; PULSE 65; RESP 16; O2SAT 95
[2024-12-02 04:00] VITALS: BP 123/58; PULSE 73; RESP 13; TEMP 36.8; O2SAT 94
[2024-12-02] MEDS: cetirizine 10 mg Tablet PO (05:38)
[2024-12-02 06:00] VITALS: PULSE 69
[2024-12-02 06:49] LABS: Basophils # 0.1 10^3/uL (0.0-0.1); Basophils % 0.7 %; Eosinophils # 0.3 10^3/uL (0.0-0.8); Eosinophils % 4.1 %; Hematocrit 28.9 % (36-47); Lymphocytes % 27.8 %; Mean Corpuscular HGB Conc 32.2 g/dL (30-55); Mean Corpuscular Hemoglobin 31.7 pg (27-33); Mean Corpuscular Volume 98.6 fl (85-98); Mean Platelet Volume 10.5 fL (7.4-10.4); Monocytes % 13.4 %; Neutrophils # 3.78 10^3/uL (1.8-7.7); Neutrophils % 53.3 %; Nucleated Red Blood Cells % 0 %; Platelet Count 206 10^3/cmm (157-399); Red Blood Count 2.93 10^6/uL (3.85-5.65); Red Cell Distribution Width 13.7 % (12.1-15.1); White Blood Count 7.09 10^3/uL (3.29-11.43)
[2024-12-02 07:06] LABS: Alanine Aminotransferase 6 U/L (0-33); Albumin Level 2.7 g/dL (3.5-5.2); Alkaline Phosphatase 56 U/L (35-105); Anion Gap 13.7 (5-19); Aspartate Amino Transferase 18 U/L (0-32); Blood Urea Nitrogen 11 mg/dL (8-23); Calcium 8.8 mg/dL (8.5-10.5); Carbon Dioxide 28 mmol/L (22-29); Chloride 99 mmol/L (98-107); Creatinine Clr Calc Pharmacy 51.9048; Globulin 2.8 g/dL (1.3-4.6); Glucose 109 mg/dL (65-115); Osmolality Calculated 284 mOsm/kg (285-295); Potassium 3.7 mmol/L (3.5-5.1); Sodium 137 mmol/L (136-145); Total Bilirubin 0.8 mg/dL (0.15-1.2); Total Protein 5.5 g/dL (6.6-8.7)
[2024-12-02 08:00] VITALS: BP 123/91; PULSE 75; RESP 20; TEMP 36.7; O2SAT 94
[2024-12-02] MEDS: multivitamin therapeutic Tablet 1 TAB PO (08:40)
[2024-12-02] MEDS: heparin 5,000 unit/mL INJ 1 mL 5000 UNIT SUBCUT (08:40)
[2024-12-02] MEDS: amiodarone 200 mg Tablet PO (08:40)
[2024-12-02] MEDS: gabapentin 300 mg Capsule 600 MG PO ×2 (08:41→14:45)
[2024-12-02] MEDS: sennosides-docusate Tablet 2 TAB PO (08:41)
[2024-12-02] MEDS: metoprolol tartrate 25 mg Tablet 50 MG PO (08:41)
[2024-12-02] MEDS: iron polysaccharide complex 150 mg Capsule PO (08:41)
[2024-12-02] MEDS: pantoprazole DR 40 mg Tablet PO (08:41)
[2024-12-02] MEDS: calcium carbonate 500 mg Chew Tablet 1000 MG PO (08:41)
[2024-12-02] MEDS: cholecalciferol (vitamin D3) 1,000 unit Tablet 1000 UNIT PO (08:42)
[2024-12-02] MEDS: chlorhexidine gluconate 0.12% Btl 473 mL 30 ML MUCOUS MEM ×2 (08:42→14:45)
[2024-12-02] MEDS: mupirocin oint 22 gm 1 APPLIC NASAL (08:43)
[2024-12-02] MEDS: ondansetron 2 mg/ML SDV 2 mL 4 MG IVP (09:02)
[2024-12-02] MEDS: HYDROcodone-acetaminophen 5-325 mg Tablet 1 TAB PO ×2 (09:14→14:45)
[2024-12-02 12:00] VITALS: BP 120/72; PULSE 62; RESP 20; TEMP 36.5; O2SAT 95
--- NOTE | 2024-12-02 12:34 | P.DS_ITS ---
Discharge Providers Date of Admission: 11/27/24 11:14 Date of Discharge: December 02, 2024 Attending Provider at Admission: Grace Churchill MD Attending Provider at Discharge: Grace Churchill MD Consults: Hospitalist team?Dr. Jair Parsons Primary Care Provider: Feng Miles MD Diagnoses at Discharge Discharge Diagnosis (1) Primary osteoarthritis of right knee: Status: Acute (2) Status post total right knee replacement not using cement: Status: Acute Permanent problem details: Date of procedure: November 27, 2024 Diagnosis: Primary osteoarthritis right knee with valgus deformity Procedure done: Right total knee arthroplasty with Roman guidance Implants: The [place] total knee system with a size 4 triathlon beaded cruciate retaining femur right, a triathlon titanium tibial component size 3 beaded, a triathlon X3 tibial bearing CS insert size 3 X 11 mm and a beaded triathlon titanium asymmetric patella size 32 x 10 mm (3) Paroxysmal atrial fibrillation with RVR: Status: Acute (4) Essential (primary) hypertension: Status: Chronic Reason for Visit Reason for Visit: Brief History: This 89-year-old woman presented today with severe complaints of right knee pain. The patient was having significant limitations in her activities of daily living secondary to primary osteoarthritis of the right knee with valgus deformity. The patient had underwent left total knee arthroplasty in October 2021. She has done well following this and wished to proceed with right total knee arthroplasty. Risks and complications were explained to her in the office. Consents were signed and questions were answered. Hospital Course Hospital Course Patient was admitted to the hospital following same-day surgery for right total knee arthroplasty. During surgery, her blood pressure became soft, and this did require consultation to the medical service. The patient was transfused for postoperative anemia. She further stabilized, but later in her hospital course, the blood pressure again became somewhat labile. Medications were adjusted per the hospitalist team. She was transferred to the coronary stepdown unit on November 30 following atrial fibrillation with rapid ventricular response. This has resolved with appropriate medical treatments as well. Plans are made for the patient's discharge to correction, and this will be accomplished today. She has been accepted and is in agreement with the plan. Physical Exam Const: COMMON NORMALS: no acute distress, average body habitus, patient oriented x3 and alert GENERAL APPEARANCE: cooperative and comfortable ORIENTATION/CONSCIOUSNESS: Yes awake HENMT: COMMON NORMALS: normocephalic and atraumatic HEAD & SCALP: normocephalic and atraumatic Eye: GENERAL EYE: appearance normal, both eyes and all related structures Chest: COMMONS NORMALS: normal inspection of the chest Resp: COMMON NORMALS: normal respiratory effort EFFORT & INSPECTION: Yes able to speak in complete sentences and Yes symmetric chest movement Extremity: RIGHT LOWER EXTREMITY: Yes knee joint (Dressing is dry and intact.) Right knee: Yes palpation (Some tenderness over thigh and calf), Yes ROM (Not evaluated) and Yes neurovascular exam (Intact distally with no evidence of DVT) Neuro: COMMON NORMALS: patient oriented x3 SENSORIUM/ORIENTATION: Yes alert Psych: COMMON NORMALS: mental status grossly normal APPEARANCE: Yes grossly normal ATTITUDE: Yes calm and Yes engaged ATTENTION/CONCENTRATION: Yes attention grossly intact Skin: COMMON NORMALS: no rashes or lesions noted GENERAL SKIN EXAM: no rashes or lesions noted Urinary Catheter Management: Andino: Cath Placed During This Visit: yes Reason for Continuing Indwelling Catheter: Perioperative Use in Selected Surgeries Urinary Catheter Date of Insertion: 11/27/24 Urinary Catheter Time of Insertion: 07:56 Discharge Data Studies Completed and Pending Completed Studies During Hospitalization Category Date Time Status XR abdomen 1V* [id number] Routine Exams 12/01/24 10:52 Completed XR chest 1V portable [id number] Routine Exams 11/30/24 15:06 Completed XR knee RT 1-2V [id number] Routine Exams 11/27/24 11:09 Completed Pending at discharge Category Date Time Status SARS Covid-2 Antigen Routine Lab 12/02/24 12:25 Uncollected Radiology Impressions Knee X-Ray 11/27/24 11:09 Impression: Right knee arthroplasty. Chest X-Ray 11/30/24 15:06 IMPRESSION: No acute cardiopulmonary abnormality. Abdomen X-Ray 12/01/24 10:52 IMPRESSION: 1. No acute abdominal process. Laboratory Results WBC 7.09 10^3/uL (3.29-11.43) 12/02/24 05:17 RBC 2.93 10^6/uL (3.85-5.65) L 12/02/24 05:17 Hgb 9.30 g/dL (11.27-16.99) L 12/02/24 05:17 Hct 28.9 % (36-47) L 12/02/24 05:17 MCV 98.6 fl (85-98) H 12/02/24 05:17 MCH 31.7 pg (27-33) 12/02/24 05:17 MCHC 32.2 g/dL (30-55) 12/02/24 05:17 RDW 13.7 % (12.1-15.1) 12/02/24 05:17 Plt Count 206 10^3/cmm (157-399) 12/02/24 05:17 MPV 10.5 fL (7.4-10.4) H 12/02/24 05:17 Neut % (Auto) 53.3 % 12/02/24 05:17 Lymph % (Auto) 27.8 % 12/02/24 05:17 [place] % (Auto) 13.4 % 12/02/24 05:17 Eos % (Auto) 4.1 % 12/02/24 05:17 Baso % (Auto) 0.7 % 12/02/24 05:17 Neut # (Auto) 3.78 10^3/uL (1.8-7.7) 12/02/24 05:17 Lymph # (Auto) 2.0 10^3/uL (0.8-4.8) 12/02/24 05:17 [place] # (Auto) 1.0 10^3/uL (0.2-0.9) H 12/02/24 05:17 Eos # (Auto) 0.3 10^3/uL (0.0-0.8) 12/02/24 05:17 Baso # (Auto) 0.1 10^3/uL (0.0-0.1) 12/02/24 05:17 Nucleated RBC % (auto) 0 % 12/02/24 05:17 Nucleated RBCs # 0.0 /100WBC 12/02/24 05:17 Sodium 137 mmol/L (136-145) 12/02/24 05:17 Potassium 3.7 mmol/L (3.5-5.1) 12/02/24 05:17 Chloride 99 mmol/L (98-107) 12/02/24 05:17 Carbon Dioxide 28 mmol/L (22-29) 12/02/24 05:17 Anion Gap 13.7 (5-19) 12/02/24 05:17 BUN 11 mg/dL (8-23) 12/02/24 05:17 Creatinine 0.6 mg/dL (0.5-0.9) 12/02/24 05:17 GFR Calculation Not Reportable 12/02/24 05:17 Glucose 109 mg/dL (65-115) 12/02/24 05:17 Estimat Average Glucose 103 11/27/24 07:20 Hemoglobin A1c 5.2 % (4.0-6.0) 11/27/24 07:20 Calculated Osmolality 284 mOsm/kg (285-295) L 12/02/24 05:17 Calcium 8.8 mg/dL (8.5-10.5) 12/02/24 05:17 Magnesium 1.9 mg/dL (1.7-2.3) 11/30/24 03:50 Iron 198 ug/dL (37-145) H 11/27/24 16:38 TIBC 237 mcg/dl 11/27/24 16:38 % Saturation 83.5 % (20-50) H 11/27/24 16:38 Unsat Iron Binding 39 ug/dL (112-347) L 11/27/24 16:38 Total Bilirubin 0.8 mg/dL (0.15-1.2) 12/02/24 05:17 AST 18 U/L (0-32) 12/02/24 05:17 ALT 6 U/L (0-33) 12/02/24 05:17 Alkaline Phosphatase 56 U/L (35-105) 12/02/24 05:17 NT-Pro-B Natriuret Pep 824 pg/mL (0-450) H 11/30/24 03:50 Total Protein 5.5 g/dL (6.6-8.7) L 12/02/24 05:17 Albumin 2.7 g/dL (3.5-5.2) L 12/02/24 05:17 Globulin 2.8 g/dL (1.3-4.6) 12/02/24 05:17 Triglycerides 153 mg/dL (0-150) H 11/28/24 03:29 Cholesterol 153 mg/dL (0-200) 11/28/24 03:29 LDL Cholesterol, Calc 92 mg/dL (50-129) 11/28/24 03:29 Total VLDL Cholesterol 31 mg/dL (0-30) H 11/28/24 03:29 HDL Cholesterol 30 mg/dL (60-100) L 11/28/24 03:29 Cholesterol/HDL Ratio 5.10 mg/dL (0.0-4.40) H 11/28/24 03:29 Vitamin B12 469 pg/mL (232-1245) 11/27/24 16:38 Folate 15.7 ng/mL (4.8-37.3) 11/28/24 03:29 TSH 1.94 uIU/mL (0.27-4.20) 11/27/24 16:38 Blood Type A Negative 11/30/24 12:39 Rho(D) Type Rh negative 11/30/24 12:39 Antibody Screen Negative 11/30/24 12:39 Crossmatch See Detail 11/30/24 12:39 Vitals Last Vital Signs Temp 98.1 F 12/02/24 08:00 Pulse 75 12/02/24 08:00 Resp 20 H 12/02/24 08:00 BP 123/91 12/02/24 08:00 Pulse Ox 94 12/02/24 08:00 O2 Del Method Nasal Cannula 12/02/24 08:00 O2 Flow Rate 2 12/02/24 08:00 Discharge Plan Discharge Patient Disposition: Xfer [facility] Condition: Stable Prescriptions: New acetaminophen 325 mg Tablet 325 mg PO Q6H PRN (Reason: Mild Pain) 15 Days Qty: 90 0RF tramadol 50 mg Tablet 50 mg PO Q4H PRN (Reason: Moderate Pain) 7 Days Qty: 30 0RF diclofenac sodium 1 % Gel 4 g topical TID PRN (Reason: Pain) 15 Days Qty: 100 1RF amiodarone [Pacerone] 200 mg Tablet 200 mg PO BID 30 Days Qty: 60 0RF polysaccharide iron complex [Ferrex 150] 150 mg iron Capsule 150 mg PO EVERY OTHER DAY 30 Days Qty: 15 0RF sennosides-docusate sodium [Stool Softener-Laxative] 8.6-50 mg Tablet 2 tab PO BID 30 Days Qty: 120 0RF metoprolol tartrate 25 mg Tablet 50 mg PO BID 30 Days Qty: 120 0RF cholecalciferol (vitamin D3) 25 mcg (1,000 unit) Tablet 1,000 unit PO DAILY 30 Days Qty: 30 0RF apixaban 2.5 mg tablet 2.5 mg PO BID Qty: 14 0RF Rx Instructions: 2.5 mg for 7 days followed by return to usual dose of 5 mg PO BID thereafter Continued multivitamin Tablet 1 tab PO QAM cetirizine [Allergy Relief (cetirizine)] 10 mg tablet 10 mg PO QAM cholecalciferol (vitamin D3) 1,250 mcg (50,000 unit) capsule 1,250 mcg PO .weekly nitroglycerin [Nitrostat] 0.4 mg tablet, sublingual 0.4 mg SUBLINGUAL Q5M PRN (Reason: chest pain) Qty: 25 12RF Rx Instructions: until response; do not exceed 3 doses per episode pantoprazole 40 mg tablet,delayed release (DR/EC) 40 mg PO BID Qty: 60 1RF Rx Instructions: TAKE 1 TABLET BY MOUTH TWICE DAILY duloxetine [Cymbalta] 60 mg capsule,delayed release(DR/EC) 60 mg PO QPM Qty: 30 0RF hydrocodone-acetaminophen 5-325 mg tablet 1 tab PO Q4H MDD 4 tabs PRN (Reason: pain) Hold Instructions: Resume on 10/20/23. gabapentin 300 mg capsule 600 mg PO TID Rx Instructions: take TWO capsules BY MOUTH THREE TIMES DAILY isosorbide mononitrate 30 mg tablet extended release 24 hr 30 mg PO DAILY Rx Instructions: TAKE 1 TABLET BY MOUTH EVERY DAY trazodone 100 mg tablet 100 mg PO BEDTIME Rx Instructions: TAKE TWO TABLETS BY MOUTH AT BEDTIME Held Eliquis 5 mg tablet 5 mg PO BID Qty: 180 3RF Hold Instructions: Resume on 10/17/23. Discontinued metoprolol tartrate 25 mg tablet 25 mg PO BID Rx Instructions: take 1/2 tablet BY MOUTH TWICE DAILY No Action amlodipine 5 mg tablet 5 mg PO DAILY Discharge Orders: Discharge Order (Routine); Ordered 12/02/24 Ordered By: Grace Churchill Referrals: Grace Churchill MD [Physician] - 12/10/24 1:15 pm Discharge Diet: Advance as tolerated and Usual diet Discharge Activity: Increase activity as tolerated, Limit activity as instructed, Use walker/crutches as instructed and As per PT/OT instructions Patient Instructions: Iron Supplements (By mouth), Metoprolol (By mouth) (Lopressor, Toprol XL), Acetaminophen (By mouth), Diclofenac (By mouth), Amiodarone (By mouth) (Cordarone, Pacerone), Laxative, Stool Softeners (By mouth) (Doculax, Colace, Colace Clear, DSS), Tramadol (By mouth) (Ultram, Ultram ER, [place], Theratramadol-60, Qdolo), Alendronate/Cholecalciferol (By mouth) (Fosamax Plus D), Acute Wound Care (DC), Opioid Safety, Post Anesthesia Care Activity Restrictions/Additional Instructions: Ice and elevation to right lower extremity. You may remove your dressing if it lifts up off the skin; otherwise, keep it on until you are seen in the office. Gait training, ambulation, and strengthening per physical therapy. Discharge Attestations Time Spent in Discharge Care*: greater than 30 min Specific Discharge Activities: educating patient, discussing with pcp/other providers, discussing with upper caser/social workers/dc planners and documenting/other paperwork Quality Metrics Clinical Quality Measures [ No reported AMI, CVA or VTE this stay] Coding Level of Care Code Acute Code for Chg Fwd Diagnoses Primary osteoarthritis of right knee M17.11 Status post total right knee replacement not using cement Z96.651 Paroxysmal atrial fibrillation with RVR I48.0 Essential (primary) hypertension I10
--- NOTE | 2024-12-02 12:42 | P.PN_ITS ---
Subjective 2 Subjective: Patient seen and evaluated. She is sitting in bedside chair and eating breakfast. She states that her nausea has resolved. Reports chronic shortness of breath which is currently at baseline. Anticipating possible discharge today. Medications: Reviewed: Yes Vitals/I&O/Wt Last Vital Signs Temp 98.1 F 12/02/24 08:00 Pulse 75 12/02/24 08:00 Resp 20 H 12/02/24 08:00 BP 123/91 12/02/24 08:00 Pulse Ox 94 12/02/24 08:00 O2 Del Method Nasal Cannula 12/02/24 08:00 O2 Flow Rate 2 12/02/24 08:00 12/01/24 12/02/24 12/02/24 22:59 06:59 14:59 Intake Total 615.297 / 935.297 200 / 1135.297 360 / 360 Output Total 325 / 1175 600 / 600 Balance 290.297 / -239.703 200 / -39.703 -240 / -240 Weight last 48 hrs Weight 94.211 kg Weight 94.211 kg Physical Exam 2 Narrative: General: Patient is awake and alert. Sitting in bedside chair. Conversational. Head: Normocephalic. Atraumatic. EOM intact. Neck: No JVD. Cardiovascular: RRR. No gallops. No murmurs. Lungs: Breath sounds are mildly diminished in bases, no use of accessory muscles, no crackles or wheezes. On nasal cannula. Skin: No jaundice. No rashes. Abdomen: Normal bowel sounds, abdomen soft and nontender. Extremities: No cyanosis or clubbing. Musculoskeletal: Right lower extremity is swollen. Neurological: No myoclonus. Urinary Catheter Management: Andino: Cath Placed During This Visit: yes Reason for Continuing Indwelling Catheter: Perioperative Use in Selected Surgeries Urinary Catheter Date of Insertion: 11/27/24 Urinary Catheter Time of Insertion: 07:56 Data 12/02/24 05:17 12/02/24 05:17 A&P Assessment and plan (1) Postoperative anemia: (2) Paroxysmal atrial fibrillation with RVR: (3) Encounter for postoperative care: (4) Postoperative hemorrhagic shock: (5) Essential (primary) hypertension: (6) Aortic valve stenosis: Qualifiers: Cardiac valve disease etiology: nonrheumatic Qualified Code(s): I35.0 - Nonrheumatic aortic (valve) stenosis Plan Postop hemoglobin now stable Patient tolerating DVT prophylactic anticoagulation, recommending continuing Would restart home apixaban full dose in approximately 7 days; will send on 2.5 mg BID x7 days Discontinue Norvasc; Increase metoprolol tartrate to 50mg BID Continue amiodarone; would consider discontinuing after 30 days if rate remains controlled Continue therapy, medically ready for postacute rehabilitation D/w Dr Churchill Above medication changes made on discharge med rec. Attestations 2 Medical Necessity Statement*: Thank you for this consultation. Will continue to follow while patient remains admitted. Coding Level of Care Code Acute Code for Chg Fwd Diagnoses Postoperative anemia D64.9 Paroxysmal atrial fibrillation with RVR I48.0 Encounter for postoperative care Z48.89 Postoperative hemorrhagic shock T81.19XA Essential (primary) hypertension I10 Nonrheumatic aortic valve stenosis I35.0 Cardiac valve disease etiology: nonrheumatic
[2024-12-02 13:28] LABS: SARS Covid-2 Antigen Negative (Negative)
--- NOTE | 2024-12-02 14:08 | PC.NURSE ---
Report is called to MILADY Hopson at [facility] at 1208. [phone]. [facility] is sending transportation for her.
[2024-12-02 14:50] VITALS: BP 112/78; PULSE 77; RESP 21; O2SAT 93
--- OUTSIDE RECORDS SUMMARY | 2024-12-09 05:32 | XMS_ITS | Data Portability ---
Author Organization JESSE Damian [facility] Silverio Franks [facility] Address [address] [facility] [address] [place] [address] Assessment No assessment recorded. Plan of Treatment Reminders Order Date Submit Date Provider Last Modified By Organization Details Last Modified Time Details Appointments RECHECK 15 2024 02:30P Martha Miles MD Not available Not available Not available Lab CBC w/ auto diff 2023 024 dom Salgado [facility], [address] [place], [place], [address], 07/16/2024 16:13:13 CMP, serum or plasma 2023 024 SOL[place] [facility], [address] [place] [address], [facility] [address] [place], [address], 07/10/2024 08:51:55 TSH, serum or plasma 2023 024 [facility] ([facility]), [address] [place], [address], 07/09/2024 17:21:51 Referral physical therapist referral 2023 024 [email or web address] [facility], [address], [place], [address], 07/25/2024 15:21:[address] referral 2023 024 [email or web address] [facility] Neurology, [address] [place], [address], 11/17/2024 14:58:55 Procedures None recorded. Surgeries None recorded. Imaging MRI, brain, w/o contrast - Attn acoustic nerve. [address] Imaging Orders, [address] [place], [address], 11/07/2024 18:40:48 Medication Orders ergocalci ferol (vitamin D2) 1,250 mcg (50,000 unit) capsule 2023 024 [facility], [address] [place] [address], [address], 10/08/2024 17:26:58 nitroglyc inge 0.4 mg sublingua l tablet [address], [address], 08/12/2024 17:51:56 meclizine 25 mg tablet 2023 024 [facility], [address] [place] [address], [address], 11/13/2024 18:24:40 trazodone 100 mg tablet [id number] [place] [address], [address] [place] [address], [address], 12/04/2024 10:01:20 Patient TargetsNo targets recorded. Patient InstructionsNo instructions recorded. Reason for Referral Physical Therapist Referral for Benign paroxysmal positional vertigo Referring Physician: [facility], Encounter Date: 07/09/2024 Neurologist Referral for Bryon balderas Referring Physician: [facility], Encounter Date: 10/24/2024 Results Created Date Observation Date Name Description Value Unit Range Abnormal Flag Note LastModifiedBy Organization Detail LastModifiedTime 07/09/2007/09/2024 CBC WBC 6.2 x10 4.0-10 .5 Not Available Salgado [facility] [address], [place], [address], 07/09/2024 16:35:00 07/09/20 24 07/09/2024 CBC RBC 4.30 x10 3.50-5 .50 Not Available Salgado [facility] [address] [facility] 1, [place], [address], 07/09/2024 16:35:00 07/09/20 24 07/09/2024 CBC HGB 13.9 g/dL 12.0-1 6.0 Not Available Salgado [facility] [address] [facility] 1, [place], [address], 07/09/2024 16:35:00 07/09/20 24 07/09/2024 CBC HCT 41.5 % 37.0-4 7.0 Not Available Salgado [facility] [address], [place], [address], 07/09/2024 16:35:00 07/09/20 24 07/09/2024 CBC MCV 96.5 fL 80.0-9 9.9 Not Available Salgado [facility] [address] [facility] 1, [place], [address], 07/09/2024 16:35:00 07/09/20 24 07/09/2024 CBC MCH 32.2 pg 27.0-3 2.0 high Not Available Salgado [facility] [address] [facility] 1, [place], [address], 07/09/2024 16:35:00 07/09/20 24 07/09/2024 CBC MCHC 33.4 g/dL 32.0-3 6.0 Not Available Salgado [facility] [address] [facility] 1, [place], [address], 07/09/2024 16:35:00 07/09/20 24 07/09/2024 CBC RDW 12.9 % 11.5-1 4.5 Not Available Salgado [facility] [address] [facility] 1, [place], [address], 07/09/2024 16:35:00 07/09/20 24 07/09/2024 CBC plt 204.7 x10 140.0- 451.0 Not Available Salgado [facility] [address] [facility] 1, [place], [address], 07/09/2024 16:35:00 07/09/20 24 07/09/2024 CBC lymphocytes % 43.0 % 20.0-5 0.0 Not Available Salgado [facility] [address] [place] [address] [facility] 1, [place], [address], 07/09/2024 16:35:00 07/09/20 24 07/09/2024 CBC granulcytes % 42.8 % 30.0-7 0.0 Not Available Salgado [facility] [address] [place] [address] [facility] 1, [place], [address], 07/09/2024 16:35:00 07/09/20 24 07/09/2024 CBC monocytes % 10.1 % 2.0-16 .0 Not Available Salgado [facility] [address] [place] [address] [facility] 1, [place], [address], 07/09/2024 16:35:00 07/09/20 24 07/09/2024 CBC granulcytes# 2.7 x10 Not Leticia ilable Salgado [facility] [address] [place] [address] [facility] 1, [place], [address], 07/09/2024 16:35:00 07/09/20 24 07/09/2024 CBC lymphocytes # 2.7 x10 Not Available Salgado [facility] [address] [facility], [place], [address], 07/09/2024 16:35:00 07/09/20 24 07/09/2024 CBC monocytes # 0.6 x10 Not Avai lable [facility] [address] [facility] 1, [place], [address], 07/09/2024 16:35:00 07/09/20 24 07/10/2024 COMPR EHENS DEDRICK METAB OLIC PANEL glucose 82 mg/dL 65-99 normal Fasti ng refer ence inter rhett Not Available [address] [address] [place], [address], 07/10/2024 08:51:55 07/09/20 24 07/10/2024 COMPR EHENS DEDRICK METAB OLIC PANEL urea nitrogen (BUN) 13 mg/dL 7-25 normal Not Available [address] [place], [address], 07/10/2024 08:51:55 07/09/20 24 07/10/2024 COMPR EHENS DEDRICK METAB OLIC PANEL creatinine 0.89 mg/dL 0.60-0 .95 normal Not Available [address] [place], [address], 07/10/2024 08:51:55 07/09/20 24 07/10/2024 COMPR EHENS DEDRICK METAB OLIC PANEL eGFR 63 mL/mi n/1.7 3m2 > or = 60 normal Not Available [address] [address] [place], [address], 07/10/2024 08:51:55 07/09/20 24 07/10/2024 COMPR EHENS DEDRICK METAB OLIC PANEL BUN/creatini ne ratio SEE NOTE: (calc ) 6-22 Not Repor daniela: BUN and Creat inine are withi n refer ence range . Not Available [facility] [address] [address] [place], [address], 07/10/2024 08:51:55 07/09/20 24 07/10/2024 COMPR EHENS DEDRICK METAB OLIC PANEL sodium 135 mmol/ L 135-14 6 normal Not Available [address], [address], 07/10/2024 08:51:55 07/09/20 24 07/10/2024 COMPR EHENS DEDRICK METAB OLIC PANEL potassium 4.2 mmol/ L 3.5-5. 3 normal Not Available [address], [address], 07/10/2024 08:51:55 07/09/20 24 07/10/2024 COMPR EHENS DEDRICK METAB OLIC PANEL chloride 99 mmol/ L 98-110 normal Not Available [address], [address], 07/10/2024 08:51:55 07/09/20 24 07/10/2024 COMPR EHENS DEDRICK METAB OLIC PANEL carbon dioxide 32 mmol/ L 20-32 normal Not Available [address], [address], 07/10/2024 08:51:55 07/09/20 24 07/10/2024 COMPR EHENS DEDRICK METAB OLIC PANEL calcium 9.7 mg/dL 8.6-10 .4 normal Not Available [address], [address], 07/10/2024 08:51:55 07/09/20 24 07/10/2024 COMPR EHENS DEDRICK METAB OLIC PANEL protein, total 6.8 g/dL 6.1-8. 1 normal Not Available [address], [address], 07/10/2024 08:51:55 07/09/20 24 07/10/2024 COMPR EHENS DEDRICK METAB OLIC PANEL albumin 4.0 g/dL 3.6-5. 1 normal Not Available [address] [place], [address], 07/10/2024 08:51:55 07/09/20 24 07/10/2024 COMPR EHENS DEDRICK METAB OLIC PANEL globulin 2.8 g/dL_ (calc ) 1.9-3. 7 normal Not Available [address], [address], 07/10/2024 08:51:55 07/09/20 24 07/10/2024 COMPR EHENS DEDRICK METAB OLIC PANEL albumin/glob ulin ratio 1.4 (calc ) 1.0-2. 5 normal Not Available [address], [address], 07/10/2024 08:51:55 07/09/20 24 07/10/2024 COMPR EHENS DEDRICK METAB OLIC PANEL bilirubin, total 0.4 mg/dL 0.2-1. 2 normal Not Available [address], [address], 07/10/2024 08:51:55 07/09/20 24 07/10/2024 COMPR EHENS DEDRICK METAB OLIC PANEL alkaline phosphatase 49 U/L 37-153 normal Not Available [address], [address], 07/10/2024 08:51:55 07/09/20 24 07/10/2024 COMPR EHENS DEDRICK METAB OLIC PANEL AST 19 U/L 10-35 normal Not Available [address], [address], 07/10/2024 08:51:55 07/09/20 24 07/10/2024 COMPR EHENS DEDRICK METAB OLIC PANEL ALT 10 U/L 6-29 normal Not Available [address], [address], 07/10/2024 08:51:55 07/09/20 24 07/09/2024 TSH, serum or plasm a TSH 4.88 uIU/m L 0.49-3 .82 Not Available [facility] ([facility]) [address] [place], [address], 07/09/2024 15:54:29 Result Notes None recorded. Problems Name Problem SNOMED Code Status Onset Date Resolution Date Notes Provider Name and Address Organization Details Recorded Time Allergic rhinitis 09317971 Active 2022 Shivam Sampson MD [address] [place], [address], [facility] 3 13:17:12 Chronic systolic heart failure 462175186 Active 2023 MONE TATE PA-C [address] [place], [address], [facility] 5 09:56:54 Chronic low back pain 543213770 Active 2023 MONE TATE PA-C [address] [place] [address], [address], [facility] 5 09:56:43 Moderate aortic valve stenosis 715265159 Active 2023 OMNE TATE PA-C [address] [place] [address], [address], [facility] 5 10:00:27 Labyrinthit is 79883886 Active 2023 Feng Miles MD [address] [place], [address], [facility] 4 15:33:42 Vitamin D deficiency 79620660 Active 2023 MONE TATE PA-C [address] [place], [address], [facility] 5 10:01:11 Low back pain 620935330 Active 2023 Feng Miles MD [address] [place], [place], [address] [place] [address] 5, [facility] 4 15:51:15 Essential hypertensio n 41973009 Active 2023 MONE TATE PA-C [address] [place], [place], [address] [place] [address] 5, [facility] 5 09:59:49 Gastroesoph ageal reflux disease 189293708 Active 2023 MONE TATE PA-C [address] [place] [address], [address] [place] [address] 5, [facility] 5 10:00:06 History of total knee arthroplast y 4421775556834 Active MONE TATE PA-C [address] [place] [address], [address] [place] [address] 5, [facility] 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 4 15:23:10 Anemia 996457620 Active MONE TATE PA-C [address] [place] [address], [address] [place] [address] 5, [facility] 5 09:51:52 Osteoarthri tis of left knee joint 4804623271666 09 Active MONE TATE PA-C [address] [place] [address], [address] [place] [address] 5, [facility] 5 10:00:32 Dyslipidemi a 483368170 Active MONE TATE PA-C [address] [place] [address], [address] [place] [address] 5, [facility] 5 09:58:37 Inguinal hernia 510420000 Active ALIDA MCCABEKOTA [facility] 4 15:23:11 Primary insomnia 1563774 Active ALIDA MCCABEKOTA [facility] 4 15:23:11 History of repair of inguinal hernia 598622102 Active ALIDA LAWSONKOTA [facility] 4 15:23:11 Anxiety 37515036 Active MONE TATE PA-C [address] [place], [place], [address] [place] [address] 5, [facility] RoulaC. 5 09:57:39 Coronary arterioscle rosis 34153491 Active MONE TATE PA-C [address] [place], [place], [address] [place] [address] 5, [facility], BenLMelaniaC. 5 09:56:59 Aortic valve stenosis 09155513 Active MONE TATE PA-C [address] [place], [place], [address] [place] [address] 5, [facility] RoulaC. 5 09:57:42 Recurrent right inguinal hernia 852847684 Active ALIDA camarena [facility] 4 15:23:11 Obstructive sleep apnea syndrome 19226721 Active MONE TATE PA-C [address] [place], [address] [place] [address] 5, [facility], LMelaniaLMelaniaC. 5 10:00:37 Pain of right knee joint 8685701769739 00 Active 2024 Feng Miles MD [address] [place], [address], [facility] 5 17:36:11 Atrial fibrillatio n 93529846 Active 2024 MONE TATE PA-C [address] [place], [address], [facility] 5 09:56:32 Osteoarthri tis of right knee joint 1892582434879 00 Active MONE TATE PA-C [address] [place], [address], [facility] L.L.CMelania 5 09:51:52 Problem Notes None recorded. Procedures Surgical History Date Name Laterality Status Provider Name and Address Organization Details Recorded Time 11/27/19 25 arthroplasty of knee completed MONE TATE PA-C [address] [place], [address], [facility] 12/04/2024 10:01:56 Imaging Results None recorded. Procedure Notes None recorded. Medical Equipment None Reported. Allergies Allergen ID Allergen Name Allergen Category Reaction Reaction Severity Criticality Documentation Date Start Date Code Code System Note Provider Name and Address Organization Details Recorded Time 45114 fentanyl hydrochlo ride medicatio n angioedem a moderate low 06/02/2023 26026 97 RxNorm Genoveva Payne [facility] 4 16:11:37 87265 Substance with sulfonami de structure and antibacte rial mechanism of action (substanc e) medicatio n rash mild low 06/02/2023 62348 8003 SNOMED [facility] 4 16:12:11 45513 morphine sulfate medicatio n anaphylax is severe high 06/02/2023 82215 RxNorm Genoveva Payne [facility]CM[facility] 4 16:11:52 87511 tramadol Not available other moderate low 06/02/2023 68294 RxNorm React ion: Urtic aria [facility], LMelaniaLMelaniaC. 4 16:12:20 34257 Product containin g penicilli n and antibioti c (product) medicatio n hives mild low 06/02/2023 35774 05 SNOMED Genoveva Payne [facility] 4 16:12:04 78353 fentanyl medicatio n Not available Not available Not available 08/11/20242024 4337 RxNorm MONE TATE PA-C [address] [place], [address], [facility], LMelaniaLMelaniaC. 5 09:51:51 70507 tramadol medicatio n Not available Not available Not available 08/11/20242024 95234 RxNorm MONE TATE PA-C [address] [place], [address], [facility], LMelaniaLMelaniaC. 5 09:51:51 [address]6586 cyclobenz aprine medicatio n Not available Not available Not available 08/11/20242024 00477 RxNorm MONE TATE PA-C [address] [place], [address], [facility], LMelaniaLMelaniaC. 5 09:51:51 Medications Name Sig Start Date Stop Date Status Note LastModified by Organization Details LastModified Time albuterol sulfate 2.5 mg/3 mL (0.083 %) solution for nebulizat ion four times daily, as needed 01/21 completed 0; Recorded 11/15/19 22 8:13AM by Caridad Lloyd, Office Visit; Not Available Not Available Not Available cetirizin e 10 mg tablet TAKE 1 TABLET BY MOUTH EVERY DAY active Not Available Not Available No t Available hydrocodo ne 5 mg-acetam inophen 325 mg tablet Take 1 tablet every 4 hours by oral route as needed. 2024 active Not Available Not Available Not Avai lable spironola ctone 25 mg-hydroc hlorothia zide 25 mg tablet take 1/2 tablet BY MOUTH EVERY DAY 12/04 completed Not Available Not Available Not Available polysacch aride iron complex 150 mg iron capsule 150 mg by oral route. 2024 active Not Available Not Available Not Avai lable isosorbid e mononitra te ER 30 mg tablet,ex tended release 24 hr TAKE 1 TABLET BY MOUTH EVERY DAY active Not Available Not Available No t Available amlodipin e 2.5 mg tablet TAKE 1 TABLET BY MOUTH EVERY DAY active Not Available Not Available No t Available hydrochlo deepa acid (bulk) 10 % liquid 01/21 completed 0; Recorded 11/15/19 22 8:13AM by Caridda Lloyd, Office Visit; Not Available Not Available Not Available amlodipin e 5 mg tablet TAKE 1 TABLET BY MOUTH EVERY DAY active Not Available Not Available No t Available ciproflox acin 500 mg tablet TAKE ONE TABLET BY MOUTH TWICE DAILY FOR ONE DAY 01/21 completed Not Available Not Available Not Available spironola ctone 25 mg tablet daily 01/21 completed 0; Recorded 11/15/19 22 8:13AM by Caridad Lloyd, Office Visit; Not Available Not Available Not Available erythromy alvaro 250 mg tablet TAKE 3 TABLETS BY MOUTH 30 MINUTES BEFORE DENTAL PROCEDUR E. REMAININ G TABLETS ARE FOR DENTAL FOLLOWUP 04/28 completed Not Available Not Available Not Available trazodone 100 mg tablet TAKE one TABLETS BY MOUTH AT BEDTIME 2024 active Not Available Not Available Not Avai lable meclizine 25 mg tablet TAKE 1 TABLET BY MOUTH THREE TIMES DAILY NEEDED active Not Available Not Available No t Available Bactroban 2 % topical ointment two times daily 07/16 completed Not Available Not Available Not Available hydrocodo ne 7.5 mg-acetam inophen 325 mg tablet TAKE ONE TABLET BY MOUTH EVERY 6 HOURS NEEDED FOR PAIN 01/21 completed Not Available Not Available Not Available pantopraz ole 40 mg tablet,de layed release TAKE 1 TABLET BY MOUTH TWICE DAILY active Not Available Not Available No t Available lidocaine 5 % topical patch APPLY ONE PATCH TOPICALL Y TO MOST PAINFUL AREA FOR UP TO 12 HOURS 12/04 completed Not Available Not Available Not Available nitroglyc inge 0.4 mg sublingua l tablet DISSOLVE 1 TABLET UNDER THE TONGUE EVERY 5 MINUTES NEEDED FOR CHEST PAIN. DO NOT EXCEED A TOTAL OF 3 DOSES IN 15 MINUTES. active Not Available Not Available No t Available docusate sodium 100 mg capsule TAKE ONE CAPSULE BY MOUTH TWICE DAILY active Not Available Not Available No t Available gabapenti n 300 mg capsule TAKE 2 CAPSULES BY MOUTH THREE TIMES DAILY active Not Available Not Available No t Available hydroxyzi ne HCl 25 mg tablet TAKE 1 TABLET BY MOUTH TWICE DAILY NEEDED FOR ITCHING active Not Available Not Available No t Available Vitamin D2 1,250 mcg (50,000 unit) capsule take 1 capsule BY MOUTH every week 2023 active Not Available Not Available Not Avai lable Tylenol Extra Strength 500 mg tablet every eight hours active Not Available Not Available No t Available Senna S 8.6 mg-50 mg tablet two times daily 04/28 completed 0; Recorded 11/15/19 22 8:13AM by Caridad Lloyd, Office Visit; Not Available Not Available Not Available metoprolo l tartrate 25 mg tablet take 1/2 tablet BY MOUTH TWICE DAILY active Not Available Not Available No t Available duloxetin e 60 mg capsule,d elayed release take 1 capsule BY MOUTH EVERY EVENING active Not Available Not Available No t Available aspirin daily 01/21 completed 0; Recorded 11/15/19 22 8:13AM by Caridad Lloyd, Office Visit; Not Available Not Available Not Available Glucosami ne daily 01/21 completed 0; Recorded 11/15/19 22 8:13AM by Caridad Lloyd, Office Visit; Not Available Not Available Not Available Vitamin D3 daily 04/28 completed 0; Recorded 11/15/19 22 8:13AM by Caridad Lloyd, Office Visit; Not Available Not Available Not Available Tums Ultra two times daily 04/28 completed 0; Recorded 11/15/19 22 8:13AM by Caridad Lloyd, Office Visit; Not Available Not Available Not Available Celebrex every twelve hours 04/28 completed 0; Recorded 11/15/19 22 8:13AM by Caridad Lloyd, Office Visit; Not Available Not Available Not Available Ferrex 150 two times daily 01/21 completed 0; Recorded 11/15/19 22 8:13AM by Caridad Lloyd, Office Visit; Not Available Not Available Not Available Trazodone at bedtime 01/21 completed 0; Recorded 11/15/19 22 8:13AM by Caridad Lloyd, Office Visit; Not Available Not Available Not Available Cymbalta daily 01/21 completed 0; Recorded 11/15/19 22 8:13AM by Caridad Lloyd, Office Visit; Not Available Not Available Not Available cholecalc iferol (vitamin D3) 25 mcg (1,000 unit) tablet 1000 units by oral route. 2024 active Not Available Not Available Not Avai lable hydrochlo rothiazid e 12.5 mg tablet daily 12/04 completed Not Available Not Available Not Available amlodipin e besylate (bulk) daily 01/21 completed 0; Recorded 11/15/19 22 8:13AM by Caridad Lloyd, Office Visit; Not Available Not Available Not Available Eliquis 5 mg tablet TAKE 1 TABLET BY MOUTH TWICE DAILY active Not Available Not Available No t Available Multi Vitamin daily active Not Available Not Available Not Available Vitals Date Recorded Body height Body mass index (BMI) Body weight Oxygen saturation Oxygen saturation in Arterial blood by Pulse oximetry Heart rate Systolic blood pressure Diastolic blood pressure Provider Name and Address Organization Details Last Updated DateTime 4 154.94 cm 34 kg/m2 70636.6 3 g 91 % 91 % 77 /min 118 mm[Hg] 70 mm[Hg] [facility] 4 14:57:48 Date Recorded Body height Body mass index (BMI) Body weight Oxygen saturation Oxygen saturation in Arterial blood by Pulse oximetry Inhaled oxygen flow rate Heart rate Systolic blood pressure Diastolic blood pressure Provider Name and Address Organization Details Last Updated DateTime 4 154.94 cm 34.6 kg/m2 91371.4 g 95 % 95 % 2 L/min 66 /min 120 mm[Hg] 72 mm[Hg] [facility] 4 15:17:57 Date Recorded Body height Body mass index (BMI) Body weight Oxygen saturation Oxygen saturation in Arterial blood by Pulse oximetry Inhaled oxygen flow rate Heart rate Systolic blood pressure Diastolic blood pressure Provider Name and Address Organization Details Last Updated DateTime 4 154.94 cm 35.1 kg/m2 82993.1 8 g 93 % 93 % 2 L/min 69 /min 124 mm[Hg] 70 mm[Hg] [facility] 4 15:40:00 Date Recorded Body height Body mass index (BMI) Body weight Oxygen saturation Oxygen saturation in Arterial blood by Pulse oximetry Heart rate Systolic blood pressure Diastolic blood pressure Provider Name and Address Organization Details Last Updated DateTime 4 154.94 cm 35.1 kg/m2 38106.1 8 g 88 % 88 % 75 /min 110 mm[Hg] 78 mm[Hg] [facility] 4 15:28:19 Date Recorded Body height Body mass index (BMI) Body weight Oxygen saturation Oxygen saturation in Arterial blood by Pulse oximetry Heart rate Respiratory rate Body temperature Systolic blood pressure Diastolic blood pressure Provider Name and Address Organization Details Last Updated DateTime 5 154.94 cm 36.7 kg/m2 51995.9 2 g 92 % 92 % 76 /min 23 /min 98.3 [degF] 95 mm[Hg] 66 mm[Hg] BRENNAN CASTRO [facility] 5 11:40:40 Social History Question Answer Notes LastModified by Organizat ion Details LastModified Time Tobacco Smoking Status Never Smoker MIAH camarena, [facility] 01/22/2024 16:15:11 What Is Your Level Of Alcohol Consumption? None [email or web address] Information not available 01/22/2024 Sex: Unknown Functional Status None recorded. Mental Status None recorded. Family History Relationship Description Onset Age of this Age Resolved Age Notes LastModified by Organization Details LastModified Time Mother Heart disease [email or web address] Not available 01/21 16:13:57 Mother Hypertensive disorder [email or web address] Not available 01/21 16:14:12 Medical History No medical history recorded. Gynecological HistoryNo gynecological history recorded. Obstetrics History GPAL:G 0 P 0 0 0 0 Immunizations Vaccine Type Date Status Note Provider Nam e and Address Organization Details Recorded Time COVID-19, mRNA, LNP-S, PF, 30 mcg/0.3 mL dose 1 completed ALIDA camarena [facility] 04/28/2024 14:43:13 COVID-19, mRNA, LNP-S, PF, 30 mcg/0.3 mL dose 1 [facility] 04/28/2024 14:43:13 pneumococcal polysaccharide PPV23 2 completed MONE TATE PA-C [address] [place], [address], [facility] 12/04/2024 09:51:53 Pneumococcal conjugate PCV 13 5 completed ALIDA camarena [facility] 04/28/2024 14:43:13 Influenza, high-dose, trivalent, PF 2 [facility] 07/16/2024 16:13:02 Influenza, split virus, trivalent, preservative 5 [facility] 04/28/2024 14:43:13 Influenza, split virus, trivalent, PF 3 completed ALIDA camarena, [facility] 04/28/2024 14:43:13 zoster recombinant 3 completed ALIDA camarena [facility] 07/09/2024 15:06:41 Influenza, high-dose, quadrivalent, PF 3 completed MONE TATE PA-C [address] [place], [address], [facility] 12/04/2024 09:51:53 Influenza, high-dose, quadrivalent, PF 2 completed Genoveva Payne null, [facility] 07/16/2024 16:13:01 Influenza, split virus, quadrivalent, PF 1 completed Genoveva Payne null, [facility] 07/16/2024 16:13:02 zoster recombinant 4 completed MIAH MONTANO null, [facility] 01/22/2024 18:08:33 Past Encounters Encounter ID Performer Location Encounter Start Date Encounter Closed Date Diagnosis/Indication Diagnosis SNOMED-CT Code Diagnosis ICD10 Code Diagnosis Note [id number] Shivam Sampson MD [facility] ([facility]) [address] [place] [id number] 07/10/2023 12:07:22 07/10/2023 17:22:55 Allergic rhinitis 21230487 J30.9 COVID test was negative. Exam is more consistent with allergies. Start Zyrtec. Discussed possibly adding nasal steroid. Follow-up as needed [id number] Feng Miles MD [facility] ([facility]) [address] [place] [phone] 01/22/2024 15:50:35 01/22/2024 17:22:06 Coronary atherosclerosis 211180498 I25.10 Paroxysmal atrial fibrillation 456906289 I48.0 Chronic sy stolic heart failure 923362129 I50.22 Chronic low back pain 27 4702818 M54.[address] Smallwood. Hypoxia 431306817 R09.02 uses oxygen at home. She will continue with that prn and with sleep. Viral gastroenteritis 11 0472158 A08.4 [id number] Feng Miles MD [facility] ([facility]) [address] [place] [address] [id number] 04/28/2024 14:38:45 04/28/2024 16:22:23 Paroxysmal atrial fibrillation 010534299 I48.0 stable by report. Dyspnea on exertion 6084 5006 R06.09 stable at this time. Moderate a ortic valve stenosis 782211126 I35.0 stable with no current sign of CHF. Labyrinthitis 72001692 H 83.03 comes and goes. Vitamin D deficiency 347 74684 E55.9 [id number] Feng Miles MD [facility] ([facility]) [address] [place] [address] [id number] 07/09/2024 15:02:40 07/09/2024 17:49:18 Chronic low back pain 517046558 M54.[address] Smallwood. Low back pain 364394146 M54.50 Benign par oxysmal positional vertigo 258543353 H81.10 worsening vertigo, will refer to PT to evaluate and treat. Gastroesop hageal reflux disease 984946942 K21.9 Essential hypertension 83656806 I10 [id number] Feng Miles MD [facility] ([facility]) [address] [place] [address] [id number] 08/11/2024 15:20:36 08/11/2024 17:55:42 Dizziness 772155327 R42 Chronic sy stolic heart failure 425731536 I50.22 Essential hypertension 91865474 I10 Labyrinthitis 08866189 H 83.03 comes and goes. Coronary atherosclerosis 873581946 I25.10 recent angina spell in which she used a nitrostat. [id number] Feng Miles MD [facility] ([facility]) [address] [place] [id number] 10/24/2024 15:07:17 10/27/2024 18:05:36 Chronic back pain 921538142 M54.9 stable Dizziness 754616098 R42 vertigo is persistant . WIll order an MRI of her head attn accoustic nerve and refer to see Dr Haines at her request. [id number] Feng Miles MD [facility] ([facility]) [address] [place] [address] [id number] 12/03/2024 11:23:58 12/05/2024 12:22:31 History of right total knee replacement [id number] 434276 Z96.651 11/29 Anemia 671703282 D64.9 pre-op hgb 13.8 drop 6.0 during surgery ,on discharge it was 9.3 Atrial fibrillation 4943 6004 I48.91 decrease trazadone 100mg q hscbc/bmp/ on sunday Edema of l ower extremity 982408827 R60.0 venous doppler on right Chronic sy stolic heart failure 400789327 I50.22 Essential hypertension 02055724 I10 Hypertensi ve heart disease with congestive heart failure 6730688 I11.0 Morbid obesity 688343722 E66.01 Insomnia 044858683 G47.0 0 Depressive disorder 3548 9007 F33.1 Coronary atherosclerosis 580343067 I25.10 Health Concerns Section Related Observation LastModified by Organization Detai ls LastModified Time None Recorded Concern Status LastModified by Organization Details LastModified Time None Recorded Advance Directives Directive None Recorded Payers Encounter Date Sequence Insurance Name Policy Number Policy [place] Covered Member ID Seg[place] Member ID Guarantor Name 04/28/2024 1 [place] - [place]PO) [id number] Bev A Fine [id number] Bev A Fine 04/28/2024 2 [place] Bev A Fine [id number] Bev A Fine 07/09/2024 1 [place] - [place] [id number] Bev A Fine [id number] Bev A Fine 07/09/2024 2 [place] Bev A Fine [id number] Bev A Fine 08/11/2024 1 [place] - [place] [id number] Bev A Fine [id number] Bev A Fine 08/11/2024 2 [place] Bev A Fine [id number] Bev A Fine 10/24/2024 1 [place] - [place]) [id number] Bev A Fine [id number] Bev A Fine 10/24/2024 2 [place] Bev A Fine [id number] Bev A Fine 12/03/2024 1 [place] - [place] [id number] Bev A Fine [id number] Bev A Fine 12/03/2024 2 [place] Bev Shetty Fine [id number] Bev Shetty Fine Notes Date Note Type Note Provider Name and Address Organization Details Recorded Time 4 text/html Hypertension IM/FMReported bypatient.Quality:here for check-up Severity:mild Onset/Timing:gradual onset Associated Symptoms:no palpitations;shortness of breath;exertional dyspnea;chest pain(at times.) Would like to have a script for Vitamin D3.Also has episodes of dizziness that come and go, would like to discuss. Feng Miles MD [address] [place] [address], [phone], [facility] 04/28/2024 15:35:42 4 text/html Back PainReported bypatient.Location:lumbar Quality:sharp; dull Severity:unchanged;pain level 6/10 Timing:chronic Has been having worsening vertigo for about a month. It waxes and wanes in severity. Feng Miles MD [address] [place] [address], [phone], [facility] 07/09/2024 15:59:28 4 text/html Hypertension IM/FMReported bypatient.Quality:here for check-up Severity:mild; Home BP Readings: 124/70, 115/78, 139/64, 141/90, 122/65, 126/77, 115/60, 122/79, 115/67, 115/73 Onset/Timing:gradual onset Alleviating Factors:medication Associated Symptoms:no palpitations; no chest pain;shortness of breath Has been going to PT and still having dizziness. She says that its a little better but still having dizziness. Feng Miles MD [address] [place] [address], [phone], [facility] 08/11/2024 16:14:07 4 text/html Hypertension IM/FMReported bypatient.Quality:here for check-up Severity:normal (<120/<80 mmHg) Onset/Timing:gradual onset Alleviating Factors:medication Associated Symptoms:no palpitations; no chest pain;exertional dyspnea Would like to discuss her dizziness. She would like to know why she is having it, she said that the meclizine helps her with that.Would like to talk about seeing a neurologist. The dizziness is persistent. Better with taking the Meclizine. Feng Miles MD [address] [place] [address], [phone], [facility] 10/24/2024 15:52:17 text/html AnemiaReported bypatient.Duration:constan t Timing:gradual Context:previous Hemoglobin:;previous Hematocrit: Associated Symptoms:shortness of breathMusculoskeletal PainReported bypatient.Location:right knee Quality:dull Severity:interferes with work/school Duration:present <1 month Timing:sudden Context:surgery Aggravating factors:movement/positioni ng Associated Symptoms:no fever; no tingling Prior Tests[facility]Treatmentsprevious [facility] R knee replacement. Her case was complicated with intraoperative bleeding. Pt states she got confused with dates of surgery and when to hold her Eliquis and likely was taking med up to the day of her surgery. Lost 1 L of blood. At one point her Hgb was 6.0. Recieved FFP and blood transfusionsToday she is ok. Her R leg is bruised and swollen from hip to ankle. She is back on low dose Eliquis. Her discharge Hgb was 9.7. Feng Miles MD [address] [place] [address], [phone], [facility] 12/04/2024 13:52:07 OBGyn Episode No OBEpisode recorded.
== END 2024-12-02 15:10 | disposition skilled nursing facility (03) | DRG 908 ==
LOC: MEDSURG 12:03 → CSU 11-30 18:02
PROVIDERS: Internal Medicine; Student in an Organized Health Care Education/Training Program; Admitting Provider Specialist; PCP Family Medicine; Visit Provider Specialist
PROC: 8E0Y0CZ Robotic Assisted Procedure of Lower Extremity, Open Approach (ICD-10-PCS; CPT 27447; principal; 2024-11-27 08:00)
DX: T81.10XA Postprocedural shock unspecified, initial encounter (principal); D62 Acute posthemorrhagic anemia; I48.0 Paroxysmal atrial fibrillation; M17.11 Unilateral primary osteoarthritis, right knee; Z79.01 Long term (current) use of anticoagulants; I10 Essential (primary) hypertension; F41.9 Anxiety disorder, unspecified; E78.5 Hyperlipidemia, unspecified; G47.33 Obstructive sleep apnea (adult) (pediatric); K21.9 Gastro-esophageal reflux disease without esophagitis; I35.0 Nonrheumatic aortic (valve) stenosis; Z75.1 Person awaiting admission to adequate facility elsewhere; E87.71 Transfusion associated circulatory overload; Z99.81 Dependence on supplemental oxygen; Y83.8 Other surgical procedures as the cause of abnormal reaction of the patient, or of later complication, without mention of misadventure at the time of the procedure; Y79.2 Prosthetic and other implants, materials and accessory orthopedic devices associated with adverse incidents; Y92.234 Operating room of hospital as the place of occurrence of the external cause
CPT/HCPCS: 36415; 36430; 51702; 71045; 73560; 74018; 80048; 80053; 80061; 81003; 82607; 82746; 83036; 83540; 83550; 83735; 83880; 84443; 85014; 85018; 85025; 86850; 86900; 86920; 87426; 93005; 96372; 97110; 97116; 97162; 97166; 97530; 97535; A4222; C1776; C9290; J0131; J0283; J0690; J1100; J1644; J1940; J2405; J2704; J3010; J3370; J3490; J7030; P9016; P9040; P9045

== ENCOUNTER → 2024-12-10 13:15 | Outpatient (BNVA) | payer MEDICARE, MEDICAID, SELFPAY | PROVIDERS: PCP Family Medicine; Visit Provider Nurse Practitioner | DX: Z98.890 Other specified postprocedural states (principal); Z96.651 Presence of right artificial knee joint | CPT/HCPCS: 73560; 73565 ==

== ENCOUNTER → 2024-12-22 16:01 | Outpatient (BNVA) | payer MEDICARE, MEDICAID, SELFPAY | PROVIDERS: PCP Family Medicine; Visit Provider Nurse Practitioner | DX: D64.9 Anemia, unspecified (principal) | CPT/HCPCS: 36415; 85025 ==

== ENCOUNTER 2024-12-26 16:05 | Emergency (ER) | payer MEDICARE, MEDICAID, SELFPAY ==
[2024-12-26 16:23] VITALS: BP 121/72; PULSE 70; RESP 70; TEMP 36.7; O2SAT 91
--- NOTE | 2024-12-26 16:53 | W.ED.EXTPRO ---
HPI - Extremity Problem General: Chief complaint: Extremity Injury, Lower Stated complaint: rt leg pain Time Seen by Provider: 12/26/24 16:49 History of Present Illness: This is an 89-year-old female with a history of hypertension and recent knee replacement who presents emergency room with concern for redness and swelling in her right knee anteriorly. She had surgery just under a month ago. She was seen in orthopedics clinic 4 days ago. [facility]. They discussed an ultrasound to rule out DVT but this apparently has not been able to be done yet so we will do that here today along with some lab work to rule out infection. Related Data Home Medications ?Medication ?Instructions ?Recorded ?Confirmed multivitamin 1 tab PO QAM 10/31/19 12/22/24 hydrocodone 5 mg-acetaminophen 325 1 tab PO Q4H PRN pain 05/07/23 12/22/24 mg tablet cetirizine 10 mg tablet (Allergy 10 mg PO QAM 05/31/23 12/22/24 Relief (cetirizine)) gabapentin 300 mg capsule 600 mg PO TID 10/12/23 12/22/24 cholecalciferol (vitamin D3) 1,250 1,250 mcg PO .weekly 08/14/24 12/22/24 mcg (50,000 unit) capsule isosorbide mononitrate 30 mg 30 mg PO DAILY 11/26/24 12/22/24 tablet,extended release 24 hr trazodone 100 mg tablet 100 mg PO BEDTIME 11/26/24 12/22/24 Previous Rx's ?Medication ?Instructions ?Recorded nitroglycerin 0.4 mg sublingual 0.4 mg sublingual Q5M PRN chest 12/29/19 tablet (Nitrostat) pain #25 tabs pantoprazole 40 mg tablet,delayed 40 mg PO BID #60 tabs 03/07/24 release duloxetine 60 mg capsule,delayed 60 mg PO QPM #30 caps 08/12/24 release (Cymbalta) amiodarone 200 mg tablet (Pacerone) 200 mg PO BID 30 days #60 tabs 12/02/24 apixaban 2.5 mg tablet 2.5 mg PO BID #14 tabs 12/02/24 apixaban 5 mg tablet 5 mg PO BID #60 tabs 12/02/24 cholecalciferol (vitamin D3) 25 1,000 unit PO DAILY 30 days #30 12/02/24 mcg (1,000 unit) tablet tabs diclofenac sodium 1 % topical gel 4 g topical TID PRN Pain 15 days 12/02/24 #100 grams metoprolol tartrate 25 mg tablet 50 mg (2 x 25 mg) PO BID 30 days 12/02/24 #120 tabs polysaccharide iron complex 150 mg 150 mg PO EVERY OTHER DAY 30 days 12/02/24 iron capsule (Ferrex) #15 caps sennosides 8.6 mg-docusate sodium 2 tab PO BID 30 days #120 tabs 12/02/24 50 mg tablet (Stool Softener-Laxative) cephalexin 500 mg tablet 500 mg PO TID 7 days #21 tabs 12/26/24 Allergies Allergy/AdvReac Type Severity Reaction Status Date / Time cyclobenzaprine Allergy Unknown Anxiety,Unk Verified 12/22/24 14:50 nown Opioids - Morphine Analogues Allergy Unknown Headache,Un Verified 12/22/24 14:50 known fentanyl Allergy Unknown Verified 12/22/24 14:50 Penicillins Allergy ALGY-Hives Verified 12/22/24 14:50 Sulfa (Sulfonamide Allergy ALGY-Hives Verified 12/22/24 14:50 Antibiotics) tramadol (From Ultra) Allergy ADR-Vomitin Verified 12/22/24 14:50 g Review of Systems Narrative: Constitutional symptoms: Negative except as documented in HPI. Skin symptoms: Negative except as documented in HPI. Eye symptoms: Negative except as documented in HPI. ENMT symptoms: Negative except as documented in HPI. Respiratory symptoms: Negative except as documented in HPI. Cardiovascular symptoms: Negative except as documented in HPI. Gastrointestinal symptoms: Negative except as documented in HPI. Genitourinary symptoms: Negative except as documented in HPI. Musculoskeletal symptoms: Negative except as documented in HPI. Neurologic symptoms: Negative except as documented in HPI. Psychiatric symptoms: Negative except as documented in HPI. Endocrine symptoms: Negative except as documented in HPI. [facility] PFSH: Medical History Unilateral primary osteoarthritis, left knee Anxiety History of skin cancer Radiculopathy Dyslipidemia Chest pain Arthritis of right hip Primary insomnia Family history of colon cancer in mother Chronic back pain GINGER (obstructive sleep apnea) Essential (primary) hypertension GERD (gastroesophageal reflux disease) Postlaminectomy syndrome, not elsewhere classified Surgical History History of bilateral inguinal hernia repair History of colonoscopy History of back surgery lumbar laminectomy, level unknown History of left inguinal hernia repair History of total left knee replacement (TKR) The [place] total knee system with a size 4 triathlon beaded posterior stabilized femur left, a triathlon titanium tibial component size 4 beaded, a triathlon X3 posterior stabilized tibial bearing insert size 4 X 13 mm and a beaded triathlon titanium asymmetric patella size 32 x 10 mm History of hysterectomy History of esophagogastroduodenoscopy (EGD) History of bladder surgery 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 with a size 4 triathlon beaded posterior stabilized femur left, a triathlon titanium tibial component size 4 beaded, a triathlon X3 posterior stabilized tibial bearing insert size 4 X 13 mm and a beaded triathlon titanium asymmetric patella size 32 x 10 mm Family History Mother CAD (coronary artery disease) Cancer colon Dementia Lung disease Grandmother CAD (coronary artery disease) Family/Other Dementia Lung disease Suicide Sister Dementia Son Lung disease Daughter Lung disease Diabetes Brother Diabetes Grandfather Stroke Other Heart disease Hypertension Denies family history of Clotting disorder Chronic kidney disease (CKD) Anesthesia complication Bleeding disorder Social History Smoking and tobacco/nicotine status: never used tobacco/nicotine Alcohol intake: never Substance/Drug Use: never Lives independently: Yes Household members: none Marital status: / Number of children: 4 Number of grandchildren: 4 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 Skin: warm and dry Head: Normocephalic Neck: Trachea midline Eye: Extraocular movements are intact. Ears, nose, mouth and throat: Oral mucosa moist Respiratory: Respirations are non-labored Musculoskeletal: Normal ROM, no deformity, incision site appears clean dry and intact. There is mild erythema on the lateral lower side of the knee. Some swelling on the lower left side of the knee. Neurological: Alert and oriented, No focal neurological deficit observed. Psychiatric: Cooperative, appropriate mood & affect. Course Vital Signs: Vital signs: Vital Signs Temperature 98.1 F 12/26/24 16:23 Pulse Rate 69 12/26/24 18:43 Respiratory Rate 70 H 12/26/24 16:23 Blood Pressure 150/83 12/26/24 18:43 Pulse Oximetry 97 12/26/24 18:43 Oxygen Delivery Me thod Nasal Cannula 12/26/24 16:23 Oxygen Flow Rate 2.5 12/26/24 16:23 MDM - Extremity (Nontraumatic) Medical Decision Making Ultrasound of the right lower extremity shows no DVT. This was reviewed and interpreted by myself the emergency room physician. I also reviewed the radiology report. X-ray of the right knee: Arthroplasty with no significant changes. Nothing acute. This was reviewed and interpreted by myself the emergency room physician. I also reviewed the radiology report. Lab Review: Laboratory results were reviewed and interpreted by myself the emergency room physician. Lab work is completely unremarkable. No leukocytosis. No elevation in ESR or CRP which would indicate no significant infection. I reviewed the patient's medical record. Reexamination: Patient remained stable. No increased work of breathing. No altered mental status. No focal motor deficits. Assessment and plan: Possible mild cellulitis on the surface of the right knee. ?Home on oral Keflex. - Discharged home - Discussed plan with patient. Answered any questions. - Evaluation and treatment of this problem were appropriate in the emergency setting. Lab Data 12/26/24 18:03 12/26/24 18:03 Radiology Impressions Venous Duplex 12/26/24 16:56 IMPRESSION: No evidence of deep vein thrombosis in the right lower extremity. Knee X-Ray 12/26/24 17:14 IMPRESSION: 1. Total right knee arthroplasty without hardware failure or loosening. 2. Joint effusion. Laboratory Results WBC 6.21 10^3/uL (3.29-11.43) 12/26/24 18:03 RBC 3.79 10^6/uL (3.85-5.65) L 12/26/24 18:03 Hgb 12.20 g/dL (11.27-16.99) 12/26/24 18:03 Hct 39.0 % (36-47) 12/26/24 18:03 MCV 102.9 fl (85-98) H 12/26/24 18:03 MCH 32.2 pg (27-33) 12/26/24 18:03 MCHC 31.3 g/dL (30-55) 12/26/24 18:03 RDW 13.9 % (12.1-15.1) 12/26/24 18:03 Plt Count 250 10^3/cmm (157-399) 12/26/24 18:03 MPV 9.7 fL (7.4-10.4) 12/26/24 18:03 Neut % (Auto) 44.0 % 12/26/24 18:03 Lymph % (Auto) 38.3 % 12/26/24 18:03 [place] % (Auto) 13.2 % 12/26/24 18:03 Eos % (Auto) 2.6 % 12/26/24 18:03 Baso % (Auto) 1.4 % 12/26/24 18:03 Neut # (Auto) 2.73 10^3/uL (1.8-7.7) 12/26/24 18:03 Lymph # (Auto) 2.4 10^3/uL (0.8-4.8) 12/26/24 18:03 [place] # (Auto) 0.8 10^3/uL (0.2-0.9) 12/26/24 18:03 Eos # (Auto) 0.2 10^3/uL (0.0-0.8) 12/26/24 18:03 Baso # (Auto) 0.1 10^3/uL (0.0-0.1) 12/26/24 18:03 Nucleated RBC % (auto) 0 % 12/26/24 18:03 Nucleated RBCs # 0.0 /100WBC 12/26/24 18:03 ESR 14 mm/hr (0-15) 12/26/24 18:03 Sodium 137 mmol/L (136-145) 12/26/24 18:03 Potassium 3.7 mmol/L (3.5-5.1) 12/26/24 18:03 Chloride 101 mmol/L (98-107) 12/26/24 18:03 Carbon Dioxide 28 mmol/L (22-29) 12/26/24 18:03 Anion Gap 11.7 (5-19) 12/26/24 18:03 BUN 12 mg/dL (8-23) 12/26/24 18:03 Creatinine 0.8 mg/dL (0.5-0.9) 12/26/24 18:03 GFR Calculation Not Reportable 12/26/24 18:03 Glucose 90 mg/dL (65-115) 12/26/24 18:03 Calculated Osmolality 283 mOsm/kg (285-295) L 12/26/24 18:03 Lactic Acid 0.8 mmol/L (0.5-2.2) 12/26/24 18:03 Calcium 9.5 mg/dL (8.5-10.5) 12/26/24 18:03 Total Bilirubin 0.3 mg/dL (0.15-1.2) 12/26/24 18:03 AST 18 U/L (0-32) 12/26/24 18:03 ALT 7 U/L (0-33) 12/26/24 18:03 Alkaline Phosphatase 85 U/L (35-105) 12/26/24 18:03 C-Reactive Protein 3.0 mg/L (0.0-4.9) 12/26/24 18:03 Total Protein 6.7 g/dL (6.6-8.7) 12/26/24 18:03 Albumin 3.8 g/dL (3.5-5.2) 12/26/24 18:03 Globulin 2.9 g/dL (1.3-4.6) 12/26/24 18:03 All radiology interpretation(s) finalized by discharge Discharge Plan Discharge Patient Disposition: Home Clinical Impression: Cellulitis Condition: Stable Prescriptions: New cephalexin 500 mg tablet 500 mg PO TID 7 Days Qty: 21 0RF No Action multivitamin Tablet 1 tab PO QAM cetirizine [Allergy Relief (cetirizine)] 10 mg tablet 10 mg PO QAM cholecalciferol (vitamin D3) 1,250 mcg (50,000 unit) capsule 1,250 mcg PO .weekly nitroglycerin [Nitrostat] 0.4 mg tablet, sublingual 0.4 mg SUBLINGUAL Q5M PRN (Reason: chest pain) Qty: 25 12RF Rx Instructions: until response; do not exceed 3 doses per episode pantoprazole 40 mg tablet,delayed release (DR/EC) 40 mg PO BID Qty: 60 1RF Rx Instructions: TAKE 1 TABLET BY MOUTH TWICE DAILY duloxetine [Cymbalta] 60 mg capsule,delayed release(DR/EC) 60 mg PO QPM Qty: 30 0RF hydrocodone-acetaminophen 5-325 mg tablet 1 tab PO Q4H MDD 4 tabs PRN (Reason: pain) gabapentin 300 mg capsule 600 mg PO TID Rx Instructions: take TWO capsules BY MOUTH THREE TIMES DAILY isosorbide mononitrate 30 mg tablet extended release 24 hr 30 mg PO DAILY Rx Instructions: TAKE 1 TABLET BY MOUTH EVERY DAY trazodone 100 mg tablet 100 mg PO BEDTIME Rx Instructions: TAKE TWO TABLETS BY MOUTH AT BEDTIME diclofenac sodium 1 % Gel 4 g topical TID PRN (Reason: Pain) 15 Days Qty: 100 1RF amiodarone [Pacerone] 200 mg Tablet 200 mg PO BID 30 Days Qty: 60 0RF polysaccharide iron complex [Ferrex 150] 150 mg iron Capsule 150 mg PO EVERY OTHER DAY 30 Days Qty: 15 0RF sennosides-docusate sodium [Stool Softener-Laxative] 8.6-50 mg Tablet 2 tab PO BID 30 Days Qty: 120 0RF metoprolol tartrate 25 mg Tablet 50 mg PO BID 30 Days Qty: 120 0RF cholecalciferol (vitamin D3) 25 mcg (1,000 unit) Tablet 1,000 unit PO DAILY 30 Days Qty: 30 0RF apixaban 2.5 mg tablet 2.5 mg PO BID Qty: 14 0RF Rx Instructions: 2.5 mg for 7 days followed by return to usual dose of 5 mg PO BID thereafter apixaban 5 mg tablet 5 mg PO BID Qty: 60 0RF Rx Instructions: FIRST DOSE ON 12/09/2023 Discharge Orders: Discharge ED (Routine); Ordered 12/26/24 Ordered By: Casandra Kent Referrals: Feng Miles MD [Primary Care Provider] - Discharge Diet: Usual diet Discharge Activity: Increase activity as tolerated Patient Instructions: Opioid Safety, Pain Management Activity Restrictions/Additional Instructions: Please follow-up with Dr. Churchill in the next few days. Call for an appointment. Thank you for choosing [facility] for your healthcare needs today. Please realize this is an emergency room and that we are providing you with a medical screening exam and this may not be complete and all inclusive of all the testing and or work up that you may need to determine your ailment or severity of your illness. You have been screened and evaluated and felt safe for discharge. Health conditions do change or evolve sometimes and as such it is important that you follow up with your Primary Doctor to be re checked, 3-5 days is a general good time frame for follow up. You are always welcome to return to the ED for re assessment if your symptoms are worsening or you have new concerns Print Language: Cymraes Coding Level of Care Code ED Mechanical Energy Engineer for Joao Torres
--- NOTE | 2024-12-26 16:56 | USR_ITS ---
PROCEDURE INFORMATION: Exam: US Duplex Right Lower Extremity Veins, Limited Exam date and time: 12/26/2024 5:08 PM Age: 89 years old Clinical indication: Swelling (edema) of limb; Lower extremity, left; Additional info: Right-sided calf pain and swelling. Concern for dvt TECHNIQUE: Imaging protocol: Real-time duplex ultrasound of the right extremity with 2-D schofield scale, color Doppler flow and spectral waveform analysis including responses to compression and other maneuvers (when performed) with image documentation. Limited exam was focused on the right lower extremity veins. COMPARISON: CT knee RT MANDA [id number] 11/14/2024 9:12 AM FINDINGS: Right deep veins: Unremarkable. The common femoral, femoral, proximal profunda femoral and popliteal veins are patent without thrombus. Normal Doppler waveforms. Normal compressibility and/or augmentation response. Superficial veins: Greater saphenous vein at the saphenofemoral junction is patent without thrombus. Soft tissues: Unremarkable. US/[place] [id number] IMPRESSION: No evidence of deep vein thrombosis in the right lower extremity.
--- NOTE | 2024-12-26 17:14 | XRR_ITS ---
PROCEDURE INFORMATION: Exam: XR Right Knee Exam date and time: 12/26/2024 5:15 PM Age: 89 years old Clinical indication: Pain; Knee; Prior surgery; Surgery date: <1 month; Surgery type: Right tka 1 mo ago; Additional info: Pain, recent knee replacement TECHNIQUE: Imaging protocol: Radiologic exam of the right knee. Views: 3 views. COMPARISON: CR XR knees AP WB w RT lmt ORTH 12/10/2024 1:18 PM FINDINGS: Bones/joints: Total right knee arthroplasty without hardware failure or loosening. Joint effusion. Soft tissues: Normal. XR/XR knee RT 3V* [id number] IMPRESSION: 1. Total right knee arthroplasty without hardware failure or loosening. 2. Joint effusion.
[2024-12-26 18:15] LABS: Basophils # 0.1 10^3/uL (0.0-0.1); Basophils % 1.4 %; Eosinophils # 0.2 10^3/uL (0.0-0.8); Eosinophils % 2.6 %; Lymphocytes # 2.4 10^3/uL (0.8-4.8); Lymphocytes % 38.3 %; Mean Corpuscular HGB Conc 31.3 g/dL (30-55); Mean Corpuscular Hemoglobin 32.2 pg (27-33); Mean Corpuscular Volume 102.9 fl (85-98); Mean Platelet Volume 9.7 fL (7.4-10.4); Monocytes # 0.8 10^3/uL (0.2-0.9); Monocytes % 13.2 %; Neutrophils # 2.73 10^3/uL (1.8-7.7); Nucleated Red Blood Cells % 0 %; Platelet Count 250 10^3/cmm (157-399); Red Blood Count 3.79 10^6/uL (3.85-5.65); Red Cell Distribution Width 13.9 % (12.1-15.1); White Blood Count 6.21 10^3/uL (3.29-11.43)
[2024-12-26 18:35] LABS: Alanine Aminotransferase 7 U/L (0-33); Albumin Level 3.8 g/dL (3.5-5.2); Alkaline Phosphatase 85 U/L (35-105); Anion Gap 11.7 (5-19); Aspartate Amino Transferase 18 U/L (0-32); Blood Urea Nitrogen 12 mg/dL (8-23); Calcium 9.5 mg/dL (8.5-10.5); Carbon Dioxide 28 mmol/L (22-29); Chloride 101 mmol/L (98-107); Globulin 2.9 g/dL (1.3-4.6); Glucose 90 mg/dL (65-115); Osmolality Calculated 283 mOsm/kg (285-295); Potassium 3.7 mmol/L (3.5-5.1); Sodium 137 mmol/L (136-145); Total Bilirubin 0.3 mg/dL (0.15-1.2); Total Protein 6.7 g/dL (6.6-8.7)
[2024-12-26 18:36] LABS: Erythrocyte Sedimentation Rate 14 mm/hr (0-15); Lactic Sepsis W/Reflex 0.8 mmol/L (0.5-2.2)
[2024-12-26 18:43] VITALS: BP 150/83; PULSE 69; O2SAT 97
[2024-12-26 20:44] VITALS: BP 160/79; PULSE 69; RESP 16; O2SAT 97
== END 2024-12-26 19:34 | disposition home or self-care (01) ==
PROVIDERS: Emergency Provider Emergency Medicine; PCP Family Medicine
DX: L03.115 Cellulitis of right lower limb (principal); E78.5 Hyperlipidemia, unspecified; I10 Essential (primary) hypertension; Z85.828 Personal history of other malignant neoplasm of skin
CPT/HCPCS: 36415; 73562; 80053; 83605; 85025; 85651; 86140; 93971; 99284

== ENCOUNTER 2025-01-01 14:28 | Outpatient (CLI) | payer MEDICARE, MEDICAID, SELFPAY ==
--- NOTE | 2025-01-01 14:45 | USCV_ITS ---
Bev Waddell Age: 89 Gender: F : 1935 Exam Date: 01/01/2025 14:36 Ordering Phys: Dee Dee Comer Technologist: JUAN Exam Location: [facility] – [place] Indication: HISTORY: Lower extremity pain. PROCEDURES: Venous duplex imaging was performed in only the right lower extremity. The following venous structures were evaluated: common femoral vein, profunda vein, proximal portion of the greater saphenous vein, superficial femoral vein, and the popliteal vein. In addition, the posterior tibial and peroneal trunk were evaluated. Serial compression, augmentation maneuvers, and spectral Doppler flow evaluation were performed. FINDINGS: No evidence of DVT seen in any vessel visualized at this time. CONCLUSIONS No evidence of right lower extremity DVT. Michael Bowman MD (Electronically Signed) Final Date: 02 January 2025 09:18 S
== END 2025-01-01 14:29 | disposition home or self-care (01) ==
PROVIDERS: PCP Family Medicine; Visit Provider Nurse Practitioner
DX: M79.89 Other specified soft tissue disorders (principal); Z96.651 Presence of right artificial knee joint
CPT/HCPCS: 93971

== ENCOUNTER → 2025-01-05 13:10 | Outpatient (BNVA) | payer MEDICARE, MEDICAID, SELFPAY | PROVIDERS: PCP Family Medicine; Visit Provider Nurse Practitioner | DX: Z96.651 Presence of right artificial knee joint (principal); Z48.89 Encounter for other specified surgical aftercare | CPT/HCPCS: 73560; 73565; 99024 ==

== ENCOUNTER → 2025-02-09 14:00 | Outpatient (BNVA) | payer MEDICARE, MEDICAID, SELFPAY | PROVIDERS: PCP Family Medicine; Visit Provider Nurse Practitioner | DX: Z48.89 Encounter for other specified surgical aftercare (principal); Z96.651 Presence of right artificial knee joint | CPT/HCPCS: 73560; 73565; 99024 ==

== ENCOUNTER → 2025-02-17 13:48 | Outpatient (BNVA) | payer MEDICARE, MEDICAID, SELFPAY | PROVIDERS: PCP Family Medicine; Visit Provider Internal Medicine Cardiovascular Disease | DX: I48.0 Paroxysmal atrial fibrillation (principal); E78.5 Hyperlipidemia, unspecified; I25.810 Atherosclerosis of coronary artery bypass graft(s) without angina pectoris; I35.0 Nonrheumatic aortic (valve) stenosis; I10 Essential (primary) hypertension; Z79.01 Long term (current) use of anticoagulants | CPT/HCPCS: 99214 ==

== ENCOUNTER 2025-02-26 08:31 | Outpatient (CLI) | payer MEDICARE, MEDICAID, SELFPAY ==
--- NOTE | 2025-02-26 08:45 | USCV_ITS ---
Bev Waddell Age: 89 Gender: F : 1935 Exam Date: 02/26/2025 08:54 Ordering Phys: Bobby Hancock MD ([email or web address]) Technologist: JUAN Exam Location: [facility] – [place] Indication: BP: 116 / 70 HR: 61 Rhythm: Sinus Technical Quality: Adequate MEASUREMENTS (Male / Female) Normal Values 2D ECHO LV Diastolic Diameter PLAX 5.6 cm 4.2 - 5.9 / 3.9 - 5.3 cm IVS Diastolic Thickness 1.2 cm 0.6 - 1.0 / 0.6 - 0.9 cm IVS Systolic Thickness 1.7 cm LVPW Diastolic Thickness 0.8 cm 0.6 - 1.0 / 0.6 - 0.9 cm LVPW Systolic Thickness 1.9 cm LVOT Diameter 1.3 cm LV Ejection Fraction 2D Teich 58.6 % LV Ejection Fraction MOD 4C 63.7 % LV Ejection Fraction MOD 2C 66.8 % LV Ejection Fraction 2C AL 68.0 % LA Diameter 3.7 cm RA Systolic Volume 4C AL 34.4 ml RA Systolic Volume 4C MOD 32.7 ml LA Sys Volume AL 47.7 cm cubed LA Sys Volume Index AL 24.5 cm cubed/m squared Aorta at Sinotubular Diameter 2.2 cm M-MODE LA Ao Ratio MM 3.0 AV Cusp Separation MM 1.0 cm DOPPLER AV Peak Velocity 206.0 cm/s LVOT Peak Velocity 92.0 cm/s AV Area Cont Eq vti 0.7 cm squared AV Area Cont Eq pk 0.6 cm squared MV Peak Velocity 110.0 cm/s MV Area PHT 3.3 cm squared Mitral E to A Ratio 0.7 TR Peak Velocity 245.0 cm/s TR Peak Gradient 24.0 mmHg TV Peak E Velocity 74.0 cm/s PV Peak Velocity 98.0 cm/s FINDINGS Left Ventricle Normal left ventricular size and systolic function, EF 67%.no regional wall motion abnormalities. Mild left ventricular hypertrophy. Grade I/IV diastolic dysfunction (abnormal relaxation filling pattern), normal to mildly elevated filling pressures. Right Ventricle Normal right ventricular size and systolic function. Right Atrium Normal right atrial size. Left Atrium Mildly increased left atrial size. Mitral Valve No gross abnormalities noted Aortic Valve Thickened aortic valve. Tricuspid Valve Trace tricuspid valve regurgitation. Estimated pulmonary artery peak systolic pressure 27 mmHg Pulmonic Valve Pulmonic valve not well visualized. Pericardium No pericardial effusion. Aorta Normal aortic annulus size. IVC Inferior vena cava not visualized. CONCLUSIONS Normal left ventricular size and systolic function, EF 67%.no regional wall motion abnormalities. Mild left ventricular hypertrophy. Grade I/IV diastolic dysfunction (abnormal relaxation filling pattern), normal to mildly elevated filling pressures. Mildly increased left atrial size. Estimated pulmonary artery peak systolic pressure 27 mmHg Trace tricuspid valve regurgitation. Thickened aortic valve. There is no pericardial effusion. There are no intracardiac masses. Compared to the previous study from 05/08/2023, there may not be a significant change Dr Bobby Hancock MD FACC (Electronically Signed) Final Date: 01 March 2025 21:45 S
== END 2025-02-26 08:32 | disposition home or self-care (01) ==
PROVIDERS: PCP Family Medicine; Visit Provider Internal Medicine Cardiovascular Disease
DX: R06.09 Other forms of dyspnea (principal); I51.7 Cardiomegaly; R93.1 Abnormal findings on diagnostic imaging of heart and coronary circulation; I35.8 Other nonrheumatic aortic valve disorders
CPT/HCPCS: 93306

== ENCOUNTER → 2025-04-03 12:51 | Outpatient (BNVA) | payer MEDICARE, MEDICAID, SELFPAY | PROVIDERS: PCP Family Medicine; Visit Provider Nurse Practitioner | DX: Z96.651 Presence of right artificial knee joint (principal); Z48.89 Encounter for other specified surgical aftercare | CPT/HCPCS: 99213 ==

== ENCOUNTER → 2025-05-06 09:49 | Outpatient (BNVA) | payer MEDICARE, MEDICAID, SELFPAY | PROVIDERS: PCP Family Medicine; Referring Provider Family Medicine; Visit Provider Specialist | DX: R42 Dizziness and giddiness (principal); G31.84 Mild cognitive impairment of uncertain or unknown etiology | CPT/HCPCS: 36415; 82542; 82550; 82607; 82746; 83520; 85651; 99204 ==

== ENCOUNTER 2025-07-23 14:26 | Emergency (ER) | payer MEDICARE, MEDICAID, SELFPAY ==
--- NOTE | 2025-07-23 14:23 | ECG_ITS ---
[facility]: 2025-07-23 Pat Name: Bev Waddell Department: Room: Gender: Female Operating Room Registered Nurse: : 1935 Requested By: Efrain Koch Order Number: [id number] Marcelo MD: Leeroy Garcia M.D. Measurements Intervals [place] Rate: 71 P: 100 DE: 179 QRS: 66 QRSD: 101 T: 75 QT: 395 QTc: 430 Interpretive Statements SINUS RHYTHM POSSIBLE RIGHT VENTRICULAR CONDUCTION DELAY [RSR (QR) IN V1/V2] POSSIBLE LATERAL MYOCARDIAL INFARCTION , OF INDETERMINATE AGE [30 ms Q WAVE IN I/aVL/V5/V6] Compared to ECG 11/30/2024 15:05:33 Myocardial infarct finding now present Atrial fibrillation no longer present T-wave abnormality no longer present Electronically Signed On 07-25-2025 13:10:37 CDT by Leeroy Garcia M.D. [email or web address]
[2025-07-23 14:28] VITALS: BP 130/68; PULSE 69; RESP 16; O2SAT 94
--- NOTE | 2025-07-23 14:32 | ED_ITS ---
HPI - General Adult 2 General: Chief complaint: Weakness Stated complaint: headache - n/v History of Present Illness: 89-year-old female presents emergency ro om she is listed as having headache and nausea vomiting is her primary complaint but when I went to talk to the patient she primarily complains about dizziness. This has been a longstanding issue. She cannot really identify anything for me in particular that precipitates other than when she first stands up. Patient has been seen by neurology earlier this summer on May 06 that note was reviewed. Patient had unexplained vertigo. There is also some concern for dementia. Associated symptoms: Deny chest pain, dyspnea or rash Related Data Home Medications ?Medication ?Instructions ?Recorded ?Confirmed multivitamin 1 tab PO QAM 10/31/19 hydrocodone 5 mg-acetaminophen 325 1 tab PO Q4H PRN pa in 05/07/23 05/06/25 mg tablet cetirizine 10 mg tablet (Allergy 10 mg PO QAM 05/31/23 05/06/25 Relief (cetirizine)) gabapentin 300 mg capsule 600 mg PO TID 10/12/2305/06 cholecalciferol (vitamin D3) 1,250 1,250 mcg PO .weekl y 08/14/24 05/06/25 mcg (50,000 unit) capsule trazodone 100 mg tablet 100 mg PO BEDTIME 11/26/24 0 05/06/25 amlodipine 2.5 mg tablet 2.5 mg PO DAILY 02/17/2512/30 Previous Rx's ?Medication ?Instructions ?Recorded nitroglycerin 0.4 mg sublingual 0.4 mg sublingual Q5M PRN chest 12/29/19 tablet (Nitrostat) pain #25 tabs pantoprazole 40 mg tablet,delayed 40 mg PO BID #60 tab s 03/07/24 release duloxetine 60 mg capsule,delayed 60 mg PO QPM #30 caps 08/12/24 release (Cymbalta) apixaban 5 mg tablet 5 mg PO BID #60 tabs 5 Allergies Allergy/AdvReac Type Severity Reaction Status Date / Time cyclobenzaprine Allergy Unknown Anxiety,Unk Verified 05/06/25 09:51 nown Opioids - Morphine Analogues Allergy Unknown Headache,Un Verified 05/06/25 09:51 known fentanyl Allergy Unknown Verified 05/06/25 09:51 Penicillins Allergy ALGY-Hives Verified 05/06/25 09:51 Sulfa (Sulfonamide Allergy ALGY-Hives Verified 05/06/25 09:51 Antibiotics) tramadol (From Ultram) Allergy ADR-Vomitin Verified 05/06/25 09:51 g Review of Systems 2 Const: Denies: fever(s) or chills Card: Denies: chest pain Resp: Denies: dyspnea GI: Denies: abdominal pain : Denies: dysuria, urinary frequency or urinary urgency Musc: Denies: neck pain or back pain Skin/Breast: Denies: rash PFSH ED 2 PFSH: Medical History Unilateral primary osteoarthritis, left knee Anxiety History of skin cancer Radiculopathy Dyslipidemia Chest pain Arthritis of right hip Primary insomnia Family history of colon cancer in mother Chronic back pain GINGER (obstructive sleep apnea) Essential (primary) hypertension GERD (gastroesophageal reflux disease) Postlaminectomy syndrome, not elsewhere classified Surgical History History of bilateral inguinal hernia repair History of colonoscopy History of back surgery lumbar laminectomy, level unknown History of left inguinal hernia repair 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 with a size 4 triathlon beaded posterior stabilized femur left, a triathlon titanium tibial component size 4 beaded, a triathlon X3 posterior stabilized tibial bearing insert size 4 X 13 mm and a beaded triathlon titanium asymmetric patella size 32 x 10 mm History of hysterectomy History of esophagogastroduodenoscopy (EGD) History of bladder surgery 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 with a size 4 triathlon beaded posterior stabilized femur left, a triathlon titanium tibial component size 4 beaded, a triathlon X3 posterior stabilized tibial bearing insert size 4 X 13 mm and a beaded triathlon titanium asymmetric patella size 32 x 10 mm Family History Mother CAD (coronary artery disease) Cancer colon Dementia Lung disease Grandmother CAD (coronary artery disease) Family/Other Dementia Lung disease Suicide Sister Dementia Son Lung disease Daughter Lung disease Diabetes Brother Diabetes Grandfather Stroke Other Heart disease Hypertension Denies family history of Clotting disorder Chronic kidney disease (CKD) Anesthesia complication Bleeding disorder Social History Smoking and tobacco/nicotine status: never used tobacco/nicotine Alcohol intake: never Substance/Drug Use: never Lives independently: Yes Household members: none Marital status: / Number of children: 4 Number of grandchildren: 4 Current occupational status: retired 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 Physical Exam 2 Const: GENERAL APPEARANCE: cooperative ORIENTATION/CONSCIOUSNESS: Yes awake HENMT: COMMON NORMALS: normocephalic, atraumatic and hearing grossly normal bilaterally HEAD & SCALP: normocephalic and atraumatic Resp: COMMON NORMALS: normal respiratory effort, No retractions, No use of accessory muscles and clear to auscultation bilaterally AUSCULTATION: clear to auscultation bilaterally Cardio: COMMON NORMALS: regular rate, regular rhythm and No murmurs present (Cardio) RATE: regular rate RHYTHM: regular rhythm GI: COMMON NORMALS: Soft to palpation and No hepatosplenomegaly present A USCULTATION: Yes normoactive bowel sounds PALPATION: Yes Soft to palpation, No Tenderness to palpation present (GI), No Guarding due to palpation present (GI) and Yes No hepatosplenomegaly present Extremity: COMMON NORMALS: normal to inspection, capillary refill normal, no clubbing, cyanosis or edema, no calf tenderness and no pedal edema Skin: COMMON NORMALS: no rashes or lesions noted GENERAL SKIN EXAM: no rashes or lesions noted Course 2 Vital Signs: Vital signs: Vital Signs Temperature 97.6 F 07/23/25 14:35 Pulse Rate 65 07/23/25 16:06 Respiratory Rate 16 07/23/25 14:28 Blood Pressure 108/77 07/23/25 16:06 Pulse Oximetry 92 07/23/25 16:06 Oxygen Delivery Me thod Room Air 07/23/25 14:28 MDM - General Adult Medical Decision Making Patient states she is feeling much better now she is not having any dizziness at this time she does not have a headache. Initially in the stated complaints that she had headache although she denied this to me when I initially seen her and when I reevaluated after blood work was complete. Reviewing her chart she has had extensive workup for this in the past she has seen neurology. Workup today does not show anything acute we will discharge patient home have her follow-up with her primary care doctor she states she has an appointment tomorrow Medical Records I reviewed the patient's medical records. Lab Data I reviewed the patient's lab results. 07/23/25 14:40 07/23/25 14:[address] 07/23/25 14:40 IMPRESSION: 1. No acute intracranial hemorrhage or edema. 2. Mild cerebral atrophy and small vessel disease. Laboratory Results WBC 6.46 10^3/uL (3.29-11.43) 07/23/25 14:40 RBC 4.39 10^6/uL (3.85-5.65) 07/23/25 14:40 Hgb 14.10 g/dL (11.27-16.99) 07/23/25 14:40 Hct 43.5 % (36-47) 07/23/25 14:40 MCV 99.1 fl (85-98) H 07/23/25 14:40 MCH 32.1 pg (27-33) 07/23/25 14:40 MCHC 32.4 g/dL (30-55) 07/23/25 14:40 RDW 12.8 % (12.1-15.1) 07/23/25 14:40 Plt Count 200 10^3/cmm (157-399) 07/23/25 14:40 MPV 9.4 fL (7.4-10.4) 07/23/25 14:40 Neut % (Auto) 43.6 % 07/23/25 14:40 Lymph % (Auto) 43.8 % 07/23/25 14:40 [place] % (Auto) 8.5 % 07/23/25 14:40 Eos % (Auto) 2.2 % 07/23/25 14:40 Baso % (Auto) 1.4 % 07/23/25 14:40 Neut # (Auto) 2.82 10^3/uL (1.8-7.7) 07/23/25 14:40 Lymph # (Auto) 2.8 10^3/uL (0.8-4.8) 07/23/25 14:40 [place] # (Auto) 0.6 10^3/uL (0.2-0.9) 07/23/25 14:40 Eos # (Auto) 0.1 10^3/uL (0.0-0.8) 07/23/25 14:40 Baso # (Auto) 0.1 10^3/uL (0.0-0.1) 07/23/25 14:40 Nucleated RBC % (auto) 0 % 07/23/25 14:40 Nucleated RBCs # 0.0 /100WBC 07/23/25 14:40 Sodium 139 mmol/L (136-145) 07/23/25 14:40 Potassium 4.2 mmol/L (3.5-5.1) 07/23/25 14:40 Chloride 101 mmol/L (98-107) 07/23/25 14:40 Carbon Dioxide 26 mmol/L (22-29) 07/23/25 14:40 Anion Gap 16.2 (5-19) 07/23/25 14:40 BUN 14 mg/dL (8-23) 07/23/25 14:40 Creatinine 0.8 mg/dL (0.5-0.9) 07/23/25 14:40 GFR Calculation Not Reportable 07/23/25 14:40 Glucose 104 mg/dL (65-115) 07/23/25 14:40 Calculated Osmolality 289 mOsm/kg (285-295) 07/23/25 14:40 Calcium 9.4 mg/dL (8.5-10.5) 07/23/25 14:40 Total Bilirubin 0.3 mg/dL (0.15-1.2) 07/23/25 14:40 AST 21 U/L (0-32) 07/23/25 14:40 ALT 9 U/L (0-33) 07/23/25 14:40 Alkaline Phosphatase 59 U/L (35-105) 07/23/25 14:40 Total Protein 7.1 g/dL (6.6-8.7) 07/23/25 14:40 Albumin 4.0 g/dL (3.5-5.2) 07/23/25 14:40 Globulin 3.1 g/dL (1.3-4.6) 07/23/25 14:40 All radiology interpretation(s) finalized by discharge EKG Data EKG 1: Interpretation: EKG 07/23/2025 1519 sinus rhythm rate of 71 [place] interval 179 QTc 430. Q waves in V45 and 6. Q waves in 4 5 and 6 are new compared EKG reviewed from 11/30/2024. Computer generated interpretation: Head CT 07/23/25 14:40 IMPRESSION: 1. No acute intracranial hemorrhage or edema. 2. Mild cerebral atrophy and small vessel disease. Discharge Plan Discharge Patient Disposition: Home Clinical Impression: Dizziness, Mild cognitive impairment with memory loss Condition: Stable Prescriptions: No Action multivitamin Tablet 1 tab PO QAM cetirizine [Allergy Relief (cetirizine)] 10 mg tablet 10 mg PO QAM cholecalciferol (vitamin D3) 1,250 mcg (50,000 unit) capsule 1,250 mcg PO .weekly amlodipine 2.5 mg tablet 2.5 mg PO DAILY nitroglycerin [Nitrostat] 0.4 mg tablet, sublingual 0.4 mg SUBLINGUAL Q5M PRN (Reason: chest pain) Qty: 25 12RF Rx Instructions: until response; do not exceed 3 doses per episode pantoprazole 40 mg tablet,delayed release (DR/EC) 40 mg PO BID Qty: 60 1RF Rx Instructions: TAKE 1 TABLET BY MOUTH TWICE DAILY duloxetine [Cymbalta] 60 mg capsule,delayed release(DR/EC) 60 mg PO QPM Qty: 30 0RF hydrocodone-acetaminophen 5-325 mg tablet 1 tab PO Q4H MDD 4 tabs PRN (Reason: pain) gabapentin 300 mg capsule 600 mg PO TID Rx Instructions: take TWO capsules BY MOUTH THREE TIMES DAILY trazodone 100 mg tablet 100 mg PO BEDTIME Rx Instructions: TAKE TWO TABLETS BY MOUTH AT BEDTIME apixaban 5 mg tablet 5 mg PO BID Qty: 60 0RF Rx Instructions: FIRST DOSE ON 12/09/2023 Discharge Orders: Discharge ED (Routine); Ordered 07/23/25 Ordered By: Efrain Long Referrals: Feng Miles MD [Primary Care Provider, Family Practice] Discharge Diet: Usual diet Discharge Activity: Resume usual activity Patient Instructions: Opioid Safety, Pain Management, Patient Portal & Regis Instructions Activity Restrictions/Additional Instructions: Thank you for choosing [facility] for your healthcare needs today. It is very important that you follow up as instructed or that you return to the Emergency Department should you have concerns or if your condition changes or worsens in any way. Emergency department visits are focused on emergent conditions, in some cases you may require further evaluation on an outpatient basis. He was seen in the emergency room with complaints of dizziness. Reviewing her chart this has been going on for some time. There are no new findings CT of your head did not show any acute (Please note that included in your discharge packet is information concerning opioid safety and pain management. This information is given to all patients were discharged from the ER regardless of their discharge diagnosis or the medicines they usually take or are prescribed.) Print Language: Maori Coding Level of Care Code ED Patient Accounting Representative for Joao Torres
[2025-07-23 14:35] VITALS: TEMP 36.4
[2025-07-23 14:40] VITALS: BP 108/70; BP 126/88; BP 129/96; PULSE 71; PULSE 72; PULSE 75
--- NOTE | 2025-07-23 14:40 | CT_ITS ---
WS: [id number] CT HEAD NONCONTRAST HISTORY: Dizziness TECHNIQUE: Contiguous axial imaging performed through the brain. Bone and soft tissue windows. Sagittal and coronal reformats reviewed. All CT scans at [facility] use at least one of these dose optimization techniques: automated exposure control; mA and/or kV adjustment per patient size (includes targeted exams where dose is matched to clinical indication); or iterative reconstruction. DLP: 1106.58 mGy.cm COMPARISON: 04/16/2024 No acute intracranial hemorrhage, midline shift or mass effect. Mild symmetric cerebral atrophy. Mild small vessel disease. No prior infarct. Ventricles: Normal size with no hydrocephalus. Paranasal sinuses: As visualized are clear. Mastoid air cells: Well pneumatized. Calvarium and scalp: Skull is intact with no soft tissue edema or swelling. CT/CT head wo con* [id number] IMPRESSION: 1. No acute intracranial hemorrhage or edema. 2. Mild cerebral atrophy and small vessel disease.
[2025-07-23 14:49] LABS: Hematocrit 43.5 % (36-47); Hemoglobin 14.10 g/dL (11.27-16.99); Mean Corpuscular HGB Conc 32.4 g/dL (30-55); Mean Corpuscular Hemoglobin 32.1 pg (27-33); Mean Corpuscular Volume 99.1 fl (85-98); Nucleated Red Blood Cells % 0 %; Platelet Count 200 10^3/cmm (157-399); Red Blood Count 4.39 10^6/uL (3.85-5.65); White Blood Count 6.46 10^3/uL (3.29-11.43)
[2025-07-23 15:05] VITALS: BP 129/96; PULSE 75; O2SAT 97
[2025-07-23 15:08] LABS: Alanine Aminotransferase 9 U/L (0-33); Albumin Level 4.0 g/dL (3.5-5.2); Alkaline Phosphatase 59 U/L (35-105); Blood Urea Nitrogen 14 mg/dL (8-23); Calcium 9.4 mg/dL (8.5-10.5); Carbon Dioxide 26 mmol/L (22-29); Chloride 101 mmol/L (98-107); Creatinine Clr Calc Pharmacy 50.8424; Globulin 3.1 g/dL (1.3-4.6); Glucose 104 mg/dL (65-115); Osmolality Calculated 289 mOsm/kg (285-295); Sodium 139 mmol/L (136-145); Total Protein 7.1 g/dL (6.6-8.7)
[2025-07-23 15:12] LABS: Anion Gap 16.2 (5-19); Aspartate Amino Transferase 21 U/L (0-32); Potassium 4.2 mmol/L (3.5-5.1)
[2025-07-23 16:06] VITALS: BP 108/77; PULSE 65; O2SAT 92
== END 2025-07-23 16:07 | disposition home or self-care (01) ==
PROVIDERS: Emergency Provider Family Medicine; PCP Family Medicine
DX: R42 Dizziness and giddiness (principal); G31.84 Mild cognitive impairment of uncertain or unknown etiology; E78.5 Hyperlipidemia, unspecified; I10 Essential (primary) hypertension; Z85.828 Personal history of other malignant neoplasm of skin
CPT/HCPCS: 36415; 70450; 80053; 85025; 93005; 96374; 99285; J0780

== ENCOUNTER → 2025-08-12 08:52 | Outpatient (BNVA) | payer MEDICARE, MEDICAID, SELFPAY | PROVIDERS: PCP Family Medicine; Referring Provider Family Medicine; Visit Provider Specialist | DX: R42 Dizziness and giddiness (principal); G31.84 Mild cognitive impairment of uncertain or unknown etiology | CPT/HCPCS: 99214 ==

== ENCOUNTER 2025-10-05 05:00 | Outpatient (RCR) | payer MEDICARE, MEDICAID, SELFPAY | END 2025-11-04 23:59 | disposition home or self-care (01) | LOC: SPT 05:00 | PROVIDERS: PCP Family Medicine; Visit Provider Nurse Practitioner | DX: Z47.1 Aftercare following joint replacement surgery (principal); Z96.651 Presence of right artificial knee joint | CPT/HCPCS: 97110; 97161 ==

== ENCOUNTER → 2025-10-16 11:35 | Outpatient (BNVA) | payer MEDICARE, MEDICAID, SELFPAY | PROVIDERS: PCP Family Medicine; Visit Provider Nurse Practitioner | DX: Z47.89 Encounter for other orthopedic aftercare (principal); Z96.651 Presence of right artificial knee joint; M62.81 Muscle weakness (generalized) | CPT/HCPCS: 73560; 73565; 99214 ==

== ENCOUNTER → 2025-11-02 16:23 | Outpatient (BNVA) | payer MEDICARE, MEDICAID, SELFPAY | PROVIDERS: PCP Family Medicine; Visit Provider Nurse Practitioner Family | DX: I25.10 Atherosclerotic heart disease of native coronary artery without angina pectoris (principal); I10 Essential (primary) hypertension; R07.9 Chest pain, unspecified; E78.5 Hyperlipidemia, unspecified; J44.9 Chronic obstructive pulmonary disease, unspecified; I48.0 Paroxysmal atrial fibrillation; Z79.01 Long term (current) use of anticoagulants | CPT/HCPCS: 99214 ==